=== PATIENT | male | born 1980 | race Caucasian/White ===

== ENCOUNTER 2025-10-16 18:24 | Inpatient (IN) | payer OTHER, SELFPAY ==
[2025-10-16 18:25] VITALS: BP 125/75; PULSE 86; RESP 20; TEMP 38.3; O2SAT 100; BMI 28.8
--- NOTE | 2025-10-16 18:30 | EX.ED.DYSGE1 ---
HPI History of Present Illness Chief Complaint: General Illness PFSH PFS Home Medications ?Medication ?Instructions ?Recorded ?Last Taken ?Type butalbital 50 mg-acetaminophen 325 1 tab PO .COMPLEX PRN pain 07/19/25 Unknown History mg tablet (Tencon) fluoxetine 20 mg capsule 20 mg PO DAILY 07/19/25 Unknown History Allergy/AdvReac Type Severity Reaction Status Date / Time No Known Allergies Allergy Verified 10/16/25 18:26 Social History (System 07/27/25 @ 05:46 by Wendy Devine) Smoking Status: Never smoker EXAM Physical Exam Const Vital Signs: 10/16/25 18:25 Temperature 100.9 F H Temperature Source Oral Pulse Rate 86 Respiratory Rate 20 H Blood Pressure 125/75 H Blood Pressure Mean 91 Pulse Ox 100 Oxygen Delivery Method Room Air [facility] Narrative Medical decision making narrative: HISTORY OF PRESENT ILLNESS: Chief complaint: Fever, fatigue and bodyaches 45-year-old male with no significant past medical history presents with fever, fatigue and bodyaches for 1 week. He states REVIEW OF SYSTEMS: Pertinent positives: Fever, fatigue and body ache Pertinent negatives: [] PHYSICAL EXAM: Nursing triage notes reviewed, Vital signs reviewed Constitutional: please see mdm HENT: MMM Eyes: Pupils equal round and reactive to light, Extraocular muscles intact Neck: No stridor, no JVD, full neck ROM Lungs: Clear to auscultation, No wheezing or rales. No increased work of breathing, no conversational dyspnea, no accessory muscle use, no nasal flaring. No respiratory distress noted Heart: Regular rate and rhythm, No murmurs, No rubs and No gallops, 2+ distal pulses (radial, femoral, posterior tibial) in all extremities Abdomen: Soft, there is no tenderness, rigidity, rebound or guarding, no obvious peritoneal signs, no palpable pulsatile abdominal masses, no auscultated abdominal bruit : No CVAT Extremities: No edema Neuro: No new focal neurological deficits, cranial nerves II through XII intact, 5/5 strength in all present extremities. Intact sensation to light touch in all present extremities, 2+ reflexes bilateral patella tendons. Skin: No rash or lesions noted MEDICAL DECISION MAKING: Chief Complaint: please see HPI External records reviewed: [] Factors affecting care: none [] Social determinants of health: none [] History obtained from others: none [] Consults: none [] [facility] Narrative: [] I considered the following differential diagnosis: [] I obtained [] to further determine if the patient was suffering from a life-threatening etiology. [] ALL IMAGES (IF OBTAINED) HAVE BEEN PERSONALLY REVIEWED AND INTERPRETED BY MYSELF. [] The patient and/or family, caregivers express understanding. The patient and/or family, caregivers agrees with the plan. Shared decision making: I will have a discussion with the patient and or visitors regarding risk/benefits of further testing or admission. They will be made aware of of the risk/benefits inherent in this decision they will be given the opportunity to voice understanding. Total critical care time today provided was at least 0 [] minutes. This excludes separately billable procedures. Critical care time (if documented) is secondary to the patient having high probability of clinically significant/life threatening deterioration in the patient's condition which required my urgent intervention. Impression: 1. [] 2. [] [] Dispo: [] This note was generated with Dapper dictation software. It may contain incorrect words, spelling, and punctuation that were not noted in review of the chart prior to signing. Discharge Plan Triage Chief Complaint: General Illness ED Provider: Vijay Teresa Dx/Rx/DC Orders Prescriptions: No Action fluoxetine 20 mg capsule 20 mg PO DAILY butalbital-acetaminophen [Tencon] 50-325 mg tablet 1 tab PO .COMPLEX PRN (Reason: pain) Rx Instructions: 1 TAB orally at onset of headache PRN; max 2 tabs daily Primary Care Provider: Larry Dickinson Referrals: Larry Dickinson MD [Primary Care Provider, Medical] Print Language: Nepalese
--- NOTE | 2025-10-16 19:39 | EDS_ITS ---
HPI History of Present Illness Chief Complaint: General Illness [facility] Medical History (Updated 10/16/25 @ 20:09 by Irina Steinberg) Hx of cancer of lung History of brain tumor Cancer of kidney Home Medications ?Medication ?Instructions ?Recorded ?Last Taken ?Type fluoxetine 20 mg capsule 20 mg PO DAILY 07/19/25 Unkn own History levetiracetam 500 mg tablet 500 mg PO BID 10/16/25 Unk nown History Allergy/AdvReac Type Severity Reaction Status Date / Time No Known Allergies Allergy Verified 10/16/25 18:26 Social History (System 07/27/25 @ 05:46 by Wendy Devine) Smoking Status: Former smoker EXAM Physical Exam Const Vital Signs: 10/16/25 18:25 10/16/25 20:00 10/16/25 20:00 Temperature 100.9 F H 100.7 F H Temperature Source Oral Oral Pulse Rate 86 86 Respiratory Rate 20 H 18 Respiratory Effort Normal Non-Labored Respiratory Pattern Normal Blood Pressure 125/75 H 112/82 H Blood Pressure Mean 91 92 Pulse Ox 100 100 Oxygen Delivery Method Room Air Room Air 10/16/25 21:00 10/16/25 22:00 10/16/25 23:00 Temperature 100.1 F H 99 F 98.9 F Temperature Source Oral Oral Oral Pulse Rate 83 85 78 Respiratory Rate 18 16 18 Respiratory Effort Respiratory Pattern Blood Pressure 115/69 110/73 124/74 H Blood Pressure Mean 84 85 90 Pulse Ox 98 94 96 Oxygen Delivery Method Room Air Room Air Room Air 10/16/25 23:21 Temperature 98.9 F Temperature Source Pulse Rate 78 Respiratory Rate 18 Respiratory Effort Respiratory Pattern Blood Pressure 124/74 H Blood Pressure Mean 90 Pulse Ox 96 Oxygen Delivery Method MDM MDM MDM Narrative Medical decision making narrative: HISTORY OF PRESENT ILLNESS: Chief complaint: Fever 45-year-old male history anxiety presents with fever, fatigue and bodyaches 1 week. He further states he is currently undergoing immunotherapy at [facility] by Dr. Woody for renal cancer. His last treatment was 3 weeks ago. He notes his recent blood work showed white blood cell count of only 2. He notes persistent fever with no obvious source of infection but does note chills and severe muscle aches. Notes a slight sore throat. Denies cough or shortness of breath. Denies abdominal pain. [place] vomiting. Denies urinary complaints. No hematuria. NO flank pain. REVIEW OF SYSTEMS: Pertinent positives: Fever, fatigue, body aches Pertinent negatives: As per [facility] PHYSICAL EXAM: Nursing triage notes reviewed, Vital signs reviewed Constitutional: please see [facility] HENT: MMM Eyes: Pupils equal round and reactive to light, Extraocular muscles intact Neck: No stridor, no JVD, full neck ROM Lungs: Clear to auscultation, No wheezing or rales. No increased work of breathing, no conversational dyspnea, no accessory muscle use, no nasal flaring. No respiratory distress noted Heart: Regular rate and rhythm, No murmurs, No rubs and No gallops, 2+ distal pulses (radial, femoral, posterior tibial) in all extremities Abdomen: Soft, there is no tenderness, rigidity, rebound or guarding, no obvious peritoneal signs, no palpable pulsatile abdominal masses, no auscultated abdominal bruit : No CVAT Extremities: No edema Neuro: No new focal neurological deficits, cranial nerves II through XII intact, 5/5 strength in all present extremities. Intact sensation to light touch in all present extremities, 2+ reflexes bilateral patella tendons. Skin: No rash or lesions noted MEDICAL DECISION MAKING: Chief Complaint: please see [facility] External records reviewed: Reviewed prior ED visit Factors affecting care: as per [facility] Social determinants of health: none History obtained from others: none Consults: Internal Medicine (Dr. Hola Gonzalez) [facility] Narrative: The patient was initially febrile otherwise hemodynamically stable. He was doctoring 100% room air. Exam no clear source of infection. The patient did not appear toxic or septic. I considered the following differential diagnosis: Neutropenic fever, COVID/RSV/flu, pneumonia, bacteremia, rhabdomyolysis I obtained a broad lab and imaging workup to further determine if the patient was suffering from a life-threatening etiology. Sepsis order set used. Initially assisted patient with IV fluids and Toradol for fever control. ALL IMAGES (IF OBTAINED) HAVE BEEN PERSONALLY REVIEWED AND INTERPRETED BY MYSELF. BMP with acute kidney injury with a creatinine of 2.2 from a baseline approximately 1 on prior studies. No significant electrolyte abnormalities. No sign of endorgan damage No coagulopathy CBC with no leukocytosis or neutropenia, noted stable anemia, no thrombocytopenia Liver enzymes slightly elevated CK within normal limits no sign of rhabdomyolysis Lipase is wnl indicating no pancreatic inflammation. Urinalysis shows no evidence of urinary inflammation suggestive of UTI COVID/flu/RSV negative Added an additional 1 L NS for ongoing hydration. Given the patient's acute kidney injury in the setting of relative immunocompromise and renal cancer I opted to admit the patient for IV hydration and close lab monitoring. Also thought it would benefit the patient to come in to the hospital to await cultures as well. Discussed with hospitalist who accepted for admission. The patient and/or family, caregivers express understanding. The patient and/or family, caregivers agrees with the plan. Shared decision making: I will have a discussion with the patient and or visitors regarding risk/benefits of further testing or admission. They will be made aware of of the risk/benefits inherent in this decision they will be given the opportunity to voice understanding. Total critical care time today provided was at least 0 minutes. This excludes separately billable procedures. Critical care time (if documented) is secondary to the patient having high probability of clinically significant/life th reatening deterioration in the patient's condition which required my urgent intervention. Impression: 1. Fever 2. Acute kidney injury 3. History of renal cancer Dispo: Admit to [facility] This note was generated with [employer]ende[employer] dictation software. It may contain incorrect words, spelling, and punctuation that were not noted in review of the chart prior to signing. Lab Data Labs: Laboratory Results - last 24 hr 10/16/25 10/16/25 10/16/25 20:05 20:08 21:05 WBC 4.3 L RBC 3.53 L Hgb 8.7 L Hct 27.7 L MCV 78.5 L MCH 24.6 L MCHC 31.4 L RDW Std Deviation 43.0 RDW Coeff of Benigno 14.9 H Plt Count TNP MPV TNP Immature Gran % (Auto) 0.500 Neut % (Auto) 58.1 Lymph % (Auto) 29.4 Kings % (Auto) 8.3 Eos % (Auto) 3.2 Baso % (Auto) 0.5 Absolute Neuts (auto) 2.5 Absolute Lymphs (auto) 1.27 Nucleated RBC % 0 Platelet Estimate ADEQUATE PT 14.5 INR 1.1 APTT 31.7 Sodium 135 Potassium 4.4 Chloride 102 Carbon Dioxide 21.8 Anion Gap 12 BUN 35 H Creatinine 2.20 H Estim Creat Clear Calc 39.17 L Est GFR (MDRD) Non-Af 36 L BUN/Creatinine Ratio 15.9 Glucose 91 Lactic Acid 1.2 Calcium 9.2 Total Bilirubin 0.31 AST 100 H ALT 140 H Alkaline Phosphatase 261 H Total Creatine Kinase 22 L Total Protein 7.2 Albumin 3.7 Globulin 3.4 Albumin/Globulin Ratio 1.1 Lipase 38 Urine Color Yellow Urine Clarity Sl. Cloudy Urine pH 5.0 Ur Specific [place] 1.020 Urine Protein 100 H Urine Glucose (UA) Normal Urine Ketones 5 H Urine Occult Blood 10 H Urine Nitrite Negative Urine Bilirubin 1 H Urine Urobilinogen Normal Ur Leukocyte Esterase 25 H Urine RBC 0-5 SEEN Urine WBC 0-5 SEEN Ur Squamous Epith Cells 0-5 SEEN Amorphous Sediment 2+ Urine Bacteria 2+ Urine Mucus 0 SEEN Radiography Diagnostic Testing: Clinical Impression(s) from Imaging Studies Chest X-Ray 10/16/25 20:20 IMPRESSION: No Acute Findings. Reading Location: [facility] Discharge Plan Triage Chief Complaint: General Illness ED Provider: Vijay Teresa Dx/Rx/DC Orders Prescriptions: No Action fluoxetine 20 mg capsule 20 mg PO DAILY levetiracetam 500 mg tablet 500 mg PO BID Primary Care Provider: Larry Dickinson Referrals: Larry Dickinson MD [Primary Care Provider, Medical] Print Language: Turkmen
--- NOTE | 2025-10-16 19:51 | EKG12_ITS ---
Test Reason : FEVER Blood Pressure : */* mmHG Vent. Rate : 82 BPM Atrial Rate : 82 BPM P-R Int : 158 ms QRS Dur : 80 ms QT Int : 370 ms P-R-T Axes : 48 35 30 degrees QTcB Int : 432 ms Normal sinus rhythm Normal ECG Confirmed by Arjun Sahu ([id number]), newspaper photo editor EVENS HENSON ([id number]) on 10/23/2025 6:49:35 AM Referred By: NIKI Confirmed By: Arjun Shau
[2025-10-16 20:00] VITALS: BP 112/82; PULSE 86; RESP 18; TEMP 38.2; O2SAT 100
[2025-10-16] MEDS: 0.9% Normal Saline (500mL Bag) 500 ML 1000 ML IV (20:15)
--- OUTSIDE RECORDS SUMMARY | 2025-10-16 20:17 | XMS RPT_ITS | CCD ---
Author Organization [facility] Care Team Providers Care Station Usher Name Role Phone GREG ARRINGTON Unavailable KIRAN FOUNTAIN MD Unavailable Jo BOWIE MD Unavailable Jayden CHAUDHARI, Zoraida Unavailable Unavailable Remigio RN, Shea Unavailable Unavaila monster Mendoza RN, Patti Unavailable Unavailable Unavailable Unavailable ROCKY FOUNTAIN MD Unavailable GREG ARRINGTON Unavailable Unav SOLANGE Penn MD Unavailable FOUNTAINNANCYROCKY T Admitting Unavailable FOUNTAIN, ROCKY T Primary Care Unavailable FOUNTAIN, ROCKY T Consulting Unavailable FOUNTAIN, ROCKY T Attending Unavailable PROVIDER, UNKNOWN Consulting Unavailable PROVIDER, UNKNOWN Consulting Unavailable PROVIDER, UNKNOWN Consulting Unavailable KATHE, DEE DEE T Admitting Unavailable KATHE, DEE DEE T Primary Care Unavailable KATHE, DEE DEE T Attending Unavailable FOUNTAIN, ROCKY T Consulting Unavailable PROVIDER, UNKNOWN Consulting Unavailable PROVIDER, UNKNOWN Consulting Unavailable PROVIDER, UNKNOWN Consulting Unavailable KATHE, DEE DEE T Admitting Unavailable KATHE, DEE DEE T Primary Care Unavailable KATHE, DEE DEE T Attending Unavailable FOUNTAIN, ROCKY T Consulting Unavailable PROVIDER, UNKNOWN Consulting Unavailable PROVIDER, UNKNOWN Consulting Unavailable PROVIDER, UNKNOWN Consulting Unavailable KIARA CARPENTER MD Unavailable Evette Hernandez Unavailable Unavailable Andrew DE PAZ, Dr. Phan Attending Physician Dr. Sylvester Morales MD Emergency Department Physici an Dr. Rocky Fountain MD Primary Care Physician Fountain, Rocky Primary Care Unavailable Sylvester Morales Attending Unavailable Fountain, Rocky Referring Unavailable Fountain, Rocky Attending Unavailable Alok Rocky Primary Care Unavailable Unavailable Primary Care Provider Unavailabl e CONSULT, ONCOLOGY Attending Unavailable SELF, SELF Referring Unavailable JONES, LORENZOAN Referring Unavailable JONES, LORENZOAN Attending Unavailable SELF, SELF Referring Unavailable LORENZO JONESAN Attending Unavailable GLORIA WOODY Attending Unavailable MARIA DEL ROSARIO, BRAYAN Referring Unavailable MARIA DEL ROSARIO, BRAYAN Referring Unavailable MARIA DEL ROSARIO, BRAYAN Admitting Unavailable MARIA DEL ROSARIO, BRAYAN Attending Unavailable MARIA DEL ROSARIO, BRAYAN Referring Unavailable MARIA DEL ROSARIO, BRAYAN Admitting Unavailable MARIA DEL ROSARIO, BRAYAN Attending Unavailable MARIA DEL ROSARIO, RBAYAN Referring Unavailable MARIA DEL ROSARIO, BRAYAN Referring Unavailable MARIA DEL ROSARIO, BRAYAN Admitting Unavailable MARIA DEL ROSARIO, BRAYAN Attending Unavailable MARIA DEL ROSARIO, BRAYAN Referring Unavailable ARIAN BAUTISTA Admitting Unavailable JAMIN MORALES Referring Unavailable MARIA DEL ROSARIO, BRAYAN Attending Unavailable GLORIA WOODY Referring Unavailable MARIA DEL ROSARIO, BRAYAN Referring Unavailable JAYRO SOLIMAN Attending Unavailable GLORIA WOODY Referring Unavailable Medications Current Medications Medication Drug Class(es) Dates Sig (Normalized) Sig (Original) acetaminophen 325 mg / butalbital 50 mg oral tablet (16 sources) Barbiturate Start: 07-19-2025 take 2 tablets by mouth once daily as needed for pain Butalbital-Acetam inophen (Tencon) 50-325 mg tablet Active 1 {tbl} PO .COMPLEX as needed for pain July 19, 2025 12:00am 1 TAB orally at onset of headache PRN; max 2 tabs daily Complies with drug therapy Start: 07-10-2025 End: 08-09-2025 butalbitaL 50 mg-acetaminoph en 300 mg capsule ; 1 (one) capsule at onset of headache; may repeat in 2 hours if not relieved for 30 days Quantity: 30 {Capsule} Refills: 0 Ordered: 12-Aug-2025 WATSON Mendoza Start: 10-Jul-2025 End: 09-Aug-2025 Status: Inactive FLUoxetine 20 mg oral capsule (20 sources) Serotonin Reuptake Inhibitor Start: 06-26-2025 FLUoxetine 20 mg capsule ; 1 (one) Capsule daily for 90 days Quantity: 90 {Capsule} Refills: 1 Ordered: 26-Jun-2025 MD KIARA CARPENTER Start: 26-Jun-2025 Start: 06-26-2024 FLUoxetine 20 mg capsule ; 1 (one) Capsule daily for 90 days Quantity: 90 {Capsule} Refills: 3 Ordered: 26-Jun-2024 JOSEFA VERA Start: 26-Jun-2024 Start: 05-04-2023 End: 05-02-2024 FLUoxetine 20 mg capsule ; 1 (one) Capsule daily for 90 days Quantity: 90 {Capsule} Refills: 3 Ordered: 02-May-2024 WATSON Carpenter Start: 04-May-2023 End: 02-May-2024 Status: Inactive Start: 04-15-2021 End: 10-12-2021 take 1 tablet by mouth once daily FLUoxetine HCl 20 MG Oral Tablet ; 1 daily for 0 days Refills: 0 Ordered: 12-Oct-2021 WATSON Mendoza Start: 15-Apr-2021 End: 12-Oct-2021 Status: Inactive levETIRAcetam 500 mg oral ta blet (1 source) Start: 07-21-2025 levETIRAcetam 500 MG tablet 1 tablet by Enteral route 2 times daily. 07/21/2025 Active Completed/Discontinued Medications Medication Drug Class(es) Dates Sig (Normalized) Sig (Original) 24 hr buPROPion hydrochloride 150 mg extended release oral tablet (20 sources) Aminoketone Start: 11-02-2023 End: 05-02-2024 Wellbutrin XL 150 mg 24 hr tablet, extended release ; 1 (one) tablet daily, in the morning for 30 days Quantity: 30 {Tablet} Refills: 2 Ordered: 02-May-2024 WATSON Carpenter Start: 02-Nov-2023 End: 02-May-2024 Status: Inactive 24 hr nicotine 0.583 mg/hr transdermal system (20 sources) Cholinergic Nicotinic Agonist Start: 01-21-2024 End: 02-20-2024 apply 1 dose transdermal route once daily nicotine 14 mg/24 hr daily transdermal patch ; 1 (one) patch, transdermal 24 hours daily for 30 days Quantity: 30 {Each} Refills: 0 Ordered: 21-Jan-2024 JOSEFA VERA M Start: 21-Jan-2024 End: 20-Feb-2024 Status: Inactive Start: 12-21-2023 apply 1 dose transde rmal route once daily nicotine 21 mg/24 hr daily transdermal patch ; 1 (one) patch, transdermal 24 hours daily for 30 days Quantity: 30 {Each} Refills: 0 Ordered: 21-Dec-2023 JOSEFA VERA Start: 21-Dec-2023 pantoprazole 40 mg delayed release oral tablet (1 source) Proton Pump Inhibitor Start: 07-21-2025 End: 08-26-2025 take 1 tablet by mouth once daily Pantoprazole [address] tablet DR Take 1 tablet by mouth daily. 07/21/2025 08/26/2025 Discontinued (Therapy completed) varenicline 1 mg oral tablet (20 sources) Partial Cholinergic Nicotinic Agonist Start: 02-29-2016 End: 11-21-2016 take 1 tablet by mouth twice daily Chantix Continuing Month Ryne 1 MG Oral Tablet ; 1 (one) Tablet bid for 30 days Quantity: 60 {Tablet} Refills: 1 Ordered: 21-Nov-2016 Start: 29-Feb-2016 End: 21-Nov-2016 Status: Inactive Comments: As directed on package Comment on above: As directed on kartik ge Problems Active Problems Problem Classification Problem Date Documented Date Episodic/Chronic Abdominal hernia (20 sources) Left inguinal hernia ; Translations: [Unilateral inguinal hernia, without obstruction or gangrene, not specified as recurrent] Onset: 05-06-2025 2025 Episodic Abdominal pain (20 sources) Left inguinal pain; Translations: [Left lower quadrant pain] Onset: 05-06-2025 04-30-2025 Episodic Administrative/social admission (20 sources) Patient encounter status; Translations: [Tobacco abuse counseling] 11-02-2023 Episodic Cancer of bronchus; lung (4 sources) Malignant tumor of lung; Translations: [Malignant neoplasm of unspecified part of unspecified bronchus or lung] 08-12-2025 Chronic Cancer of kidney and renal pelvis (6 sources) Malignant tumor of kidney; Translations: [Malignant neoplasm of left kidney, except renal pelvis] Onset: 08-05-2025 08-27-2025 Chronic Conditions associated with dizziness or vertigo (20 sources) Conditions associated with dizziness or vertigo 11-21-2016 Deficiency and other anemia (20 sources) Anemia; Translations: [Anemia, unspecified] 07-13-2025 Episodic Headache; including migraine (9 sources) Muscular headache ; Translations: [Tension-type headache, unspecified, not intractable] 07-10-2025 Chronic Headache; including migraine (20 sources) Headache disorder; Translations: [Headache] 07-16-2025 Episodic Headache; including migraine (3 sources) Headache; including migraine; Translations: [Headache, unspecified] Onset: 07-19-2025 Maintenance chemotherapy; radiotherapy (1 source) Encounter for antineoplastic immunotherapy; Translations: [Encounter for antineoplastic immunotherapy] Onset: 08-19-2025 Chronic Mood disorders (20 sources) Depressive disorder; Translations: [Depressive disorder, not elsewhere classified] 11-02-2023 Chronic Comment on above: Dx: 2021Current tx: fluoxetine Past tx: none PHQ GADCounseling: neverPrevious hosp: no Nutritional deficiencies (20 sources) Serum iron low; Translations: [Iron deficiency] Onset: 08-19-2025 07-17-2025 Episodic Other circulatory disease (20 sources) Elevated blood pressure; Translations: [Elevated blood-pressure reading, without diagnosis of hypertension] 11-02-2023 Episodic Other liver diseases (20 sources) Alkaline phosphatase raised; Translations: [Abnormal levels of other serum enzymes] 07-13-2025 Episodic Other lower respiratory disease (1 source) Solitary pulmonary nodule; Translations: [Lung nodule] Onset: 07-19-2025 Episodic Other nervous system disorders (1 source) Cerebral edema; Translations: [Cerebral edema] 07-19-2025 Chronic Other nervous system disorders (1 source) Mass lesion of brain; Translations: [Other specified disorders of brain] 07-19-2025 Chronic Other nervous system disorders (1 source) Dysarthria; Translations: [Dysarthria and anarthria] 07-19-2025 Episodic Other nutritional; endocrine; and metabolic disorders (20 sources) Hypercalcemia; Translations: [Hypercalcemia] 07-13-2025 Chronic Other nutritional; endocrine; and metabolic disorders (1 source) Hypercalcemia; Translations: [Hypercalcaemia of malignancy] Onset: 08-05-2025 Chronic Other nutritional; endocrine; and metabolic disorders (1 source) Personal history of other endocrine, nutritional and metabolic disease; Translations: [History of iron deficiency] Onset: 08-05-2025 Episodic Otitis media and related conditions (20 sources) Dysfunction of bilateral eustachian tubes; Translations: [Unspecified Eustachian tube disorder, bilateral] 11-02-2023 Episodic Secondary malignancies (1 source) Secondary malignant neoplasm of bilateral lungs; Translations: [Secondary malignant neoplasm of right lung] Onset: 08-05-2025 08-27-2025 Chronic Secondary malignancies (1 source) Secondary malignant neoplasm of brain; Translations: [Secondary malignant neoplasm of brain] Onset: 07-20-2025 08-27-2025 Chronic Secondary malignancies (2 sources) Secondary malignant neoplasm of brain; Translations: [Secondary malignant neoplasm of brain (HCC)] Onset: 07-21-2025 Chronic Secondary malignancies (1 source) Secondary malignant neoplasm of right lung; Translations: [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 Bowie. The test(s) that you had done were/was blood work (Your blood count is slightly low (mild anemia). We should now check your iron level. I would also recommend a colonoscopy (these are recommended starting at age 45 to screen for colon cancer, but anemia is another indication for this). Please let us know if we may schedule this for you.Your calcium level was elevated. This can occur due to a variety of causes, but there is a follow up test which is needed to help identify whether the ionized calcium (active form of calcium in the body) is also elevated. Sometimes an increase in the hormone called parathyroid hormone can cause the calcium level to be elevated. I would also like to check this level at the same time. Your alkaline phosphatase level was elevated. This can be due to health related issues with the intestines, the liver or the bones. Sometimes all 3 sources are contributing in a high normal proportion which pushes the total alkaline phosphatase level to a point that is above the laboratory's reference range, but in other cases one source is the major contributor. In order to better determine the source and to see if any further workup is needed, there is an additional blood test that must be performed.Please call our office to schedule these tests.). 07-13-2025 Unclassified (2 sources) Labs Only; Translations: [Labs Only] Onset: 08-26-2025 Past or Other Problems Problem Classification Problem Date Documented Date Episodic/Chronic Mood disorders (20 sources) Mood disorders Onset: 08-26-2025 05-04-2023 Unclassified (20 sources) Depressive Disorders - The last clinic visit was 6 month(s) ago. Note for Depressive disorders: feeling good on med. 11-02-2023 Unclassified (20 sources) !Patient notification of lab results - JOSEFA Hilton. The test(s) that you had done were/was blood work. Your tests showed the following abnormalities: low iron, borderline cholesterol . You should call our office if you have any questions. Please follow up as scheduled. Note for !Patient notification of lab results : You may have more energy by adding an iron supplement to your diet. I would also recommend avoid fried and fatty foods and increasing fresh fruits and vegetables. Please call with any questions about this. Otherwise blood work looks really good. Thanks, Garry! 10-13-2021 Unclassified (20 sources) Depressive Disorders - Note for Depressive disorders: transfer from Dr Emerson. c/o fatigue. Needs rx for med. 04-15-2021 Unclassified (20 sources) [ADDITIONAL REASON] Ear pain - The onset of the ear pain has been acute. It is both ears (right worse than left). The ear pain is characterized as a pressure sensation. There has been no associated ear discharge or fever. Note for Ear pain: c/ o ringing in ears. 04-15-2021 Unclassified (20 sources) Smoking Cessation - Note for Smoking cessation: Pt said he would like to discuss trying Chantix. Here for exam. 11-16-2015 Unclassified (20 sources) Depressive Disorders - It is classified as dysthymic disorder. The last clinic visit was 6 month(s) ago. Note for Depressive disorders: Feeling good and stopped his medication about 6 weeks ago. No days of crying. No thoughts of hurting self. 05-02-2024 Unclassified (7 sources) Ear pain - The onset of the ear pain has been acute. It is both ears (right worse than left). The ear pain is characterized as a pressure sensation. There has been no associated ear discharge or fever. Note for Ear pain: c/ o ringing in ears. 04-15-2021 Unclassified (7 sources) [ADDITIONAL REASON] Depressive Disorders - Note for Depressive disorders: transfer from Dr Emerson. c/o fatigue. Needs rx for med. 04-15-2021 Unclassified (20 sources) Groin Pain - Note for Groin pain: Pt has had 2 episodes in the last 2 weeks with sharp left side groin pain. He also goes to the bathroom about every 2-3 hours during the day. 04-30-2025 Unclassified (20 sources) !Patient notification of lab results - Dr. Fountain. The test(s) that you had done were/was an ultrasound (This showed a hernia. I recommend you see a surgeon for possible repair. Let us know if you'd like us to set up a referral for you). You should call our office if you have any questions. 05-07-2025 Unclassified (18 sources) Depressive Disorders - The last clinic visit was 12 month(s) ago. Note for Depressive disorders: hernia surgery 3 weeks ago. 06-26-2025 Unclassified (15 sources) Headache - Symptoms include headache, while symptoms do not include nausea, vomiting, photophobia or phonophobia. The pain is located in the entire head. Onset was 3 week(s) ago. The pain is mostly during the day. Headache triggers include movement. Symptoms are relieved by rest. Associated symptoms include vertigo. Note for Headache: pt had hernia surgery 5 weeks ago. Pt is back to work. 07-10-2025 Unclassified (12 sources) Headache - Note for Headache: Pt was seen 07/10/25 for tension headaches. He was given RX for pain, but it's not helping. He said the pain comes and goes, but was worse yesterday. Today his head is pounding, he feels dizzy, and his eye sight goes bad with the pain. 07-16-2025 Unclassified (10 sources) !Patient notification of lab results - Dr. Bowie. The test(s) that you had done were/was blood work (Your iron is on the very lowest side of normal. Please get ferrous sulfate 325 mg over the counter and take daily or every other day. Please watch to avoid constipation. Recheck labs in 3 months. Please call to schedule the lab.). You should call our office if you have any questions. 07-17-2025 Results Test Name Value Interpretation Reference Range Facility [facility]ARRY HERNANDEZ ([id number]) 1980 M Date Time Provider Department 09[facility]02[facility] During your visit today, we recorded the following information about you: Tommie Che 09/02/2025 9:02 AM Signed Patient approved for [facility] for Opdivo and Yervoy effective 08/31/25 - 08/30/26 Program ID: [id number] OB made to [facility] at [phone] to schedule Opdivo+Yervoy shipments via PAP. Spoke with Abril. Opdivo+Yervoy scheduled to deliver to [facility] on Sunday09/04/25 for patient's upcoming administrations on 09/08/25 (Acct ID: [id number]) and 09/29/25 (Acct ID: [id number]). Pharmacy team notified. Confirmed shipping address: [address] [place] [address] Attn: [place] [address]. Allergies As of Date: 09/02/2025 (No Known Allergies) Date Reviewed: 08/19/2025 Reviewed by: Jayro Soliman APRN.MOLD YARN SUPERVISOR - Fully Assessed Reason for Visit: Opdivo+Yervoy PAP Approval and Shipment [Other] Prescriptions as of 09/02/2025 - dexAMETHasone (DECADRON) 2 mg tablet Start the day after your Gamma Knife Procedure: Decadron (dexamethasone) Take 4 mg (2 tablets) daily for 3 days. Take 2 mg (1 tablet) daily for 3 days then Stop Decadron Patient should start on August 18, 2025. - ferrous sulfate 325 mg (65 mg iron) tablet Take 1 tablet by mouth every other day. - levETIRAcetam (KEPPRA) 500 mg tablet Take 1 tablet by mouth two times a day. - pantoprazole DR (PROTONIX) 40 mg tablet Take 1 tablet by mouth once daily. Continue taking daily while taking decadron (dexamethasone) - FLUoxetine (PROZAC) 20 mg capsule Take 20 mg by mouth once daily. Problem List As Of Date 09/02/2025 Noted Resolved Vasogenic edema (HCC) [G93.6] 07/19/2025 Multiple pulmonary nodules [R91.8] 07/20/2025 Malignant neoplasm metastatic to brain (HCC) [C*07/20/2025 At risk for seizures [Z91.89] 07/21/2025 Neoplasm causing mass effect and brain compress*07/21/2025 Left kidney mass [N28.89] 07/21/2025 Metastatic renal cell carcinoma (HCC) [C64.9] 08/05/2025 Malignant neoplasm metastatic to both lungs (HC*08/05/2025 Hypercalcaemia of malignancy [E83.52] 08/05/2025 Encounter Status:Closed by TOMMIE CHE on 09/02/25 [facility] CBC W Auto Differential pane l (Bld)on 08-19-2025 Basophils (Bld) [#/Vol] 10*3/uL Normal <0.11 [facility] Comment on above: Order Comment: Speci men Type: BLOOD SPECIMENOrdering Facility: [facility] Address: [address] [place] [address] Performed By: #### 5 7021-8 ####[facility] [id number] [place] [address] [place] Basophils/100 WBC (Bld) 0.1 % Normal [facility] Comment on above: Order Comment: Speci men Type: BLOOD SPECIMENOrdering Facility: [facility] Address: [address] [place] [address] Performed By: #### 5 7021-8 ####[facility] [id number] [place] [address] [place] Differential cell count method Nom (Bld) Auto Normal [facility] Comment on above: Order Comment: Speci men Type: BLOOD SPECIMENOrdering Facility: [facility] Address: [address] [place] [address] Performed By: #### 5 7021-8 ####[facility] [id number] [place] [address] [place] Eosinophils (Bld) [#/Vol] 10*3/uL Normal <0.46 [facility] Comment on above: Order Comment: Speci men Type: BLOOD SPECIMENOrdering Facility: [facility] Address: [address] [place] [address] Performed By: #### 5 7021-8 ####[facility] [id number] [address] [place] Eosinophils/100 WBC (Bld) 0.0 % Normal [facility] Comment on above: Order Comment: Speci men Type: BLOOD SPECIMENOrdering Facility: [facility] Address: [address] [place] [address] Performed By: #### 5 7021-8 ####[facility] [id number] [address] [place] Erythrocyte distribution width (RBC) [Ratio] 14.6 % Normal 11.5-15.0 [facility] Comment on above: Order Comment: Speci men Type: BLOOD SPECIMENOrdering Facility: [facility] Address: [address] [place] [address] Performed By: #### 5 7021-8 ####[facility] [id number] [address] [place] Hematocrit (Bld) [Volume fraction] 32.7 % Low 39.0-51.0 [facility] Comment on above: Order Comment: Speci men Type: BLOOD SPECIMENOrdering Facility: [facility] Address: [address] [place] [address] Performed By: #### 5 7021-8 ####[facility]CL[facility] [id number] [place] [address] [place] Hemoglobin (Bld) [Mass/Vol] 10.8 g/dL Low 13.0-17.0 [facility] Comment on above: Order Comment: Speci men Type: BLOOD SPECIMENOrdering Facility: [facility] Address: [address] [place] [address] Performed By: #### 5 7021-8 ####[facility] [id number] [place] [address] [place] Immature granulocytes (Bld) [#/Vol] 0.05 10*3/uL Normal <0.10 [facility] Comment on above: Order Comment: Speci men Type: BLOOD SPECIMENOrdering Facility: [facility] Address: [address] [place] [address] Performed By: #### 5 7021-8 ####[facility]CL[facility] [id number] [place] [address] [place] Immature granulocytes/100 WBC (Bld) 0.6 % Normal [facility] Comment on above: Order Comment: Speci men Type: BLOOD SPECIMENOrdering Facility: [facility] Address: [address] [place] [address] Performed By: #### 5 7021-8 ####[facility]CL[facility] [id number] [place] [address] [place] Lymphocytes (Bld) [#/Vol] 0.76 10*3/uL Low 1.00-4.00 [facility] Comment on above: Order Comment: Speci men Type: BLOOD SPECIMENOrdering Facility: [facility] Address: [address] [place] [address] Performed By: #### 5 7021-8 ####[facility]CLIA [id number] [place] [address] [place] Lymphocytes/100 WBC (Bld) 8.4 % Normal [facility] Comment on above: Order Comment: Speci men Type: BLOOD SPECIMENOrdering Facility: [facility] Address: [address] [place] [address] Performed By: #### 5 7021-8 ####[facility]CLIA [id number] [place] [address] [place] MCH (RBC) [Entitic mass] 27.2 pg Normal 26.0-34.0 [facility] Comment on above: Order Comment: Speci men Type: BLOOD SPECIMENOrdering Facility: [facility] Address: [address] [place] [address] Performed By: #### 5 7021-8 ####[facility]CLIA [id number] [address] [place] MCHC (RBC) [Mass/Vol] 33.0 g/dL Normal 30.5-36.0 [facility] Comment on above: Order Comment: Speci men Type: BLOOD SPECIMENOrdering Facility: [facility] Address: [address] [place] [address] Performed By: #### 5 7021-8 ####[facility]CL[facility] [id number] [address] [place] MCV (RBC) [Entitic vol] 82.4 fL Normal 80.0-100.0 [facility] Comment on above: Order Comment: Speci men Type: BLOOD SPECIMENOrdering Facility: [facility] Address: [address] [place] [address] Performed By: #### 5 7021-8 ####[facility] LABCLIA [id number] [place] [address] [place] Monocytes (Bld) [#/Vol] 0.35 10*3/uL Normal <0.87 [facility] Comment on above: Order Comment: Speci men Type: BLOOD SPECIMENOrdering Facility: [facility] Address: [address] [place] [address] Performed By: #### 5 7021-8 ####[facility] LABCLIA [id number] [place] [address] [place] Monocytes/100 WBC (Bld) 3.9 % Normal C [facility] Comment on above: Order Comment: Speci men Type: BLOOD SPECIMENOrdering Facility: [facility] Address: [address] [place] [address] Performed By: #### 5 7021-8 ####[facility] LABCLIA [id number] [place] [address] [place] Neutrophils (Bld) [#/Vol] 7.92 10*3/uL High 1.45-7.50 [facility] Comment on above: Order Comment: Speci men Type: BLOOD SPECIMENOrdering Facility: [facility] Address: [address] [place] [address] Performed By: #### 5 7021-8 ####[facility] LABCLIA [id number] [place] [address] [place] Neutrophils/100 WBC (Bld) 87.0 % Normal [facility] Comment on above: Order Comment: Speci men Type: BLOOD SPECIMENOrdering Facility: [facility] Address: [address] [place] [address] Performed By: #### 5 7021-8 ####[facility] LABCLIA [id number] [place] [address] [place] Nucleated RBC (Bld) [#/Vol] 10*3/uL Normal <0.01 [facility] Comment on above: Order Comment: Speci men Type: BLOOD SPECIMENOrdering Facility: [facility] Address: [address] [place] [address] Performed By: #### 5 7021-8 ####[facility] LABCLIA [id number] [place] [address] [place] Nucleated RBC/100 WBC (Bld) [Ratio] 0.0 /100 WBC Normal [facility] Comment on above: Order Comment: Speci men Type: BLOOD SPECIMENOrdering Facility: [facility] Address: [address] [place] [address] Performed By: #### 5 7021-8 ####[facility] LABCLIA [id number] [place] [address] [place] Platelet mean volume (Bld) [Entitic vol] 9.9 fL Normal 9.0-12.7 [facility] Comment on above: Order Comment: Speci men Type: BLOOD SPECIMENOrdering Facility: [facility] Address: [address] [place] [address] Performed By: #### 5 7021-8 ####[facility] LABCLIA [id number] [place] [address] [place] Platelets (Bld) [#/Vol] 211 10*3/uL Normal 150-400 [facility] Comment on above: Order Comment: Speci men Type: BLOOD SPECIMENOrdering Facility: [facility] Address: [address] [place] [address] Performed By: #### 5 7021-8 ####[facility] LABCLIA [id number] [place] [address] [place] RBC (Bld) [#/Vol] 3.97 10*6/uL Low 4.20-6.00 [facility] Comment on above: Order Comment: Speci men Type: BLOOD SPECIMENOrdering Facility: [facility] Address: [address] [place] [address] Performed By: #### 5 7021-8 ####[facility] LABCLIA [id number] [place] [id number] [place] WBC (Bld) [#/Vol] 9.09 10*3/uL Normal 3.70-11.00 [facility] Comment on above: Order Comment: Speci men Type: BLOOD SPECIMENOrdering Facility: [facility] Address: [address] [place] [address] Performed By: #### 5 7021-8 ####[facility] LABCLIA [id number] [place] [address] [place] CNOVSPon 08-19-2025 CNOVSP Visit (SP) Office ([facility]) GARRY HERNANDEZ ([id number]) 1980 M Date Time Provider Department 08/19/25 1:00 PM JAYRO SOLIMAN [facility] During your visit today, we recorded the following information about you: Temperature Pulse Respiration Blood pressure 98.1 degrees 72/minute 20/minute 124/72 Weight 75.4 kg Alma Rosa Sylvester LPN 08/19/2025 2:44 PM Signed Additional intake questions: Has the patient had fever, nausea, vomiting, diarrhea, constipation, fatigue for > 1 week? Yes, fatigue Does the patient have a decreased appetite? No Does patient want to see a Analyst [employer]? No (yes to any of above refer patient to schedulers for dietitian appointment) ) Does patient have any new or increased numbness or tingling of extremities? No Is patient interested in fertility information? No Does patient need any prescription refills? No Does patient have an advanced directive in place? 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 Garry Hernandez is a 45-year-old man with newly diagnosed metastatic clear cell renal cell carcinoma. He initially presented in June 2025 with 3 weeks of worsening headaches and word-finding difficulty. 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 CT chest showed scattered bilateral pulmonary nodules, and CT abdomen suggested possible hepatic lesions. He underwent GKRS on 07/21/2025 with symptom improvement. 08/19/2025: started ipi/nivo INTERVAL HISTORY: Completed another dose of GKRS on 08/17/25 - he is currently on dexamethasone 4mg once daily. No headaches or visual disturbance. Denies any hematuria. No new pain. REVIEW OF SYSTEMS: As described above. All other systems were reviewed and were negative. MEDICATIONS: dexAMETHasone (DECADRON) 2 mg tablet Start the day after your Gamma Knife Procedure: Decadron (dexamethasone) Take 4 mg (2 tablets) daily for 3 days. Take 2 mg (1 tablet) daily for 3 days then Stop Decadron Patient should start on August 18, 2025. ferrous sulfate 325 mg (65 mg iron) tablet Take 1 tablet by mouth every other day. (Patient not taking: Reported on 08/17/2025) levETIRAcetam (KEPPRA) 500 mg tablet Take 1 tablet by mouth two times a day. pantoprazole DR (PROTONIX) 40 mg tablet Take 1 tablet by mouth once daily. Continue taking daily while taking decadron (dexamethasone) (Patient not taking: Reported on 08/17/2025) FLUoxetine (PROZAC) 20 mg capsule Take 20 mg by mouth once daily. PHYSICAL EXAM ECOG 0 BP 124/72 Pulse 72 Temp 36.7 ?C (98.1 ?F) (Oral) Resp 20 Wt 75.4 kg (166 lb 3.6 oz) SpO2 98% BMI 28.52 kg/m? GENERAL: Well appearing and in NAD. Comfortable, alert, ambulatory. Presents with sister and . HEENT: Normocephalic. Mucous membranes moist. No pallor or jaundice. LUNGS: Breathing non-labored. SKIN: Without notable lesions or rash NEURO: Grossly intact EXT: Without erythema or edema. PSYCH: Normal affect and good eye contact LABS: Latest Ref Rng 08/19/2025 WBC 3.70 - 11.00 k/uL 9.09 RBC 4.20 - 6.00 m/uL 3.97 (L) Hemoglobin 13.0 - 17.0 g/dL 10.8 (L) Hematocrit 39.0 - 51.0 % 32.7 (L) MCV 80.0 - 100.0 fL 82.4 MCH 26.0 - 34.0 pg 27.2 MCHC 30.5 - 36.0 g/dL 33.0 RDW-CV 11.5 - 15.0 % 14.6 Platelet Count 150 - 400 k/uL 211 MPV 9.0 - 12.7 fL 9.9 Neut% % 87.0 Abs Neut (ANC) 1.45 - 7.50 k/uL 7.92 (H) Lymph% % 8.4 Abs Lymph 1.00 - 4.00 k/uL 0.76 (L) Lemhi% % 3.9 Abs [place]hi <0.87 k/uL 0.35 Eosin% % 0.0 Abs Eosin <0.46 k/uL <0.03 Baso% % 0.1 Abs Baso <0.11 k/uL <0.03 Immature Gran % % 0.6 IMMATURE GRANS (ABS) <0.10 k/uL 0.05 NRBC /100 WBC 0.0 Absolute nRBC <0.01 k/uL <0.01 DTYPE Auto Protein, Total 6.3 - 8.0 g/dL 7.1 Albumin 3.9 - 4.9 g/dL 4.2 Calcium 8.5 - 10.2 mg/dL 10.9 (H) Bilirubin, Total 0.2 - 1.3 mg/dL <0.2 (L) Alkaline Phosphatase 38 - 113 U/L 154 (H) AST 14 - 40 U/L 9 (L) ALT 10 - 54 U/L 19 Glucose 74 - 99 mg/dL 111 (H) BUN 9 - 24 mg/dL 18 Creatinine 0.73 - 1.22 mg/dL 0.82 Sodium 136 - 144 mmol/L 138 Potassium 3.7 - 5.1 mmol/L 4.0 Chloride 98 - 107 mmol/L 102 CO2 22 - 30 mmol/L 25 Anion Gap 8 - 15 mmol/L 11 eGFR >=60 mL/min/1.73m? 110 Legend: (L) Low (H) High IMAGING: MRI brain (07/20/25): 2.4 cm left temporal and 2.1 cm right occipital hemorrhagic met (more content not included)... Normal [facility] metabolic 2000 panelon 08-19-2025 Albumin [Mass/Vol] 4.2 g/dL Normal 3.9-4.9 [facility] Comment on above: Order Comment: Speci men Type: BLOOD SPECIMENOrdering Facility: [facility] Address: [address] [place] [address] Performed By: #### 2 4323-8 ####[facility] LABCLIA [id number] [place] [address] [place] ALP [Catalytic activity/Vol] 154 U/L High 38-113 [facility] Comment on above: Order Comment: Speci men Type: BLOOD SPECIMENOrdering Facility: [facility] Address: [address] [place] [address] Performed By: #### 2 4323-8 ####[facility] LABCLIA [id number] [place] [address] [place] ALT [Catalytic activity/Vol] 19 U/L Normal 10-54 [facility] Comment on above: Order Comment: Speci men Type: BLOOD SPECIMENOrdering Facility: [facility] Address: [address] [place] [address] Performed By: #### 2 4323-8 ####[facility] LABCLIA [id number] [place] [address] [place] Anion gap [Moles/Vol] 11 mmol/L Normal 8-15 [facility] Comment on above: Order Comment: Speci men Type: BLOOD SPECIMENOrdering Facility: [facility] Address: [address] [place] [address] Performed By: #### 2 4323-8 ####[facility] LABCLIA [id number] [place] [address] [place] AST [Catalytic activity/Vol] 9 U/L Low 14-40 [facility] Comment on above: Order Comment: Speci men Type: BLOOD SPECIMENOrdering Facility: [facility] Address: [address] [place] [address] Performed By: #### 2 4323-8 ####[facility] LABCLIA [id number] [place] [id number] [place] Bilirubin [Mass/Vol] mg/dL Low 0.2-1.3 [facility] Comment on above: Order Comment: Speci men Type: BLOOD SPECIMENOrdering Facility: [facility] Address: [address] [place] [address] Performed By: #### 2 4323-8 ####[facility] LABCLIA [id number] [place] [address] [place] Calcium [Mass/Vol] 10.9 mg/dL High 8.5-10.2 [facility] Comment on above: Order Comment: Speci men Type: BLOOD SPECIMENOrdering Facility: [facility] Address: [address] [place] [address] Performed By: #### 2 4323-8 ####[facility] LABCLIA [id number] [place] [address] [place] Chloride [Moles/Vol] 102 mmol/L Normal 98-107 [facility] Comment on above: Order Comment: Speci men Type: BLOOD SPECIMENOrdering Facility: [facility] Address: [address] [place] [address] Performed By: #### 2 4323-8 ####[facility] LABCLIA [id number] [place] [id number] [place] CO2 [Moles/Vol] 25 mmol/L Normal 22-30 [facility] Comment on above: Order Comment: Speci men Type: BLOOD SPECIMENOrdering Facility: [facility] Address: [address] [place], [place] [address] Performed By: #### 2 4323-8 ####[facility] LABCLIA [id number] [place] [address] [place] Creatinine [Mass/Vol] 0.82 mg/dL Normal 0.73-1.22 [facility] Comment on above: Order Comment: Speci men Type: BLOOD SPECIMENOrdering Facility: [facility] Address: [address] [place] [address] Performed By: #### 2 4323-8 ####[facility] LABCLIA [id number] [place] [address] [place] eGFRcr SerPlBld CKD-EPI 2020 110 mL/min/1.73m??? Normal >=60 [facility] Comment on above: Order Comment: Jihan neri Type: BLOOD SPECIMENOrdering Facility: [facility] Address: [address] [place] [address] Result Comment: Rhonda mated Glomerular Filtration Rate (eGFR) is calculated using the 2020 CKD-EPI creatinine equation. This equation utilizes serum creatinine, sex, and age as parameters. The creatinine assay has traceable calibration to isotope dilution-mass spectrometry. Refer to KDIGO guidelines for clinical interpretation. In patients with unstable renal function, e.g. those with acute kidney injury, the eGFR may not accurately reflect actual GFR. Performed By: #### 2 4323-8 ####[facility] LABIA [id number] [place] [address] [place] Glucose [Mass/Vol] 111 mg/dL High 74-99 [facility] Comment on above: Order Comment: Jihan neri Type: BLOOD SPECIMENOrdering Facility: [facility] Address: [address] [place] [address] Result Comment: The [place] Diabetes Association (ADA) provides guidance for cutoff values for fasting glucose and random glucose. The ADA defines fasting as no caloric intake for at least 8 hours. Fasting plasma glucose results between 100 to 125 mg/dL indicate increased risk for diabetes (prediabetes). Fasting plasma glucose results greater than or equal to 126 mg/dL meet the criteria for diagnosis of diabetes. In the absence of unequivocal hyperglycemia, results should be confirmed by repeat testing. In a patient with classic symptoms of hyperglycemia or hyperglycemic crisis, random plasma glucose results greater than or equal to 200 mg/dL meet the criteria for diagnosis of diabetes. Reference: Standards of Medical Care in Diabetes 2016, [place] [employer] Association. Diabetes Care. 2016.39(Suppl 1). Performed By: #### 2 4323-8 ####[facility] LABCLIA [id number] [place] [address] [place] Potassium [Moles/Vol] 4.0 mmol/L Normal 3.7-5.1 [facility] Comment on above: Order Comment: Speci men Type: BLOOD SPECIMENOrdering Facility: [facility] Address: [address] [place] [address] Performed By: #### 2 4323-8 ####[facility] LABCLIA [id number] [place] [address] [place] Protein [Mass/Vol] 7.1 g/dL Normal 6.3-8.0 [facility] Comment on above: Order Comment: Speci men Type: BLOOD SPECIMENOrdering Facility: [facility] Address: [address] [place] [address] Performed By: #### 2 4323-8 ####[facility] LABCLIA [id number] [place] [address] [place] Sodium [Moles/Vol] 138 mmol/L Normal 136-144 [facility] Comment on above: Order Comment: Speci men Type: BLOOD SPECIMENOrdering Facility: [facility] Address: [address] [place] [address] Performed By: #### 2 4323-8 ####[facility] LABCLIA [id number] [place] [address] [place] Urea nitrogen [Mass/Vol] 18 mg/dL Normal 9-24 [facility] Comment on above: Order Comment: Speci men Type: BLOOD SPECIMENOrdering Facility: [facility] Address: [address] [place] [address] Performed By: #### 2 4323-8 ####[facility] LABCLIA [id number] [address] [place] CNOVon 08-17-2025 CNOV Office Visit ([facility] ) GARRY HERNANDEZ ([id number]) 1980 M Date Time Provider Department 08/17/25 7:30 AM PLACEMENT RADHA ZAVALETA During your visit today, we recorded the following information about you: Pulse Respiration Blood pressure 69/minute 19/minute 130/71 Alexa Hartman RN 08/19/2025 6:32 AM Addendum August 17, 2025 1126 Garry arrived ambulatory with: , Neoma and other elders from his community 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 1318 Arrived from imaging to GK and had pt get back into his clothes. Transportation home verified: yes, with milk tanker driverAide, ph [phone]. Garry here for today for imaging, mask fitting, pre-planning for Icon mask based Gamma Knife Stereotactic Radiosurgery by radiation therapist, and single session mask based treatment. ID verified with patient with two identifiers, name and birthdate. Alexa Hartman RN Garry assessed for the following: Does Garry have any pain? No. Pain 0 on scale of 0-10 Does Garry have: Difficulty chewing and/or swallowing: no Fall risk assessment: Not at risk for falls Concerns about physical or emotional abuse: no Allergies reviewed with patient, yes. [id number] Mask completed. To imaging for CT Scan and MRI. Garry Hernandez returned to department for treatment # 1 of 1. Is patient on immunotherapy? Intends to start on Sun. Patient's Age: 45 1416 Decadron 4 mg po given prior to Gamma Knife SRS per order of Dr. Maria Del Rosario MD.Printed and verbal discharge instructions given to patient. Instructions reviewed by this nurse and patient verbalized understanding. [id number] Patient assisted to treatment room. Gamma Knife SRS begun. 1652 Gamma Knife Stereotactic Radiosurgery Completed. 1657 Pt then discharged. WATSON Balderas Heidi, RN 08/17/2025 2:13 PM Signed [facility] Gamma Knife Center Discharge Instructions As with any surgery there are risks and potential side effects. There is a slight chance of developing brain swelling days or months after the Gamma Knife radiosurgery. If you experience nausea, vomiting, severe headache, visual changes, difficulty speaking, a seizure or any other symptom unusual for you, contact your physician immediately or go to the nearest emergency room. These may or may not be symptoms of brain swelling. If you go to a physician or hospital other than the [facility] with any problem related to the Gamma Knife procedure, please call your physician, Dr. Patricio Mix at [phone]. After your treatment, you may experience a mild headache. You may take non-aspirin pain medication, such as Tylenol, if you are having any discomfort. Some patients are placed on steroids, such as Decadron, and an antacid, such as Pepcid, following their radiosurgery. Certain conditions require these medications to lessen the chance of swelling around the treated area. When prescribed, these medications are extremely important in the period immediately following your Gamma Knife treatment and must be taken exactly as directed. The Gamma Knife nurse will discuss your particular situation with you. Do not take any decadron for the remainder of today. Please begin following the new decadron regimen below on 08/18/25: Decadron (dexamethasone) 2 mg each tablet (take with food or snack and avoid taking at bed time hours): Take 4 mg (2 tablets) daily for 3 days: Sunday (Breakfast), Sunday (Breakfast),and (Breakfast), then Take 2 mg (1 tablet) daily for 3 days: Sunday (Breakfast), Sunday (Breakfast),and Sunday (Breakfast), then Stop Decadron Take your pantoprazole (Protonix) while taking the above steroid. Resume all other regular medications. -Taking good care of your general health is an important step to recovery. Continue to eat well and get plenty of rest. If you have any non-urgent questions or concerns, please call your physician, Dr. Patricio Mix at [phone] Sunday through Sunday 8:00 am to 5:00 pm. In the evening or on weekends, call [phone] or toll-free [phone] and ask the movie shot camera operator to page your neurosurgeon's resident preparation supervisor. 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 Take 2 mg (1 tablet) daily for 3 days then Stop Decadron Patient should start on August 18, 2025. - ferrous sulfate 325 mg (65 mg iron) tablet Take 1 tablet by mouth (more content not included)... Normal [facility] CT BRAIN WO IVCONon 08-17-20 CT BRAIN WO IVCON * * *Final Report* * * DATE OF EXAM: Aug 17 2025 1:16PM [facility] 0504 - CT BRAIN WO IVCON / PROCEDURE REASON: Secondary malignant neoplasm of brain (HCC) * * * * Physician Interpretation * * * * EXAMINATION: CT STEREOLOCALIZATION BRAIN WITHOUT CONTRAST HISTORY: Secondary malignant neoplasm of brain (HCC) TECHNIQUE: CT head high-resolution stereotactic localization without contrast. M: [id number] CT Dose-Length Product (DLP): 1399 mGy*cm CT Dose Reduction Employed: No dose reduction techniques were required COMPARISON: Concurrent MRI, CT head 07/21/2025 RESULT: Interval decrease in size of heterogeneous peripherally hyperattenuating masses in the LEFT inferior mesial temporal lobe and lateral RIGHT occipital pole from 07/21/2025, better characterized on concurrent MRI. Extensive confluent surrounding vasogenic edema and associated mass effect also appears improved in the interim. No evidence of an acute infarct or other acute parenchymal process. No evidence of acute intracranial hemorrhage. There is no evidence of an extraaxial fluid collection. No significant chronic white matter changes apparent. There is no significant volume loss. Partial effacement of the LEFT temporal horn. Otherwise, the ventricles are within normal limits of size and configuration for age. The paranasal sinuses appear clear. Mastoid air cells appear clear. The orbits appear unremarkable. Extracranial soft tissues appear within normal limits. IMPRESSION: Stereotactic localization examination. Extracting Machine Operator: DARIEL Transcribe Date/Time: Aug 17 2025 1:24P Dictated by : WILBERT POWELL MD This examination was interpreted and the report reviewed and electronically signed by: WILBERT POWELL MD on Aug 17 2025 1:37PM EST [id number] Normal [facility] MRI BRAIN LOCAL W IVCONon MRI BRAIN LOCAL W IVCON * * *Final Repor t* * * DATE OF EXAM: Aug 17 2025 1:08PM [facility] [id number] - MRI BRAIN LOCAL W IVCON / PROCEDURE REASON: Secondary malignant neoplasm of brain (HCC) * * * * Physician Interpretation * * * * EXAMINATION: MRI BRAIN LOCAL W IVCON Clinical history provided by the ordering clinician via order question and clinical decision support entries: Other (document in comments), this is for gk planning purposes. Secondary malignant neoplasm of brain (HCC) . CPT 91667 With T1 Spacing. No Mprage. Brain MRI for Gamma Knife Planning Purpose s Pre Frame MRI. TECHNIQUE: High resolution, gadolinium enhanced axial gradient echo volume acquisition was performed of the head for preoperative localization. Supplemental: None MQ: [id number] Contrast: 6 mL Elucirem IV COMPARISON: MRI brain 07/20/2025 RESULT: Intracranial enhancement lesions itemized below on series 2 compared to prior MRI brain 07/20/2025: * Image 72; interval decrease in size of now 15 x 14 mm heterogeneous mixed necrotic and solid mass lesion centered within the inferomesial LEFT temporal lobe, previously measuring 20 x 20 mm. Extensive perilesional confluent intrinsic T1 hypointense signal abnormality throughout the subcortical and periventricular LEFT temporal lobe extending into the subinsular and deep white matter tracts also appears improved/decreased in distribution in the interim. Mild locoregional mass effect including gyral swelling and sulcal effacement. No herniation. * Image 81; interval decrease in size of now 19 x 13 mm heterogeneous mixed necrotic and part solid enhancing mass within the lateral RIGHT occipital pole, previously measuring 30 x 20 mm. Confluent perilesional intrinsic T1 hypointensity within the subcortical and periventricular RIGHT occipital lobe white matter appears markedly decreased in extent from prior with marked interval decrease without resolution of mild locoregional mass effect. No herniation. * Images 148-150; few clustered foci of enhancement within the LEFT postcentral gyrus, new from prior. No evidence of new or progressive enhancing intracranial lesions. There is no evidence of an acute intracranial process within the constraints of the exam. No evidence of an extra-axial fluid collection. The white matter is within normal limits of signal intensity for age. No significant volume loss for age. Normal ventricular caliber and morphology, improved from prior. Hypothalamic and pituitary region are grossly normal. Craniocervical junction is normal. No enhancing marrow replacement process. The paranasal sinuses appear grossly clear. Mastoid air cells appear grossly clear. The orbits appear grossly unremarkable. Extracranial soft tissues appear within normal limits. IMPRESSION: Preprocedure localization examination. Interval decrease in size of partially necrotic metastases in the RIGHT occipital and LEFT temporal lobes with improved vasogenic edema and mass effect in the interim. New clustered foci of enhancement in the LEFT postcentral gyrus/perirolandic region. Extracting Machine Operator: DARIEL Transcribe Date/Time: Aug 17 2025 1:25P Dictated by : WILBERT POWELL MD This examination was interpreted and the report reviewed and electronically signed by: WILBERT POWELL MD on Aug 17 2025 1:35PM EST [id number] Normal [facility] OPERATIVE NOon 08-17-2025 OPERATIVE NO HNO ID: [id number] Author: BRAAYN MIX MD Service: Neurosurgery Author Type: Physician Type: Operative Report Filed: 08/18/2025 07:44 Note Text: [facility] [address] [place] [address] [place] OPERATIVE REPORT NAME: Garry Hernandez [facility] NO.: [id number] MASK SIMULATION DATE: 2025-08-17 RADIATION TREATMENT START DATE: 2025-08-17 RADIATION TREATMENT END DATE: 2025-08-17 NUMBER OF FRACTIONS: 1 PREOPERATIVE DIAGNOSIS: Metastasis, renal POSTOPERATIVE DIAGNOSIS: Same OPERATION: 1 fraction mask gamma knife radiosurgery. ANESTHESIA: None SURGEON: Brayan Mix M.D. - Stereotactic treatment planning. RADIATION ONCOLOGIST: Juan Pradhan M.D. ASSISTANTS: NONE SPECIMEN: None EBL: 0 ccs OPERATIVE INDICATIONS: The full clinical history and indications for treatment were discussed in the initial neurosurgery visit note. The indications, risks, benefits, and alternatives were discussed with the patient who asked us to proceed. The patient is aware that this is the second of a 2 staged procedures in the management of this disorder. OPERATIVE FINDINGS: DESCRIPTION OF PROCEDURE: The patient was admitted to the [facility]. The [place] mask was created and a stereotactic cone-beam CT was obtained. The patient then underwent high-resolution MRI and CT imaging. The scans, including the cone-beam registration CT, were loaded in the planning computer and [place] gamma plan was used to perform fractionated radiosurgery dose planning. The lesions were treated as follows: Target 1 (R ocpt st 2) Location: R ocpt st 2 Prescription: 15 Gy to the 64% local isodose line. The plan uses 21 shots covering 100% of the target. GTV Volume: 2.389 cm3 CTV Volume: 2.389 cm3 Max linear size: 3.05 cm Conformality Index (PIV/CTV) = 1.962 Complexity: Simple Gradient Index: 3.12 Number of Fractions: 1 Target 2 (L mes tmpr st 2) Location: L mes tmpr st 2 Prescription: 12 Gy to the 64% local isodose line. The plan uses 25 shots covering 100% of the target. GTV Volume: 2.177 cm3 CTV Volume: 2.177 cm3 Max linear size: 2.42 cm Conformality Index (PIV/CTV) = 1.755 Complexity: Simple Gradient Index: 3.17 Number of Fractions: 1 Target 3 (L postcntr) Location: L postcntr Prescription: 24 Gy to the 96% local isodose line. The plan uses 4 shots covering 100% of the target. GTV Volume: 0.027 cm3 CTV Volume: 0.027 cm3 Max linear size: 0.65 cm Conformality Index (PIV/CTV) = 6.889 Complexity: Simple Gradient Index: 15.19 Number of Fractions: 1 Target 4 (L postcntr ant) Location: L postcntr ant Prescription: 24 Gy to the 89% local isodose line. The plan uses 1 shots covering 100% of the target. GTV Volume: 0.01 cm3 CTV Volume: 0.01 cm3 Max linear size: 0.39 cm Conformality Index (PIV/CTV) = 18.6 Complexity: Simple Gradient Index: 11.65 Number of Fractions: 1 After the usual software quality manager procedures were performed, fractionated radiosurgery was delivered with use of the Gamma Knife. The Gamma Knife checklists and time outs were performed during this procedure in a standard manner. Brayan Mix M.D. [facility] GARRY HERNANDEZ ([id number]) 1980 M Date Time Provider Department 08/13/25 BRAYAN MIX During your visit today, we recorded the following information about you: Lina Ortiz RN 08/13/2025 1:45 PM Signed I spoke with Garry's sister Aide as patient does not have a phone. Discussed Gamma Knife Stereotactic Radiosurgery procedure on 08/17/2025. Reviewed contents of Gamma Knife information package. Patient may take morning meds and can eat and drink. Encouraged patient to take any pain medications as ordered/needed as well as to bring any medications that they may take throughout the day so as not to miss any doses. Instructed Garry to report to [facility] at 0630. Patient instructed to disregard any other emails, phone calls, or [email or web address] messages regarding arrival time. Directions given regarding staff editor parking at [facility] entrance. Aide confirms they have a responsible adult to accompany them with transportation to and from their Gamma Knife appointment. All questions answered and Aide receptive to information and verbalized understanding. Lina Ortiz RN Allergies As of Date: 08/13/2025 (No Known Allergies) Date Reviewed: 08/05/2025 Reviewed by: Alma Rosa Sylvester LPN - Fully Assessed Reason for Visit: Information [1608] Prescriptions as of 08/13/2025 - ferrous sulfate 325 mg (65 mg iron) tablet Take 1 tablet by mouth every other day. - levETIRAcetam (KEPPRA) 500 mg tablet Take 1 tablet by mouth two times a day. - pantoprazole DR (PROTONIX) 40 mg tablet Take 1 tablet by mouth once daily. Continue taking daily while taking decadron (dexamethasone) - FLUoxetine (PROZAC) 20 mg capsule Take 20 mg by mouth once daily. 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 (HC*08/05/2025 Hypercalcaemia of malignancy [E83.52] 08/05/2025 Encounter Status:Closed by LINA ORTIZ on 08/13/25 Normal [facility] CBC W Auto Differential pane l (Bld)on 08-05-2025 Basophils (Bld) [#/Vol] 10*3/uL Normal <0.11 [facility] Comment on above: Order Comment: Speci men Type: BLOOD SPECIMENOrdering Facility: [facility] Address: [address] [place] [address] Performed By: #### 5 7021-8 ####[facility] LABCLIA [id number] [place] [address] [place] Basophils/100 WBC (Bld) 0.1 % Normal [facility] Comment on above: Order Comment: Speci men Type: BLOOD SPECIMENOrdering Facility: [facility] Address: [address] [place] [address] Performed By: #### 5 7021-8 ####[facility] LABCLIA [id number] [place] [address] [place] Differential cell count method Nom (Bld) Auto Normal [facility] Comment on above: Order Comment: Speci men Type: BLOOD SPECIMENOrdering Facility: [facility] Address: [address] [place] [address] Performed By: #### 5 7021-8 ####[facility]CLIA [id number] [place] [address] [place] Eosinophils (Bld) [#/Vol] 0.03 10*3/uL Normal <0.46 [facility] Comment on above: Order Comment: Speci men Type: BLOOD SPECIMENOrdering Facility: [facility] Address: [address] [place] [address] Performed By: #### 5 7021-8 ####[facility]CLIA [id number] [place] [address] [place] Eosinophils/100 WBC (Bld) 0.4 % Normal [facility] Comment on above: Order Comment: Speci men Type: BLOOD SPECIMENOrdering Facility: [facility] Address: [address] [place] [address] Performed By: #### 5 7021-8 ####[facility] LABIA [id number] [place] [address] [place] Erythrocyte distribution width (RBC) [Ratio] 15.3 % High 11.5-15.0 [facility] Comment on above: Order Comment: Speci men Type: BLOOD SPECIMENOrdering Facility: [facility] Address: [address] [place] [address] Performed By: #### 5 7021-8 ####[facility]CLIA [id number] [place] [address] [place] Hematocrit (Bld) [Volume fraction] 37.6 % Low 39.0-51.0 [facility] Comment on above: Order Comment: Speci men Type: BLOOD SPECIMENOrdering Facility: [facility] Address: [address] [place] [address] Performed By: #### 5 7021-8 ####[facility] LABCLIA [id number] [place] [address] [place] Hemoglobin (Bld) [Mass/Vol] 12.4 g/dL Low 13.0-17.0 [facility] Comment on above: Order Comment: Speci men Type: BLOOD SPECIMENOrdering Facility: [facility] Address: [address] [place] [address] Performed By: #### 5 7021-8 ####[facility] LABCLIA [id number] [address] Immature granulocytes (Bld) [#/Vol] 0.08 10*3/uL Normal <0.10 [facility] Comment on above: Order Comment: Speci men Type: BLOOD SPECIMENOrdering Facility: [facility] Address: [address] [place] [address] Performed By: #### 5 7021-8 ####[facility]CLIA [id number] [address] Immature granulocytes/100 WBC (Bld) 1.0 % Normal [facility] Comment on above: Order Comment: Speci men Type: BLOOD SPECIMENOrdering Facility: [facility] Address: [address] [place] [address] Performed By: #### 5 7021-8 ####[facility] LABCLIA [id number] [address] [place] Lymphocytes (Bld) [#/Vol] 0.60 10*3/uL Low 1.00-4.00 [facility] Comment on above: Order Comment: Speci men Type: BLOOD SPECIMENOrdering Facility: [facility] Address: [address] [place] [address] Performed By: #### 5 7021-8 ####[facility] LABCLIA [id number] [address] STATES [facility] Lymphocytes/100 WBC (Bld) 7.8 % Normal [facility] Comment on above: Order Comment: Speci men Type: BLOOD SPECIMENOrdering Facility: [facility] Address: [address] [place] [address] Performed By: #### 5 7021-8 ####[facility] LABCLIA [id number] [place] [address] [place] MCH (RBC) [Entitic mass] 27.0 pg Normal 26.0-34.0 [facility] Comment on above: Order Comment: Speci men Type: BLOOD SPECIMENOrdering Facility: [facility] Address: [address] [place] [address] Performed By: #### 5 7021-8 ####[facility]CLIA [id number] [place] [address] [place] MCHC (RBC) [Mass/Vol] 33.0 g/dL Normal 30.5-36.0 [facility] Comment on above: Order Comment: Speci men Type: BLOOD SPECIMENOrdering Facility: [facility] Address: [address] [place] [address] Performed By: #### 5 7021-8 ####[facility] LABCLIA [id number] [place] [address] [place] MCV (RBC) [Entitic vol] 81.9 fL Normal 80.0-100.0 C [facility] Comment on above: Order Comment: Speci men Type: BLOOD SPECIMENOrdering Facility: [facility] Address: [address] [place] [address] Performed By: #### 5 7021-8 ####[facility] LABCLIA [id number] [place] [address] [place] Monocytes (Bld) [#/Vol] 0.54 10*3/uL Normal <0.87 [facility] Comment on above: Order Comment: Speci men Type: BLOOD SPECIMENOrdering Facility: [facility] Address: [address] [place] [address] Performed By: #### 5 7021-8 ####[facility] LABCLIA [id number] [address] [place] Monocytes/100 WBC (Bld) 7.0 % Normal C [facility] Comment on above: Order Comment: Speci men Type: BLOOD SPECIMENOrdering Facility: [facility] Address: [address] [place] [address] Performed By: #### 5 7021-8 ####[facility] LABCLIA [id number] [place] [address] [place] Neutrophils (Bld) [#/Vol] 6.43 10*3/uL Normal 1.45-7.50 [facility] Comment on above: Order Comment: Speci men Type: BLOOD SPECIMENOrdering Facility: [facility] Address: [address] [place] [address] Performed By: #### 5 7021-8 ####[facility]CLIA [id number] [place] [address] [place] Neutrophils/100 WBC (Bld) 83.7 % Normal [facility] Comment on above: Order Comment: Speci men Type: BLOOD SPECIMENOrdering Facility: [facility] Address: [address] [place] [address] Performed By: #### 5 7021-8 ####[facility] LABCLIA [id number] [place] [address] [place] Nucleated RBC (Bld) [#/Vol] 10*3/uL Normal <0.01 [facility] Comment on above: Order Comment: Speci men Type: BLOOD SPECIMENOrdering Facility: [facility] Address: [address] [place] [address] Performed By: #### 5 7021-8 ####[facility] LABCLIA [id number] [place] [address] [place] Nucleated RBC/100 WBC (Bld) [Ratio] 0.0 /100 WBC Normal [facility] Comment on above: Order Comment: Speci men Type: BLOOD SPECIMENOrdering Facility: [facility] Address: [address] [place] [address] Performed By: #### 5 7021-8 ####[facility] LABCLIA [id number] [place] [address] [place] Platelet mean volume (Bld) [Entitic vol] 10.4 fL Normal 9.0-12.7 [facility] Comment on above: Order Comment: Speci men Type: BLOOD SPECIMENOrdering Facility: [facility] Address: [address] [place] [address] Performed By: #### 5 7021-8 ####[facility] LABCLIA [id number] [place] [address] [place] Platelets (Bld) [#/Vol] 214 10*3/uL Normal 150-400 [facility] Comment on above: Order Comment: Speci men Type: BLOOD SPECIMENOrdering Facility: [facility] Address: [address] [place] [address] Performed By: #### 5 7021-8 ####[facility] LABCLIA [id number] [place] [address] [place] RBC (Bld) [#/Vol] 4.59 10*6/uL Normal 4.20-6.00 [facility] Comment on above: Order Comment: Speci men Type: BLOOD SPECIMENOrdering Facility: [facility] Address: [address] [place] [address] Performed By: #### 5 7021-8 ####[facility] LABCLIA [id number] [address] [facility] WBC (Bld) [#/Vol] 7.69 10*3/uL Normal 3.70-11.00 [facility] Comment on above: Order Comment: Speci men Type: BLOOD SPECIMENOrdering Facility: [facility] Address: [address] [place] [address] Performed By: #### 5 7021-8 ####[facility] LABCLIA [id number] [address] CNOVSPon 08-05-2025 CNOVSP Visit (SP) Office (HEMCA3) GARRY HERNANDEZ ([id number]) 1980 M Date Time Provider Department 08/05/25 1:00 PM GLORIA WOODY [facility] During your visit today, we recorded the following information about you: Temperature Pulse Respiration Blood pressure 97.2 degrees 66/minute 20/minute 107/72 Weight Height 75.8 kg 1.626 m Alma Rosa Sylvester LPN 08/05/2025 2:04 PM Signed Additional intake questions: Has the patient had fever, nausea, vomiting, diarrhea, constipation, fatigue for > 1 week? No Does the patient have a decreased appetite? No Does patient want to see a Analyst Competitive Intelligence? No (yes to any of above refer patient to schedulers for dietitian appointment) ) Does patient have any new or increased numbness or tingling of extremities? No Is patient interested in fertility information? No Does patient need any prescription refills? No Does patient have an advanced directive in place? 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 - 07/22/25: dexamethasone taper for vasogenic edema. - No prior systemic therapy CURRENT THERAPY: - Initiation today HISTORY OF PRESENT ILLNESS: Mr. Garry Hernandez is a 45-year-old man with newly diagnosed metastatic clear cell renal cell carcinoma who presents for post-treatment follow-up and to discuss systemic therapy options. He initially presented in June 2025 with 3 weeks of worsening headaches and word-finding difficulty. 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 CT chest showed scattered bilateral pulmonary nodules, and CT abdomen suggested possible hepatic lesions. He underwent GKRS on 07/21/2025 with symptom improvement. He is here today to discuss therapy for metastatic ccRCC. Consultation requested by Dr. Brayan Mix for an opinion regarding therapy for metastatic renal cell carcinoma. My final recommendations will be communicated back to the requesting physician by way of shared Medical record or letter to requesting physician via US mail. MEDICATIONS: levETIRAcetam (KEPPRA) 500 mg tablet Take 1 tablet by mouth two times a day. pantoprazole DR (PROTONIX) 40 mg tablet Take 1 tablet by mouth once daily. Continue taking daily while taking decadron (dexamethasone) dexAMETHasone (DECADRON) 2 mg tablet Take 2 tablets by mouth three times a day with meals for 4 days, THEN 2 tablets two times a day with meals for 4 days, THEN 2 tablets daily with breakfast for 4 days, THEN 1 tablet daily with breakfast for 4 days, THEN 1 tablet every other day in the morning for 4 days. Patient should start on July 22, 2025. FLUoxetine (PROZAC) 20 mg capsule Take 20 mg by mouth once daily. ALLERGIES: ALLERGIES No Known Allergies SOCIAL HISTORY: Patient is . He quit smoking 10 years ago. REVIEW OF SYSTEMS: As described above. All other systems were reviewed and were negative. PHYSICAL EXAMINATION: 08/05/25 1249 BP: 107/72 Pulse: 66 Resp: 20 Temp: 36.2 ?C (97.2 ?F) TempSrc: Temporal SpO2: 97% Weight: 75.8 kg (167 lb 1.7 oz) Height: 162.6 cm (5' 4.02) ECOG PERFORMANCE STATUS: 1- Restricted in physically strenuous activity. Carries out light duty. General: Alert and oriented in person, place and time. In no distress DIAGNOSTIC STUDIES: LABS: Recent Labs 07/19/25 2221 WBC 8.91 HB 13.8 MCV 79.8* PLT 305 ABSNEUT 8.08* ABSMONO 0.10 Recent Labs 07/19/25 2221 NA 134* K 4.2 CHLOR 96* CO2 26 BUN 15 CREAT 0.89 ALB 4.6 TPROT 8.0 CA 12.2* MG 2.2 ALT 13 AST 9* TBILI 0.3 GLUC 138* EGFROTH 107 Recent Labs 07/19/25 2221 APTT 31.9 PTSEC 11.7 INR 1.1 IMAGING: MRI brain (07/20/25): 2.4 cm left temporal and 2.1 cm right occipital hemorrhagic metastases with vasogenic edema; midline shift. CT brain (07/21/25): Stable appearance post-Gamma Knife; persistent edema. CT chest (07/20/25): Scattered bilateral pulmonary nodules suspicious for metastases; no adenopathy. 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 Normal [facility] Comprehensive metabolic 2000 panelon 08-05-2025 Albumin [Mass/Vol] 3.9 g/dL Normal 3.9-4.9 [facility] Comment on above: Order Comment: Speci men Type: BLOOD SPECIMENOrdering Facility: [facility] Address: [address] [place] [address] Performed By: #### 2 4323-8, 88313-7 ####[facility] LABCLIA [id number] [place] [address] [place] ALP [Catalytic activity/Vol] 172 U/L High 38-113 [facility] Comment on above: Order Comment: Erlindai daron Type: BLOOD SPECIMENOrdering Facility: [facility] Address: [address] [place] [address] Performed By: #### 2 4323-8, 89712-3 ####[facility]CLIA [id number] [place] [address] [place] ALT [Catalytic activity/Vol] 50 U/L Normal 10-54 [facility] Comment on above: Order Comment: Speci men Type: BLOOD SPECIMENOrdering Facility: [facility] Address: [address] [place] [address] Performed By: #### 2 4323-8, 34809-9 ####[facility]CLIA [id number] [place] [address] [place] Anion gap [Moles/Vol] 10 mmol/L Normal 8-15 [facility] Comment on above: Order Comment: Speci men Type: BLOOD SPECIMENOrdering Facility: [facility] Address: [address] [place] [address] Performed By: #### 2 4323-8, 25479-5 ####[facility] LABCLIA [id number] [place] [address] [place] AST [Catalytic activity/Vol] 20 U/L Normal 14-40 [facility] Comment on above: Order Comment: Speci men Type: BLOOD SPECIMENOrdering Facility: [facility] Address: [address] [place] [address] Performed By: #### 2 4323-8, 23498-8 ####[facility] LABCLIA [id number] [place] [address] [place] Bilirubin [Mass/Vol] 0.2 mg/dL Normal 0.2-1.3 [facility] Comment on above: Order Comment: Speci men Type: BLOOD SPECIMENOrdering Facility: [facility] Address: [address] [place] [address] Performed By: #### 2 4323-8, 75144-4 ####[facility]CLIA [id number] [place] [address] [place] Calcium [Mass/Vol] 9.4 mg/dL Normal 8.5-10.2 [facility] Comment on above: Order Comment: Speci men Type: BLOOD SPECIMENOrdering Facility: [facility] Address: [address] [place] [address] Performed By: #### 2 4323-8, 74746-7 ####[facility] LABCLIA [id number] [place] [id number] [place] Chloride [Moles/Vol] 100 mmol/L Normal 98-107 [facility] Comment on above: Order Comment: Speci men Type: BLOOD SPECIMENOrdering Facility: [facility] Address: [address] [place] [address] Performed By: #### 2 4323-8, 98683-9 ####[facility]CLIA [id number] [place] [id number] [place] CO2 [Moles/Vol] 26 mmol/L Normal 22-30 [facility] Comment on above: Order Comment: Speci men Type: BLOOD SPECIMENOrdering Facility: [facility] Address: [address] [place] [address] Performed By: #### 2 4323-8, 36613-9 ####[facility]CLIA [id number] [place] [address] [place] Creatinine [Mass/Vol] 0.92 mg/dL Normal 0.73-1.22 [facility] Comment on above: Order Comment: Speci men Type: BLOOD SPECIMENOrdering Facility: [facility] Address: [address] [place] [address] Performed By: #### 2 4323-8, 23956-4 ####[facility] LABCLIA [id number] [place] [address] [place] eGFRcr SerPlBld CKD-EPI 2020 104 mL/min/1.73m??? Normal >=60 [facility] Comment on above: Order Comment: Speci men Type: BLOOD SPECIMENOrdering Facility: [facility] Address: [address] [place] [address] Result Comment: Rhonda mated Glomerular Filtration Rate (eGFR) is calculated using the 2020 CKD-EPI creatinine equation. This equation utilizes serum creatinine, sex, and age as parameters. The creatinine assay has traceable calibration to isotope dilution-mass spectrometry. Refer to KDIGO guidelines for clinical interpretation. In patients with unstable renal function, e.g. those with acute kidney injury, the eGFR may not accurately reflect actual GFR. Performed By: #### 2 4323-8, 34224-2 ####[facility] LABCLIA [id number] [place] [address] [place] Glucose [Mass/Vol] 112 mg/dL High 74-99 [facility] Comment on above: Order Comment: Speci men Type: BLOOD SPECIMENOrdering Facility: [facility] Address: [address] [id number] Result Comment: The [place] Diabetes Association (ADA) provides guidance for cutoff values for fasting glucose and random glucose. The ADA defines fasting as no caloric intake for at least 8 hours. Fasting plasma glucose results between 100 to 125 mg/dL indicate increased risk for diabetes (prediabetes). Fasting plasma glucose results greater than or equal to 126 mg/dL meet the criteria for diagnosis of diabetes. In the absence of unequivocal hyperglycemia, results should be confirmed by repeat testing. In a patient with classic symptoms of hyperglycemia or hyperglycemic crisis, random plasma glucose results greater than or equal to 200 mg/dL meet the criteria for diagnosis of diabetes. Reference: Standards of Medical Care in Diabetes 2016, [place] [employer] Association. Diabetes Care. 2016.39(Suppl 1). Performed By: #### 2 4323-8, 45161-6 ####[facility] LABCLIA [id number] [place] [address] [place] Potassium [Moles/Vol] 4.8 mmol/L Normal 3.7-5.1 [facility] Comment on above: Order Comment: Speci men Type: BLOOD SPECIMENOrdering Facility: [facility] Address: [address] [place], [place] [address] Performed By: #### 2 4323-8, 98617-7 ####[facility] LABCLIA [id number] [place] [id number] [place] Protein [Mass/Vol] 6.6 g/dL Normal 6.3-8.0 [facility] Comment on above: Order Comment: Speci men Type: BLOOD SPECIMENOrdering Facility: [facility] Address: [address] [place] [address] Performed By: #### 2 4323-8, 06567-6 ####[facility] LABCLIA [id number] [place] [id number] [place] Sodium [Moles/Vol] 136 mmol/L Normal 136-144 [facility] Comment on above: Order Comment: Speci men Type: BLOOD SPECIMENOrdering Facility: [facility] Address: [address] [place] [address] Performed By: #### 2 4323-8, 90969-2 ####[facility] LABCLIA [id number] [place] [id number] [place] Urea nitrogen [Mass/Vol] 16 mg/dL Normal 9-24 [facility] Comment on above: Order Comment: Speci men Type: BLOOD SPECIMENOrdering Facility: [facility] Address: [address] [place] [address] Performed By: #### 2 4323-8, 29399-6 ####[facility] LABCLIA [id number] [place] [address] [place] Iron and Iron binding capaci ty panelon 08-05-2025 Iron [Mass/Vol] 30 ug/dL Low 41-186 [facility] Comment on above: Order Comment: Speci men Type: BLOOD SPECIMENOrdering Facility: [facility] Address: [address] [place] [address] Performed By: #### 2 4323-8, 22707-9 ####[facility] LABCLIA [id number] [address] [place] Iron binding capacity [Mass/Vol] 225 ug/dL Low 232-386 [facility] Comment on above: Order Comment: Speci men Type: BLOOD SPECIMENOrdering Facility: [facility] Address: [address] [place] [address] Performed By: #### 2 4323-8, 92110-1 ####[facility] LABCLIA [id number] [place] [address] [place] Iron/TIBC [Molar ratio] 13.3 % Low 15.0-57.0 C [facility] Comment on above: Order Comment: Speci men Type: BLOOD SPECIMENOrdering Facility: [facility] Address: [address] [place] [address] Performed By: #### 2 4323-8, 90082-1 ####[facility] LABCLIA [id number] [place] [id number] [place] Elizabeth 07-23-2025 CNPN Telephone (NSCAMN) GARRY HERNANDEZ ([id number]) 1980 M Date Time Provider Department 07/23/25 RADHA DIAZ [facility] During your visit today, we recorded the following information about you: Radha Diaz RN 07/23/2025 9:50 AM Signed Scheduling Request - New Patient Time Frame: 10-14 days Orders: Consult to Hem/Onc Provider or Provider Group: Dr. Bowman Visit type: In person Referring: Maria Del Rosario Diagnosis: Renal Cell Metastasis. Allergies As of Date: 07/23/2025 (No Known Allergies) Date Reviewed: 07/21/2025 Reviewed by: Alexa Hartman RN - Fully Assessed Reason for Visit: 10-14 days consult [Other] Prescriptions as of 07/27/2025 - levETIRAcetam (KEPPRA) 500 mg tablet Take 1 tablet by mouth two times a day. - pantoprazole DR (PROTONIX) 40 mg tablet Take 1 tablet by mouth once daily. Continue taking daily while taking decadron (dexamethasone) - dexAMETHasone (DECADRON) 2 mg tablet Take 2 tablets by mouth three times a day with meals for 4 days, THEN 2 tablets two times a day with meals for 4 days, THEN 2 tablets daily with breakfast for 4 days, THEN 1 tablet daily with breakfast for 4 days, THEN 1 tablet every other day in the morning for 4 days. Patient should start on July 22, 2025. - FLUoxetine (PROZAC) 20 mg capsule Take 20 mg by mouth once daily. Problem List As Of Date 07/23/2025 Noted Resolved Vasogenic edema (HCC) [G93.6] 07/19/2025 Multiple pulmonary nodules [R91.8] 07/20/2025 Malignant neoplasm metastatic to brain (HCC) [C*07/20/2025 At risk for seizures [Z91.89] 07/21/2025 Neoplasm causing mass effect and brain compress*07/21/2025 Left kidney mass [N28.89] 07/21/2025 Encounter Status:Closed by RADHA DIAZ on 07/27/25 [facility] CNOVon 07-21-2025 CNOV Office Visit (NOGA ) GARRY HERNANDEZ ([id number]) 1980 M Date Time Provider Department 07/21/25 9:00 AM PLACEMENT NEUMalaika [facility] During your visit today, we recorded the following information about you: Pulse Respiration Blood pressure 52/minute 14/minute 133/80 Alexa Hartman RN 07/21/2025 5:03 PM Signed July 21, 2025 1218 Received SBAR from Natalia Taylor RN. Reviewed DEC. Brandon denies pt needing anything prn for pain/anxiety at this time. States Garry is AANDOx4, but sometimes does not stay focused. 1246 Garry Hernandez arrived wheelchair via patient transportation from inpatient unit. Garry was discharged from unit, but has PIV in right AC for GK frame. Garry here for Gamma Knife Stereotactic Radiosurgery. MRI completed on 07/20/25 @ 1240 while inpatient. ID verified with patient with two identifiers, name and birthdate. ID band applied. Alexa Hartman RN Garry assessed for the following: Does Garry have any pain? No. Pain 0 on scale of 0-10 Does Garry have: Difficulty chewing and/or swallowing: no Fall risk assessment: Not at risk for falls Concerns about physical or emotional abuse: no Allergies reviewed with patient, yes. Glasses: Yes . Dentures:Yes Hearing Aid: No Is patient on immunotherapy? No. HANDP done, dated: . IV site: #20 Angiocath inserted in right ACF prior to arrival to GK, site unremarkable and patent to NS flush. Alexa Hartman RN Patient's Age: 45 Garry positioned in sitting position for stereotactic frame application. UNIVERSAL PROTOCOL / SAFETY CHECKLIST Procedure to be performed: Gamma Knife headframe placement. Sign in communication: Completed. 1312 Time Out.: Team Confirms the Correct Patient, Correct Procedure, Correct Site and Site Marking, Correct Position. Alexa Hartman RN 1315 Versed 1 mg IV per order of Dr. Yoel Mix for anxiolysis, Alexa Hartman RN. Falls risk assessment: Patient now at risk for falls d/t administration of versed for frame placement. 1321 [place] Frame Used for frame placement by Dr. Maria Del Rosario MD. Anterior pin sites: size 3 . Posterior pin sites: size 4 . Post frame scannin Report called to nurse Deanna. [address] scan via wheelchair and returned at 1355hrs. 1357 CT scan completed. Garry returned to [facility] center waiting with family. Nutrition offered. Garry updated regarding treatment planning. 1418 Decadron 6 mg PO pre-Gamma Knife per order of Dr. Maria Del Rosario MD, Alexa Hartman RN Does Garry have any pain? No. Pain 0 on scale of 0-10 [phone] Garry assisted to treatment room. Gamma Knife SRS begun. 1602 Gamma Knife Stereotactic Radiosurgery completed. Garry assisted to exam bed. 1610 Head frame removed. 1611 Four pinsite wounds cleansed with hydrogen peroxide, antibiotic ointment applied, Band-Aids to Frontal area pin sites. Does Garry have any pain post frame removal? Yes: LOCATION: mild headache pain before frame removal, slightly less after. 1618 R AC PIV discontinued with catheter intact, site unremarkable, hemostasis obtained and site care instructions given to patient. 1630 Acetaminophen 500 mg orally given per orders of Dr Arben Mix MD. Jeffrey Hartman RN Garry is able to move within pre-procedural abilities. Discharge Information: Printed and verbal post-procedural discharge instructions given to Garry with stated understanding. Reviewed pin site care of cleansing pin sites twice a day x3-4 days and application of antibiotic ointment to sites. To keep pin sites clean/dry, do not wash hair/scalp for 48 hours post Gamma Knife Radiosurgery. Keep head elevated on 2 pillows x1 week to minimize pin site swelling. May take Ibuprofen or Tylenol for discomfort. Discharge prescriptions eScripted to pharmacy of choice: Yes picked up from [facility]. Local and toll free telephone numbers for [facility] Center/Gamma Knife nurse, hours of availability, Dr. Yoel Mix's [facility] telephone number, and [facility] local and toll free numbers given to Garry and family/visitors. 1633 Garry left via wheelchair home with . WATSON Balderas Heidi, RN 07/21/2025 1:45 PM Signed [facility] Gamma Knife [place] Discharge Instructions - As with any surgery there are risks and potential side effects. There is a slight chance of developing brain swelling days or months after the Gamma Knife radiosurgery. If you experience nausea, vomiting, severe headache, visual changes, difficulty speaking, a seizure or any other symptom unusual for you, contact your physician immediately or go to the nearest emergency room. These may or may not be symptoms of brain swelling. If you go to a physician or hospital other than the [facility] with any problem related to the Gamma Knife procedure, please call your physician, Dr. Patricio Mix at [phone]. 1.) Ke (more content not included)... Normal [facility] CONSULTon 07-21-2025 CONSULT HNO ID: [id number] Author: RAYMON MADSEN MD Service: Radiation Oncology Author Type: Physician Type: Consults Filed: 07/21/2025 15:18 Note Text: [facility] FOLLOW-UP SERVICE DATE: 07/21/2025 SERVICE TIME: 12p Subjective DIAGNOSIS: 45 yo M presenting with 3 weeks of headaches and new onset word finding difficulty. MRI brain reveals 2.4 cm L temporal and 2.1 cm R occipital brain masses with significant vasogenic edema c/f brain metastases. Staging CT CAP reveals 10 cm Left renal mass c/f renal cell carcinoma, possible hepatic lesions, and multiple pulmonary nodules. HPI: Stable since yesterday. Biopsies done yesterday. RACHNA positive for malignancy. Final path pending. MRi reviewed. Appropriate of GKRS. Will require staged due to size. ALLERGIES No Known Allergies levETIRAcetam (KEPPRA) 500 mg tabletTake 1 tablet by mouth two times a day.Disp: 90 tabletRfl: [address] (PROTONIX) 40 mg tabletTake 1 tablet by mouth once daily. Continue taking daily while taking decadron (dexamethasone)Disp: 30 tabletRfl: 1 [START ON 07/22/2025] dexAMETHasone (DECADRON) 2 mg tabletTake 2 tablets by mouth three times a day with meals for 4 days, THEN 2 tablets two times a day with meals for 4 days, THEN 2 tablets daily with breakfast for 4 days, THEN 1 tablet daily with breakfast for 4 days, THEN 1 tablet every other day in the morning for 4 days. Patient should start on July 22, 2025.Disp: 54 tabletRfl: 0 iv contrast (will be provided with radiology test)MRI Brain Inject, intravenously, once for 1 dose.No IV access, insert saline lock prior to beginning of sedation, infusion, injection of imaging exam.Discontinue saline lock post exam. If Pt. has a central line or IVAD, may access for administration according to line specific nursing protocol.Once exam is complete flush line and de-access according to line specific nursing protocol in the MR contrast administration guidelines linkDisp: 1 eachRfl: 0 FLUoxetine (PROZAC) 20 mg capsuleTake 20 mg by mouth once daily.Disp: Rfl: Current Facility-Administered Medications Medication Dose Route Frequency ondansetron (PF) 4 mg injection (ZOFRAN) 4 mg INTRAVENOUS q 6 H PRN prochlorperazine 10 mg injection (COMPAZINE) 10 mg INTRAVENOUS q 6 H PRN trimethobenzamide 200 mg injection (TIGAN) 200 mg INTRAMUSCULAR q 6 H PRN senna-docusate 8.6-50 mg 1 tablet (SENNA-S) 1 tablet ORAL/FEEDING TUBE BID NaCl 0.9% iv flush bag 20 mL INTRAVENOUS PRN acetaminophen 650 mg tab(s) (TYLENOL) 650 mg ORAL/FEEDING TUBE q 4 H PRN labetalol 5-10 mg injection syringe (NORMODYNE) 5-10 mg INTRAVENOUS q 30 MIN PRN dexAMETHasone 4 mg tab(s) (DECADRON) 4 mg ORAL/FEEDING TUBE BID w MEALS pantoprazole 40 mg oral liquid (PROTONIX) 40 mg ORAL/FEEDING TUBE DAILY (6 AM) dextrose 15 gram/32 mL 15 g (TRUEPLUS) 15 g ORAL PRN Or glucagon 1 mg injection 1 mg INTRAMUSCULAR PRN Or dextrose 10% iv bolus 12.5 g INTRAVENOUS PRN insulin lispro injection (rapid acting) (ADMElog) SUBCUTANEOUS w MEALS FLUoxetine 20 mg cap(s) (PROzac) 20 mg ORAL/FEEDING TUBE DAILY levETIRAcetam 500 mg tab(s) (KEPPRA) 500 mg ORAL/FEEDING TUBE BID acetaminophen 500-1,000 mg tab(s) (TYLENOL) 500-1,000 mg ORAL q 6 H PRN midazolam (PF) 0.5-2 mg injection (VERSED) 0.5-2 mg INTRAVENOUS Pre-Op PRN lidocaine 20 mg/mL (2 %) 200-400 mg injection (XYLOCAINE) 200-400 mg INTRADERMAL Pre-Op PRN bacitracin 500 units - polymyxin B 10,000 units topical ointment (POLYSPORIN) 1 packet TOPICAL ONCE dexAMETHasone 6 mg tab(s) (DECADRON) 6 mg ORAL ONCE COMPLETE REVIEW OF SYSTEMS: As per HPI. PHYSICAL EXAM: BP 130/67 Pulse (!) 51 Temp 36.7 ?C (98.1 ?F) (Oral) Resp 16 Ht 162.6 cm (5' 4) Wt 69.4 kg (153 lb) SpO2 97% BMI 26.26 kg/m? KPS: 70 Neuro function score (NFS): NFS 1 (Minor neurologic symptoms; fully active at home/work without assistance) General Appearance: Alert and oriented. No acute distress. HEENT: NCAT. Sclera anicteric. EOMI. Neck: Normal ROM. Chest: No respiratory distress. Heart: Regular rate. Abdomen: Soft. Nondistended. Musculoskeletal: No edema. Skin: No rashes noted Lymphatics: No palpable lymphadenopathy. RADIOLOGY/LABORATORY DATA: see HPI Impression/Recommendat ions 45 yo M presenting with 3 weeks of headaches and new onset word finding difficulty. MRI brain reveals 2.4 cm L temporal and 2.1 cm R occipital brain masses with significant vasogenic edema c/f brain metastases. Staging CT CAP reveals 10 cm Left renal mass c/f renal cell carcinoma, possible hepatic lesions, and multiple pulmonary nodules. We discussed the natural history of brain metastasis as well as the role of surgery and radiotherapy, including whole brain radiotherapy and Gamma Knife Radiosurgery for management. We discussed that it is imperative to treat brain metastasis given the poor outcomes in untreated brain metastases. We discussed in detail the risks and benefits of WBRT and com (more content not included)... Normal [facility] CT BRAIN STEREOLOCAL WO IVCO Non 07-21-2025 CT BRAIN STEREOLOCAL WO IVCON * * *Final Report* * * DATE OF EXAM: Jul 21 2025 1:32PM [facility] 0503 - CT BRAIN STEREOLOCAL WO IVCON / PROCEDURE REASON: Malignant neoplasm metastatic to brain (HCC) * * * * Physician Interpretation * * * * EXAMINATION: CT STEREOLOCALIZATION BRAIN WITHOUT CONTRAST HISTORY: Malignant neoplasm metastatic to brain - - - - Other (document in comments), this is for gk planning purposes - - - TECHNIQUE: CT head high-resolution stereotactic localization without contrast. M: [id number]_3 CT Dose-Length Product (DLP): 1206 mGy*cm CT Dose Reduction Employed: Automated exposure control (AEC) COMPARISON: MRI 07/20/[address]/CTA head 07/19/2025 RESULT: Examination performed with stereotactic head frame in place. Fixation pins result in streak artifact which obscures evaluation of the brain parenchyma on multiple images. No fracture or penetration through the calvarium by the grid pins. Redemonstrated peripherally-hyperatte nuating masses with central hypoattenuation within the right occipital lobe measuring approximately 2.2 cm (image 104) and inferior left mesial temporal lobe measuring 1.9 cm (image 103). Extensive adjacent vasogenic edema remains with associated localized mass effect resulting in effacement of the right lateral ventricular atrium and occipital horn and effacement of the left lateral ventricle temporal horn. Findings are not significantly changed from prior exams; masses are more fully characterized on MRI 07/20/2025. No evidence of an acute infarct or other acute parenchymal process. No evidence of acute intracranial hemorrhage. There is no evidence of an extraaxial fluid collection. No significant chronic white matter changes apparent. There is no significant volume loss. Stable appearance of nondilated ventricles, mass effect as above. Minimal paranasal thickening. Mastoid air cells appear clear, near complete ossification of left mastoid air cells, likely inflammatory. The orbits appear unremarkable. Extracranial soft tissues appear within normal limits. IMPRESSION: Stereotactic localization examination. Unchanged appearance of right occipital and left temporal hemorrhagic metastases. Persistent vasogenic edema with localized mass effect without midline shift. Extracting Machine Operator: DARIEL Transcribe Date/Time: Jul 21 2025 1:40P Dictated by : GABRIEL GIBBONS MD This examination was interpreted and the report reviewed and electronically signed by: ARTEMIO JAY MD on Jul 21 2025 1:57PM EST [id number] Normal [facility] OPERATIVE NOon 07-21-2025 OPERATIVE NO HNO ID: [id number] Author: BRAYAN MIX MD Service: Neurosurgery Author Type: Physician Type: Operative Report Filed: 07/23/2025 10:33 Note Text: [facility] [address] [place] [address] [place] OPERATIVE REPORT NAME: Garyr Hernandez [facility] NO.: [id number] RADIATION TREATMENT START DATE AND TIME: 2025-07-21, 14:20 RADIATION TREATMENT END DATE AND TIME: 2025-07-21, 16:02 PREOPERATIVE DIAGNOSIS: Bilateral Metastasis, renal POSTOPERATIVE DIAGNOSIS: Same OPERATION: Stereotactic frame application and gamma knife radiosurgery. ANESTHESIA: Locally injected 2% Lidocaine with intravenous anxiolytic Versed. SURGEON: Brayan Mix M.D. - Frame placement and planning, immediately available for all other aspects of case. RADIATION ONCOLOGIST: Raymon Madsen M.D. ASSISTANTS: NONE SPECIMEN: None EBL: 0 ccs OPERATIVE INDICATIONS: The full clinical history and indications for treatment were discussed in the initial neurosurgery visit note. The indications, risks, benefits, and alternatives were discussed with the patient who asked us to proceed. The patient is aware that this is the first of a 2 staged procedures in the management of this disorder. OPERATIVE FINDINGS: DESCRIPTION OF PROCEDURE: The patient was admitted to the Gamma [facility]ife Center where intravenous access was obtained. The [place] stereotactic frame was placed with the use of intravenous sedation and local anesthetic. The frame was placed without any difficulty and appropriate stereotactic measurements were made. The patient then underwent stereotactic imaging. The scans were loaded in the planning computer and [place] gamma plan was used to perform stereotactic radiosurgery dose planning. The lesions were treated as follows: Target 1 (r ocpt) Location: r ocpt Prescription: 15 Gy to the 54% local isodose line. The plan uses 14 shots covering 100% of the target. GTV Volume: 8.06 cm3 CTV Volume: 8.06 cm3 Max linear size: 3.4 cm Conformality Index (PIV/CTV) = 1.737 Complexity: Simple Gradient Index: 3.5 Number of Fractions: 1 Target 2 (l mes tmpr) Location: l mes tmpr Prescription: 18 Gy to the 57% local isodose line. The plan uses 16 shots covering 100% of the target. GTV Volume: 4.8 cm3 CTV Volume: 4.8 cm3 Max linear size: 2.6 cm Conformality Index (PIV/CTV) = 1.525 Complexity: Simple Gradient Index: 3.5 Number of Fractions: 1 After the usual software quality manager procedures were performed, stereotactic radiosurgery was delivered with use of the Gamma Knife. Following the completion of the last shot, the stereotactic frame was removed and the pin sites were dressed. The Gamma Knife checklists and time outs were performed during this procedure in a standard manner. Brayan Mix M.D. Normal [facility] NTon 07-21-2025 THERAPY NT HNO ID: [id number] Author: CATHIE STANTON PT DPИрина Service: Physical Therapy Author Type: Physical Therapist Type: Therapy (PT/OT/Speech/Resp) Filed: 07/21/2025 12:28 Note Text: PHYSICAL THERAPY MISSED VISIT SERVICE DATE: 07/21/2025 SERVICE TIME: 1227 ROOM: [place] [address] (CA-LL-1 Gamma Knife) Patient not seen due to no skilled needs per discussion with OT. PT will sign off. SIGNATURE: Cathie Stanton PT, DPT PATIENT NAME: Garry Hernandez DATE: July 21, 2025 TIME: 12:28 PM [facility] NT HNO ID: [id number] Author: JHONNY DAVEY OTR/Seema Service: Occupational Therapy Author Type: Occupational Therapist Type: Therapy (PT/OT/Speech/Resp) Filed: 07/21/2025 11:55 Note Text: Occupational Therapy Evaluation Summary SERVICE DATE: 07/21/2025 SERVICE TIME: 1101 to 1147 ROOM: [place] [address] (CA-LL-1 Gamma Knife) OT 6 Clicks Score: 24 DISCHARGE RECOMMENDATIONS Outpatient OT Recommended Discharge Disposition Comments: OPOT neuro rehab Anticipated Discharge Needs: Physical Assist at Home, Supervision at Home Physical Assist at Home for: Medication Management, Transportation, Safety (heavy chores) Supervision at Home due to: Decreased safety awareness, Impaired cognition (vision) ASSESSMENT Response to Therapy Interventions: Good Participation in Activities Pt mobilizes throughout unit without assist, device, or loss of balance; and completes ADL well. Does demo some cognitive and visual deficits. Insight into deficits improves during OT session. OT will sign off and defer to OPOT as appropriate. Thanks. PRECAUTIONS Abdominal, Fall Risk CURRENT HOSPITAL COURSE MRI: Irregular partially necrotic and hemorrhagic masses in the right occipital and left temporal lobes highly suspicious for intracranial metastases. Extensive vasogenic edema/local mass effect effaces the ventricular system without evidence of developing hydrocephalus. No midline shift. 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 Uses horse and [employer] for transportation. SUBJECTIVE COGNITION Orientation Deficits: Not oriented to Place, Not oriented to Situation (city initially, not fully oriented to situation) Follows Commands: Cueing Needed Cueing to Follow Commands: Minimum Attention Deficits: Distractible, Divided Memory Deficits: Short Term Executive Function Deficits: Judgement, Insight to Deficits, Safety Awareness Cog 6 Start of Session Total Points (Max Score = 24): 22 (07/21/25) Cog 6 End of Session Total Points (Max Score = 24): 23 (07/21/25) 4AT Score: 0 (07/21/25) Delirium Positive/Negative: Negative (07/21/25) THERAPY DIAGNOSIS Decreased activities of daily living (ADL) TREATMENT INTERVENTIONS Evaluation, Self Longterm Management (46695), Cognitive Training per First 15 Minutes (39109) Timed Code Treatment (minutes): 30 Skilled Treatment Time (minutes): 46 TRAINING AND EDUCATION PROVIDED Benefits of In-Hospital Mobility, Discharge Planning, Disease Specific Education, Expected Functional Level, Functional Mobility Involving ADLs, IADLs/Home Management, Insight into Deficits, Memory/Attention, Orientation, Precautions/Restrictio ns, Role of Occupational Therapy, Safety/Judgment THERAPEUTIC SKILLS USED Activity Dosing, Cuing Verbal, Cuing Visual, Family Training, Therapeutic Use of Self FUNCTIONAL STATUS Activities of Daily Living Assist Level Additional Information Feeding Modified Independent Grooming Supervision Bathing Upper Body Stand By Assistance Bathing Lower Body Stand By Assistance Dressing Upper Body Stand By Assistance Dressing Lower Body Stand By Assistance Toileting Supervision Mobility Assist Level Additional Information Bed Mobility Supine To Sit: Supervision Sit To Supine: Supervision Sit to Stand Supervision Stand to Sit Supervision Bed to Chair Toilet/Commode Shower Functional Mobility Stand By Assistance GOALS Patient will demonstrate understanding of importance of mobility during hospital stay and resolve all self-care, cognitive and/or coping needs identified. Rehab Potential: Good Good Rehab Potential Due To: Current objective clinical presentation Progress Toward Goals: Progressing as expected ACUTE CARE TREATMENT PLAN OT Frequency: Discontinue Therapy Services Reasons Therapy Services Discontinued: Goals met Treatment Interventions: Education, Self Care/Home Management, Energy Conservation Training, Joint Mobility, Strengthening, Functional Mobility Training, Balance Training, Neuromuscular Re-education, Pain Management, Orthotic Management and Training, Cognitive Training, Coping Strategy Education SIGNATURE: PAULIE Martínez PATIENT NAME: Garry Hernandez DATE: July 21, 2025 TIME: 11:55 AM Normal [facility] THERAPY NT HNO ID: [id number] Author: JHONNY DAVEY OTR/L Service: Occupational Therapy Author Type: Occupational Therapist Type: Therapy (PT/OT/Speech/Resp) Filed: 07/21/2025 09:36 Note Text: OCCUPATIONAL THERAPY MISSED VISIT SERVICE DATE: 07/21/2025 SERVICE TIME: 935 ROOM: [place] [address] Patient not seen due to Test / Procedure. SIGNATURE: PAULIE Martínez PATIENT NAME: Garry Hernandez DATE: July 21, 2025 TIME: 9:36 AM Normal [facility] ALLIED HEALTHon 07-20-2025 ALLIED HEALTH HNO ID: [id number] Author: REJI KAUR RT(Jo) Service: Radiology Author Type: Technologist Type: Allied Health Filed: 07/20/2025 00:41 Note Text: Radiology Service Progress Note PATIENT NAME: Garry Hernandez DATE OF SERVICE: July 20, 2025 TIME: 12:28 AM PATIENT IDENTITY VERIFICATION COMPLETED USING TWO (2) IDENTIFIERS: Name and Date of confirmed by patient verbally and Name and Date of confirmed by identification band. FALL SCREENING: Has the patient had 2 falls in the last year or 1 fall with injury or currently using an Ambulatory Assistive Device (Walker, Cane, Wheelchair, Crutches, etc.)? Inpatient: Screened on floor PATIENT GENDER DATA: Assigned male at PATIENT RELEVANT IMPLANT DATA REVIEWED: Yes PATIENT PRESENTS WITH AN IMPLANTABLE OR ATTACHED SEED TESTER: No RADIOLOGY DEPARTMENT: MR; Exam(s) Completed: Head: Routine Brain +GKS. Anesthesia: No. Aromatherapy Administered: No PERIPHERAL IV DATA: Inpatient: see LDA documentation SIGNED BY: Reji Kaur RT(R) July 20, 2025 12:28 AM Normal [facility] ANES POSTPROC EVALon 025 ANES POSTPROC EVAL HNO ID: [id number] Author: ANDREW LARKIN DO Service: ? Author Type: Anesthesiologist Type: Anesthesia Postprocedure Evaluation Filed: 07/20/2025 15:44 Note Text: POST ANESTHESIA EVALUATION NOTE : 1980 Procedure Summary Date: 07/20/25 Room / Location: [facility] B-01 / [facility] H23 Anesthesia Start: 1433 Anesthesia Stop: 1543 Procedure: BRONCHOSCOPY FLEXIBLE ADULT (Bronchus) Diagnosis: Bronchiolar disease (Bronchiolar disease [J98.09]) Surgeons: Dee Dee Martinez MD Responsible Provider: Andrew Larkin DO Anesthesia Type: general ASA Status: 3 Anesthesia Type: general Airway Type: ETT Post Anesthesia Patient Status Patient Evaluation: PACU. PACU/ICU Patient Condition: stable. Anticipated Disposition: inpatient floor planned admission. Neurological Status: aware and responsive. Pulmonary Status: breathing comfortably on supplemental oxygen Airway Control: returned to baseline unsupported. Cardiovascular Status: stable. Pain Management: clinically adequate Postoperative Hydration: acceptable. Intraoperative Events: no significant anesthesia events Post Operative Nausea/Vomiting Status: no significant post operative nausea or vomiting Recommendation: continue current plan of care. Anesthesia Observations No Documentation SIGNATURE: Andrew Larkin DO PATIENT NAME: Garry Hernandez DATE: July 20, 2025 TIME: 3:44 PM CSN: [id number] Normal [facility] ANES PRE-OPon 07-20-2025 ANES PRE-OP HNO ID: [id number] Author: ANDREW LARKIN DO Service: ? Author Type: Anesthesiologist Type: Anesthesia Preprocedure Evaluation Filed: 07/20/2025 12:46 Note Text: ANESTHESIOLOGY DAY OF SURGERY NOTE : 1980 Procedure Information Date/Time: 07/20/25 1230 Procedure: BRONCHOSCOPY FLEXIBLE ADULT (Bronchus) - Tier 2 [id number] Location: P[facility] B- / [facility] LAB H23 Surgeons: Dee Dee Martinez MD Estimated body mass index is 26.26 kg/m? as calculated from the following: Height as of this encounter: 162.6 cm (5' 4). Weight as of this encounter: 69.4 kg (153 lb). Most recent hematocrit and potassium results: Hematocrit 40.6 07/19/2025 Potassium 4.2 07/19/2025 Relevant Problems No relevant active problems I - PHYSICAL EVALUATION AIRWAY Patient intubated: No. Tracheostomy tube not present Mallampati: II. TM distance: >3 FB. Neck ROM: full ROM without neurological symptoms. Mouth opening: >3 FB. Short neck: no. Thick neck: no DENTAL Normal dental observations. Dental findings: teeth intact. II - ANESTHESIA PLAN ASA Score: 3 Anesthetic Plan: general Airway type: ETT The patient is not a current smoker. NPO Status: adequate Beta Reji Administration of chronic beta reji medication not planned. Monitoring Plan Monitoring plan: standard ASA. Post Procedure Analgesic Plan Postoperative analgesic plan: multimodal analgesia. Informed Consent Anesthetic risks, benefits, alternatives, personnel and consent discussed: yes. Patient / Responsible Democrat agrees to proceed: yes Patient / Surrogate agrees to blood products: Yes DNR status not reviewed with patient and/or family prior to surgery. Significant changes in the patient condition since the History and Physical, not otherwise documented in primary service progress note: no. Potential Anesthesia issues that may suggest increased risk of complications or contraindication to planned procedure: none. No vitals data found for the desired time range. Facility-Administered Medications as of 07/20/2025 Medication Dose Route Frequency - dexAMETHasone 4 mg tab(s) (DECADRON) 4 mg ORAL/FEEDING TUBE BID w MEALS - pantoprazole 40 mg oral liquid (PROTONIX) 40 mg ORAL/FEEDING TUBE DAILY (6 AM) - dextrose 15 gram/32 mL 15 g (TRUEPLUS) 15 g ORAL PRN Or - glucagon 1 mg injection 1 mg INTRAMUSCULAR PRN Or - dextrose 10% iv bolus 12.5 g INTRAVENOUS PRN - insulin lispro injection (rapid acting) (ADMElog) SUBCUTANEOUS w MEALS - ondansetron (PF) 4 mg injection (ZOFRAN) 4 mg INTRAVENOUS q 6 H PRN - prochlorperazine 10 mg injection (COMPAZINE) 10 mg INTRAVENOUS q 6 H PRN - trimethobenzamide 200 mg injection (TIGAN) 200 mg INTRAMUSCULAR q 6 H PRN - senna-docusate 8.6-50 mg 1 tablet (SENNA-S) 1 tablet ORAL/FEEDING TUBE BID - NaCl 0.9% iv flush bag 20 mL INTRAVENOUS PRN - acetaminophen 650 mg tab(s) (TYLENOL) 650 mg ORAL/FEEDING TUBE q 4 H PRN - labetalol 5-10 mg injection syringe (NORMODYNE) 5-10 mg INTRAVENOUS q 30 MIN PRN - iv contrast (radiology procedure) INTRAVENOUS DIRECTED PRN - iv contrast (radiology procedure) INTRAVENOUS DIRECTED PRN - iv contrast (radiology procedure) INTRAVENOUS DIRECTED PRN - FLUoxetine 20 mg cap(s) (PROzac) 20 mg ORAL/FEEDING TUBE DAILY No current outpatient medications on file as of 07/20/2025. I have interviewed and examined the patient. I have reviewed the medical record and/or the pre-anesthesia evaluation, pertinent labs, and test results. This contains updated information obtained within 48 hours of Surgery/Procedure. SIGNATURE: Andrew Larkin DO PATIENT NAME: Garry Hernandez DATE: July 20, 2025 TIME: 12:46 PM CSN: [id number] Normal [facility] Bacteria Spec Resp Culton Bacteria identified Respiratory culture Nom (Unsp spec) CULTURE, RESPIRATORY: No growth 2 days GRAM STAIN: No organisms seen Rare Polymorphonuclear leukocytes Normal [facility] Comment on above: Performed By: #### 3 [id number] ####[facility] [id number] [address] [place]#### [id number] ####[facility] [id number] [address] [place] CONSULTon 07-20-2025 CONSULT HNO ID: [id number] Author: RADHA ALLAN APRN.CNP Service: Radiation Oncology Author Type: Nurse Practitioner Type: Consults Filed: 07/20/2025 21:42 Note Text: [employer] 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 Yoel Mix for an opinion regarding the role of radiation therapy in the management of the patient's disease. My final recommendations will be communicated back to the requesting physician by way of shared Medical record or letter to requesting physician via [place] mail. Subjective CHIEF COMPLAINT: headaches, word finding difficulty DIAGNOSIS: 45 yo M presenting with 3 weeks of headaches and new onset word finding difficulty. MRI brain reveals 2.4 cm L temporal and 2.1 cm R occipital brain masses with significant vasogenic edema c/f brain metastases. Staging CT CAP reveals 10 cm Left renal mass c/f renal cell carcinoma, possible hepatic lesions, and multiple pulmonary nodules. HPI: 45 year old male with past medical history significant for anxiety, former smoker and recent hernia repair surgery. Presenting to OSH ED 07/19/25. CTH revealed 1.9 cm L temporal and 2.5 R occipital brain masses with significant vasogenic edema. CTA revealed multiple pulmonary nodules. He was given dex 10 mg and transferred to [facility] main same day for further management. MRI brain completed today confirms 2.4 cm L temporal and 2.1 cm R occipital partially necrotic and hemorrhagic masses with extensive vasogenic edema c/f intracranial metastases. Staging CT CAP completed today reveals large 10.1 cm Left renal mass c/f renal cell carcinoma possible hepatic lesions, and multiple pulmonary nodules. He is currently on dex 4 mg 2x/day. Pulmonary is consulted for consideration of biopsying pulmonary nodule. Radiation oncology is consulted regarding role for Gamma Knife radiosurgery. Today he reports improved headaches and word finding difficulty on steroid. He notes mild headache this morning. Symptoms have been ongoing and progressively worsening since his hernia surgery about 6 weeks ago. He also reports blurred vision bilaterally, initially improved with new eye glass prescription but worsening again recently. He reports a few episodes of progressive numbness from chest to head ending with throbbing in head. 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 He denies nausea, focal weakness, or seizures. He is seen accompanied by , adult children, and mother and father in law. ALLERGIES No Known Allergies FLUoxetine (PROZAC) 20 mg capsuleTake 20 mg by mouth once daily.Disp: Rfl: butalbital-acetaminoph en 50-325 mg tabletTake 1 tablet by mouth every 4 hours as needed.Disp: Rfl: Current Facility-Administered Medications Medication Dose Route Frequency ondansetron (PF) 4 mg injection (ZOFRAN) 4 mg INTRAVENOUS q 6 H PRN prochlorperazine 10 mg injection (COMPAZINE) 10 mg INTRAVENOUS q 6 H PRN trimethobenzamide 200 mg injection (TIGAN) 200 mg INTRAMUSCULAR q 6 H PRN senna-docusate 8.6-50 mg 1 tablet (SENNA-S) 1 tablet ORAL/FEEDING TUBE BID NaCl 0.9% iv flush bag 20 mL INTRAVENOUS PRN acetaminophen 650 mg tab(s) (TYLENOL) 650 mg ORAL/FEEDING TUBE q 4 H PRN labetalol 5-10 mg injection syringe (NORMODYNE) 5-10 mg INTRAVENOUS q 30 MIN PRN iv contrast (radiology procedure) INTRAVENOUS DIRECTED PRN iv contrast (radiology procedure) INTRAVENOUS DIRECTED PRN iv contrast (radiology procedure) INTRAVENOUS DIRECTED PRN dexAMETHasone 4 mg tab(s) (DECADRON) 4 mg ORAL/FEEDING TUBE BID w MEALS pantoprazole 40 mg oral liquid (PROTONIX) 40 mg ORAL/FEEDING TUBE DAILY (6 AM) dextrose 15 gram/32 mL 15 g (TRUEPLUS) 15 g ORAL PRN Or glucagon 1 mg injection 1 mg INTRAMUSCULAR PRN Or dextrose 10% iv bolus 12.5 g INTRAVENOUS PRN insulin lispro injection (rapid acting) (ADMElog) SUBCUTANEOUS w MEALS FLUoxetine 20 mg cap(s) (PROzac) 20 mg ORAL/FEEDING TUBE DAILY No past medical history on file. Prior Radiation Therapy, Collagen Vascular Disease, or Inflammatory Bowel Disease: No Any implanted or external electric devices? No status: N/A No past surgical history on file. No family history on file. SOCIAL HISTORY[1] COMPLETE REVIEW OF SYSTEMS: GENERAL: Negative for fevers. +10 lbs weight loss over last 6 weeks RESPIRATORY: Negative for cough or shortness of breath. CARDIAC: Negative for chest pain or syncopal episodes. GI: Negative for nausea, vomiting, diarrhea, constipation, blood per rectum, or melena. : Negative for dysuria, hematuria, or incontinence. MUSCULOSKELETAL: Negative for limitations in movement, pain, or swelling. HEMATOLOGIC: Negative for bleeding. SKIN: Negative for rashes or other skin changes. Objective NEURO DETAILED: Headache: mild this morning, improved on dexamethasone Fatigue: mild Decreased Visual Acuity: mild, (more content not included)... Normal [facility] CONSULT HNO ID: [id number] Author: JESSICA HERNÁNDEZ MD Service: Cardiovascular Medicine Author Type: Physician Type: Consults Filed: 07/20/2025 13:35 Note Text: PULMONARY INPATIENT CONSULT NOTE REFERRING TEAM: Neurosurgery RFC: Lung mass with likely metastatic CA, consideration of bronch biopsy HPI: 45 year old male w/ PMH that includes anxiety, former smoker (26 yr x 1 ppd) who presented to OSH ED due to 3 week history of worsening of headaches and changes in vision s/p hernia surgery. Presented specifically to ED due to word finding difficulties on day of presentation. Code stroke was called, for which CTH/CTA obtained. CTH demonstrated 1.9 cm L temporal and 2.5 cm R occipital masses w/ significant vasogenic edema and w/o MLS. CTA w/ demonstration of rim enhancement of the aforementioned lesions and multiple pulmonary nodules. Subsequently transferred to [facility] main [place] for further evaluation. We were consulted for a possible bronch biopsy. He denies Shortness of Breath, or coughing. The only symptom he had was headaches and then word findings difficulties. His lung CT showed multiple pulmonary nodules: CT lung 07/20/2025: Lung parenchyma and airways: There is scattered bilateral pulmonary nodules. For reference, there is a medially located 25 x 18 mm subpleural left upper lobe nodule (3:88) along the mediastinal border, a 15 mm left lower lobe nodule (3:115), a 25 x 17 mm central left lower lobe nodule (3:124), and a 8 x 6 mm right upper lobe. There may be an endobronchial component to the left lower lobe nodule (3:124) with distal linear opacity likely representing postobstructive change. Numerous additional pulmonary nodules are present. No pulmonary edema. Debris within left lower lobe bronchi likely represents mucous/secretions. The central airways are patent. CT abd pelv 07/20/2025 10.1 cm invasive left renal mass, suspicious for renal cell carcinoma. Involvement of the pancreatic tail and left adrenal gland, with possible extension to the splenic hilum and left colon. Tumor in left renal vein also suspected. Finding should BE further characterized with a dedicated renal mass imaging protocol without and with contrast. ROS: Gen: No fevers, chills, weight changes ENT: No rhinorrhea, pharyngitis CV: No chest pain, Shortness of Breath, palpitations Lung: Denies Shortness of Breath, denies cough Abd: No nausea/vomiting, constipation, or diarrhea/melena Ext: No arthralgias or myalgias Skin: No rash Psych: No hallucinations Neuro: word finding difficulties at ED PMHx: as above FAMILY HISTORY: No family history on file. SOCIAL HISTORY: Tobacco: former smoker (15 yr x 0.5ppd) MEDICATIONS: Current Facility-Administered Medications Medication Dose Route Frequency ondansetron (PF) 4 mg injection (ZOFRAN) 4 mg INTRAVENOUS q 6 H PRN prochlorperazine 10 mg injection (COMPAZINE) 10 mg INTRAVENOUS q 6 H PRN trimethobenzamide 200 mg injection (TIGAN) 200 mg INTRAMUSCULAR q 6 H PRN senna-docusate 8.6-50 mg 1 tablet (SENNA-S) 1 tablet ORAL/FEEDING TUBE BID NaCl 0.9% iv flush bag 20 mL INTRAVENOUS PRN acetaminophen 650 mg tab(s) (TYLENOL) 650 mg ORAL/FEEDING TUBE q 4 H PRN labetalol 5-10 mg injection syringe (NORMODYNE) 5-10 mg INTRAVENOUS q 30 MIN PRN iv contrast (radiology procedure) INTRAVENOUS DIRECTED PRN iv contrast (radiology procedure) INTRAVENOUS DIRECTED PRN iv contrast (radiology procedure) INTRAVENOUS DIRECTED PRN dexAMETHasone 4 mg tab(s) (DECADRON) 4 mg ORAL/FEEDING TUBE BID w MEALS pantoprazole 40 mg oral liquid (PROTONIX) 40 mg ORAL/FEEDING TUBE DAILY (6 AM) dextrose 15 gram/32 mL 15 g (TRUEPLUS) 15 g ORAL PRN Or glucagon 1 mg injection 1 mg INTRAMUSCULAR PRN Or dextrose 10% iv bolus 12.5 g INTRAVENOUS PRN insulin lispro injection (rapid acting) (ADMElog) SUBCUTANEOUS w MEALS FLUoxetine 20 mg cap(s) (PROzac) 20 mg ORAL/FEEDING TUBE DAILY PHYSICAL EXAM: BP 128/81 Pulse (!) 54 Temp 37.2 ?C (99 ?F) (Oral) Resp 18 Ht 162.6 cm (5' 4) Wt 69.4 kg (153 lb) SpO2 99% BMI 26.26 kg/m? Temp (24hrs), Av ?C (98.6 ?F), Min:36.8 ?C (98.2 ?F), Max:37.2 ?C (99 ?F) No intake or output data in the 24 hours ending 07/20/25 0958 GEN - middle aged male resting in bed in no acute distress HEENT - moist mucus membranes, no scleral icterus or injection CV - regular rate and rhythm, no murmurs, rubs or gallops appreciated, Pulm - lungs are clear to auscultation bilaterally, no wheezes, rales, or rhonchi, normal work of breathing ABD - soft, nontender, nondistended, EXT- warm and well perfused, no edema, Neuro - AAOx3, conversational word finding difficulties, no motor weakness DATA: Recent Labs 07/19/25 2221 WBC 8.91 HB 13.8 HCT 40.6 PLT 305 Recent Labs 07/19/25 2221 NA 134* K 4.2 CHLOR 96* CO2 26 BUN 15 CREAT 0.89 GLUC 138* CA 12.2* MG 2.2 Recent Labs 07/19/25 2221 ALT 13 AST 9* TBILI 0.3 (more content not included)... Normal [facility] CT ABD/PEL WO IVCONon 2024 CT ABD/PEL WO IVCON * * *Final Report* * * DATE OF EXAM: Jul 20 2025 8:41AM [facility] 0531 - CT ABD/PEL WO IVCON / PROCEDURE REASON: r/o mass * * * * Physician Interpretation * * * * EXAMINATION: CT ABDOMEN AND PELVIS WITHOUT IV CONTRAST CLINICAL HISTORY: Presented at outside hospital for progressive headaches and vision changes, found to have multiple intracranial masses suggestive of metastasis. Malignancy evaluation. TECHNIQUE: Non-IV contrast imaging of the abdomen and pelvis was performed using standard technique, scanning from just above the dome of the diaphragm to the symphysis pubis. Unenhanced imaging is limited for the evaluation of some intra-abdominal and pelvic pathology. MQ: [id number]_3 Contrast: IV: None CT Radiation dose: Integrated Dose-length product (DLP) for this visit = 546 mGy*cm. CT Dose Reduction Employed: Automated exposure control (AEC) COMPARISON: None. RESULT: Abdomen / Pelvis: Liver: -Normal morphology -Suspect 1.5 cm low-attenuation lesion in the left hepatic dome with possible adjacent subcentimeter lesion (2:13). Biliary: Vicariously excreted contrast material present within the gallbladder. Spleen: No splenomegaly. Soft tissue from adjacent renal mass (described below) abuts the spleen (2:39). Pancreas: Fatty infiltration of the pancreatic head/uncinate. The pancreatic tail is inseparable from the renal mass (2:36) (described below). Adrenals: -No right adrenal nodule. -The left adrenal gland is inseparable from the left renal mass (3:40) described below. Kidneys: Right kidney: Retained contrast material within the collecting system/bladder. No hydronephrosis or mass. Left kidney: -Ill-defined lobulated 10.1 x 9.2 x 6.5 cm left renal mass (2:50) which diffusely invades the renal sinus fat and extends anteriorly to Gerota's fascia. Mass abuts and likely involves the left adrenal gland (2:33) and posterior aspect of the pancreatic tail (2:35). There is fascial thickening medial to the splenic hilum, with likely abutment of the splenic hilum (2:36). Soft tissue stranding extends to the posterior aspect of the descending colon/splenic flexure (2:50). - Evaluation of the left renal vein is limited without contrast, however there is definite expansion of the left renal vein which can indicate underlying tumor invasion (2:47). -Collecting system contains excreted contrast and is displaced posteriorly by the mass. GI Tract: No bowel dilation. No bowel wall thickening. Lymph Nodes: Round, prominent periaortic lymph nodes measure up to 0.9 cm in short axis (2:51). Mesentery/peritoneum: No ascites. Retroperitoneum: No mass. Vasculature: -Arterial atherosclerotic disease without aneurysm. -Suspect tumor in left renal vein, as described in the kidney section. Pelvis: No mass or ascites. Bones/Soft Tissues: No acute abnormality. No suspicious osseous lesion. Lower thorax: A chest CT performed will be reported separately. Localizer images: No additional findings. IMPRESSION: 10.1 cm invasive left renal mass, suspicious for renal cell carcinoma. Involvement of the pancreatic tail and left adrenal gland, with possible extension to the splenic hilum and left colon. Tumor in left renal vein also suspected. Finding should BE further characterized with a dedicated renal mass imaging protocol without and with contrast. Possible hepatic lesions can also be further characterized with dedicated renal mass protocol. Extracting Machine Operator: DARIEL Transcribe Date/Time: Jul 20 2025 8:48A Dictated by : ABDIAZIZ DEL TORO MD This examination was interpreted and the report reviewed and electronically signed by: ENRIQUE WILKS MD on Jul 20 2025 9:24AM EST [id number] Normal [facility] CT CHEST WO IVCONon 07-20-[address] CHEST WO IVCON * * *Final Report* * * DATE OF EXAM: Jul 20 2025 8:41AM [facility] 0541 - CT CHEST WO IVCON / PROCEDURE REASON: Lung nodule, post chest CT or PET/CT, high suspicion of lung cancer, pre-op imag * * * * Physician Interpretation * * * * EXAMINATION: CHEST CT WITHOUT CONTRAST CLINICAL HISTORY: 45-year-old male reported former smoker admitted with worsening headaches and vision changes with recent head CT demonstrating a few brain lesions. Assess for malignancy within the chest. Technique: Spiral CT acquisition of the chest from the thoracic inlet to the upper abdomen without contrast. MQ: CTCWO_6 CT Radiation dose: Integrated Dose-length product (DLP) for this visit = 546 mGy*cm CT Dose Reduction Employed: Automated exposure control (AEC) Comparison: Chest radiograph dated 07/19/2025; no prior chest CT is available for comparison RESULT: Limitations: None. Lines, tubes, and devices: None. Lung parenchyma and airways: There is scattered bilateral pulmonary nodules. For reference, there is a medially located 25 x 18 mm subpleural left upper lobe nodule (3:88) along the mediastinal border, a 15 mm left lower lobe nodule (3:115), a 25 x 17 mm central left lower lobe nodule (3:124), and a 8 x 6 mm right upper lobe. There may be an endobronchial component to the left lower lobe nodule (3:124) with distal linear opacity likely representing postobstructive change. Numerous additional pulmonary nodules are present. No pulmonary edema. Debris within left lower lobe bronchi likely represents mucous/secretions. The central airways are patent. Pleural space: No pleural effusion, pleural thickening, or pneumothorax. Lower neck, lymph nodes, and mediastinum: The imaged thyroid gland is unremarkable. No supraclavicular or axillary lymphadenopathy. No enlarged mediastinal or hilar lymph nodes. The esophagus is decompressed. Heart, pericardium, and thoracic vessels: Both the ascending aorta and main pulmonary artery are normal in caliber. No distinct coronary artery atherosclerotic calcification is seen. Heart size is normal. No pericardial effusion. Bones and soft tissues: No destructive lytic or blastic bone lesion. Mild height loss of several mid to lower thoracic vertebral bodies is likely chronic. Mild symmetric bilateral gynecomastia. Upper abdomen: A CT examination of the abdomen and pelvis, which is performed concurrently, is reported separately. Localizer images: No additional findings. IMPRESSION: 1. Scattered bilateral pulmonary nodules are suspicious for metastatic disease, most likely due to a large left renal mass seen on the concurrent abdominal/pelvic CT exam. 2. No thoracic lymphadenopathy. Extracting Machine Operator: [facility] HOSPITALJake Transcribe Date/Time: Jul 20 2025 8:51A Dictated by : LANDON TAMAYO MD This examination was interpreted and the report reviewed and electronically signed by: LANDON TAMAYO MD on Jul 20 2025 9:08AM EST [id number] Normal [facility] CYTOLOGY NON-GYNon ADEQUACY INTERPRETATION Normal [facility] Comment on above: Order Comment: Speci men Type: SPECIMEN OBTAINED BY LAVAGEOrdering Facility: [facility] Address: [address] [place] [address] Result Comment: A: N o adequacy given B: #1: Rare atypical cells #2-4: Positive for carcinoma Dr. Vy Reyes / Dr. Patricio Cameron / Dr. Rosalie Peña Each letter in the above intra-procedural assessment refers to a unique site. The specific site is indicated in the final diagnosis portion of the report. Each number in this assessment references a discrete evaluation episode. Intra-[place]ced[place] [address] Performed By: #### C YTONON ####[facility] [id number] [facility] [id number] [address] [place] AP DISCLAIMER Normal [facility] Comment on above: Order Comment: Speci men Type: SPECIMEN OBTAINED BY LAVAGEOrdering Facility: [facility] Address: [address] [place] [address] Result Comment: Obey gómez Developed Test (LDT) Disclaimer: Performance characteristics of immunohistochemical, immunofluorescent, and chromogenic in-situ hybridization tests have been determined by the performing laboratory within the [facility] Department of Pathology and Laboratory Medicine ([facility], [facility], [facility], [facility], [facility], or [facility]) in a manner consistent with CLIA requirements. One or more of these tests may not have been cleared or approved by the FDA. The [facility] Department of Pathology and Laboratory Medicine is regulated under CLIA as qualified to perform high-complexity testing. These tests are used for clinical purposes. These should not be regarded as investigational or for research. Positive and negative controls stain appropriately. Performed By: #### C YTONON ####[facility] [id number] [place] [address] [place] CASE REPORT Normal [facility] Comment on above: Order Comment: Speci men Type: SPECIMEN OBTAINED BY LAVAGEOrdering Facility: [facility] Address: [address] [place] [address] Result Comment: [facility] Cytology Report Case: [id number] Authorizing Provider: Dee Dee Martinez MD Collected: 07/20/2025 02:47 PM Ordering Location: [place] [address] Received: 07/20/2025 03:53 PM Pathologist: Piper Reyes MD Specimens: A) - Lung, Left, Left lower lobe B) - Lung, Left Lower Lobe, Transbronchial, endobronchial mass Performed By: #### C YTONON ####[facility] [id number] [address] [place] CLINICAL HISTORY History of renal fidel l carcinoma Normal [facility] Comment on above: Order Comment: Speci men Type: SPECIMEN OBTAINED BY LAVAGEOrdering Facility: [facility] Address: [address] [place] [address] Performed By: #### C YTONON ####[facility] [id number] [address] DIAGNOSIS COMMENT An immunostain for PAX-8 was performed on the cell block material from specimen B and the malignant cells are positive, further supporting the above diagnosis. Selected slides from specimen B were reviewed in consultation with Dr. Denita Soto, who concurs. Normal [facility] Comment on above: Order Comment: Speci men Type: SPECIMEN OBTAINED BY LAVAGEOrdering Facility: [facility] Address: [address] [place] [address] Performed By: #### C YTONON ####[facility] [id number] [address] FINAL DIAGNOSIS Normal [facility] Comment on above: Order Comment: Speci men Type: SPECIMEN OBTAINED BY LAVAGEOrdering Facility: [facility] Address: [address] [place] [address] Result Comment: A - Lung, Left, Wash - Left lower lobe Negative for malignant cells. Benign bronchial epithelial cells and pulmonary macrophages. B - Lung, Left Lower Lobe, Transbronchial, FNA - endobronchial mass Positive for malignant cells. Metastatic renal cell carcinoma (see comment). The following cell blocks were associated with this case: B1 Cell Block, Alcohol Fixed at 1558 EDT Performed By: #### C YTONON ####[facility] [id number] [address] FINAL PERFORMING LAB Normal [facility] Comment on above: Order Comment: Speci men Type: SPECIMEN OBTAINED BY LAVAGEOrdering Facility: [facility] Address: [address] [place] [address] Result Comment: Tech nical component, modeling and simulation analyst screening performed at: [facility], [address] [place] [address] CLIA: [id number] Diagnostic interpretation performed at: [facility], [address] [place] [address] [place] [address] CLIA# [id number] Ballet Soloist: Luis Armando Cardoza MD Performed By: #### C YTONON ####[facility] [id number] [address] GROSS DESCRIPTION A. Lung, Left Normal [facility] Comment on above: Order Comment: Speci men Type: SPECIMEN OBTAINED BY LAVAGEOrdering Facility: [facility] Address: [address] [place] [address] Result Comment: 10 c c hazy colorless fluid . ThinPrep prepared. B. Lung, Left Lower Lobe, Transbronchial 2 containers:60 cc hazy red CytoLyt with particles. ThinPrep and Cell Block prepared and 4 smears (2 air dried and 2 fixed). Performed By: #### C YTONON ####[facility] [id number] [address] [place] HISTORY PHYSICALon HISTORY PHYSICAL HNO ID: [id number] Author: BRAYAN MIX MD Service: Neurosurgery Author Type: Physician Type: H&P Filed: 07/20/2025 15:43 Note Text: NEUROSURGERY HISTORY AND PHYSICAL EXAMINATION PLEASE DO NOT REMOVE FROM THE CHART OR MODIFY PRINTED COPY Patient Name: Garry Hernandez CHIEF COMPLAINT: Headaches, dysarthria HPI: 45 year old L-handed male w/ PMH anxiety, former smoker (15 yr x 0.5ppd) who presented to [facility] ED due to 3 week history of worsening of headaches and changes in vision s/p hernia surgery. Presented specifically to ED due to WFD on day of presentation. Code stroke was called, for which CTH/CTA obtained. CTH demonstrated 1.9 cm L temporal and 2.5 cm R occipital masses w/ significant vasogenic edema and w/o MLS. CTA w/ demonstration of rim enhancement of the aforementioned lesions and multiple pulmonary nodules. Subsequently transferred to [facility] for further evaluation. At OSH, received dex 10 IV. Per family, had improvement in mental status and headache. MRI wwo obtained at [facility], which demonstrates heterogeneous contrast-enhancement with necrotic features for 1.9 cm L temporal, and 2.5 cm R occipital masses w/ significant vasogenic edema. Labs: WBC 8.9, Hgb 13.8, plt 305, Na 134, Cr 0.89, INR 1.1, PTT 31.9 Denies cancer hx, alcohol use, other drug use. No prior hx of brain surgery. Denies recent episodes of chest pain/SOB, fever/chills, nausea/emesis, seizures, traumas/falls Anti-platelets/anti-co agulants: none PAST MEDICAL HISTORY: No past medical history on file. PAST SURGICAL HISTORY: No past surgical history on file. FAMILY HISTORY: No family history on file. SOCIAL HISTORY: SOCIAL HISTORY[1] MEDICATIONS: No prescriptions on file. No current facility-administered medications for this encounter. ALLERGIES: ALLERGIES Not on File COMPLETE REVIEW OF SYSTEMS: See HPI PHYSICAL EXAM: AAOx3, conversational WFD Naming 0/3, repeats 2/2 Speech intact PERRL, EOMI L HH B/l V1-3 SILT FS, TM BUE 5, no drift BLE 5 SILT x4 CV: Regular rate/rhythm Chest: Comfortable on room air Abdomen: Soft, NT/ND DATA: Radiology: See HPI Laboratory: Recent Labs 07/19/25 2221 WBC 8.91 HB 13.8 HCT 40.6 PLT 305 INR 1.1 APTT 31.9 NA 134* K 4.2 CHLOR 96* CO2 26 BUN 15 CREAT 0.89 GLUC 138* CA 12.2* MG 2.2 P 3.3 ASSESSMENT AND PLAN: 45 year old L-handed male w/ PMH anxiety, former smoker (15 yr x 0.5ppd) who presented to OSH ED due to 3 week history of worsening of headaches and changes in vision s/p hernia surgery. Presented specifically to ED due to WFD on day of presentation. Code stroke was called, for which CTH/CTA obtained. CTH demonstrated 1.9 cm L temporal and 2.5 cm R occipital masses w/ significant vasogenic edema and w/o MLS. CTA w/ demonstration of rim enhancement of the aforementioned lesions and multiple pulmonary nodules. Subsequently transferred to [facility] main [facility] for further evaluation. - NSGY RNF q4 NC - MRI wwo + tumor + GKRS sequences completed, reviewed - Rad-onc consult - CT CAP w/ - pulm consult pending CT CAP w/ - Dex 4 BID - Hold Keppra, low threshold to start - SCDs, hold SQH - Hold AC/AP - SBP < 160 Above plan discussed with chief and staff, Dr. Bautista. Discussed with Dr. Maria Del Rosario Deluca MD PGY-2, Neurological Surgery Pager: [phone] 07/19/2025 3735 CURRENT OVERNIGHT RESIDENT Please page [phone] between 6:30 AM and 6:00 PM, or if I am not reachable at the above number between 6:00 PM and 6:30 AM The following problems are present on admission at this time: Neurologic disorder Continue current outpatient treatment plan and current medications for these conditions, except where otherwise noted. [facility] STAFF: TEACHING PHYSICIAN NOTE OF PERSONAL INVOLVEMENT IN CARE I have reviewed the progress note obtained and documented by the Resident and I personally participated in the white components. I have discussed the case and management of the patient's care with the team. The following comments revise or confirm relevant white components of the note. IMPRESSION: as above. 45 year old with kidney and lung lesions and bilateral brain metastasis and edema. Neurologically as above. Getting bronch today. If positive for cancer will plan for staged GK given the size of lesions. PLAN: as above. Steroid for brain edema. Radiation oncology consult Appreciate pulm recs PT/OT eval, if ok for discharge will be discharged tomorrow to [facility] Discussed with family at bedside Brayan Mix MD Beeper Number: [id number] Date and Time of Service: July 20, 2025 3:31 PM [1] Normal [facility] MRI BRAIN WO/W IVCONon 07-20 MRI BRAIN WO/W IVCON * * *Final Report* * * DATE OF EXAM: Jul 20 2025 12:40AM QBM 0295 - MRI BRAIN WO/W IVCON / PROCEDURE REASON: new mets * * * * Physician Interpretation * * * * EXAMINATION: MRI BRAIN WO/W IVCON CLINICAL HISTORY: Intracranial metastatic evaluation, left temporal and right occipital masses on CTH/CTA TECHNIQUE: Routine brain MRI protocol without and with contrast including diffusion images. MQ: [id number]_2 Contrast: 7 mL Elucirem IV COMPARISON: Outside hospital head CT and CTA of the head and neck RESULT: Acute Change: There is no evidence of restricted diffusion to suggest an acute infarct. Hemorrhage: Punctate foci of susceptibility artifact corresponding to the lateral margin of the left temporal mass and additional more patchy/curvilinear susceptibility corresponding to the right occipital lobe mass in keeping with blood degradation byproducts. Mass Lesion/ Mass Effect: Well-defined, lobulated mixed necrotic and partially solid enhancing mass in the right occipital lobe, 2.0 x 2.1 cm in greatest transaxial dimensions and 2.1 cm in greatest craniocaudal extent (series 16, image 130). The mass abuts the posterior lateral dural margin of the right occipital lobe, as well as the lateral aspect of the tentorial leaflet. The masses abuts, but does not invade or disrupt the adjacent right transverse sinus, which is patent. A patchy focus of subcentimeter enhancement extends from the anterior superior margin of the mass (series 16, image 118). Extensive local mass effect with pronounced vasogenic edema involving the entirety of the right occipital lobe extending into the right temporal lobe, right parietal lobe, and resulting in effacement/extrinsic compression of the right ventricular atrium and occipital horn of the right lateral ventricle. Additional well-defined, lobulated mixed necrotic and partially solid enhancing mass in the mesial left temporal lobe, 2.0 x 2.0 cm in greatest transaxial dimensions and 2.4 cm in greatest craniocaudal extent (series 16, image 121). The inferior margin of the mass abuts the left tentorial leaflet. The extent of marked surrounding vasogenic edema involves the entirety of the left temporal lobe extending to the posterior left insular region and basal ganglia. The local mass effect near completely effaces the temporal horn of the left lateral ventricle, which is medially displaced and partially effaces the left ventricular atrium and left occipital horn. Chronic Change: The white matter is within normal limits of signal intensity for age. Parenchyma: No significant volume loss for age. Ventricles: Stable nondilated ventricular caliber. Multifocal mass effect as above.. Skull Base: Hypothalamic and pituitary region are grossly normal. Craniocervical junction is normal. No significant marrow replacement process. Vasculature: Major intracranial arterial structures, and dural venous sinuses show typical flow void, suggesting patency by spin echo criteria. Other: Minimal scattered polypoid mucosal thickening. The mastoid air cells are clear. The orbits and extracranial soft tissues are unremarkable. IMPRESSION: Irregular partially necrotic and hemorrhagic masses in the right occipital and left temporal lobes highly suspicious for intracranial metastases. Extensive vasogenic edema/local mass effect effaces the ventricular system without evidence of developing hydrocephalus. No midline shift. Extracting Machine Operator: [facility] Transcribe Date/Time: Jul 20 2025 9:20A Dictated by : LINUS CASTRO MD This examination was interpreted and the report reviewed and electronically signed by: MAICO FRANK MD on Jul 20 2025 10:12AM EST [id number] Normal [facility] Microorganism Spec Culton Microorganism identified Cx Nom (Unsp spec) CULTURE, FUNGAL: No Fungus isolated after 28 days FUNGAL SMEAR: No fungus seen Normal [facility] Comment on above: Performed By: #### 3 2355-0 ####[facility] LABIA [id number] [address]#### [address]-6 ####[facility] LABIA [id number] [address] Microorganism identified Cx Nom (Unsp spec) CULTURE, AFB: No Acid Fast Bacilli isolated after 42 days AFB STAIN: No acid fast bacilli seen by fluorochrome stain Normal [facility] Comment on above: Performed By: #### 3 2355-0 ####[facility] [id number] [address]#### [address]-0 ####[facility] LABIA [id number] [address] NURSING PROGon 07-20-2025 NURSING PROG HNO ID: [id number] Author: NAPOLEON SIMON RN Service: ? Author Type: Registered Nurse Type: Nursing Progress Note Filed: 07/20/2025 20:30 Note Text: Patient reports visual hallucinations that started today. States the ceiling is coming down on him and that he sees a barn window. RN notified treatment team Shakila Lam NP. Waiting for response. Normal [facility] NURSING PROG HNO ID: [id number] Author: CANDY BAUER RN Service: Nursing Author Type: Registered Nurse Type: Nursing Progress Note Filed: 07/20/2025 00:25 Note Text: Radiology Service Progress Note DATE OF SERVICE: July 20, 2025 TIME: 12:25 AM PATIENT WEIGHT: 153 LBS PATIENT IDENTITY VERIFICATION COMPLETED USING TWO (2) STANDARD IDENTIFIERS: Name and Date of confirmed by patient verbally and Name and Date of confirmed by identification band. FALL SCREENING: Has the patient had 2 falls in the last year or 1 fall with injury or currently using an Ambulatory Assistive Device (Walker, Cane, Wheelchair, Crutches, etc.)? Inpatient: Screened on floor PATIENT GENDER DATA: Assigned male at ALLERGIES: Reviewed and unchanged CONTRAST ALLERGY: No EXAM: MRI - CONTRAST TYPE: GROUP II IV SITE: Inpatient - refer to [facility] documentation IV SITE APPEARANCE: Clean,Dry and Intact SIGNATURE: Candy Bauer RN PATIENT NAME: Garry Hernandez DATE: July 20, 2025 TIME: 12:25 AM Normal [facility] Pathology biopsy report Parag (Tiss)on 07-20-2025 AP DISCLAIMER Normal [facility] Comment on above: Order Comment: Speci men Type: TISSUE SPECIMENOrdering Facility: [facility] Address: [address] [place] [address] Result Comment: Obey Millan Test (LDT) Disclaimer: Performance characteristics of immunohistochemical, immunofluorescent, and chromogenic in-situ hybridization tests have been determined by the performing laboratory within the [facility] Department of Pathology and Laboratory Medicine ([facility], [facility], [facility], [facility], [facility], or [facility]) in a manner consistent with CLIA requirements. One or more of these tests may not have been cleared or approved by the FDA. The [facility] Department of Pathology and Laboratory Medicine is regulated under CLIA as qualified to perform high-complexity testing. These tests are used for clinical purposes. These should not be regarded as investigational or for research. Positive and negative controls stain appropriately. Performed By: #### 6 6121-5 ####[facility]IA [id number] [place] [address] [place] CASE REPORT Normal [facility] Comment on above: Order Comment: Speci men Type: TISSUE SPECIMENOrdering Facility: [facility] Address: [address] [place] [address] Result Comment: Surg [facility] Pathology Report Case: [id number] Authorizing Provider: Dee Dee Martinez MD Collected: 07/20/2025 03:19 PM Ordering Location: [place] [address] Received: 07/20/2025 05:36 PM Pathologist: Lauro Salmeron MD Specimen: Lung, Left, Biopsy, LLL ENDOBRONCHIAL MASS EBBX Performed By: #### 6 6121-5 ####[facility]CLIA [id number] [place] [address] [place] FINAL DIAGNOSIS Normal [facility] Comment on above: Order Comment: Speci men Type: TISSUE SPECIMENOrdering Facility: [facility] Address: [address] [place] [address] Result Comment: A. 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 at 0742 EDT Performed By: #### 6 6121-5 ####[facility] [id number] [address] [place] FINAL PERFORMING LAB Normal [facility] Comment on above: Order Comment: Speci men Type: TISSUE SPECIMENOrdering Facility: [facility] Address: [address] [place] [address] Result Comment: Diag nostic interpretation performed at: [facility], [address] [place] [address] CLIA# [id number] Ballet Soloist: Luis Armando Cardoza MD Performed By: #### 6 6121-5 ####[facility]CL[facility] [id number] [address] [address] [place] GROSS DESCRIPTION Normal [facility] Comment on above: Order Comment: Speci men Type: TISSUE SPECIMENOrdering Facility: [facility] Address: [address] [place] [address] Result Comment: Patricio Jiménez shagufta, Left, Biopsy Received in formalin labeled as LLL endobronchial mass EBBX are multiple pieces of hemorrhagic tissue aggregating to 2.0 x 1.2 x 0.7 cm. The tissue is totally submitted in 1 cassette. MLG 07/21/25 10:00 AM Gross examination performed at [facility], [address] [place] [address] Performed By: #### 6 6121-5 ####[facility] [id number] [address] [place] 12 Lead EKGon 07-19-2025 12 Lead EKG [facility] Cardi[facility] Services [address] [place] [address] 12 Lead EKG 07/19/25 1633 MR#: [id number] Acct: [id number] Name: GARRY HERNANDEZ Rep #: [id number] : 1980 45 From: aHo Candelario MD Attending Dr: Status: DEP ER Ordering Dr: Sylvester Morales MD Date: 07/19/25 Location: ED Sex: M C Admitted: Test Reason : STROKE TEAM Blood Pressure : */* mmHG Vent. Rate : 62 BPM Atrial Rate : 62 BPM P-R Int : 172 ms QRS Dur : 94 ms QT Int : 430 ms P-R-T Axes : 38 44 60 degrees QTcB Int : 436 ms Normal sinus rhythm Normal ECG Confirmed by KELLEY DE PAZ, HAO ([id number]), graphic editor EVENS HENSON ([id number]) on 07/21/2025 8:00:49 AM Referred By: Confirmed By: HAO CANDELARIO MD 07/21/25 0800 Date aHo Candelario MD CC: Dr. Sylvester Morales MD; Dr. Rocky Fountain MD Signed [facility] 12 Lead EKG [facility] Cardi[facility] Services [address] [place] [address] 12 Lead EKG 07/19/25 1633 MR#: [id number] Acct: [id number] Name: GARRY HERNANDEZ Rep #: [id number] : 1980 45 From: Hao Candelario MD Attending Dr: Dr. Sylvester Morales MD Status: DEP E R Ordering Dr: Sylvester Morales MD Date: 07/19/25 Location: ED Sex: M C Admitted: Test Reason : STROKE TEAM Blood Pressure : */* mmHG Vent. Rate : 62 BPM Atrial Rate : 62 BPM P-R Int : 172 ms QRS Dur : 94 ms QT Int : 430 ms P-R-T Axes : 38 44 60 degrees QTcB Int : 436 ms Normal sinus rhythm Normal ECG Confirmed by KELLEY DE PAZ, HAO ([id number]), graphic editor EVENS HENSON ([id number]) on 07/21/2025 8:00:49 AM Referred By: Confirmed By: HAO CANDELARIO MD 07/21/25 0800 Date Hao Candelario MD CC: Dr. Sylvester Morales MD; Dr. Rocky Fountain MD Signed Normal [facility] Absolute lymphocyte countOrd ered By: Sylvester Morales on 07-19-2025 Lymphocytes Auto (Unsp spec) [#/Vol] 1.69 10*3/uL 0.83-4.51 [facility] Absolute neutrophil countOrd ered By: Sylvester Morales on 07-19-2025 Neutrophils (Bld) [#/Vol] 8.1 10*3/uL High 2.0-7.7 [facility] Activated partial thrombopla stin time (aPTT) in platelet poor plasma by coagulation aOrdered By: Sylvester Morales on 07-19-2025 aPTT Coag (PPP) [Time] 30.3 s 24.1-36.2 [facility] Anion gap in Serum or Plasma Ordered By: Sylvester Morales on 07-19-2025 Anion gap [Moles/Vol] 16 mmol/L High 5-15 [facility] Automated lymphocyte count a s percentage of total leukocytesOrdered By: Sylvester Morales on 07-19-2025 Lymphocytes/100 WBC Auto (Unsp spec) 15.4 % Low [facility] BUN/creatinine ratioOrdered By: Sylvester Morales on 07-19-2025 Urea nitrogen/Creatinine [Mass ratio] 17.1 mg/mg 08-10 [facility] Basic Metabolic Profile (BMP )on 07-19-2025 BUN/CRE 17.1 RATIO Normal 08-10 [facility] Comment on above: Performed By: #### L 300.4310, L501.4021, L300.3900, L500.2500, L100.0100 ####[facility] [address] [place], [place], [address] ECRCL 91.88 ml/min Normal 50 - 250 ml/min [facility]; [facility] Work Phone: Comment on above: Performed By: #### L 300.4310, L501.4021, L300.3900, L500.2500, L100.0100 ####[facility] [id number] [facility]. [place], [place], [address] GAP 16 Abnormal 5 - 15 [facility]; [facility] Work Phone: Comment on above: Performed By: #### L 300.4310, L501.4021, L300.3900, L500.2500, L100.0100 ####[facility] [address] [facility] [place] [place], [address] Potassium [Moles/Vol] 3.6 mmol/L Normal 3.3 - 5.1 mmol/L [facility]; [facility] Work Phone: Comment on above: Result Comment: Hemo lysis present, Results??could be affected. ?? Performed By: #### L 300.4310, L501.4021, L300.3900, L500.2500, L100.0100 ####[facility] [address] [place], [address] Basophil percentageOrdered B y: Sylvester Morales on 07-19-2025 Basophils/100 WBC (Bld) 0.5 % 0-1 [facility] Bedside Glucoseon 07-19-2025 FINGERSTICK GLU 118 mg/dL High 74-106 [facility] Comment on above: Result Comment: [facility] OF PATIENT CARE PER NURSING PROTOCOL Performed By: #### L 501.080 #### [facility] [address] [place], [address] CBC W Auto Differential pane l (Bld)on 07-19-2025 Basophils (Bld) [#/Vol] 10*3/uL Normal <0.11 C [facility] Comment on above: Order Comment: Speci men Type: BLOOD SPECIMENOrdering Facility: [facility] Address: [address] [place] [address] Performed By: #### 5 7021-8 ####[facility] LABCLIA [id number] [place] [address] [place] Basophils/100 WBC (Bld) 0.2 % Normal C [facility] Comment on above: Order Comment: Speci men Type: BLOOD SPECIMENOrdering Facility: [facility] Address: [address] [place] [address] Performed By: #### 5 7021-8 ####[facility] LABCLIA [id number] [place] [address] [place] Differential cell count method Nom (Bld) Auto Normal [facility] Comment on above: Order Comment: Speci men Type: BLOOD SPECIMENOrdering Facility: [facility] Address: [address] [place] [address] Performed By: #### 5 7021-8 ####[facility] LABCLIA [id number] [place] [address] [place] Eosinophils (Bld) [#/Vol] 10*3/uL Normal <0.46 [facility] Comment on above: Order Comment: Speci men Type: BLOOD SPECIMENOrdering Facility: [facility] Address: [address] [place] [address] Performed By: #### 5 7021-8 ####[facility] LABCLIA [id number] [place] [id number] [place] Eosinophils/100 WBC (Bld) 0.0 % Normal [facility] Comment on above: Order Comment: Speci men Type: BLOOD SPECIMENOrdering Facility: [facility] Address: [address] [place] [address] Performed By: #### 5 7021-8 ####[facility] LABIA [id number] [place] [address] [place] Erythrocyte distribution width (RBC) [Ratio] 13.5 % Normal 11.5-15.0 [facility] Comment on above: Order Comment: Speci men Type: BLOOD SPECIMENOrdering Facility: [facility] Address: [address] [place] [address] Performed By: #### 5 7021-8 ####[facility] LABIA [id number] [place] [address] [place] Hematocrit (Bld) [Volume fraction] 40.6 % Normal 39.0-51.0 [facility] Comment on above: Order Comment: Speci men Type: BLOOD SPECIMENOrdering Facility: [facility] Address: [address] [place] [address] Performed By: #### 5 7021-8 ####[facility] LABIA [id number] [place] [id number] [place] Hemoglobin (Bld) [Mass/Vol] 13.8 g/dL Normal 13.0-17.0 [facility] Comment on above: Order Comment: Speci men Type: BLOOD SPECIMENOrdering Facility: [facility] Address: [address] [place] [address] Performed By: #### 5 7021-8 ####[facility] LABCLIA [id number] [place] [address] [place] Immature granulocytes (Bld) [#/Vol] 0.03 10*3/uL Normal <0.10 [facility] Comment on above: Order Comment: Speci men Type: BLOOD SPECIMENOrdering Facility: [facility] Address: [address] [place] [address] Performed By: #### 5 7021-8 ####[facility] LABCLIA [id number] [address] [place] Immature granulocytes/100 WBC (Bld) 0.3 % Normal [facility] Comment on above: Order Comment: Speci men Type: BLOOD SPECIMENOrdering Facility: [facility] Address: [address] [place] [address] Performed By: #### 5 7021-8 ####[facility] LABIA [id number] [place] [address] [place] Lymphocytes (Bld) [#/Vol] 0.68 10*3/uL Low 1.00-4.00 [facility] Comment on above: Order Comment: Speci men Type: BLOOD SPECIMENOrdering Facility: [facility] Address: [address] [place] [address] Performed By: #### 5 7021-8 ####[facility] LABCLIA [id number] [address] [place] Lymphocytes/100 WBC (Bld) 7.6 % Normal [facility] Comment on above: Order Comment: Speci men Type: BLOOD SPECIMENOrdering Facility: [facility] Address: [address] [place] [address] Performed By: #### 5 7021-8 ####[facility] LABIA [id number] [place] [address] [place] MCH (RBC) [Entitic mass] 27.1 pg Normal 26.0-34.0 [facility] Comment on above: Order Comment: Speci men Type: BLOOD SPECIMENOrdering Facility: [facility] Address: [address] [place] [address] Performed By: #### 5 7021-8 ####[facility] LABCLIA [id number] [place] [address] [place] MCHC (RBC) [Mass/Vol] 34.0 g/dL Normal 30.5-36.0 [facility] Comment on above: Order Comment: Speci men Type: BLOOD SPECIMENOrdering Facility: [facility] Address: [address] [place] [address] Performed By: #### 5 7021-8 ####[facility] LABCLIA [id number] [place] [address] [place] MCV (RBC) [Entitic vol] 79.8 fL Low 80.0-100.0 C [facility] Comment on above: Order Comment: Speci men Type: BLOOD SPECIMENOrdering Facility: [facility] Address: [address] [place] [address] Performed By: #### 5 7021-8 ####[facility] LABIA [id number] [place] [address] [place] Monocytes (Bld) [#/Vol] 0.10 10*3/uL Normal <0.87 [facility] Comment on above: Order Comment: Speci men Type: BLOOD SPECIMENOrdering Facility: [facility] Address: [address] [place] [address] Performed By: #### 5 7021-8 ####[facility] LABCLIA [id number] [address] [place] Monocytes/100 WBC (Bld) 1.1 % Normal C [facility] Comment on above: Order Comment: Speci men Type: BLOOD SPECIMENOrdering Facility: [facility] Address: [address] [place], [place] [address] Performed By: #### 5 7021-8 ####[facility] LABCLIA [id number] [address], [place] [address] [place] Neutrophils (Bld) [#/Vol] 8.08 10*3/uL High 1.45-7.50 [facility] Comment on above: Order Comment: Speci men Type: BLOOD SPECIMENOrdering Facility: [facility] Address: [address] [place] [address] Performed By: #### 5 7021-8 ####[facility] LABCLIA [id number] [address], [place] [address] [place] Neutrophils/100 WBC (Bld) 90.8 % Normal [facility] Comment on above: Order Comment: Speci men Type: BLOOD SPECIMENOrdering Facility: [facility] Address: [address] [place] [address] Performed By: #### 5 7021-8 ####[facility] LABCLIA [id number] [facility] [address], [facility] [place] Nucleated RBC (Bld) [#/Vol] 10*3/uL Normal <0.01 [facility] Comment on above: Order Comment: Speci men Type: BLOOD SPECIMENOrdering Facility: [facility] Address: [address] [place] [address] Performed By: #### 5 7021-8 ####[facility] LABCLIA [id number] [facility] [place] [address] [place] Nucleated RBC/100 WBC (Bld) [Ratio] 0.0 /100 WBC Normal [facility] Comment on above: Order Comment: Speci men Type: BLOOD SPECIMENOrdering Facility: [facility] Address: [address] [place] [address] Performed By: #### 5 7021-8 ####[facility] LABCLIA [id number] [address], [facility]95 [place] Platelet mean volume (Bld) [Entitic vol] 10.6 fL Normal 9.0-12.7 [facility] Comment on above: Order Comment: Speci men Type: BLOOD SPECIMENOrdering Facility: [facility] Address: [address] [place] [address] Performed By: #### 5 7021-8 ####[facility] LABCLIA [id number] [place] [address] [place] Platelets (Bld) [#/Vol] 305 10*3/uL Normal 150-400 [facility] Comment on above: Order Comment: Speci men Type: BLOOD SPECIMENOrdering Facility: [facility] Address: [address] [place] [address] Performed By: #### 5 7021-8 ####[facility] LABCLIA [id number] [place] [address] [place] RBC (Bld) [#/Vol] 5.09 10*6/uL Normal 4.20-6.00 [facility] Comment on above: Order Comment: Speci men Type: BLOOD SPECIMENOrdering Facility: [facility] Address: [address] [place] [address] Performed By: #### 5 7021-8 ####[facility] LABIA [id number] [place] [address] [place] WBC (Bld) [#/Vol] 8.91 10*3/uL Normal 3.70-11.00 [facility] Comment on above: Order Comment: Speci men Type: BLOOD SPECIMENOrdering Facility: [facility] Address: [address] [place] [address] Performed By: #### 5 7021-8 ####[facility] LABCLIA [id number] [place] [id number] [place] CBC W/Diff, Automatedon 09-2 Absolute Lymph 1.69 X10 3/uL Normal 0.83-4.51 [facility] Comment on above: Performed By: #### L 300.4310, L501.4021, L300.3900, L500.2500, L100.0100 #### [facility] [address] [place], [address] Absolute Neut 8.1 X10 3/uL High 2.0-7.7 [facility] Comment on above: Performed By: #### L 300.4310, L501.4021, L300.3900, L500.2500, L100.0100 #### [facility] [address] [place], [address] Basophils/100 WBC (Bld) 0.5 % Normal 0-1 [facility] Comment on above: Performed By: #### L 300.4310, L501.4021, L300.3900, L500.2500, L100.0100 #### [facility] [address] [place], [address] Eosinophils/100 WBC (Bld) 0.6 % Normal 0-5 [facility] Comment on above: Performed By: #### L 300.4310, L501.4021, L300.3900, L500.2500, L100.0100 #### [facility] [address] [place], [address] Erythrocyte distribution width (RBC) [Ratio] 13.4 % Normal 11.6-14.6 [facility] Comment on above: Performed By: #### L 300.4310, L501.4021, L300.3900, L500.2500, L100.0100 #### [facility] [address] [place], [address] Hematocrit (Bld) [Volume fraction] 40.1 % Normal 40-54 [facility] Comment on above: Performed By: #### L 300.4310, L501.4021, L300.3900, L500.2500, L100.0100 #### [facility] [address] [place], [address] Hemoglobin (Bld) [Mass/Vol] 13.5 g/dL Normal 13.0-16.5 [facility] Comment on above: Performed By: #### L 300.4310, L501.4021, L300.3900, L500.2500, L100.0100 #### [facility] [address] [place], [address] IG% 0.500 Normal 0.0-0.9 [facility] Comment on above: Result Comment: IG% - Immature Granulocytes (promyelocytes, myelocytes and metamyelocytes) > 1% indicates that a LEFT SHIFT is Present. Performed By: #### L 300.4310, L501.4021, L300.3900, L500.2500, L100.0100 #### [facility] [address] [facility] [place], [address] Lymphocytes/100 WBC (Bld) 15.4 % Low 19-41 [facility] Comment on above: Performed By: #### L 300.4310, L501.4021, L300.3900, L500.2500, L100.0100 #### [facility] [address] [place], [address] MCH (RBC) [Entitic mass] 26.8 pg Low 27.0-32.0 [facility] Comment on above: Performed By: #### L 300.4310, L501.4021, L300.3900, L500.2500, L100.0100 #### [facility] [address] [place], [address] MCHC (RBC) [Mass/Vol] 33.7 g/dL Normal 32-36 [facility] Comment on above: Performed By: #### L 300.4310, L501.4021, L300.3900, L500.2500, L100.0100 #### [facility] [address] [place], [address] MCV (RBC) [Entitic vol] 79.7 fL Low 80-94 [facility] Comment on above: Performed By: #### L 300.4310, L501.4021, L300.3900, L500.2500, L100.0100 #### [facility] [address] [place], [address] Monocytes/100 WBC (Bld) 9.0 % Normal 0-10 [facility] Comment on above: Performed By: #### L 300.4310, L501.4021, L300.3900, L500.2500, L100.0100 #### [facility] [address] [place], [address] Neutrophils/100 WBC (Bld) 74.0 % High 47-70 [facility] Comment on above: Performed By: #### L 300.4310, L501.4021, L300.3900, L500.2500, L100.0100 #### [facility] [address] [place], [address] Nucleated RBC (Bld) [#/Vol] 0 10*3/uL Normal 0-5 [facility] Comment on above: Performed By: #### L 300.4310, L501.4021, L300.3900, L500.2500, L100.0100 #### [facility] [address] [place], [address] Platelet mean volume (Bld) [Entitic vol] 10.4 fL Normal 6.2-12.0 [facility] Comment on above: Performed By: #### L 300.4310, L501.4021, L300.3900, L500.2500, L100.0100 #### [facility] [address] [place], [address] Platelets (Bld) [#/Vol] 318 10*3/uL Normal 150-450 [facility] Comment on above: Performed By: #### L 300.4310, L501.4021, L300.3900, L500.2500, L100.0100 #### [facility] [address] [place], [address] RBC (Bld) [#/Vol] 5.03 10*6/uL Normal 4.6-6.2 [facility] Comment on above: Performed By: #### L 300.4310, L501.4021, L300.3900, L500.2500, L100.0100 #### [facility] [address] [place], [address] RDW SD 37.8 fl Normal 35.1-43.9 [facility] Comment on above: Performed By: #### L 300.4310, L501.4021, L300.3900, L500.2500, L100.0100 #### [facility] [address] [place], [address] WBC (Bld) [#/Vol] 11.0 10*3/uL Normal 4.4-11.0 [facility] Comment on above: Performed By: #### L 300.4310, L501.4021, L300.3900, L500.2500, L100.0100 #### [facility] [address] [place], [address] CONFIRM BLOOD TYPEon 025 ABO O Normal [facility] Comment on above: Order Comment: Speci men Type: BLOOD SPECIMENOrdering Facility: [facility] Address: [address] [place] [address] Performed By: #### C ONABO ####[facility] BLOOD BANKCLIA [id number] [facility] [place] [address] [place] Rh Nom (Bld) Positive Normal [facility] Comment on above: Order Comment: Speci men Type: BLOOD SPECIMENOrdering Facility: [facility] Address: [address] [place] [id number] Performed By: #### C ONABO ####CC MAIN BLOOD BANKCLIA [id number] [facility] [place] [address] [place] Carbon dioxide, total [Moles /volume] in Central venous bloodon 07-19-2025 CO2 [Moles/Vol] 22.7 mmol/L Normal 21.0 - 32.0 mmol/L [facility] Work Phone: Comment on above: Performed By: #### L 300.4310, L501.4021, L300.3900, L500.2500, L100.0100 ####[facility] [address] [facility]. [place], [place], [address] Chest 1 Viewon 07-19-2025 Chest 1 View [facility] Services [address] [place], [place] [address] Chest 1 View MR#: [id number] Acct: [id number] Name: GARRY HERNANDEZ Rep #: [id number] : 1980 M 45 From: Sunny Dave MD PCP: Dr. Rocky Fountain MD Status: REG ER Study: Chest 1 View Date of Exam: 07/19/25 Exam# [id number] Ordering Dr: Sylvester Morales MD PROCEDURE: CHEST 1 VIEW 07/19/2025 REASON FOR EXAM: NEURO DEFICIT, ACUTE, STROKE SUSPECTED TECHNIQUE: Frontal view of the chest. COMPARISON: None. FINDINGS: Lungs/Pleura: Clear. Heart/Mediastinum: Normal in size. Bones/Soft tissues: Unremarkable. RAD/Chest 1 View IMPRESSION: No acute cardiopulmonary disease. Reading Location: [facility] CC: Dr. Sylvester Morales MD; Dr. Rocky Fountain MD Extracting Machine Operator: Signed Normal [facility] Chest 1 View [facility] Services [address] [place], [place] [address] Chest 1 View MR#: [id number] Acct: [id number] Name: GARRY HERNANDEZ Rep #: [id number] : 1980 M 45 From: Sunny Dave MD PCP: Dr. Rocky Fountain MD Status: DEP ER Study: Chest 1 View Date of Exam: 07/19/25 Exam# [id number] Ordering Dr: Sylvester Morales MD PROCEDURE: CHEST 1 VIEW 07/19/2025 REASON FOR EXAM: NEURO DEFICIT, ACUTE, STROKE SUSPECTED TECHNIQUE: Frontal view of the chest. COMPARISON: None. FINDINGS: Lungs/Pleura: Clear. Heart/Mediastinum: Normal in size. Bones/Soft tissues: Unremarkable. RAD/Chest 1 View IMPRESSION: No acute cardiopulmonary disease. Reading Location: [facility] CC: Dr. Sylvester Morales MD; Dr. Rocky Fountain MD Extracting Machine Operator: Signed Normal [facility] Chloride assayon 07-19-2025 Chloride [Moles/Vol] 95 mmol/L Abnormal 98 - 10 8 mmol/L [facility] Work Phone: Comment on above: Performed By: #### L 300.4310, L501.4021, L300.3900, L500.2500, L100.0100 ####[facility] [address] [place], [place], [id number] Comprehensive metabolic 2000 panelon 07-19-2025 Albumin [Mass/Vol] 4.6 g/dL Normal 3.9-4.9 [facility] Comment on above: Order Comment: Speci men Type: BLOOD SPECIMENOrdering Facility: [facility] Address: [address] [place] [address] Performed By: #### 2 4323-8, 16771-8, 2777-1 ####[facility] LABCLIA [id number] [place] [address] [place] ALP [Catalytic activity/Vol] 269 U/L High 38-113 [facility] Comment on above: Order Comment: Speci men Type: BLOOD SPECIMENOrdering Facility: [facility] Address: [address] [place], [place] [address] Performed By: #### 2 4323-8, , 2776-10 ####[facility] LABCLIA [id number] [place] [id number] [place] ALT [Catalytic activity/Vol] 13 U/L Normal 10-54 [facility] Comment on above: Order Comment: Speci men Type: BLOOD SPECIMENOrdering Facility: [facility] Address: [address] [place] [address] Performed By: #### 2 4323-8, , 2776-10 ####[facility] LABCLIA [id number] [place] [id number] [place] Anion gap [Moles/Vol] 12 mmol/L Normal 8-15 [facility] Comment on above: Order Comment: Speci men Type: BLOOD SPECIMENOrdering Facility: [facility] Address: [address] [place] [address] Performed By: #### 2 4323-8, , 2776-10 ####[facility] LABIA [id number] [place] [address] [place] AST [Catalytic activity/Vol] 9 U/L Low 14-40 [facility] Comment on above: Order Comment: Speci men Type: BLOOD SPECIMENOrdering Facility: [facility] Address: [address] [place], [place] [address] Performed By: #### 2 4323-8, , 2776-10 ####[facility] LABCLIA [id number] [address] [address] [place] Bilirubin [Mass/Vol] 0.3 mg/dL Normal 0.2-1.3 [facility] Comment on above: Order Comment: Speci men Type: BLOOD SPECIMENOrdering Facility: [facility] Address: [address] [place] [address] Performed By: #### 2 4323-8, , 2776-10 ####[facility] LABCLIA [id number] [address] [address] [place] Calcium [Mass/Vol] 12.2 mg/dL High 8.5-10.2 [facility] Comment on above: Order Comment: Speci men Type: BLOOD SPECIMENOrdering Facility: [facility] Address: [address] [place], [place] [address] Performed By: #### 2 4323-8, , 2776-10 ####[facility] LABCLIA [id number] [address] [address] [place] Chloride [Moles/Vol] 96 mmol/L Low 98-107 [facility] Comment on above: Order Comment: Speci men Type: BLOOD SPECIMENOrdering Facility: [facility] Address: [address] [place], [place] [address] Performed By: #### 2 4323-8, , 2776-10 ####[facility] LABCLIA [id number] [place] [id number] [place] CO2 [Moles/Vol] 26 mmol/L Normal 22-30 [facility] Comment on above: Order Comment: Speci men Type: BLOOD SPECIMENOrdering Facility: [facility] Address: [address] [place] [address] Performed By: #### 2 4323-8, , 2776-10 ####[facility] LABCLIA [id number] [address] [address] [place] Creatinine [Mass/Vol] 0.89 mg/dL Normal 0.73-1.22 [facility] Comment on above: Order Comment: Speci men Type: BLOOD SPECIMENOrdering Facility: [facility] Address: [address] [place] [address] Performed By: #### 2 4323-8, 83666-1, 2776-10 ####[facility] [id number] [place] [place] [id number] [place] eGFRcr SerPlBld CKD-EPI 2020 107 mL/min/1.73m??? Normal >=60 [facility] Comment on above: Order Comment: Jihan neri Type: BLOOD SPECIMENOrdering Facility: [facility] Address: [address] [place] [address] Result Comment: Rhonda mated Glomerular Filtration Rate (eGFR) is calculated using the 2020 CKD-EPI creatinine equation. This equation utilizes serum creatinine, sex, and age as parameters. The creatinine assay has traceable calibration to isotope dilution-mass spectrometry. Refer to KDIGO guidelines for clinical interpretation. In patients with unstable renal function, e.g. those with acute kidney injury, the eGFR may not accurately reflect actual GFR. Performed By: #### 2 4323-8, 11071-7, 2776-10 ####[facility] [id number] [address] [address] [place] Glucose [Mass/Vol] 138 mg/dL High 74-99 [facility] Comment on above: Order Comment: Jihan neri Type: BLOOD SPECIMENOrdering Facility: [facility] Address: [address] [place] [address] Result Comment: The [place] Diabetes Association (ADA) provides guidance for cutoff values for fasting glucose and random glucose. The ADA defines fasting as no caloric intake for at least 8 hours. Fasting plasma glucose results between 100 to 125 mg/dL indicate increased risk for diabetes (prediabetes). Fasting plasma glucose results greater than or equal to 126 mg/dL meet the criteria for diagnosis of diabetes. In the absence of unequivocal hyperglycemia, results should be confirmed by repeat testing. In a patient with classic symptoms of hyperglycemia or hyperglycemic crisis, random plasma glucose results greater than or equal to 200 mg/dL meet the criteria for diagnosis of diabetes. Reference: Standards of Medical Care in Diabetes 2016, [place] [employer]. Diabetes Care. 2016.39(Suppl 1). Performed By: #### 2 4323-8, , 2776-10 ####[facility] [id number] [address] [address] [place] Potassium [Moles/Vol] 4.2 mmol/L Normal 3.7-5.1 [facility] Comment on above: Order Comment: Speci men Type: BLOOD SPECIMENOrdering Facility: [facility] Address: [address] [place] [address] Performed By: #### 2 4323-8, , 2776-10 ####[facility] [id number] [place] [id number] [place] Protein [Mass/Vol] 8.0 g/dL Normal 6.3-8.0 [facility] Comment on above: Order Comment: Speci men Type: BLOOD SPECIMENOrdering Facility: [facility] Address: [address] [place] [address] Performed By: #### 2 4323-8, , 2776-10 ####[facility] [id number] [place] [id number] [place] Urea nitrogen [Mass/Vol] 15 mg/dL Normal 9-24 [facility] Comment on above: Order Comment: Speci men Type: BLOOD SPECIMENOrdering Facility: [facility] Address: [address] [place], [place] [address] Performed By: #### 2 4323-8, , 2776-10 ####[facility] [id number] [address] [address] [place] ECG COMPLETEon 07-19-2025 ECG COMPLETE Ventricular Rate : 6 0 BPM Atrial Rate : 60 BPM P-R Interval : 168 ms QRS Duration : 84 ms Q-T Interval : 418 ms QTC Calculation(Bazett) : 418 ms Calculated P Cassandra : 59 degrees Calculated R Cassandra : 45 degrees Calculated T Cassandra : 54 degrees NORMAL SINUS RHYTHM NORMAL ECG Confirmed by JHONNY RAO MD ([id number]) on 08/22/2025 2:11:39 PM NAME : GARRY HERNANDEZ PID : [id number] : 1980 Gender : Male Race : ORD : [id number] Procedure Date : Jul 19 2025 22:00:34 Edit Date : Aug 22 2025 14:11:44 Diagnosis: NORMAL SINUS RHYTHM NORMAL ECG Confirmed by JHONNY RAO MD ([id number]) on 08/22/2025 2:11:39 PM Test Reason : Vasogenic edema Location : 63 : H60 H060-44 Overread By : JHONNY RAO MD Edited By : JHONNY RAO MD Referred By : JAMIN MORALES Acquired by : MARLA YUSUF [facility] Electrocardiogram reportOrde red By: Hao Candelario on 07-19-2025 EKG study [facility] Cardi[facility] Services [address] [place] [address] 12 Lead EKG 07/19/25 1633 MR#: [id number] Acct: [id number] Name: GARRY HERNANDEZ Rep #:[id number] : 1980 45 From: Hao Candelario MD Attending Dr: Status: DEP E R Ordering Dr: Sylvester Morales MD Date: Location: ED Sex: M C Admitted: Test Reason : STROKE TEAM Blood Pressure : */* mmHG Vent. Rate : 62 BPM Atrial Rate : 62 BPM P-R Int : 172 ms QRS Dur : 94 ms QT Int : 430 ms P-R-T Axes : 38 44 60 degrees QTcB Int : 436 ms Normal sinus rhythm Normal ECG Confirmed by HAO CANDELARIO MD ([id number]), graphic editor EVENS HENSON ([id number]) on 58:00:49 AM Referred By: Confirmed By: HAO CANDELARIO MD 07/21/25 0800 Date _ Hao Candelario MD CC: Dr. Sylvester Morales MD; Dr. Rocky Fountain MD ~ Signed [facility] Other Phone: Emergency Department Summary on 07-19-2025 Emergency Department Summary [facility] Medical Records Department [address] [place] [address] Emergency Department Summary 07/19/25 MR#: [id number] Acct: [id number] Name: GARRY HERNANDEZ Rep #: [id number] : 1980 45 From: Sylvester Morales MD PCP: Dr. Rocky Fountain MD Status:REG ER Location: ED HPI History of Present Illness Chief Complaint: Headache Informant: patient and spouse/S.O. Onset/Context/Timing Onset: Weeks (Intermittent headaches that come and go for 3 weeks. Progressively worsening.) Context: Sudden Timing: Intermittent Quality -Headache: Positive for Similar Prior Headaches and Sharp Current Severity: Moderate Maximum Severity: Moderate Associated Symptoms/Injury Associated Symptoms: Positive for Nausea and Vomiting; Negative for Fever, Sore Throat, Sinus Pressure, Numbness, Tingling, Preceding Aura, Visual Changes, Blurred Vision, Photophobia or Visual Loss Injury - GÓMEZ: Negative for Direct Trauma, Fall or Assault Narrative Narrative: 45-year-old Advent male history of anxiety. He has been having intermittent headaches for 3 weeks that come and was daily. They are progressively getting worse in intensity. It is scheduled MRI coming up in the next several days. No head trauma. He is on no blood thinners. No history of any cancer or metastases. He is on no blood thinners. Today headache worsened he started having nausea vomiting. Difficulty speaking. Speech is audible just having trouble putting his words together. No weakness in his arms or legs. Prior similar symptoms: Yes Recent Illness/Hospitalizatio n: No PFSH PFSH Medical History no medical history Home Medications ???Medication ???Instructions ???Recorded ???Last Taken ???Type butalbital 50 mg-acetaminophen 325 1 tab PO .COMPLEX PRN pain 07/19 Unknown History mg tablet (Tencon) fluoxetine 20 mg capsule 20 mg PO DAILY 07/19/25 Unknown Hi story Family History no significant family his Surgical History no surgical history Social History Smoking Status: Never smoker ROS ROS ED ROS Narrative Headache. Nausea and vomiting. Constitutional Constitutional ED: Denies chills or fever(s) Eyes Eyes: Denies blurry vision ENT ENT ED: Denies ear pain, rhinorrhea or sore throat Cardiovascular Cardiovascular: Denies chest pain or palpitations Respiratory/Chest Respiratory/Chest: Denies cough or dyspnea Gastrointestinal Gastrointestinal: Reports nausea and vomiting; Denies abdominal pain, constipation, diarrhea or melena Genitourinary Genitourinary ED: Denies dysuria or hematuria Musculoskeletal Musculoskeletal: Denies arthralgias or back pain Integumentary Denies abscess Neurologic Neurologic: Reports headache(s); Denies paresthesias or weakness Psychiatric Psychiatric: Denies anxiety or depression Endocrine Endocrinology: Denies polydipsia Hematologic/Lymphatic Hematologic/Lymphatic: Denies easy bleeding, easy bruising or lymphadenopathy Allergic/Immunologic Allergic/Immunologic ED: Denies mouth swelling, tongue swelling or urticaria EXAM Physical Exam Narrative Exam Narrative: 45-year-old [place] male lying in bed. Vital signs are stable afebrile. at bedside. H EENT exam pupils round react light. His motions are intact. No facial droop. He has dysarthria but his words are clear he just having trouble putting them together. Tongue midline. No trauma to his face or scalp. Neck nontender. No lymphadenopathy. Back nontender. Lungs clear to auscultation bilaterally. Heart regular rhythm no murmur. Chest wall ribs nontender. Abdomen soft nontender. Moving all 4 extremities. 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 Dorsi plantarflexion intact. Fingertip to nose within normal limits. Dorsi plantarflexion intact. He can lift either leg. No droop to either upper or lower extremities. Neurologic exam he is awake alert. He is answering questions. He is mildly confused to where he is at. He has a dysarthria. His NIH is 2. Const Vital Signs: 07/19/25 15:44 07/19/25 15:44 07/19/25 15:51 Temperature 98.8 F Temperature Source Oral Pulse Rate 62 66 77 Respiratory Rate 12 14 18 Blood Pressure 147/75 H 156/74 H 147/75 H Blood Pressure Mean 99 101 99 Pulse Ox 99 99 100 Oxygen Delivery Method Room Air Room Air 07/19/25 15:56 07/19/25 16:02 07/19/25 16:25 Temperature Temperature Source Pulse Rate 60 63 Respiratory Rate 16 15 Blood Pressure 147/75 H 156/76 H Blood Pressure Mean 99 102 Pulse Ox 99 95 Oxygen Delivery Method Room Air 07/19/25 16:29 Temperature 98.3 F Temperature Source Oral Pulse Rate 64 Respiratory Rate 13 Blood Pressure 152/84 H Blood Pressure Mean 106 Pulse Ox 99 Oxygen Delivery Method Room Air Positive well nourished (more content not included)... Normal [facility] Emergency Department Summary [facility] Medical Records Department [address] [place] [address] Emergency Department Summary 07/19/25 MR#: [id number] Acct: [id number] Name: GARRY HERNANDEZ Rep #: [id number] : 1980 45 From: Sylvester Morales MD PCP: Dr. Rocky Fountain MD Status:DEP ER Location: ED HPI History of Present Illness Chief Complaint: Headache Informant: patient and spouse/S.O. Onset/Context/Timing Onset: Weeks (Intermittent headaches that come and go for 3 weeks. Progressively worsening.) Context: Sudden Timing: Intermittent Quality -Headache: Positive for Similar Prior Headaches and Sharp Current Severity: Moderate Maximum Severity: Moderate Associated Symptoms/Injury Associated Symptoms: Positive for Nausea and Vomiting; Negative for Fever, Sore Throat, Sinus Pressure, Numbness, Tingling, Preceding Aura, Visual Changes, Blurred Vision, Photophobia or Visual Loss Injury - GÓMEZ: Negative for Direct Trauma, Fall or Assault Narrative Narrative: 45-year-old [place] male history of anxiety. He has been having intermittent headaches for 3 weeks that come and was daily. They are progressively getting worse in intensity. It is scheduled MRI coming up in the next several days. No head trauma. He is on no blood thinners. No history of any cancer or metastases. He is on no blood thinners. Today headache worsened he started having nausea vomiting. Difficulty speaking. Speech is audible just having trouble putting his words together. No weakness in his arms or legs. Prior similar symptoms: Yes Recent Illness/Hospitalizatio n: No PFSH PFSH Medical History no medical history Home Medications ???Medication ???Instructions ???Recorded ???Last Taken ???Type butalbital 50 mg-acetaminophen 325 1 tab PO .COMPLEX PRN pain 07/19 Unknown History mg tablet (Tencon) fluoxetine 20 mg capsule 20 mg PO DAILY 07/19/25 Unknown Hi story Family History no significant family his Surgical History no surgical history Social History Smoking Status: Never smoker ROS ROS ED ROS Narrative Headache. Nausea and vomiting. Constitutional Constitutional ED: Denies chills or fever(s) Eyes Eyes: Denies blurry vision ENT ENT ED: Denies ear pain, rhinorrhea or sore throat Cardiovascular Cardiovascular: Denies chest pain or palpitations Respiratory/Chest Respiratory/Chest: Denies cough or dyspnea Gastrointestinal Gastrointestinal: Reports nausea and vomiting; Denies abdominal pain, constipation, diarrhea or melena Genitourinary Genitourinary ED: Denies dysuria or hematuria Musculoskeletal Musculoskeletal: Denies arthralgias or back pain Integumentary Denies abscess Neurologic Neurologic: Reports headache(s); Denies paresthesias or weakness Psychiatric Psychiatric: Denies anxiety or depression Endocrine Endocrinology: Denies polydipsia Hematologic/Lymphatic Hematologic/Lymphatic: Denies easy bleeding, easy bruising or lymphadenopathy Allergic/Immunologic Allergic/Immunologic ED: Denies mouth swelling, tongue swelling or urticaria EXAM Physical Exam Narrative Exam Narrative: 45-year-old Advent male lying in bed. Vital signs are stable afebrile. at bedside. H EENT exam pupils round react light. His motions are intact. No facial droop. He has dysarthria but his words are clear he just having trouble putting them together. Tongue midline. No trauma to his face or scalp. Neck nontender. No lymphadenopathy. Back nontender. Lungs clear to auscultation bilaterally. Heart regular rhythm no murmur. Chest wall ribs nontender. Abdomen soft nontender. Moving all 4 extremities. 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 Dorsi plantarflexion intact. Fingertip to nose within normal limits. Dorsi plantarflexion intact. He can lift either leg. No droop to either upper or lower extremities. Neurologic exam he is awake alert. He is answering questions. He is mildly confused to where he is at. He has a dysarthria. His NIH is 2. Const Vital Signs: 07/19/25 15:44 07/19/25 15:44 07/19/25 15:51 Temperature 98.8 F Temperature Source Oral Pulse Rate 62 66 77 Respiratory Rate 12 14 18 Blood Pressure 147/75 H 156/74 H 147/75 H Blood Pressure Mean 99 101 99 Pulse Ox 99 99 100 Oxygen Delivery Method Room Air Room Air 07/19/25 15:56 07/19/25 16:02 07/19/25 16:25 Temperature Temperature Source Pulse Rate 60 63 Respiratory Rate 16 15 Blood Pressure 147/75 H 156/76 H Blood Pressure Mean 99 102 Pulse Ox 99 95 Oxygen Delivery Method Room Air 07/19/25 16:29 Temperature 98.3 F Temperature Source Oral Pulse Rate 64 Respiratory Rate 13 Blood Pressure 152/84 H Blood Pressure Mean 106 Pulse Ox 99 Oxygen Delivery Method Room Air Positive well nourished (more content not included)... Normal [facility] Eosinophil percentageOrdered By: Sylvester Morales on 07-19-2025 Eosinophils/100 WBC (Bld) 0.6 % 0-5 [facility] Erythrocyte distribution wid th ratioOrdered By: Sylvester Morales on 07-19-2025 Erythrocyte distribution width (RBC) [Ratio] 13.4 % 11.6-14.6 [facility] Erythrocyte distribution wid th standard deviationOrdered By: Sylvester Morales on 07-19-2025 Erythrocyte distribution width (RBC) [Ratio] 37.8 fl 35.1-43.9 [facility] Glomerular filtration rate ( GFR) estimation/1.73 sq m using serum, plasma, or whole bon 07-19-2025 GFR/1.73 sq M.predicted among non-blacks MDRD (S/P/Bld) [Vol rate/Area] 105 mL/min/{1.73_m2} Normal [facility] Work Phone: Comment on above: mL/min/1.73m2 CKD-EP I Creatinine Equation (2020) Result Comment: mL/m in/1.73m2 CKD-EPI Creatinine Equation (2020) Performed By: #### L 300.4310, L501.4021, L300.3900, L500.2500, L100.0100 ####[facility] [id number] [place], [place], [address] Hematocrit Auto (Bld) [Volum e fraction]Ordered By: Sylvester Morales on 07-19-2025 Hematocrit (Bld) [Volume fraction] 40.1 % 40-54 [facility] Hemoglobin measurementOrdere d By: Sylvester Morales on 07-19-2025 Hemoglobin (Bld) [Mass/Vol] 13.5 g/dL 13.0-16.5 [facility] Immature granulocytes/100 WB C Auto (Bld)Ordered By: Sylvester Morales on 07-19-2025 Immature granulocytes/100 WBC (Bld) 0.500 % 0.0-0.9 [facility] Comment on above: IG% - Immature Granu locytes (promyelocytes, myelocytes and metamyelocytes) > 1% indicates that a LEFT SHIFT is Present. International normalized rat io (INR) calculationOrdered By: Sylvester Morales on 07-19-2025 INR Coag (Bld) [Relative time] 1.1 {INR} [facility] L501.4021on 07-19-2025 Trop T High Sen 23 ng/L Abnormal [facility].; [facility], [facility] Work Phone: Comment on above: Performed By: #### L 300.4310, L501.4021, L300.3900, L500.2500, L100.0100 ####[facility] [address] [place], [place], [address] Laboratory - Chemistry and C hemistry - challengeon 07-19-2025 Magnesium [Mass/Vol] 118 mg/dL Abnormal 74 - 10 6 mg/dL [facility]3].; [facility], [facility]. Work Phone: MCV (mean corpuscular volume ) determinationOrdered By: Sylvester Morales on 07-19-2025 MCV (RBC) [Entitic vol] 79.7 fL Low 80-94 [facility] Magnesium SerPl-mCncon 07-19 Magnesium [Mass/Vol] 2.2 mg/dL Normal 1.7-2.3 [facility] Comment on above: Order Comment: Speci men Type: BLOOD SPECIMENOrdering Facility: [facility] Address: [address] [place] [address] Performed By: #### 2 4323-8, 67096-4, 2777-1 ####[facility] [id number] [address] [address] [place] Mean corpuscular hemoglobin (MCH) determinationOrdered By: Sylvester Morales on 07-19-2025 MCH (RBC) [Entitic mass] 26.8 pg Low 27.0-32.0 [facility] Mean corpuscular hemoglobin concentration (MCHC) determinationOrdered By: Sylvester Morales on 07-19-2025 MCHC (RBC) [Mass/Vol] 33.7 g/dL 32-36 [facility] Mean platelet volume determi nationOrdered By: Sylvester Morales on 07-19-2025 Platelet mean volume (Bld) [Entitic vol] 10.4 fL 6.2-12.0 [facility] Monocyte percentageOrdered B y: Sylvester Morales on 07-19-2025 Monocytes/100 WBC (Bld) 9.0 % 0-10 [facility] NURSING PROGon 07-19-2025 NURSING PROG HNO ID: [id number] Author: NAPOLEON SIMON RN Service: ? Author Type: Registered Nurse Type: Nursing Progress Note Filed: 07/19/2025 21:39 Note Text: Transfer Note: PATIENT NAME: Garry Hernandez Patient Location: [place] [address] Room: [place] [address] Patient transferred into room/unit 0-44 in stable condition. Actions taken: Patient belongings with patient Normal [facility] Neutrophil percentageOrdered By: Sylvester Morales on 07-19-2025 Neutrophils/100 WBC (Bld) 74.0 % High 47-70 [facility] No Panel Informationon 07-19 BUN/CRE 17.1 {RATIO} Normal 10 - 20 {RATIO} [facility]. Work Phone: Nucleated red blood cell per centageOrdered By: Sylvester Morales on 07-19-2025 Nucleated RBC/100 WBC (Bld) [Ratio] 0 % 0-5 [facility] PT panel Coag (PPP)on 2024 INR Coag (PPP) [Relative time] 1.1 {INR} Normal 0.9-1.3 [facility] Comment on above: Order Comment: Speci men Type: BLOOD SPECIMENOrdering Facility: [facility] Address: [address] [place] [address] Result Comment: Kena min K Antagonist (VKA) Therapeutic Range: INR 2 to 3 (Target INR of 2.5) Note: For patients treated with VKA drugs, such as warfarin, the [place] [employer] 2012 Guideline recommends a therapeutic INR range of 2 to 3 (target INR of 2.5). This recommendation includes high-risk patients with antiphospholipid syndrome with previous arterial or venous thromboembolism, current-generation mechanical or bioprosthetic aortic heart valve replacement. Note: Patients with mechanical aortic valve replacement and additional risk factors for thromboembolic events (atrial fibrillation, previous thromboembolism, LV dysfunction, hypercoagulable conditions) or an older generation mechanical AVR (i.e., ball in-Cage) or any mechanical MVR should have a INR therapeutic range of 2.5 to 3.5 (target INR of 3). Caleb KOENIG, et al. Chest 2012, 141:7S-47S Nasra RA, et al. [facility] 2017, 70: 252-289 Performed By: #### 3 4528-0, 45016-4 ####[facility] [id number] [address] [address] [place] PT Coag (PPP) [Time] 11.7 s Normal 9.7-13.0 [facility] Comment on above: Order Comment: Speci men Type: BLOOD SPECIMENOrdering Facility: [facility] Address: [address] [place] [id number] Performed By: #### 3 4528-0, 93341-4 ####[facility] [id number] [address] [address] [place] Partial Thromboplast Timeon 07-19-2025 aPTT Coag (Bld) [Time] 30.3 s Normal 24.1-36.2 [facility] Comment on above: Performed By: #### L 300.4310, L501.4021, L300.3900, L500.2500, L100.0100 #### [facility] Laboratory [address] [place], [address] Phosphate SerPl-mCncon 07-19 Phosphate [Mass/Vol] 3.3 mg/dL Normal 2.7-4.8 [facility] Comment on above: Order Comment: Speci men Type: BLOOD SPECIMENOrdering Facility: [facility] Address: [address] [place] [address] Performed By: #### 2 4323-8, 28303-1, 2777-1 ####[facility] [id number] [facility] [address] [address] [place] Platelet countOrdered By: Tani Morales on 07-19-2025 Platelets (Bld) [#/Vol] 318 10*3/uL 150-450 [facility] Potassium measurement (mass/ volume)Ordered By: Sylvester Morales on 07-19-2025 Potassium (Unsp spec) [Mass/Vol] 3.6 mmol/L 3.3-5.1 [facility] Comment on above: Hemolysis present, R esults could be affected. Prothrombin Time w/INRon INR Coag (PPP) [Relative time] 1.1 {INR} Normal [facility] Comment on above: Performed By: #### L 300.4310, L501.4021, L300.3900, L500.2500, L100.0100 #### [facility] Laboratory [address] [place], [address] PT Coag (PPP) [Time] 14.0 s Normal 11.7-14.9 [facility] Comment on above: Performed By: #### L 300.4310, L501.4021, L300.3900, L500.2500, L100.0100 #### [facility] Laboratory [address] [place], [address] Prothrombin timeOrdered By: Sylvester Morales on 07-19-2025 PT Coag (PPP) [Time] 14.0 s 11.7-14.9 [facility] RBC Auto (Bld) [#/Vol]Ordere d By: Sylvester Morales on 07-19-2025 RBC (Bld) [#/Vol] 5.03 10*6/uL 4.6-6.2 [facility] STAPHYLOCOCCUS AUREUS AND MR SA SCREEN, PCR, NASALon 07-19-2025 S. aureus and MRSA panel BIANCA+probe (Nose) Not detected Normal Not Detected [facility] Comment on above: Order Comment: Speci men Type: SWABOrdering Facility: [facility] Address: [address] [place] [address] Performed By: #### S APCR ####[facility] [id number] [facility] [address] [facility] STROKE Brain/Head without Co nton 07-19-2025 STROKE Brain/Head without Cont [facility] Imaging Services [address] [place], [place] [address] STROKE Brain/Head without Cont MR#: [id number] Acct: [id number] Name: Garry Hernandez Rep #: [id number] : 1980 M 45 From: Sherri Segura MD PCP: Status: PRE ER Study: STROKE Brain/Head without Cont Date of Exam: 0 07/19/25 Exam# [id number] Ordering Dr: Sylvester Morales MD PROCEDURE: STROKE BRAIN/HEAD WITHOUT CONT 07/19/2025 REASON FOR EXAM: NEURO DEFICIT, ACUTE, STROKE SUSPECTED TECHNIQUE: Procedure Code: CTBR.ST Modality: CT Procedure: STROKE BRAIN/HEAD WITHOUT CONT Coronal and Sagittal reconstruction series were provided. One or more dose reduction techniques were used (e.g., Automated exposure control, adjustment of the mA and/or kV according to patient size, use of iterative reconstruction technique. RADIATION DOSE SUMMARY: DLP: 829.85 mGycm COMPARISON: None available. FINDINGS: Hypoattenuating white matter of the left temporal, left occipital, right occipital, and right parietal lobes. There is a focal hyperdensity centered in the left temporal lobe (series 2, image 14) and right occipital lobe (series 2, image 20). No celeste hemorrhage. No definite acute transcortical infarct. No brain herniation. The ventricular system and sulci/fissures are within normal limits of size and configuration for the patient's stated age. No extra-axial fluid collection. The basal cisterns are patent. The mastoid air cells are clear. The paranasal sinuses are predominantly clear. The calvarium appears intact. CT/STROKE Brain/Head without Cont IMPRESSION: Vasogenic edema involving the posterior cerebrum. Ill-defined round focal hyperdensities in the left temporal lobe and right occipital lobe. Findings are concerning for underlying neoplasm. Recommend MRI of the brain for further characterization. No celeste intracranial hemorrhage. The critical findings in the findings and impression above were relayed directly by Dr. Sherri Segura by telephone to Dr. Sylvester Morales on 07/19/2025 at 4:20 pm with readback verification. Reading Location: [facility] CC: Dr. Sylvester Morales MD Extracting Machine Operator: Signed Normal [facility] STROKE Brain/Head without Cont [facility] Imaging Services [address] [place] [address] [id number] STROKE Brain/Head without Cont MR#: [id number] Acct: [id number] Name: GARRY HERNANDEZ Rep #: [id number] : 1980 M 45 From: Sherri Segura MD PCP: Dr. Rocky Fountain MD Status: [facility] Study: STROKE Brain/Head without Cont Date of Exam: 0 07/19/25 Exam# [id number] Ordering Dr: Sylvester Morales MD PROCEDURE: STROKE BRAIN/HEAD WITHOUT CONT 07/19/2025 REASON FOR EXAM: NEURO DEFICIT, ACUTE, STROKE SUSPECTED TECHNIQUE: Procedure Code: CTBR.ST Modality: CT Procedure: STROKE BRAIN/HEAD WITHOUT CONT Coronal and Sagittal reconstruction series were provided. One or more dose reduction techniques were used (e.g., Automated exposure control, adjustment of the mA and/or kV according to patient size, use of iterative reconstruction technique. RADIATION DOSE SUMMARY: DLP: 829.85 mGycm COMPARISON: None available. FINDINGS: Hypoattenuating white matter of the left temporal, left occipital, right occipital, and right parietal lobes. There is a focal hyperdensity centered in the left temporal lobe (series 2, image 14) and right occipital lobe (series 2, image 20). No celeste hemorrhage. No definite acute transcortical infarct. No brain herniation. The ventricular system and sulci/fissures are within normal limits of size and configuration for the patient's stated age. No extra-axial fluid collection. The basal cisterns are patent. The mastoid air cells are clear. The paranasal sinuses are predominantly clear. The calvarium appears intact. CT/STROKE Brain/Head without Cont IMPRESSION: Vasogenic edema involving the posterior cerebrum. Ill-defined round focal hyperdensities in the left temporal lobe and right occipital lobe. Findings are concerning for underlying neoplasm. Recommend MRI of the brain for further characterization. No celeste intracranial hemorrhage. The critical findings in the findings and impression above were relayed directly by Dr. Sherri Segura by telephone to Dr. Sylvester Morales on 07/19/2025 at 4:20 pm with readback verification. Reading Location: [facility] CC: Dr. Sylvester Morales MD; Dr. Rocky Fountain MD Extracting Machine Operator: Signed Normal [facility] STROKE CTA Head AND Neck W/C onon 07-19-2025 STROKE CTA Head AND Neck W/Con [facility] Imaging Services [address] [place] [address] [id number] STROKE CTA Head AND Neck W/Con MR#: [id number] Acct: [id number] Name: GARRY HERNANDEZ Rep #: [id number] : 1980 M 45 From: Sherri Segura MD PCP: Dr. Rocky Fountain MD Status: [facility] Study: STROKE CTA Head AND Neck W/Con Date of Exam: 0 07/19/25 Exam# [id number] Ordering Dr: Sylvester Morales MD PROCEDURE: STROKE CTA HEAD AND NECK W/CON 07/19/2025 REASON FOR EXAM: NEURO DEFICIT, ACUTE, STROKE SUSPECTED TECHNIQUE: Procedure Code: CTCTA.ST.HN Modality: CT Procedure: STROKE CTA HEAD AND NECK W/CON Multidetector CT angiography of the head and neck with intravenous contrast was performed with multiplaner and maximum intensity projection (MIP) reconstructions. CONTRAST: VOLUME: 100 mL One or more dose reduction techniques were used (e.g., Automated exposure control, adjustment of the mA and/or kV according to patient size, use of iterative reconstruction technique). RADIATION DOSE SUMMARY: DLP: 821.8 mGycm COMPARISON: None available. FINDINGS: CTA NECK: The origins of the vessels arising from the aortic arch are patent without high-grade stenosis. Right carotid artery: The right common carotid artery is patent without high-grade stenosis. The right cervical internal carotid artery is patent without hemodynamically significant stenosis. Left carotid artery: The left common carotid artery is patent without high-grade stenosis. The left cervical internal carotid artery is patent without hemodynamically significant stenosis. Cervical vertebral arteries: The cervical vertebral arteries are patent without high-grade stenosis. Assessment for carotid stenosis is performed utilizing NASCET criteria. NASCET carotid stenosis criteria: 0% - none, 1-49% - mild, 50-69% - moderate, 70-89% - severe, 90-99% - critical. % ICA stenosis = (normal distal cervical ICA diameter - narrowest cervical ICA diameter / normal distal cervical ICA diameter) x 100. CTA Head: The petrous, cavernous, and intracranial internal carotid arteries are patent without high-grade stenosis. The proximal anterior cerebral arteries are patent without high-grade stenosis. The proximal middle cerebral arteries are patent without high-grade stenosis. The intradural vertebral arteries are patent without high-grade stenosis. The basilar artery is patent without high-grade stenosis. The proximal posterior cerebral arteries are patent without high-grade stenosis. No dominant intracranial aneurysm or high flow arteriovenous malformation is identified. Ancillary findings: Heterogeneous enhancing intracranial masses in the right occipital lobe measuring approximately 2.4 x 1.5 cm and left temporal lobe measuring approximately 1.5 x 1.6 cm. There are multiple pulmonary nodules at the lung apices. CT/STROKE CTA Head AND Neck W/Con IMPRESSION: 1. No high-grade arterial stenosis, aneurysm, or arteriovenous malformation. 2. Heterogeneous enhancing intracranial masses. 3. Multiple pulmonary nodules at the lung apices. Reading Location: [id number] CC: Dr. Sylvester Morales MD; Dr. Rocky Fountain MD Extracting Machine Operator: Signed Normal [facility] STROKE CTA Head AND Neck W/Con [facility] Imaging Services [address] [place] [id number] STROKE CTA Head AND Neck W/Con MR#: [id number] Acct: [id number] Name: GARRY HERNANDEZ Rep #: [id number] : 1980 M 45 From: Sherri Segura MD PCP: Dr. Rocky Fountain MD Status: [facility] Study: STROKE CTA Head AND Neck W/Con Date of Exam: 0 07/19/25 Exam# [id number] Ordering Dr: Sylvester Morales MD PROCEDURE: STROKE CTA HEAD AND NECK W/CON 07/19/2025 REASON FOR EXAM: NEURO DEFICIT, ACUTE, STROKE SUSPECTED TECHNIQUE: Procedure Code: CTCTA.ST.HN Modality: CT Procedure: STROKE CTA HEAD AND NECK W/CON Multidetector CT angiography of the head and neck with intravenous contrast was performed with multiplaner and maximum intensity projection (MIP) reconstructions. CONTRAST: VOLUME: 100 mL One or more dose reduction techniques were used (e.g., Automated exposure control, adjustment of the mA and/or kV according to patient size, use of iterative reconstruction technique). RADIATION DOSE SUMMARY: DLP: 821.8 mGycm COMPARISON: None available. FINDINGS: CTA NECK: The origins of the vessels arising from the aortic arch are patent without high-grade stenosis. Right carotid artery: The right common carotid artery is patent without high-grade stenosis. The right cervical internal carotid artery is patent without hemodynamically significant stenosis. Left carotid artery: The left common carotid artery is patent without high-grade stenosis. The left cervical internal carotid artery is patent without hemodynamically significant stenosis. Cervical vertebral arteries: The cervical vertebral arteries are patent without high-grade stenosis. Assessment for carotid stenosis is performed utilizing NASCET criteria. NASCET carotid stenosis criteria: 0% - none, 1-49% - mild, 50-69% - moderate, 70-89% - severe, 90-99% - critical. % ICA stenosis = (normal distal cervical ICA diameter - narrowest cervical ICA diameter / normal distal cervical ICA diameter) x 100. CTA Head: The petrous, cavernous, and intracranial internal carotid arteries are patent without high-grade stenosis. The proximal anterior cerebral arteries are patent without high-grade stenosis. The proximal middle cerebral arteries are patent without high-grade stenosis. The intradural vertebral arteries are patent without high-grade stenosis. The basilar artery is patent without high-grade stenosis. The proximal posterior cerebral arteries are patent without high-grade stenosis. No dominant intracranial aneurysm or high flow arteriovenous malformation is identified. Ancillary findings: Heterogeneous enhancing intracranial masses in the right occipital lobe measuring approximately 2.4 x 1.5 cm and left temporal lobe measuring approximately 1.5 x 1.6 cm. There are multiple pulmonary nodules at the lung apices. CT/STROKE CTA Head AND Neck W/Con IMPRESSION: 1. No high-grade arterial stenosis, aneurysm, or arteriovenous malformation. 2. Heterogeneous enhancing intracranial masses. 3. Multiple pulmonary nodules at the lung apices. Reading Location: [id number] CC: Dr. Sylvester Morales MD; Dr. Rocky Fountain MD Extracting Machine Operator: Signed Normal [facility] Serum creatinine measurement (mass/volume)on 07-19-2025 Creatinine [Mass/Vol] 0.91 mg/dL Normal 0.70 - 1.20 mg/dL [facility] Work Phone: Comment on above: Performed By: #### L 300.4310, L501.4021, L300.3900, L500.2500, L100.0100 ####[facility] [id number] [facility] [place], [address] Serum glucose measurement (m ass/volume)on 07-19-2025 Glucose [Mass/Vol] 118 mg/dL Abnormal 70 - 99 mg/dL [facility] Work Phone: Comment on above: MANAGEMENT OF PATIEN T CARE PER NURSING PROTOCOL Performed By: #### L 300.4310, L501.4021, L300.3900, L500.2500, L100.0100 ####[facility] [id number] [facility] [place], [address] Serum or plasma calcium anni urement (mass/volume)on 07-19-2025 Calcium [Mass/Vol] 12.3 mg/dL Abnormal 7.6 - 11. 0 mg/dL [facility] Work Phone: Comment on above: Performed By: #### L 300.4310, L501.4021, L300.3900, L500.2500, L100.0100 ####[facility] [id number] [place], [place], [address] Serum or plasma urea nitroge n measurement (mass/volume)on 07-19-2025 Urea nitrogen [Mass/Vol] 16 mg/dL Normal 4 - 19 mg/d L [facility] Work Phone: Comment on above: Performed By: #### L 300.4310, L501.4021, L300.3900, L500.2500, L100.0100 ####[facility] [id number] [place], [place], [id number] Sodium levelon 07-19-2025 Sodium [Moles/Vol] 134 mmol/L Low 136-144 [facility] Work Phone: Comment on above: Performed By: #### L 300.4310, L501.4021, L300.3900, L500.2500, L100.0100 ####[facility] [id number] [place], [place], [address] Order Comment: Speci men Type: BLOOD SPECIMENOrdering Facility: [facility] Address: [address] [place] [address] Performed By: #### 2 4323-8, 40504-8, 2777-1 ####[facility] LABCLIA [id number] [place] [address] [place] TYPE + SCREENon 07-19-2025 ABO O Normal [facility] Comment on above: Order Comment: Speci men Type: BLOOD SPECIMENOrdering Facility: [facility] Address: [address] [place] [address] Performed By: #### T SCR ####[facility] BLOOD BANKCLIA [id number] [place] [address] [place] Rh Nom (Bld) Positive Normal [facility] Comment on above: Order Comment: Speci men Type: BLOOD SPECIMENOrdering Facility: [facility] Address: [address] [place] [address] Performed By: #### T SCR ####CC [facility] BLOOD BANKCLIA [id number] [address] [address] [place] TYPE AND SCREEN EXPIRATION 07/22/2025 23:59 Normal [facility] Comment on above: Order Comment: Speci men Type: BLOOD SPECIMENOrdering Facility: [facility] Address: [address] [place], [place] [id number] Performed By: #### T SCR ####CC MAIN BLOOD BANKCLIA [id number] [address] [place] Troponin T HS 2 HRon 025 Trop T High Sen Normal <=22 [facility] Comment on above: Result Comment: Angelica elled via OM: Ordered Performed By: #### L 499.0042 #### [facility] [address] [place], [place], [address] Troponin T HS 4 HRon 025 Trop T High Sen Normal <=22 [facility] Comment on above: Result Comment: Angelica fernandez via OM: Ordered Performed By: #### L 499.0043 ####[facility] [address] [place], [place], [address] Troponin T.cardiac [Mass/vol ume] in Serum or Plasma by High sensitivity methodOrdered By: Sylvester Morales on 07-19-2025 Troponin T.cardiac High sensitivity method [Mass/Vol] 23 ng/L High <22 [facility] White blood cell (WBC) count Ordered By: Sylvester Morales on 07-19-2025 WBC (Bld) [#/Vol] 11.0 10*3/uL 4.4-11.0 [facility] XR CHEST 1V FRONTAL PORTon 0 07-19-2025 XR CHEST 1V FRONTAL PORT * * *Final Repo rt* * * DATE OF EXAM: Jul 19 2025 10:14PM CHINO 5376 - XR CHEST 1V FRONTAL PORT / PROCEDURE REASON: Shortness of breath * * * * Physician Interpretation * * * * EXAMINATION: CHEST RADIOGRAPH (PORTABLE SINGLE VIEW AP) Exam Date/Time: 07/19/2025 10:14 PM Clinical History: Shortness of breath MQ: [id number] Comparison: None. RESULT: Lines, tubes, and devices: None. Lungs and pleura: Mild left basal atelectasis. No focal consolidation or overt pulmonary edema. No pleural effusion or pneumothorax. Cardiomediastinal silhouette: Normal cardiomediastinal silhouette. Other: . IMPRESSION: See result. Extracting Machine Operator: PSCB Transcribe Date/Time: Jul 20 2025 7:06A Dictated by : DIMA IBARRA MD This examination was interpreted and the report reviewed and electronically signed by: DIMA IBARRA MD on Jul 20 2025 7:08AM EST [id number] Normal [facility] aPTT PPPon 07-19-2025 aPTT Coag (PPP) [Time] 31.9 s Normal 23.0-32.[address] [facility] Comment on above: Order Comment: Speci men Type: BLOOD SPECIMENOrdering Facility: [facility] Address: [address] [place] [address] Performed By: #### 3 4528-0, 20381-9 ####[facility] LABCLIA [id number] [place] [address] [place] Laboratory - Chemistry and C hemistry - challengeon 07-16-2025 ALP [Catalytic activity/Vol] 278 U/L Abnormal 47 - 123 [iU]/L [employer]. Work Phone: ALP Bone [Catalytic fraction] 30 % Normal 12 - 68 % [employer]. Work Phone: ALP Intest [Catalytic fraction] 0 % Normal 0 - 18 % [employer]. Work Phone: ALP Liver [Catalytic fraction] 70 % Normal 13 - 88 % [facility]3].; Work Phone: Calcium.ionized ISE [Mass/Vol] 6.0 mg/dL Abnormal 4.5 - 5.6 mg/dL [facility]3].; [facility], [facility] Work Phone: Ferritin [Mass/Vol] 328 ng/mL Normal 30 - 400 ng/mL [facility]; Iron [Mass/Vol] 38 ug/dL Normal 38 - 169 ug/dL [facility]; [facility], [facility] Iron binding capacity [Mass/Vol] 264 ug/dL Normal 250 - 450 ug/dL [facility]3].; [facility], [facility] Iron binding capacity.unsaturated [Mass/Vol] 226 ug/dL Normal 111 - 343 ug/dL [facility]; [facility], [facility] Iron saturation [Mass fraction] 14 % Abnormal 15 - 55 % [facility]; [facility], [facility] Laboratory - Chemistry and C hemistry - challengeon 07-10-2025 Albumin [Mass/Vol] 4.6 g/dL Normal 4.1 - 5.1 g/dL [facility]; [facility], [facility] ALP [Catalytic activity/Vol] 250 U/L Abnormal 47 - 123 [iU]/L [facility]; [facility], [facility]. ALT [Catalytic activity/Vol] 24 U/L Normal 0 - 44 [iU]/L [facility]3].; [facility], [facility]. AST [Catalytic activity/Vol] 14 U/L Normal 0 - 40 [iU]/L [facility]3].; [facility], [facility] Bilirubin [Mass/Vol] mg/dL Normal 0.0 - 1 .2 mg/dL [facility]; [facility], [facility] Calcium [Mass/Vol] 11.4 mg/dL Abnormal 8.7 - 10. 2 mg/dL [facility]3].; [facility], [facility] Chloride [Moles/Vol] 100 mmol/L Normal 96 - 10 6 mmol/L [facility]3].; [facility], [facility] CO2 [Moles/Vol] 24 mmol/L Normal 20 - 29 mmol/L [facility]3].; [facility], [facility] Creatinine [Mass/Vol] 0.91 mg/dL Normal 0.76 - 1.27 mg/dL [facility]3].; [facility], [facility] GFR/1.73 sq M.predicted among non-blacks MDRD (S/P/Bld) [Vol rate/Area] 105 mL/min/{1.73_m2} Normal [facility]; [facility], [facility] Globulin (S) [Mass/Vol] 2.7 g/dL Normal 1.5 - 4.5 g/dL [facility]3].; [facility], [facility] Glucose [Mass/Vol] 100 mg/dL Abnormal 70 - 99 mg/dL [facility]; [facility], [facility]. Potassium [Moles/Vol] 4.4 mmol/L Normal 3.5 - 5.2 mmol/L [facility]3].; [facility], [facility] Protein [Mass/Vol] 7.3 g/dL Normal 6.0 - 8.5 g/dL [facility]3].; [facility], [facility] Sodium [Moles/Vol] 139 mmol/L Normal 134 - 144 mmol/L [facility]3].; [facility], [facility] Urea nitrogen [Mass/Vol] 12 mg/dL Normal 6 - 24 mg/d L [facility]3].; [facility], [facility] Urea nitrogen/Creatinine [Mass ratio] 13 mg/mg Normal 9 - 20 [facility]; [facility], [facility] Laboratory - Hematology and Cell countson 07-10-2025 Basophils (Bld) [#/Vol] 0.1 10*3/uL Normal 0.0 - 0.2 {x10E3/uL} [facility]; Basophils/100 WBC (Bld) 1 % Normal [facility]; Eosinophils (Bld) [#/Vol] 0.3 10*3/uL Normal 0.0 - 0.4 {x10E3/uL} [facility]; Eosinophils/100 WBC (Bld) 3 % Normal [facility]; Erythrocyte distribution width (RBC) [Ratio] 13.8 % Normal 11.6 - 15.4 % [facility]; [facility], [facility] Hematocrit (Bld) [Volume fraction] 36.9 % Abnormal 37.5 - 51.0 % [facility]; Hemoglobin (Bld) [Mass/Vol] 12.3 g/dL Abnormal 13.0 - 17.7 g/dL [facility]; [facility], [facility] Immature granulocytes (Bld) [#/Vol] 0.0 10*3/uL Normal 0.0 - 0.1 {x10E3/uL} [facility]3].; Immature granulocytes/100 WBC (Bld) 0 % Normal [facility]; Lymphocytes (Bld) [#/Vol] 1.7 10*3/uL Normal 0.7 - 3.1 {x10E3/uL} [facility]3].; [facility], [facility] Lymphocytes/100 WBC (Bld) 21 % Normal [facility]; [facility], [facility] MCH (RBC) [Entitic mass] 27.3 pg Normal 26. 6 - 33.0 pg [facility]3].; [facility] [employer] [facility] [employer] MCHC (RBC) [Mass/Vol] 33.3 g/dL Normal 31.5 - 35.7 g/dL [facility] [employer] [facility] [place] [facility] [employer] [facility] [employer] MCV (RBC) [Entitic vol] 82 fL Normal 79 - 97 fL [facility] [employer] [facility].; [facility], [employer] Monocytes (Bld) [#/Vol] 0.8 10*3/uL Normal 0.1 - 0.9 {x10E3/uL} [facility] [place] - [facility] [employer] [facility] [employer] Monocytes/100 WBC (Bld) 10 % Normal [facility] [employer] [facility] Campus[facility]ating[facility].; [facility], [employer] Neutrophils (Bld) [#/Vol] 5.4 10*3/uL Normal 1.4 - 7.0 {x10E3/uL} [facility] [employer] [facility] [place] - [facility] [employer] [facility] [employer] Neutrophils/100 WBC (Bld) 65 % Normal [facility] [employer] [facility] CampusNuble[facility] [employer].; [facility] [employer] [facility] [employer] Platelets (Bld) [#/Vol] 328 10*3/uL Normal 150 - 450 {x10E3/uL} [employer] [place] - [facility] [employer] [facility] [employer] RBC (Bld) [#/Vol] 4.50 10*6/uL Normal 4.14 - 5.8 0 {x10E6/uL} [employer] [facility] [employer] [facility] [employer] WBC (Bld) [#/Vol] 8.1 10*3/uL Normal 3.4 - 10.8 {x10E3/uL} [employer] [facility] [employer] [facility] 05-06-2025 [place] [id number] Patient: GARRY HERNANDEZ Phone#: : [phone] Age: 44 Gender: M Pt. Type: Out Account: [id number] Location: Ordering: [facility] Exam Date: 05/06/2025/7:25 Family Phys: Charge Code: [id number] Physician: [place] Order #: [id number] Dose#: PROCEDURE: SCROTAL ULTRASOUND COMPARISON: None. INDICATIONS: Left groin pain TECHNIQUE: The scrotum was evaluated with quiles scale and color duplex Doppler sonography. FINDINGS: TESTES: Normal. No visible mass. Normal echotexture, size, and flow. Right testicle measures 4.8 x 2.5 x 2.6 cm. Left testicle measures 4.4 x 2.1 x 2.9 cm. EPIDIDYMIS: Normal. No visible mass or cyst. Right epididymis measures 1.2 x 0.8 x 0.9 cm. Left epididymis measures 0.8 x 1.0 x 1.2 cm OTHER: With Valsalva there is sliding of contents in the inguinal canal. No peristalsis identified however the echogenicity pattern is suggestive of bowel. CONCLUSION: 1. Unremarkable appearance of the testicles 2. Left inguinal hernia, suspect containing bowel. Dictated by: Genia Plata MD on 05/06/2025 at 9:49 Approved by: Genia Plata MD on 05/06/2025 at 9:54 Normal [facility] - Chemistry and C hemistry - challengeon 10-12-2021 Albumin BCP dye [Mass/Vol] 4.2 g/dL Normal 3.2 - 4.8 g/dL [facility], [facility].; [facility], [facility]. Albumin/Globulin [Mass ratio] 1.5 {ratio} Normal 0.9 - 1.6 {ratio} [facility]3].; [facility], [facility]. ALP [Catalytic activity/Vol] 121 U/L Normal 38 - 126 U/L [facility]3].; [facility], [facility]. ALT No additional P-5'-P [Catalytic activity/Vol] 12 U/L Normal 12 - 55 U/L [facility], [facility].; [facility], [facility]. ALT With P-5'-P [Catalytic activity/Vol] 12 U/L Normal 12 - 55 U/L [facility]; AST [Catalytic activity/Vol] 15 U/L Normal 8 - 34 U/L [facility]; [facility]. AST With P-5'-P [Catalytic activity/Vol] 15 U/L Normal 8 - 34 U/L [facility] Bilirubin [Mass/Vol] 0.30 mg/dL Normal 0.20 - 1.20 mg/dL [facility]; Calcium [Mass/Vol] 10.0 mg/dL Normal 8.7 - 10. 4 mg/dL [facility]; Chloride [Moles/Vol] 104 mmol/L Normal 98 - 11 0 meq/L [facility]; Cholesterol [Mass/Vol] 241 mg/dL Abnormal 50 - 199 mg/dL [facility]; Cholesterol in HDL [Mass/Vol] 50 mg/dL Normal 40 - 59 mg/dL [facility]; [facility]. Cholesterol in LDL [Mass/Vol] 146 mg/dL Abnormal 0 - 129 mg/dL [facility]3].; CO2 [Moles/Vol] 29 mmol/L Normal 22 - 32 meq/L [facility]; Creatinine [Mass/Vol] 1.08 mg/dL Normal 0.60 - 1.40 mg/dL [facility]; [facility], [facility] GFR/1.73 sq M.predicted among blacks MDRD (S/P/Bld) [Vol rate/Area] mL/min/{1.73_m2} Normal [facility]; [facility], [facility] Work Phone: GFR/1.73 sq M.predicted among non-blacks MDRD (S/P/Bld) [Vol rate/Area] mL/min/{1.73_m2} Normal [facility]; [facility] Work Phone: Globulin (S) [Mass/Vol] 2.8 g/dL Normal 1.5 - 3.8 g/dL [facility]; [facility] Glucose [Mass/Vol] 93 mg/dL Normal 70 - 110 mg/dL [facility]; [facility] Iron [Mass/Vol] 43 ug/dL Abnormal 65 - 175 ug/dL [facility]; [facility] Potassium [Moles/Vol] 4.1 mmol/L Normal 3.5 - 5.0 meq/L [facility]; [facility] Hospital[facility] Protein [Mass/Vol] 7.0 g/dL Normal 5.7 - 8.2 g/dL [facility]; [facility] Sodium [Moles/Vol] 140 mmol/L Normal 136 - 145 meq/L [facility]; [facility] Triglyceride [Mass/Vol] 223 mg/dL Abnormal 3 - 149 mg/dL [facility].; [facility] TSH Qn 1.266 m[IU]/L Normal 0.550 - 4.780 m[iU]/mL [facility]; [facility] Urea nitrogen [Mass/Vol] 18.0 mg/dL Normal 8.0 - 22.0 mg/dL [facility]; [facility] Urea nitrogen/Creatinine [Mass ratio] 16.7 {ratio} Normal 10.0 - 22.0 {ratio} [facility]; [facility] [employer] [facility] Laboratory - Hematology and Cell countson 10-12-2021 Basophils (Bld) [#/Vol] 0.00 {10^3/mcL} Normal 0 .00 - 0.27 {10^3/mcL} [facility].; [facility], [facility]. Work Phone: Basophils/100 WBC (Bld) 0.7 % Normal 0.0 - 2.5 % [facility].; [facility], [facility]. Work Phone: Eosinophils (Bld) [#/Vol] 0.30 {10^3/mcL} Normal 0.00 - 0.65 {10^3/mcL} [facility].; [facility], [facility]. Work Phone: Eosinophils/100 WBC (Bld) 4.2 % Normal 0.0 - 6.0 % [facility].; [facility], [facility] Work Phone: Erythrocyte distribution width (RBC) [Ratio] 13.8 % Normal 11.5 - 15.5 % [facility].; [facility], [facility] Hematocrit (Bld) [Volume fraction] 41.0 % Normal 40.0 - 52.0 % [facility].; [facility], [facility] Hemoglobin (Bld) [Mass/Vol] 14.1 g/dL Normal 13.0 - 17.5 g/dL [facility].; [facility], [facility] Lymphocytes (Bld) [#/Vol] 1.60 {10^3/mcL} Normal 0.90 - 4.32 {10^3/mcL} [facility].; [facility], [facility]. Work Phone: Lymphocytes/100 WBC (Bld) 24.8 % Normal 20.0 - 40.0 % [facility].; [facility], [facility] Work Phone: MCH (RBC) [Entitic mass] 28.6 pg Normal 27. 0 - 33.0 pg [facility].; [facility], [facility] MCHC (RBC) [Mass/Vol] 34.3 g/dL Normal 32.0 - 36.0 g/dL [facility].; [facility], [facility] MCV (RBC) [Entitic vol] 83.4 fL Normal 81.0 - 100.0 fL [facility].; [facility], [facility] Monocytes (Bld) [#/Vol] 0.50 {10^3/mcL} Normal 0 .09 - 1.40 {10^3/mcL} [facility].; [facility], [facility]. Work Phone: Monocytes/100 WBC (Bld) 7.7 % Normal 2.0 - 13.0 % [facility].; [facility], [facility] Work Phone: Neutrophils (Bld) [#/Vol] 4.10 {10^3/mcL} Normal 2.25 - 8.10 {10^3/mcL} [facility].; [facility], [facility]. Work Phone: Neutrophils/100 WBC (Bld) 62.6 % Normal 50.0 - 75.0 % [facility].; [facility], [facility] Work Phone: Platelet mean volume (Bld) [Entitic vol] 10.2 fL Normal 6.4 - 10.5 fL [facility].; [facility], [facility]. Platelets (Bld) [#/Vol] 248 {10^3/mcL} Normal 15 0 - 450 {10^3/mcL} [facility], [facility].; [facility], [facility]. RBC (Bld) [#/Vol] 4.92 {10^6/mcL} Normal 4.50 - 6.00 {10^6/mcL} [facility], [facility].; [facility], [facility]. WBC (Bld) [#/Vol] 6.60 {10^3/mcL} Normal 4.50 - 10.80 {10^3/mcL} [facility] [employer] [facility].; [facility] HospitalN[facility]. No Panel Informationon 10-12 Basophil, Absolute 0.00 {10^3/mcL} Normal 0.00 - 0.27 {10^3/mcL} [facility] [employer] [facility].; [place] [employer] [facility] [employer] [facility], [employer]. Work Phone: Electrolyte Balance 7.0 meq/L Normal 4.0 - 15 .0 meq/L [facility] [employer] [facility].; [employer] [facility] [employer] [facility], [employer]. Eosinophil, Absolute 0.30 {10^3/mcL} Normal 0.00 - 0.65 {10^3/mcL} [facility] [employer] [facility].; [employer] [facility] [employer] [facility], Inc[employer] Work Phone: Lymphocyte, Absolute 1.60 {10^3/mcL} Normal 0.90 - 4.32 {10^3/mcL} [facility] [employer] [facility].; [employer] [facility] [employer] [facility], Inc[employer] Work Phone: Monocyte, Absolute 0.50 {10^3/mcL} Normal 0.09 - 1.40 {10^3/mcL} [facility] [employer] [facility], [employer].; [employer] [facility] [employer] [facility], Inc[employer] Work Phone: Neutrophil, Absolute 4.10 {10^3/mcL} Normal 2.25 - 8.10 {10^3/mcL} [facility] [employer] [facility].; [employer] [facility] [employer] [facility], Inc. Work Phone: Vital Signs Date Time Vital Sign Value Performing Clinician Faci lity 08-26-2025 15:28-0500 Body height 165.1 cm Ricki Jones MD, Ph D Work Phone: [facility] 08-26-2025 15:28-0500 Body mass index (BMI) [Ratio] 27.64 kg/m2 Ricki Jones MD, PhD Work Phone: [facility] 08-26-2025 15:28-0500 Body temperature 98.6 [degF] Ricki Jones MD, Ph D Work Phone: [facility] 08-26-2025 15:28-0500 Body weight 75.34 kg Ricki Jones MD, Ph D Work Phone: [facility] 08-26-2025 15:28-0500 Diastolic blood pressure 70 mm[Hg] Ricki Jones MD, PhD Work Phone: [facility] 08-26-2025 15:28-0500 Heart rate 74 /min Ricki Jones MD, Ph D Work Phone: [phone] [place] [address] 08-26-2025 15:28-0500 Respiratory rate 16 /min Ricki Jones MD, Ph D Work Phone: [phone] [place] [address] 08-26-2025 15:28-0500 SaO2% (BldA) [Mass fraction] 97 % Ricki Jones MD, PhD Work Phone: [facility] 08-26-2025 15:28-0500 Systolic blood pressure 124 mm[Hg] Ricki Jones MD, PhD Work Phone: [facility] 07-19-2025 19:07-0400 Body temperature 98.3 [degF] Dr. Sylvester Morales MD Work Phone: [facility] 07-19-2025 19:07-0400 Diastolic blood pressure 95 mm[Hg] Dr. Sylvester Morales MD Work Phone: [facility] 07-19-2025 19:07-0400 Heart rate 64 /min Dr. Sylvester Morales MD Work Phone: [facility] 07-19-2025 19:07-0400 Respiratory rate 17 /min Dr. Sylvester Morales MD Work Phone: [facility] 07-19-2025 19:07-0400 SaO2% (BldA) [Mass fraction] 100 % Dr. Sylvester Morales MD Work Phone: [facility] 07-19-2025 19:07-0400 Systolic blood pressure 151 mm[Hg] Dr. Sylvester Morales MD Work Phone: [facility] 07-19-2025 15:51-0400 Body height 162.[address] Sylvester Morales MD Work Phone: [facility] 07-19-2025 15:51-0400 Body mass index (BMI) [Ratio] 26.9 kg/m2 Dr. Sylvester Morales MD Work Phone: [facility] 07-19-2025 15:51-0400 Body weight 71.[address] Sylvester Morales MD Work Phone: [facility] 07-16-2025 09:10-0400 Body weight 75.75 kg Patti Mendoza RN [facility], [employer].; [facility], [employer]. 07-16-2025 09:10-0400 Diastolic blood pressure 76 mm[Hg] Patti [facility]endo[facility] RN [facility], [employer].; [facility] [employer] [facility], [employer]. Comment on above: Patient Position: Sitting; Cuff Location : Left Arm; Cuff Size: Large 07-16-2025 09:10-0400 Heart rate 60 /min Patti Mendoza RN [facility], [employer].; [facility] [employer] [facility], Inc[employer] Comment on above: Pattern: Regular 07-16-2025 09:10-0400 Systolic blood pressure 117 mm[Hg] Patti Mendoza RN [facility] [employer] [facility], [employer].; [facility] [employer] [facility], [employer]. Comment on above: Patient Position: Sitting; Cuff Location : Left Arm; Cuff Size: Large 07-10-2025 14:48-0400 Diastolic blood pressure 81 mm[Hg] Shea Flood RN [facility] [employer] [facility], [employer].; [employer] [facility] [employer] [facility], [employer]. Comment on above: Patient Position: Sitting; Cuff Location : Left Arm; Cuff Size: Large 07-10-2025 14:48-0400 Heart rate 73 /min Shea Flood RN [facility], [employer].; [facility], [employer]. Comment on above: Pattern: Regular 07-10-2025 14:48-0400 Inhaled oxygen concentration 21 % Shea Flood RN [facility], Inc.; [facility], Inc[employer] Comment on above: Room air 07-10-2025 14:48-0400 SaO2% (BldA) [Mass fraction] 98 % Shea Flood RN [facility], Inc.; [facility], Inc[employer] 07-10-2025 14:48-0400 Systolic blood pressure 140 mm[Hg] Shea Flood RN [facility], Inc.; [facility], Inc[employer] Comment on above: Patient Position: Sitting; Cuff Location : Left Arm; Cuff Size: Large 07-10-2025 14:48-0400 Body height 163.83 cm Shea Flood RN [facility], Inc.; [facility], Inc[employer] 07-10-2025 14:48-0400 Body mass index (BMI) [Ratio] 28.22 kg/m2 Shea Flood RN [facility], Inc.; [facility], Inc[employer] 07-10-2025 14:48-0400 Body surface area Derived from formula 1.82 m2 Shea Flood RN [facility], [facility].; [facility], Inc[employer] 07-10-2025 14:48-0400 Body weight 75.75 kg Shea Flood RN [facility], Inc.; [facility], Inc[employer] 07-10-2025 14:48-0400 Diastolic blood pressure 82 mm[Hg] Shea Flood RN [facility], Inc.; [facility], [employer]. Comment on above: Patient Position: Sitting; Cuff Location : Left Arm; Cuff Size: Large 07-10-2025 14:48-0400 Heart rate 70 /min Shea Flood RN [facility], Inc.; [facility] [employer] [facility], [employer]. Comment on above: Pattern: Regular 07-10-2025 14:48-0400 Systolic blood pressure 136 mm[Hg] Shea Flood RN [facility], Inc.; [facility], Inc[employer] Comment on above: Patient Position: Sitting; Cuff Location : Left Arm; Cuff Size: Large 06-26-2025 13:31-0400 Body height 163.83 cm Shea Flood RN [facility], Inc.; [facility], Inc[employer] 06-26-2025 13:31-0400 Body mass index (BMI) [Ratio] 28.39 kg/m2 Shea Flood RN [facility], Inc.; [facility], Inc[employer] 06-26-2025 13:31-0400 Body surface area Derived from formula 1.83 m2 Shea Flood RN [facility], Inc.; [facility], Inc[employer] 06-26-2025 13:31-0400 Body weight 76.2 kg Shea Flood RN [facility], Inc.; [facility], Inc[facility] 06-26-2025 13:31-0400 Diastolic blood pressure 82 mm[Hg] Shea Flood RN [facility], Inc.; [facility], Inc[facility] Comment on above: Patient Position: Sitting; Cuff Location : Left Arm; Cuff Size: Large 06-26-2025 13:31-0400 Heart rate 65 /min Shea Flood RN [facility], Inc.; [facility] [employer] [facility], Inc[employer] Comment on above: Pattern: Regular 06-26-2025 13:31-0400 Systolic blood pressure 150 mm[Hg] Shea Flood RN [facility], Inc.; [facility] [employer] [facility], Inc[employer] Comment on above: Patient Position: Sitting; Cuff Location : Left Arm; Cuff Size: Large 04-30-2025 13:56-0400 Body height 163.83 cm Patti Mendoza RN [facility], Inc.; [employer] [facility], Inc[employer] 04-30-2025 13:56-0400 Body mass index (BMI) [Ratio] 27.88 kg/m2 Patti Mendoza RN [facility], Inc.; [facility], Inc[facility] 04-30-2025 13:56-0400 Body surface area Derived from formula 1.81 m2 Patti Mendoza RN [facility], Inc.; [facility], Inc[employer] 04-30-2025 13:56-0400 Body weight 74.84 kg Patti Mendoza RN [facility], Inc.; [facility], Inc[facility] 04-30-2025 13:56-0400 Diastolic blood pressure 83 mm[Hg] Patti Mendoza RN [facility], Inc.; [facility] [employer] [facility], Inc[employer] Comment on above: Patient Position: Sitting; Cuff Location : Left Arm; Cuff Size: Large 04-30-2025 13:56-0400 Heart rate 76 /min Patti Mendoza RN [facility], Inc.; [facility] [employer] [facility], Inc[facility] Comment on above: Pattern: Regular 04-30-2025 13:56-0400 Systolic blood pressure 157 mm[Hg] Patti Mendoza RN [facility], Inc.; [facility] [employer] [facility], Inc[employer] Comment on above: Patient Position: Sitting; Cuff Location : Left Arm; Cuff Size: Large 05-02-2024 13:08-040 Body height 163.83 cm Zoraida Carpenter RN [facility], Inc.; [facility], Inc[facility] 05-02-2024 13:08-0400 Body mass index (BMI) [Ratio] 29.32 kg/m2 Zoraida Carpenter RN [facility], Inc.; [facility], Inc[facility] 05-02-2024 13:08-0400 Body surface area Derived from formula 1.85 m2 Zoraida Carpenter RN [facility], Inc.; [facility] [employer] [facility], Inc[employer] 05-02-2024 13:08-0400 Body temperature 98.4 [degF] Zoraida Carpenter RN [facility], [facility].; [facility] [employer] [facility], Inc[employer] Comment on above: Method: Oral 05-02-2024 13:08-0400 Body weight 78.7 kg Zoraida Carpenter RN [facility], Inc.; [facility] [employer] [facility], Inc[employer] 05-02-2024 13:08-0400 Diastolic blood pressure 74 mm[Hg] Zoraida Carpenter RN [facility], Inc.; [facility] [employer] [facility], [employer]. Comment on above: Patient Position: Sitting; Cuff Location : Left Arm; Cuff Size: Standard 05-02-2024 13:08-0400 Heart rate 59 /min Zoraida Carpenter RN [facility], Inc.; [facility] [employer] [facility], Inc[facility] Comment on above: Pattern: Regular 05-02-2024 13:08-0400 Inhaled oxygen concentration 21 % Zoraida Carpenter RN [facility], Inc.; [facility] [employer] [facility], Inc[facility] Comment on above: Room air 05-02-2024 13:08-0400 SaO2% (BldA) [Mass fraction] 96 % Zoraida Carpenter RN [facility], Inc.; [facility] [facility], Inc[facility] 05-02-2024 13:08-0400 Systolic blood pressure 130 mm[Hg] Zoraida Carpenter RN [facility], Inc.; [facility] [employer] [facility], Inc[facility] Comment on above: Patient Position: Sitting; Cuff Location : Left Arm; Cuff Size: Standard 11-02-2023 13:08-0500 Body height 163.83 cm Shea Flood RN [facility], Inc.; [facility], Inc[facility] 11-02-2023 13:08-0500 Body mass index (BMI) [Ratio] 29.93 kg/m2 Shea Flood RN [facility], Inc.; [facility] [employer] [facility], Inc[facility] 11-02-2023 13:08-0500 Body surface area Derived from formula 1.87 m2 Shea Flood RN [facility], Inc.; [facility] [employer] [facility], Inc[facility] 11-02-2023 13:08-0500 Body weight 80.34 kg Shea Flood RN [facility], Inc.; [facility] [facility], Inc[facility] 11-02-2023 13:08-0500 Diastolic blood pressure 81 mm[Hg] Shea Flood RN [facility] [employer] [facility], Inc.; [facility], Inc[facility] Comment on above: Patient Position: Sitting; Cuff Location : Left Arm; Cuff Size: Large 11-02-2023 13:08-0500 Heart rate 63 /min Shea Flood RN [facility], Inc.; [employer] [facility] [employer] [facility], Inc[facility] Comment on above: Pattern: Regular 11-02-2023 13:08-0500 Systolic blood pressure 124 mm[Hg] Shea Flood RN [facility], Inc.; [employer] [facility] [employer] [facility], Inc[facility] Comment on above: Patient Position: Sitting; Cuff Location : Left Arm; Cuff Size: Large 05-04-2023 12:55-0400 Body height 163.83 cm Zoraida Carpenter RN [facility], Inc.; [facility] [employer] [facility], [employer] 05-04-2023 12:55-0400 Body mass index (BMI) [Ratio] 29.74 kg/m2 Zoraida aCrpenter RN [facility], Inc.; [facility], Inc[facility] 05-04-2023 12:55-0400 Body surface area Derived from formula 1.86 m2 Zoraida Carepnter RN [facility], [facility].; [facility] [employer] [facility], Inc[employer] 05-04-2023 12:55-0400 Body temperature 98.6 [degF] Zoraida Carpenter RN [facility], Inc.; [employer] [facility] [employer] [facility], Inc[facility] Comment on above: Method: Oral 05-04-2023 12:55-0400 Body weight 79.83 kg Zoraida Carpenter RN [facility], Inc.; [facility] [facility], Inc[facility] 05-04-2023 12:55-0400 Diastolic blood pressure 71 mm[Hg] Zoraida Carpenter RN [facility] [employer] [facility], Inc.; [facility] Comment on above: Patient Position: Sitting; Cuff Location : Left Arm; Cuff Size: Standard 05-04-2023 12:55-0400 Heart rate 58 /min Zoraida Carpenter RN [facility] Comment on above: Pattern: Regular 05-04-2023 12:55-0400 Systolic blood pressure 112 mm[Hg] Zoraida Carpenter RN [facility] Comment on above: Patient Position: Sitting; Cuff Location : Left Arm; Cuff Size: Standard 10-11-2022 12:58-0500 Body height 163.83 cm Patti Mendoza RN [facility] 10-11-2022 12:58-0500 Body mass index (BMI) [Ratio] 29.74 kg/m2 Patti Mendoza RN [facility] 10-11-2022 12:58-0500 Body surface area Derived from formula 1.86 m2 Patti Mendoza RN [facility] 10-11-2022 12:58-0500 Body weight 79.83 kg Patti Mendoza RN [facility] 10-11-2022 12:58-0500 Diastolic blood pressure 80 mm[Hg] Patti Mendoza RN [facility] Comment on above: Patient Position: Sitting; Cuff Location : Left Arm; Cuff Size: Large 10-11-2022 12:58-0500 Heart rate 67 /min Patti Mendoza RN [facility] Comment on above: Pattern: Regular 10-11-2022 12:58-0500 Systolic blood pressure 133 mm[Hg] Patti Mendoza RN [facility] Comment on above: Patient Position: Sitting; Cuff Location : Left Arm; Cuff Size: Large 04-12-2022 12:53-0400 Body height 163.83 cm Zoraida Carpenter RN [facility] 04-12-2022 12:53-0400 Body mass index (BMI) [Ratio] 29.07 kg/m2 Zoraida Carpenter RN [facility] 04-12-2022 12:53-0400 Body surface area Derived from formula 1.85 m2 Zoraida Carpenter RN [facility] 04-12-2022 12:53-0400 Body temperature 98 [degF] Zoraida Carpenter RN [facility] Comment on above: Method: Oral 04-12-2022 12:53-0400 Body weight 78.02 kg Zoraida Carpenter RN [facility] 04-12-2022 12:53-0400 Diastolic blood pressure 73 mm[Hg] Zoraida Carpenter RN [facility] Comment on above: Patient Position: Sitting; Cuff Location : Left Arm; Cuff Size: Standard 04-12-2022 12:53-0400 Heart rate 52 /min Zoraida Carpenter RN [facility] Comment on above: Pattern: Regular 04-12-2022 12:53-0400 Inhaled oxygen concentration 21 % Zoraida Carpenter RN [facility] Comment on above: Room air 04-12-2022 12:53-0400 SaO2% (BldA) [Mass fraction] 96 % Zoraida Carpenter RN [facility] 04-12-2022 12:53-0400 Systolic blood pressure 113 mm[Hg] Zoraida Carpenter RN [facility] Comment on above: Patient Position: Sitting; Cuff Location : Left Arm; Cuff Size: Standard 10-12-2021 13:03-0500 Body height 163.83 cm Patti Mendoza RN [facility], [employer] [facility] 10-12-2021 13:03-0500 Body mass index (BMI) [Ratio] 29.24 kg/m2 Patti Mendoza RN [facility] 10-12-2021 13:03-0500 Body surface area Derived from formula 1.85 m2 Patti Mendoza RN [facility] 10-12-2021 13:03-0500 Body weight 78.47 kg Patti Mendoza RN [facility] 10-12-2021 13:03-0500 Diastolic blood pressure 88 mm[Hg] Patti Mendoza RN [facility] Comment on above: Patient Position: Sitting; Cuff Location : Left Arm; Cuff Size: Large 10-12-2021 13:03-0500 Heart rate 70 /min Patti Mendoza RN [facility] Comment on above: Pattern: Regular 10-12-2021 13:03-0500 Systolic blood pressure 142 mm[Hg] Patti Mendoza RN [facility] Comment on above: Patient Position: Sitting; Cuff Location : Left Arm; Cuff Size: Large 04-15-2021 12:58-0400 Body height 163.83 cm Shea Flood RN [facility] 04-15-2021 12:58-0400 Body mass index (BMI) [Ratio] 29.24 kg/m2 Shea Flood RN [facility] 04-15-2021 12:58-0400 Body surface area Derived from formula 1.85 m2 Shea Flood RN [facility] 04-15-2021 12:58-0400 Body weight 78.47 kg Shea Flood RN [facility] 04-15-2021 12:58-0400 Diastolic blood pressure 80 mm[Hg] Shea Flood RN [facility] Comment on above: Patient Position: Sitting; Cuff Location : Left Arm; Cuff Size: Large 04-15-2021 12:58-0400 Heart rate 68 /min Shea Flood RN [employer] [facility]. Comment on above: Pattern: Regular 04-15-2021 12:58-0400 Inhaled oxygen concentration 21 % Shea Flood RN [facility].; [facility]. Comment on above: Room air 04-15-2021 12:58-0400 SaO2% (BldA) [Mass fraction] 97 % Shea Flood RN [employer] AkbarP[facility]to [employer] [facility].; [facility]. 04-15-2021 12:58-0400 Systolic blood pressure 137 mm[Hg] hSea Flood RN [facility] [employer] [facility].; [facility] Akbar [facility]. Comment on above: Patient Position: Sitting; Cuff Location : Left Arm; Cuff Size: Large 11-21-2016 15:14-0500 Body height 163.83 cm [employer] Work Phone: [facility].; [facility]. 11-21-2016 15:14-0500 Body mass index (BMI) [Ratio] 28.39 kg/m2 BURLESQUICEOUSP-C Work Phone: [employer] Akbarsti[employer]d.; [facility]. 11-21-2016 15:14-0500 Body surface area Derived from formula 1.83 m2 BURLESQUICEOUSP-C Work Phone: [employer] [facility] [employer]. 11-21-2016 15:14-0500 Body temperature 98.9 [degF] Work[employer]ER [employer]C Work Phone: [employer] [facility]. Comment on above: Method: Oral 11-21-2016 15:14-0500 Body weight 76.2 kg GREG RODRIGUEZLightyear Network SolutionsTETTER STAVE BOLT EQUALIZER-C Work Phone: [employer]. 11-21-2016 15:14-0500 Diastolic blood pressure 83 mm[Hg] GREG RODRIGUEZFSTETTER STAVE BOLT EQUALIZER-C Work Phone: [facility] [employer].; [employer]. Comment on above: Patient Position: Sitting; Cuff Location : Left Arm; Cuff Size: Standard 11-21-2016 15:14-0500 Heart rate 68 /min GREG DelverTETTER STAVE BOLT EQUALIZER-C Work Phone: [employer].; [employer]. Comment on above: Pattern: Regular 11-21-2016 15:14-0500 Systolic blood pressure 132 mm[Hg] GREG DelverTETTER STAVE BOLT EQUALIZER-C Work Phone: [employer].; [employer]. Comment on above: Patient Position: Sitting; Cuff Location : Left Arm; Cuff Size: Standard 11-16-2015 15:08-0500 Body height 162.56 cm Patti Mendoza RN [facility] [employer] [facility].; [facility] [employer]. 11-16-2015 15:08-0500 Body mass index (BMI) [Ratio] 27.12 kg/m2 Patti Mendoza RN [facility] [employer] [facility].; [facility] Akbar [facility]. 11-16-2015 15:08-0500 Body surface area Derived from formula 1.77 m2 Patti Mendoza RN [facility] [employer] [facility].; [facility] [employer]. 11-16-2015 15:08-0500 Body weight 71.67 kg Patti Mendoza RN [facility] [employer] [facility].; [employer]. 11-16-2015 15:08-0500 Diastolic blood pressure 84 mm[Hg] Patti Mendoza RN [facility] [employer] [facility].; [employer]. Comment on above: Patient Position: Sitting; Cuff Location : Right Arm; Cuff Size: Large 11-16-2015 15:08-0500 Heart rate 77 /min Patti Mendoza RN [facility]. Comment on above: Pattern: Regular 11-16-2015 15:08-0500 Systolic blood pressure 125 mm[Hg] Patti Mendoza RN [facility]. Comment on above: Patient Position: Sitting; Cuff Location : Right Arm; Cuff Size: Large Encounters Encounter Date Encounter Type Care Provider Facility Start: 08-26-2025 End: 08-27-2025 Office outpatient new 60 minutes Ricki Jones MD, PhD Work Phone: [facility] Comment on above: Malignant neoplasm o f left kidney excluding renal pelvis (Primary Dx) Start: 08-26-2025 ambulatory SELF SELF Facility:[facility] Start: 08-19-2025 End: 08-20-2025 ambulatory GLORIA WOODY Facility:[facility] Start: 08-17-2025 End: 08-17-2025 ambulatory BRAYAN MIX Facility:[facility] Start: 08-17-2025 End: 08-17-2025 ambulatory BRAYAN MIX Facility:[facility] Start: 08-12-2025 End: 08-12-2025 ambulatory GLORIA WOODY Facility:[facility] Start: 08-12-2025 End: 08-12-2025 Transition of Care KIARA CARPENTER MD Work Phone: [facility] Start: 08-10-2025 ambulatory ONCOLOGY CONSULT Facili ty:[facility] Start: 08-05-2025 End: 08-05-2025 ambulatory GLORIA WOODY Facility:[facility] Start: 08-05-2025 End: 08-06-2025 ambulatory GLORIA WOODY Facility:[facility] Start: 07-29-2025 ambulatory BRAYANNANCY MIX Facil ity:[facility] Start: 07-20-2025 ambulatory [place] Facility:[facility] Start: 07-19-2025 End: 07-21-2025 Evaluation and management of inpatient ARIAN BAUTISTA Facility:[facility] Start: 07-19-2025 End: 07-19-2025 Emergency department patient visit Dr. Sylvester Morales MD -Emergency Department Work Phone: Start: 07-18-2025 End: 07-18-2025 Lab Only KIARA CARPENTER MD Work Phone: [employer] Start: 07-17-2025 End: 07-17-2025 Results Review KIARA CARPENTER MD Work Phone: [employer] Start: 07-16-2025 End: 07-16-2025 Office outpatient visit 10 minutes KIARA CARPENTER MD Work Phone: [employer] Start: 07-13-2025 End: 07-13-2025 Results Review KIARA CARPENTER MD Work Phone: [employer] Start: 07-10-2025 Review KIARA Esposito MD Work Phone: [employer] Start: 07-10-2025 End: 07-10-2025 Medication Refill/Order KIARA CARPENTER MD Work Phone: [employer] Start: 07-10-2025 End: 07-10-2025 Office outpatient visit 15 minutes KIARA CARPENTER MD Work Phone: [employer] Start: 06-26-2025 End: 06-26-2025 Patient encounter procedure KIARA CARPENTER MD Work Phone: [employer]. Start: 06-04-2025 End: 06-04-2025 Historical Summary GREG VERA STAVE B[employer] EQUALIZER[employer] Start: 06-03-2025 End: 06-03-2025 ambulatory DEE DEE Vasquez [facility] Start: 05-19-2025 End: 05-19-2025 ambulatory DEE DEE T KATHE [facility] Start: 2025 End: 2025 Historical Summary GREG GOELTETTER STAVE BOLT EQUALIZER-C [facility] Start: 05-07-2025 End: 05-07-2025 Patient encounter procedure GREG HOVERNONTETTER STAVE BOLT EQUALIZER-C [facility] Start: 05-06-2025 End: 05-06-2025 ambulatory ROCKY FOUNTAIN [facility] Start: 04-30-2025 End: 04-30-2025 Office outpatient visit 10 minutes GREG GOELTETTER STAVE BOLT EQUALIZER-C [facility] Start: 06-26-2024 End: 06-26-2024 Medication Refill/Order GREG HOVERNONTETTER STAVE BOLT EQUALIZER-C Work Phone: [facility] Start: 05-02-2024 Review GREG RODRIGUEZFSTE TTER STAVE BOLT EQUALIZER-C Work Phone: [facility] Start: 05-02-2024 End: 05-02-2024 Office outpatient visit 10 minutes GREG GOELTETTER STAVE BOLT EQUALIZER-C Work Phone: [facility] Start: 01-21-2024 End: 01-21-2024 Medication Refill/Order GREG HOFSTETTER STAVE BOLT EQUALIZER-C Work Phone: [facility] Start: 12-21-2023 End: 12-21-2023 Medication Refill/Order GREG HOFSTETTER STAVE BOLT EQUALIZER-C Work Phone: [facility] Start: 11-02-2023 End: 11-02-2023 Office outpatient visit 10 minutes GREG HOFSTETTER STAVE BOLT EQUALIZER-C Work Phone: [facility], [employer]. Start: 05-04-2023 End: 05-04-2023 Office outpatient visit 10 minutes GREG HOFSTETTER STAVE BOLT EQUALIZER-C Work Phone: [employer] [employer]. Start: 10-11-2022 End: 10-11-2022 Office outpatient visit 10 minutes GREG GOELTETTER STAVE BOLT EQUALIZER-C Work Phone: [facility] [employer]. Start: 04-12-2022 End: 04-12-2022 Office outpatient visit 10 minutes GREG GOELTETTER STAVE BOLT EQUALIZER-C Work Phone: [place] [employer] [facility] [employer] Start: 10-13-2021 End: 10-13-2021 Results Review GREG HOFSTETTER STAVE BOLT EQUALIZER-C Work Phone: [facility] [employer] Start: 10-12-2021 End: 10-12-2021 Office outpatient visit 10 minutes GREG GOELTETTER STAVE BOLT EQUALIZER-C Work Phone: [facility] [employer] Start: 04-15-2021 End: 04-15-2021 Office outpatient new 20 minutes GREG HOFSTETTER STAVE BOLT EQUALIZER-C Work Phone: [employer] Start: 11-21-2016 End: 11-21-2016 Office outpatient visit 15 minutes GREG GOELTETTER STAVE BOLT EQUALIZER-C Work Phone: [facility] [employer] Start: 11-16-2015 End: 11-16-2015 Office outpatient visit 15 minutes GREG GOELTETTER STAVE BOLT EQUALIZER-C Work Phone: [employer] Procedures Date Procedure Procedure Detail Performing Clinician Start: 07-19-2025 Antibody screen GLORIA WOODY Comment on above: Order Comment: Speci men Type: BLOOD SPECIMENOrdering Facility: [facility] Address: [address] [place] [address] Performed By: #### T SCR ####CC MAIN BLOOD BANKCLIA [id number] [place] [address] [place] Start: 07-19-2025 Plain chest X-ray Dr. Jarred Morales MD Work Phone: Start: 07-19-[address] Sylvester Morales MD Work Phone: Start: 07-19-2025 CT angiography of he ad and neck Dr. Sylvester Morales MD Work Phone: Start: 07-19-2025 CT of head without contrast Dr. Sylvester Morales MD Work Phone: Start: 07-16-2025 End: 07-16-2025 Dischrg meds reconciled w/current med list ROCKY FOUNTAIN MD Work Phone: Start: 07-10-2025 End: 07-10-2025 Collj & interpj physiol data min 30 min ea 30 d R KIRAN BOWIE MD Work Phone: Start: 06-26-2025 End: 06-26-2025 Dischrg meds reconciled w/current med list KIARA CARPENTER MD Work Phone: Start: 06-03-2025 End: 06-03-2025 Repair of inguinal hernia ROCKY FOUNTAIN MD Work Phone: Comment on above: Bilateral. Dr. Timmy jiménez Bilateral. DR Lechuga Start: 04-30-2025 End: 04-30-2025 Dischrg meds reconciled w/current med list ROCKY FOUNTAIN MD Work Phone: Start: 05-02-2024 End: 05-02-2024 Dischrg meds reconciled w/current med list GREG VERA STAVE B[employer]T EQUALIZER-C Work Phone: Start: 11-02-2023 End: 11-02-2023 Dischrg meds reconciled w/current med list GREG VERA STAVE BOLT EQUALIZER-C Work Phone: Start: 05-04-2023 End: 05-04-2023 Dischrg meds reconciled w/current med list GREG M HOFSTETTER STAVE BOLT EQUALIZER-C Work Phone: Start: 10-11-2022 End: 10-11-2022 Dischrg meds reconciled w/current med list GREG Garcia HOGURVINDERER STAVE BOLT EQUALIZER-C Work Phone: Start: 04-12-2022 End: 04-12-2022 Dischrg meds reconciled w/current med list GREG Garcia HOESTRELLITA STAVE BOLT EQUALIZER-C Work Phone: Start: 10-12-2021 End: 10-12-2021 Dischrg meds reconciled w/current med list GREG Garcia HOBRETTTTER STAVE BOLT EQUALIZER-C Work Phone: [facility] Adacel/Boostrix FABIO Garcia HOBRETTTTER STAVE BOLT EQUALIZER-C Work Phone: Comment on above: Discussed. 05/04/2023 [facility] Marivel Carpenter RN Comment on above: Discussed. 05/02/2024 Plan of Treatment Date Care Activity Detail Author Start: 12-25-2025 Patient encounter procedure Medical; DEPRESSION - [facility] Start: 25-Dec-2025 14:00-05:00 MD KIARA CARPENTER Appointment Request [facility] Start: 10-15-2025 Assay of iron IRON (26327) Start: 15-Oct-2025 17:31-05:00 Request [employer] [facility]; [place] - [facility]. Start: 10-09-2025 Follow-up encounter Medical; RE CHECK OR FOLLOW-UP MEDICAL ILLNESS - [facility]. Start: 09-Oct-2025 14:00-05:00 MD KIARA CARPENTER Appointment Request [facility]. Start: 07-20-2025 25 hydroxy includes fractions if performed VITAMIN D, 25 HYDROXY ([id number]) Start: 20-Jul-2025 Request [facility]; [facility] [employer] [facility]. Start: 07-20-2025 Assay of parathormone PTH ([id number]) Start: 20-Jul-2025 Request [facility].; [facility] [employer]. Start: 07-20-2025 Calcium ionized CALCIUM, IONIZED ([id number]) Start: 20-Jul-2025 Request [facility].; [facility], [employer]. Start: 07-19-2025 [facility] Start: 07-19-2025 End: 07-19-2025 [facility] Start: 07-18-2025 25 hydroxy includes fractions if performed VITAMIN D, 25 HYDROXY ([id number]) Start: 18-Jul-2025 09:37-04:00 [facility]. Start: 07-18-2025 Assay of parathormone PTH ([id number]) Start: 18-Jul-2025 09:37-04:00 [facility].; [facility]. Start: 07-16-2025 Mri brain brain stem w/o contrast material MRI BRAIN W/O CONTRAST for trama or cva only ([id number]) Start: 16-Jul-2025 Intent [facility].; [facility] [employer]. Start: 07-16-2025 Assay of phosphatase alkaline isoenzymes ALKALINE PHOSPHATASE-ISOENZYM ([id number]) Start: 16-Jul-2025 09:04-04:00 Request [facility].; [facility] [employer]. Start: 07-16-2025 Calcium ionized CALCIUM, IONIZED ([id number]) Start: 16-Jul-2025 09:04-04:00 Request [facility].; [facility], [employer]. Start: 07-16-2025 Assay of ferritin FERRITIN ([id number]) Start: 16-Jul-2025 09:04-04:00 Request [facility].; [facility], [employer]. Start: 07-16-2025 Assay of iron IRON ([id number]) Start: 16-Jul-2025 09:04-04:00 Request [facility].; [facility]. Start: 07-16-2025 Iron binding capacity IRON BINDING CAPACITY (TIBC) ([id number]) Start: 16-Jul-2025 09:04-04:00 Request [employer] [facility].; [facility]. Start: 07-14-2025 Assay of ferritin FERRITIN ([id number]) Start: 14-Jul-2025 Request [facility].; [email or web address] [facility]. Start: 07-14-2025 Assay of iron IRON ([id number]) Start: 14-Jul-2025 Request [facility] [employer] [facility]. Start: 07-14-2025 Assay of phosphatase alkaline isoenzymes ALKALINE PHOSPHATASE-ISOENZYM (28664) Start: 14-Jul-2025 Request [facility].; [facility] [employer]. Start: 07-14-2025 Calcium ionized CALCIUM, IONIZED (52238) Start: 14-Jul-2025 Request [employer] [facility].; [facility]. Start: 07-14-2025 Iron binding capacity IRON BINDING CAPACITY (TIBC) (52210) Start: 14-Jul-2025 Request [employer] [facility].; [facility]. Start: 07-10-2025 Comprehensive metabolic panel CMP - COMPREHENSIVE METABOLIC PANEL (23956) Start: 10-Jul-2025 15:10-04:00 Request [employer] [facility]. Start: 07-10-2025 Blood count complete auto&auto difrntl wbc CBC, PLATELETS & AUT DIFF (00930) Start: 10-Jul-2025 15:10-04:00 Request [employer] [facility], [employer]. Start: 06-26-2025 Medical; ANXIETY - former pt- Med refills Medical; ANXIETY - former pt- Med refills [facility]. Start: 26-Jun-2025 13:30-04:00 MD KIARA CARPENTER Appointment Request [employer]. Start: 06-22-2025 COVID-19 VACCINE ( season) COVID-19 VACCINE ( season) [facility] Start: 06-22-2025 Influenza vaccination INFLUENZA VACCINE (#1) [facility] Start: 04-30-2025 Us scrotum & contents US SCROTUM (62352) Start: 30-Apr-2025 [facility] [employer]. Start: 2024 Screening for malignant neoplasm of colon COLORECTAL CANCER SCREENING DISCUSSION [facility] Start: 05-02-2024 Patient encounter procedure [facility]. Start: 2019 Lipid panel LIPID SCREENING [facility] Start: 11-21-2016 Pure tone audiometry air only PURE TONE AUDIOMETRY, AIR (97716) Start: 21-Nov-2016 [facility] Peak 10; [facility] [employer]. Start: 11-21-2016 Tympanometry TYMPANOMETRY (22153) Start: 21-Nov-2016 [facility] Peak [facility]; [employer]. Work Phone: Start: 11-16-2015 Patient Education TOBACCO INSTRUCTIONS Indication: Tobacco use disorder Start: 16-Nov-2015 Instruction Type: Patient Education [facility] [employer]. Start: 11-16-2015 Tobacco use cessation ivntj counseling TOBACCO USE TXMNT COUNSELING (4000F) Start: 16-Nov-2015 [facility] [employer]. Start: 1998 Hepatitis B vaccination HEP B VACCINE (1 of 3 - 19+ 3-dose series) [facility] Start: 1998 Third diphtheria, tetanus and acellular pertussis (DTaP) vaccination TDAP (ADULT) [facility] Start: 1994 HIV screening HIV SCREENING DISCUSSION [facility] Start: 1979 Hepatitis C screening HEPATITIS C VIRUS SCREENING [facility] Start: 1979 Tetanus vaccination TETANUS [facility] Payers Date Payer Category Payer Managed Care (unspecified) [facility] [id number] 2025 Self-pay 2024 Unknown [id number] 1979 Unknown [id number] 1979 Unknown [id number] 1979 Unknown [id number] 1979 Unknown [id number] Unknown Unknown [id number] Unknown [id number] Unknown [id number] Social History Date Type Detail Facility Alcohol Use: Alcohol Use: ; N o Alcohol Use. [facility]; [facility] Start: 08-26-2025 Current Work/Study Status Current Work/Study Status [employer] [facility]; [facility] Tobacco use: Tobacco use: ; S mokes < 1 pack of cigarettes per day. Current every day smoker. [facility]; [facility]. Start: [address] [facility] Smokes tobacco daily [facility]; Work Phone: Smokes < 1 pack of cigarettes per day [facility]; Work Phone: Tobacco use: Tobacco use: ; F ormer smoker. [facility]; [facility]. Start: 08-26-2025 Ex-smoker [facility]; Work Phone: Start: 07-19-2025 Tobacco smoking stat [facility] Never smoked tobacco (finding) [facility] Start: 08-26-[address] [facility] History of tobacco use Current smoker [facility] Start: 08-26-2025 Tobacco use and exposure Smokeless tobacco non-user [facility] Start: 08-26-2025 Alcoholic beverage intake Lifetime non-drinker (finding) [facility] Adolescent depressio n screening assessment 0 [facility] Start: 1980 Sex assigned at Not on file [facility] Start: 07-19-2025 Sex Male (finding) [facility] Mental Status Date Assessment Result Facility 07-19-2025 Cognitive function Awake [facility] Work Phone: Clinical Notes 07-19-2025 to 08-26-2025 Justine Banerjee, WIRE WEAVER CLOTH-MOLD YARN SUPERVISOR - 08/26/2025 3:40 PM Jason Jones MD, PhD - 08/26/2025 3:40 PM EST Note Date & Type Note Facility 08-26-2025 History of Present illness Narrative Reason for visit: Garry Hernandez is a 45 y.o. male who is presenting for new patient consultation for newly diagnosed renal cell carcinoma. Referred by: Self Summary of Cancer Dx: He initially presented in June 2025 with 3 weeks of worsening headaches and word-finding difficulty. 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 CT chest showed scattered bilateral pulmonary nodules, and CT abdomen suggested possible hepatic lesions. He underwent GKRS on 07/21/2025 (2 treatment areas) and 08/17/2025 (1 treatment area)with symptom improvement. Interim Hx: Mr. Hernandez has seen Dr. Joel Woody at [facility] and Dr. Mix (Neuro Rad Onc at [facility]). He completed Gamma knife to known brain metastasis, as well as starting first line systemic therapy w/ Ipi/Nivo 08/19/2025. Today he comes with his family for a second opinion visit. He feels well overall. No residual GÓMEZ, very mild positional dizziness. Dex weaned off 2 days ago. He has started to return to work, but does have fatigue and less stamina. He had a low grade fever and more fatigue on Sunday, but his improved. No pain. No N/V/D/C. No rash. No cardiopulmonary complaints. [facility] Onc[facility] Tx Hx: 08/26/2025 1st Med Onc Visit, Bianka Jones 08/19/2025 C1 Ipi/Nivo 08/17/2025 S/p Gamma Knife Tx: 15Gy R; 12Gy L mes tmpr; and 24Gy L postcntr 07/21/2025 S/p Gamma Knife 07/20/2025 (+) LLL endo bx, c/w met ccRCC 07/20/2025 MRI Brain w/ R occipital mass; L temporal lobe mass 07/20/2025 CT C/A/P w/ scattered pulmonary nodules, 10.1cm L renal mass w/ involvement of the pancreatic tail and L adrenal and possible extension to the splenic hilum and colon. Past Medical History: He has a past medical history of Anxiety, Brain mass, History of cancer, Pulmonary nodules, and Renal cancer. Current Medications: Current Outpatient Medications Medication Sig FLUoxetine 20 MG capsule Take 1 capsule by mouth daily. levETIRAcetam 500 MG tablet 1 tablet by Enteral route 2 times daily. Pantoprazole [address] tablet DR Take 1 tablet by mouth daily. (Patient not taking: Reported on 08/26/2025) Allergies: Patient has no known allergies. Past Surgical History: Past Surgical History[1] Social History: He reports that he has quit smoking. His smoking use included cigarettes. He has never used smokeless tobacco. He reports that he does not drink alcohol. No history on file for drug use. Works in [employer]. Supportive and family/community. Family History: He family history includes Coronary Artery Disease in his father; Diabetes in his mother; Heart Disease - Other in his father; Hypertension in his father; Myocardial Infarction in his father. Family Status Relation Name Status Mother Alive Father Son Alive Son Alive Tabitha Alive Tabitha Alive No partnership data on file Review of Systems: Constitutional: Negative for severe fatigue, fever, or chills. PS = 1. Skin:Negative for rash, itching and skin complaints. HENT: Negative for mouth sores, epistaxis, or jaw/mouth pain. Eyes: No eye pain. No blurred or vision changes. Denies drainage. Cardiovascular: Negative for chest pain, dyspnea, or orthopnea. Respiratory: Negative for cough, hemoptysis, sputum production, or difficulty breathing. Gastrointestinal: Negative for heartburn, nausea, vomiting, abdominal pain. Negative for diarrhea, constipation, blood in stool, or melena. Denies change in appetite and weight stable. Genitourinary: Negative for dysuria, hesitancy, or hematuria. Denies change in nocturia and frequency. Musculoskeletal: Negative for muscle pain or acute injury. Back and joint pain, stable. Extremities: Negative leg swelling or extremity weakness. Denies neuropathy in hands and feet. Neurological: Negative for dizziness, headaches, or change in cognition. Psychiatric: Denies depression symptoms or complaints of anxiety . Lymph/Heme: Negative for easily bruising or bleeding. Negative for lymph node swelling. Endocrine: Negative for hot flashes and sweats. Denies difficulty sleeping. Physical Examination: BP 124/70 Pulse 74 Temp 98.6 F (37 C) Resp 16 Ht 1.651 m (5' 5) Wt 75.3 kg (166 lb 1.6 oz) SpO2 97% BMI 27.64 kg/m Smoking Status Former Wt Readings from Last 3 Encounters: 08/26/25 75.3 kg (166 lb 1.6 oz) General Appearance: Alert and oriented x3, in no acute distress or pain. HEENT : Head atraumatic, normocephalic. Pupils equal, round, reactive to light. No scleral icterus. Mucous membranes moist, no lesions or thrush. Neck: Supple without rigidity, no lymphadenopathy. Lungs: Clear to auscultation bilaterally. Normal respiratory effort. Cardiac:Normal S1, S2 . Rate and rhythm regular. No murmur, gallop or rub. GI: Abdomen is soft, nontender, nondistended, positive bowel sounds. No hepatosplenomegaly. : No CVA tenderness. Extremities: No cyanosis, clubbing or edema. Extremities are atraumatic. Neuro: CN 2-12 grossly intact. Speech is clear and appropriate. Lymph: No cervical, supraclavicular, or axillary or inguinal adenopathy. Musculoskeletal: No tenderness with palpation of ribs or vertebrae. No joint inflammation or swelling. Gait stable. Psych: Pleasant affect. No sign of agitation. Skin: No rash or skin breakdown. No excessive bruising or petechiae. No hand foot symptoms. Lab Review: Labs reviewed in IS from visit 08/19/2025 Pathology Review: Left lower lobe lung biopsy (07/20/25): Metastatic clear cell carcinoma consistent with renal primary FINAL DIAGNOSIS A - Lung, Left, Wash - Left lower lobe Negative for malignant cells. Benign bronchial epithelial cells and pulmonary macrophages. B - Lung, Left Lower Lobe, Transbronchial, FNA - endobronchial mass Positive for malignant cells. Metastatic renal cell carcinoma (see comment). Diagnostic Tests: Pertinent available radiologic studies were reviewed. MRI brain 07/20/25: Irregular partially necrotic and hemorrhagic masses in the right occipital and left temporal lobes highly suspicious for intracranial metastases. Extensive vasogenic edema/local mass effect effaces the ventricular system without evidence of developing hydrocephalus. No midline shift. 2.4 cm left temporal and 2.1 cm right occipital hemorrhagic metastases with vasogenic edema; midline shift. CT Chest 07/20/2025: 1. Scattered bilateral pulmonary nodules are suspicious for metastatic disease, most likely due to a large left renal mass seen on the concurrent abdominal/pelvic CT exam. 2. No thoracic lymphadenopathy. CT A/P 07/20/2025: 10.1 cm invasive left renal mass, suspicious for renal cell carcinoma. Involvement of the pancreatic tail and left adrenal gland, with possible extension to the splenic hilum and left colon. Tumor in left renal vein also suspected. Finding should BE further characterized with a dedicated renal mass imaging protocol without and with contrast. Possible hepatic lesions can also be further characterized with dedicated renal mass protocol. (Suspect 1.5 cm low-attenuation lesion in the left hepatic dome with possible adjacent subcentimeter lesion (2:13). ) Assessment/Plan: Metastatic Renal Cell Carcinoma: (Brain, Bx proven lung, L Kidney): - S/p Gamma knife to brain metastasis. S/p C1 Ipi/Nivo 08/19/2025. Briefly, Garry Hernandez is a 45 y.o. 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 S/p Gamma knife to brain metastasis. Received C1 Ipi/Nivo 08/19/2025 at [facility] by Dr. Woody. He presents to the clinic for second opinion. - Tolerating ipi/nivo well with mild fatigue. - Agree with treatment with IO/IO given brain involvement. - Recommend germline genetic testing d/t young age and small children. Referral to genetics sent. - Continue with ipi/nivo at [facility]. - Return PRN. Brain Metastasis: Symptoms of GÓMEZ on presentation. - S/p Gamma Knife per Dr. Mix ([facility]). - OFF steroids. - No GÓMEZ, mild positional dizziness. CAR [facility]il[facility] Medical Oncology [1] Past Surgical History: Procedure Laterality Date HERNIA REPAIR 06/03/2025 Attending addendum: I have seen the patient in conjunction with our Nurse Practitioner, CAR Gilliland, and formulated the medical decision making, as above. I personally interviewed and examined the patient. All review of systems was completed and is negative unless otherwise stated. I have reviewed all the available medical records, pertinent laboratory and diagnostic tests today. I have personally reviewed all the available radiographic imaging studies. I edited the above clinic note entirely and it reflects the details of my interview, exam, and medical decision making. I provided substantial proportion of the care (>50%). Briefly, Garry Hernandez is a 45 y.o. 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 S/p Gamma knife to brain metastasis. Received C1 Ipi/Nivo 08/19/2025 at [facility] by Dr. Woody. He presents to the clinic for second opinion. - Tolerating ipi/nivo well with mild fatigue. - Agree with treatment with IO/IO given brain involvement. - Recommend germline genetic testing d/t young age and small children. Referral to genetics sent. - Continue with ipi/nivo at [facility]. - Return PRN. 60 minutes spent on this visit. Documented by Idalmis Sue, for Dr. Ricki Jones MD, PhD on 08/26/2025 4:01 PM. All medical record entries made by the Sharoniblashaun were at my direction and personally dictated by me, Ricki Jones MD, PhD . I have reviewed and edited the chart and agree that the record accurately reflects my personal performance of the history, physical exam, assessment and plan. I have also personally directed, reviewed, and agree with the discharge instructions. Ricki Jones MD, PhD documented in this encounter [facility] 08-19-2025 Note HNO ID: [id number] Author: ALMA ROSA PRO RN Service: ? Author Type: Registered Nurse Type: Progress Notes Filed: 08/20/2025 07:51 Note Text: Met with Garry Hernandez in infusion suite today, he is receiving Nivolumab and Ipilimumab infusion C1D1 today. ONCOLOGY PATIENT EDUCATION NOTE TOPIC: Immunotherapy, Medications: Ipilimumab and Nivolumab patient and spouse here today for education for treatment of Kidney Cancer Anticipated/Scheduled start date: 08/19/2025 READINESS TO LEARN: COGNITIVE ABILITY: Alert and oriented MOTIVATION TO LEARN: Eager Interested FAMILY SUPPORT: High - Very involved in pt care INSTRUCTION PROVIDED TO: Patient and Spouse INSTRUCTION PROVIDED BY: Nurse Coordinator and Nurse Practitioner PATIENT LEARNS BEST BY: Written Instruction - Hand-outs Verbal Instruction FACTORS AFFECTING LEARNING: None PHYSICAL LIMITATIONS AFFECTING LEARNING: None LEARNING RESPONSE METHOD OF INSTRUCTION: Individual instruction Written instruction/Handouts PATIENT/FAMILY RESPONSE: Verbalizes understanding of: Immune therapy FOLLOW UP PLAN: Follow up phone call. SUPPLEMENTAL MATERIAL: Written material was provided at this visit with the following information: - Immunotherapy education was provided by a pharmacist NO - Side effect management information was provided/discussed including but not limited to: arthralgia, diet, fatigue, headache, mouth hygiene, nausea/vomitting, peripheral neuropathy, rash, shortness of breath, skin changes YES - Provided important phone numbers and contacts during and after hours. YES - Provided information on symptoms that require immediate assistance. YES - Provided Immunotherapy when to call handouts YES - Preventing infection. YES - Treatment schedule and confirmation of appointment times. YES - Available support groups. NA - The importance of contraception during the course of chemotherapy NA - Immuno therapy information StepLeaderet card Time Spent: 15 REFERRAL (RECOMMENDATION): N/A Alma Rosa Pro RN [facility] 08-19-2025 Note HNO ID: [id number] Author: JAYRO SOLIMAN APRN.MOLD YARN SUPERVISOR Service: ? 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 Garry Hernandez is a 45-year-old man with newly diagnosed metastatic clear cell renal cell carcinoma. He initially presented in June 2025 with 3 weeks of worsening headaches and word-finding difficulty. 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 CT chest showed scattered bilateral pulmonary nodules, and CT abdomen suggested possible hepatic lesions. He underwent GKRS on 07/21/2025 with symptom improvement. 08/19/2025: started ipi/nivo INTERVAL HISTORY: Completed another dose of GKRS on 08/17/25 - he is currently on dexamethasone 4mg once daily. No headaches or visual disturbance. Denies any hematuria. No new pain. REVIEW OF SYSTEMS: As described above. All other systems were reviewed and were negative. MEDICATIONS: dexAMETHasone (DECADRON) 2 mg tablet Start the day after your Gamma Knife Procedure: Decadron (dexamethasone) Take 4 mg (2 tablets) daily for 3 days. Take 2 mg (1 tablet) daily for 3 days then Stop Decadron Patient should start on August 18, 2025. ferrous sulfate 325 mg (65 mg iron) tablet Take 1 tablet by mouth every other day. (Patient not taking: Reported on 08/17/2025) levETIRAcetam (KEPPRA) 500 mg tablet Take 1 tablet by mouth two times a day. pantoprazole DR (PROTONIX) 40 mg tablet Take 1 tablet by mouth once daily. Continue taking daily while taking decadron (dexamethasone) (Patient not taking: Reported on 08/17/2025) FLUoxetine (PROZAC) 20 mg capsule Take 20 mg by mouth once daily. PHYSICAL EXAM ECOG 0 BP 124/72 Pulse 72 Temp 36.7 ?C (98.1 ?F) (Oral) Resp 20 Wt 75.4 kg (166 lb 3.6 oz) SpO2 98% BMI 28.52 kg/m? GENERAL: Well appearing and in NAD. Comfortable, alert, ambulatory. Presents with sister and . HEENT: Normocephalic. Mucous membranes moist. No pallor or jaundice. LUNGS: Breathing non-labored. SKIN: Without notable lesions or rash NEURO: Grossly intact EXT: Without erythema or edema. PSYCH: Normal affect and good eye contact LABS: Latest Ref Rng 08/19/2025 WBC 3.70 - 11.00 k/uL 9.09 RBC 4.20 - 6.00 m/uL 3.97 (L) Hemoglobin 13.0 - 17.0 g/dL 10.8 (L) Hematocrit 39.0 - 51.0 % 32.7 (L) MCV 80.0 - 100.0 fL 82.4 MCH 26.0 - 34.0 pg 27.2 MCHC 30.5 - 36.0 g/dL 33.0 RDW-CV 11.5 - 15.0 % 14.6 Platelet Count 150 - 400 k/uL 211 MPV 9.0 - 12.7 fL 9.9 Neut% % 87.0 Abs Neut (ANC) 1.45 - 7.50 k/uL 7.92 (H) Lymph% % 8.4 Abs Lymph 1.00 - 4.00 k/uL 0.76 (L) [place]% % 3.9 Abs Lemhi <0.87 k/uL 0.35 Eosin% % 0.0 Abs Eosin <0.46 k/uL <0.03 Baso% % 0.1 Abs Baso <0.11 k/uL <0.03 Immature Gran % % 0.6 IMMATURE GRANS (ABS) <0.10 k/uL 0.05 NRBC /100 WBC 0.0 Absolute nRBC <0.01 k/uL <0.01 DTYPE Auto Protein, Total 6.3 - 8.0 g/dL 7.1 Albumin 3.9 - 4.9 g/dL 4.2 Calcium 8.5 - 10.2 mg/dL 10.9 (H) Bilirubin, Total 0.2 - 1.3 mg/dL <0.2 (L) Alkaline Phosphatase 38 - 113 U/L 154 (H) AST 14 - 40 U/L 9 (L) ALT 10 - 54 U/L 19 Glucose 74 - 99 mg/dL 111 (H) BUN 9 - 24 mg/dL 18 Creatinine 0.73 - 1.22 mg/dL 0.82 Sodium 136 - 144 mmol/L 138 Potassium 3.7 - 5.1 mmol/L 4.0 Chloride 98 - 107 mmol/L 102 CO2 22 - 30 mmol/L 25 Anion Gap 8 - 15 mmol/L 11 eGFR >=60 mL/min/1.73m? 110 Legend: (L) Low (H) High IMAGING: MRI brain (07/20/25): 2.4 cm left temporal and 2.1 cm right occipital hemorrhagic metastases with vasogenic edema; midline shift. CT brain (07/21/25): Stable appearance post-Gamma Knife; persistent edema. CT chest (07/20/25): Scattered bilateral pulmonary nodules suspicious for metastases; no adenopathy. 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 Hernandez is a 45-year-old male with stage IV clear cell renal cell carcinoma with brain, pulmonary, and possible hepatic metastases. Pathology confirmed ccRCC (lung biopsy 07/23/25). Status post GKRS (07/21/25 and 08/17/25). He is here to start therapy with ipi/nivo today. We discussed rationale of this treatment including risk, benefit and potential side effects. Pt remains agreeable to proceed with th (more content not included)... [facility] 08-19-2025 Note HNO ID: [id number] Author: ALMA ROSA SYLVESTER LPN Service: ? Author Type: Licensed Nurse Type: Progress Notes Filed: 08/19/2025 14:44 Note Text: Additional intake questions: Has the patient had fever, nausea, vomiting, diarrhea, constipation, fatigue for > 1 week? Yes, fatigue Does the patient have a decreased appetite? No Does patient want to see a Analyst Competitive Intelligence? No (yes to any of above refer patient to schedulers for dietitian appointment) ) Does patient have any new or increased numbness or tingling of extremities? No Is patient interested in fertility information? No Does patient need any prescription refills? No Does patient have an advanced directive in place? No, Patient referred to Resource Center Electronically Signed By: Alma Rosa Sylvester LPN [facility] 08-19-2025 Note HNO ID: [id number] Author: ?, ?, ? Service: ? Author Type: ? Type: Progress Notes Filed: 08/19/2025 10:42 Note Text: Summary: [facility] Patient Assistance Program Received message from community service officer inquiring about PAP for Opdivo and Yervoy. Obtained patient signature on BMSPAF application and proof of income. Pending provider's signature. Will submit application to [facility] once received. [facility] 08-19-2025 Note Education (HEMCA3) GARRY HERNANDEZ ([id number]) 1980 M Date Time Provider Department 08/19/25 ALMA ROSA PRO HEMCA3 Reason for Visit: Renal Cancer [3907] During your visit today, we recorded the following information about you: Allergies As of Date: 08/19/2025 (No Known Allergies) Date Reviewed: 08/19/2025 Reviewed by: Jayro Soliman APRN.MOLD YARN SUPERVISOR - Fully Assessed Prescriptions as of 08/20/2025 - dexAMETHasone (DECADRON) 2 mg tablet Start the day after your Gamma Knife Procedure: Decadron (dexamethasone) Take 4 mg (2 tablets) daily for 3 days. Take 2 mg (1 tablet) daily for 3 days then Stop Decadron Patient should start on August 18, 2025. - ferrous sulfate 325 mg (65 mg iron) tablet Take 1 tablet by mouth every other day. - levETIRAcetam (KEPPRA) 500 mg tablet Take 1 tablet by mouth two times a day. - pantoprazole DR (PROTONIX) 40 mg tablet Take 1 tablet by mouth once daily. Continue taking daily while taking decadron (dexamethasone) - FLUoxetine (PROZAC) 20 mg capsule Take 20 mg by mouth once daily. Encounter Status:Closed by ALMA ROSA PRO on 08/20/25 [facility] 08-19-2025 Note Patient Outreach (HE SAE) GARRY HERNANDEZ ([id number]) 1980 M Date Time Provider Department 08/19/25 SUPPORT SERVICES [facility] During your visit today, we recorded the following information about you: Tommie Che 08/19/2025 10:42 AM Signed Received message from community service officer inquiring about PAP for Opdivo and Yervoy. Obtained patient signature on [employer] application and proof of income. Pending provider's signature. Will submit application to [employer] once received. Allergies As of Date: 08/19/2025 (No Known Allergies) Date Reviewed: 08/17/2025 Reviewed by: Alexa Hartman RN - Fully Assessed Prescriptions as of 08/19/2025 - dexAMETHasone (DECADRON) 2 mg tablet Start the day after your Gamma Knife Procedure: Decadron (dexamethasone) Take 4 mg (2 tablets) daily for 3 days. Take 2 mg (1 tablet) daily for 3 days then Stop Decadron Patient should start on August 18, 2025. - ferrous sulfate 325 mg (65 mg iron) tablet Take 1 tablet by mouth every other day. - levETIRAcetam (KEPPRA) 500 mg tablet Take 1 tablet by mouth two times a day. - pantoprazole DR (PROTONIX) 40 mg tablet Take 1 tablet by mouth once daily. Continue taking daily while taking decadron (dexamethasone) - FLUoxetine (PROZAC) 20 mg capsule Take 20 mg by mouth once daily. 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 08-17-2025 Note HNO ID: [id number] Author: DONA HUSTON RN Service: Radiology Author Type: Registered Nurse Type: Progress Notes Filed: 08/17/2025 12:45 Note Text: Radiology Service Progress Note DATE OF SERVICE: August 17, 2025 TIME: 12:40 PM PATIENT WEIGHT: 167LBS PATIENT IDENTITY VERIFICATION COMPLETED USING TWO (2) STANDARD IDENTIFIERS: Name and Date of confirmed by patient verbally and Name and Date of confirmed by identification band. FALL SCREENING: Has the patient had 2 falls in the last year or 1 fall with injury or currently using an Ambulatory Assistive Device (Walker, Cane, Wheelchair, Crutches, etc.)? No PATIENT GENDER DATA: Assigned male at ALLERGIES: Reviewed and unchanged CONTRAST ALLERGY: No EXAM: MRI - CONTRAST TYPE: GROUP II IV SITE: Ambulatory: A peripheral IV was started in the Left antecubital site with a Angio cath: 22 gauge. and A Saline lock was inserted per protocol IV SITE APPEARANCE: Clean,Dry and Intact SIGNATURE: Dona Huston RN PATIENT NAME: Garry Hernandez DATE: August 17, 2025 TIME: 12:40 PM [facility] 08-17-2025 Note HNO ID: [id number] Author: ALEXA HARTMAN RN Service: ? Author Type: Registered Nurse Type: Progress Notes Filed: 08/19/2025 06:32 Note Text: August 17, 2025 1126 Garry arrived ambulatory with: , Neoma and other elders from his community 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 1318 Arrived from imaging to GK and had pt get back into his clothes. Transportation home verified: yes, with milk tanker driverAide, ph [phone]. Garry here for today for imaging, mask fitting, pre-planning for Icon mask based Gamma Knife Stereotactic Radiosurgery by radiation therapist, and single session mask based treatment. ID verified with patient with two identifiers, name and birthdate. Alexa Hartman RN Garry assessed for the following: Does Garry have any pain? No. Pain 0 on scale of 0-10 Does Garry have: Difficulty chewing and/or swallowing: no Fall risk assessment: Not at risk for falls Concerns about physical or emotional abuse: no Allergies reviewed with patient, yes. [id number] Mask completed. To imaging for CT Scan and MRI. Garry Hernandez returned to department for treatment # 1 of 1. Is patient on immunotherapy? Intends to start on Sun. Patient's Age: 45 1416 Decadron 4 mg po given prior to Gamma Knife SRS per order of Dr. Maria Del Rosario MD.Printed and verbal discharge instructions given to patient. Instructions reviewed by this nurse and patient verbalized understanding. [id number] Patient assisted to treatment room. Gamma Knife SRS begun. 1652 Gamma Knife Stereotactic Radiosurgery Completed. 1657 Pt then discharged. Alexa Hartman RN [facility] 08-17-2025 Note HNO ID: [id number] Author: ANDREW HERNANDEZ RT(R) Service: Radiology Author Type: Technologist Type: Progress Notes Filed: 08/17/2025 13:15 Note Text: Radiology Service Progress Note PATIENT NAME: Garry Hernandez DATE OF SERVICE: August 17, 2025 TIME: 1:14 PM PATIENT IDENTITY VERIFICATION COMPLETED USING TWO (2) IDENTIFIERS: Name and Date of confirmed by patient verbally and Name and Date of confirmed by identification band. FALL SCREENING: Has the patient had 2 falls in the last year or 1 fall with injury or currently using an Ambulatory Assistive Device (Walker, Cane, Wheelchair, Crutches, etc.)? No PATIENT GENDER DATA: Assigned male at PATIENT RELEVANT IMPLANT DATA REVIEWED: Yes PATIENT PRESENTS WITH AN IMPLANTABLE OR ATTACHED SEED TESTER: No RADIOLOGY DEPARTMENT: CT; Exam(s) Completed: Brain . Anesthesia: No PERIPHERAL IV DATA: Not applicable SIGNED BY: RT Yudith(R) August 17, 2025 1:14 PM [facility] 08-17-2025 Note HNO ID: [id number] Author: JUAN PRADHAN MD Service: Radiation Oncology Author Type: Physician Type: Progress Notes Filed: 08/17/2025 16:24 Note Text: GARRY HERNANDEZ [id number] 08/17/2025 [facility] GAMMA KNIFE STEREOTACTIC RADIOSURGERY (SRS) DAILY PROCEDURE NOTE FRACTION NUMBER: 1 of 1 for all sites CUMULATIVE DOSE: 15Gy (Out of a planned 15Gy) for R ocpt st 2 12Gy (Out of a planned 12Gy) for L mes tmpr st 2 24Gy (Out of a planned 24Gy) for L postcntr 24Gy (Out of a planned 24Gy) for L postcntr ant DIAGNOSIS: paste from simulation note PROCEDURE: Under my direct supervision the patient was set up on the treatment table and all treatment parameters were verified, including patient identity and treatment site. CBCT obtained which was co-registered using the treatment planning system. Adaptive replan was verified and approved. Once the beam was turned on, the patient position and target location were continuously monitored during delivery of the SRS using infrared tracking. At all points of decision-making with regard to patient setup, I conferred with the diagnostic medical sonographer to approve the final setup. I was available throughout the SRS treatment to manage the execution of the treatment and make real-time adjustments in response to patient motion, target movement, or equipment issues to ensure accuracy and safety. The patient was evaluated by me after treatment and was discharged in stable condition. TREATMENT VOLUMES: GTV (Defined by neurosurgeon) PHYSICIST NAME: Arjun Mauricio, PhD INTERVENTIONS: None ASSESSMENT/PLAN: Patient tolerated procedure well. We will continue as planned. Electronically Signed JUAN PRADHAN M.D. :24 PM [facility] 08-17-2025 Note HNO ID: [id number] Author: JUAN PRADHAN MD Service: Radiation Oncology Author Type: Physician Type: Progress Notes Filed: 08/18/2025 17:09 Note Text: GARRY HERNANDEZ [id number] 08/17/2025 [facility] Department of Radiation Oncology [facility] RADIATION ONCOLOGY: COMPLETION NOTE DATE OF SIMULATION: 08/17/2025 DATES OF TREATMENT: 08/17/2025 UNIT: Gamma Knife AREA TREATED: 1) R ocpt st 2 2) L mes tmpr st 2 3) L postcntr 4) L postcntr ant DISEASE: 45 yo M presenting with 3 weeks of headaches and new onset word finding difficulty. MRI brain reveals 2.4 cm L temporal and 2.1 cm R occipital brain masses with significant vasogenic edema c/f brain metastases. Staging CT CAP reveals 10 cm Left renal mass c/f renal cell carcinoma, possible hepatic lesions, and multiple pulmonary nodule, here for planned staged GKRS CONCURRENT THERAPY: DELIVERED DOSE: 1. 1500.0 cGy was prescribed to the 64% isodose line, which covered 100% of the target. The plan utilized 21 shots using 16 mm, 8 mm, 4 mm, composite sectors, with some of the sectors blocked. GTV volume = 2.389 cm3. Maximum dose = 2345.0 cGy. Maximum diameter = 3.05 cm. MD/PD = 1.563. PIV/CTV = 1.962. Gradient Index = 3.12. Number of Fractions = 1. 2. 1200.0 cGy was prescribed to the 64% isodose line, which covered 100% of the target. The plan utilized 25 shots using 16 mm, 8 mm, 4 mm, composite sectors, with some of the sectors blocked. GTV volume = 2.177 cm3. Maximum dose = 1875.0 cGy. Maximum diameter = 2.42 cm. MD/PD = 1.562. PIV/CTV = 1.755. Gradient Index = 3.17. Number of Fractions = 1. 3. 2400.0 cGy was prescribed to the 96% isodose line, which covered 100% of the target. The plan utilized 4 shots using 16 mm, 8 mm, 4 mm, composite sectors, with some of the sectors blocked. GTV volume = 0.027 cm3. Maximum dose = 2545.0 cGy. Maximum diameter = 0.65 cm. MD/PD = 1.06. PIV/CTV = 6.889. Gradient Index = 15.19. Number of Fractions = 1. 4. 2400.0 cGy was prescribed to the 89% isodose line, which covered 100% of the target. The plan utilized 1 shot using 16 mm, 8 mm, 4 mm, composite sectors, with some of the sectors blocked. GTV volume = 0.01 cm3. Maximum dose = 2935.0 cGy. Maximum diameter = 0.39 cm. MD/PD = 1.223. PIV/CTV = 18.6. Gradient Index = 11.65. Number of Fractions = 1. 4 separate treatment plans were devised. ELAPSED TIME: 88 minutes (one session). TOLERANCE: Excellent. RESPONSE: To be assessed in outpatient clinic. REMARKS: The patient will follow-up in 2 months with repeat MRI scan. Authorized user was present during the entire treatment. The total treatment time was within 10% of the written directive. Staff Physician Juan Pradhan M.D covering for Dr. Madsen. :09 PM Electronically Signed cc: Dr. Yoel Mix, [facility] Dr. Carlos A Woody MD [facility] 08-17-2025 Note HNO ID: [id number] Author: JUAN PRADHAN MD Service: Radiation Oncology Author Type: Physician Type: Progress Notes Filed: 08/17/2025 16:24 Note Text: GARRY HERNANDEZ [id number] 08/17/2025 [facility] Department of Radiation Oncology [facility] RADIATION ONCOLOGY GAMMA KNIFE SIMULATION NOTE DATE OF SIMULATION: 08/17/2025 MACHINE: Gamma Knife DIAGNOSIS: metastatic cancer here for staged GKRS AREA:Brain PATIENT POSITION: Supine. CONTRAST: None PROTOCOL: None FIXATION DEVICE: In order to achieve accurate and reproducible treatments, the patient is immobilized with custom 3-point mask and mold care. PROCEDURE: A time-out was conducted and recorded by the therapist. Patient was simulated on the Gamma Knife for SRS therapy. ASSESSMENT/PLAN: Patient tolerated simulation procedure well. Treatments will be initiated after treatment planning. Electronically Signed Juan Pradhan M.D. :24 PM [facility] 08-05-2025 Note HNO ID: [id number] Author: GLORIA WOODY MD Service: ? Author Type: Physician Type: Progress Notes Filed: 08/06/2025 14:55 Note Text: [facility] Department of Hematology and Medical Oncology PATIENT NAME: Garry Hernandez CLINIC NO.: [id number] DATE OF SERVICE: 08/05/2025 DIAGNOSIS: metastatic clear cell renal cell carcinoma STAGE: Stage IV PRIOR THERAPY: - 07/21/25: GKRS to two brain metastases (left temporal, right occipital). - 07/22/25: dexamethasone taper for vasogenic edema. - No prior systemic therapy CURRENT THERAPY: - Initiation today HISTORY OF PRESENT ILLNESS: Mr. Garry Hernandez is a 45-year-old man with newly diagnosed metastatic clear cell renal cell carcinoma who presents for post-treatment follow-up and to discuss systemic therapy options. He initially presented in June 2025 with 3 weeks of worsening headaches and word-finding difficulty. 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 CT chest showed scattered bilateral pulmonary nodules, and CT abdomen suggested possible hepatic lesions. He underwent GKRS on 07/21/2025 with symptom improvement. He is here today to discuss therapy for metastatic ccRCC. Consultation requested by Dr. Brayan Mix for an opinion regarding therapy for metastatic renal cell carcinoma. My final recommendations will be communicated back to the requesting physician by way of shared Medical record or letter to requesting physician via US mail. MEDICATIONS: levETIRAcetam (KEPPRA) 500 mg tablet Take 1 tablet by mouth two times a day. pantoprazole DR (PROTONIX) 40 mg tablet Take 1 tablet by mouth once daily. Continue taking daily while taking decadron (dexamethasone) dexAMETHasone (DECADRON) 2 mg tablet Take 2 tablets by mouth three times a day with meals for 4 days, THEN 2 tablets two times a day with meals for 4 days, THEN 2 tablets daily with breakfast for 4 days, THEN 1 tablet daily with breakfast for 4 days, THEN 1 tablet every other day in the morning for 4 days. Patient should start on July 22, 2025. FLUoxetine (PROZAC) 20 mg capsule Take 20 mg by mouth once daily. ALLERGIES: ALLERGIES No Known Allergies SOCIAL HISTORY: Patient is . He quit smoking 10 years ago. REVIEW OF SYSTEMS: As described above. All other systems were reviewed and were negative. PHYSICAL EXAMINATION: 08/05/25 1249 BP: 107/72 Pulse: 66 Resp: 20 Temp: 36.2 ?C (97.2 ?F) TempSrc: Temporal SpO2: 97% Weight: 75.8 kg (167 lb 1.7 oz) Height: 162.6 cm (5' 4.02) ECOG PERFORMANCE STATUS: 1- Restricted in physically strenuous activity. Carries out light duty. General: Alert and oriented in person, place and time. In no distress DIAGNOSTIC STUDIES: LABS: Recent Labs 07/19/25 2221 WBC 8.91 HB 13.8 MCV 79.8* PLT 305 ABSNEUT 8.08* ABSMONO 0.10 Recent Labs 07/19/25 2221 NA 134* K 4.2 CHLOR 96* CO2 26 BUN 15 CREAT 0.89 ALB 4.6 TPROT 8.0 CA 12.2* MG 2.2 ALT 13 AST 9* TBILI 0.3 GLUC 138* EGFROTH 107 Recent Labs 07/19/25 2221 APTT 31.9 PTSEC 11.7 INR 1.1 IMAGING: MRI brain (07/20/25): 2.4 cm left temporal and 2.1 cm right occipital hemorrhagic metastases with vasogenic edema; midline shift. CT brain (07/21/25): Stable appearance post-Gamma Knife; persistent edema. CT chest (07/20/25): Scattered bilateral pulmonary nodules suspicious for metastases; no adenopathy. 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 Pathology confirmed ccRCC (lung biopsy 07/23/25). Status post GKRS (07/21/25) with steroid taper with good neurologic recovery. Plan: Systemic therapy initiation - IMDC risk: poor risk (High Ca, neutrophil count, metastatic disease at time of diagnosis) - Discuss options for treatment-naive mccRCC with brain and possible liver metastases: Options include: - Pembrolizumab + lenvatinib (CLEAR) or Nivolumab + Cabozantinib (CheckMate 9ER) Nivolumab + Ipilimumab (Checkmate 214) or pembolizumab plus axitinib. I recommended ipilimumab and nivolumab dual immunotherapy for him. Risks, benefits, alternatives and personnel discussed with patient who consents to proceed. He signed the informed consent form. - Baseline CMP, CBC prior to initiation 2. Hypercalcemia - Likely neoplastic - Repeat Ca, Albumin - Start bisphosphonate (zoledronate) if hypercalc (more content not included)... [facility] 08-05-2025 Note HNO ID: [id number] Author: ALMA ROSA SYLVESTER LPN Service: ? Author Type: Licensed Nurse Type: Progress Notes Filed: 08/05/2025 14:04 Note Text: Additional intake questions: Has the patient had fever, nausea, vomiting, diarrhea, constipation, fatigue for > 1 week? No Does the patient have a decreased appetite? No Does patient want to see a Analyst Competitive Intelligence? No (yes to any of above refer patient to schedulers for dietitian appointment) ) Does patient have any new or increased numbness or tingling of extremities? No Is patient interested in fertility information? No Does patient need any prescription refills? No Does patient have an advanced directive in place? No, Patient referred to Resource Center Electronically Signed By: Alma Rosa Sylvester LPN [facility] 07-21-2025 Note HNO ID: [id number] Author: JESSICA HOLDEN PA-C Service: Neurosurgery Author Type: Physician Floor Worker Well Service Type: Progress Notes Filed: 07/29/2025 06:07 Note Text: Documentation Query Please clarify the significance of the pathology report I agree with the pathology findings dated 07/23/2025 which confirms the clinically significant diagnosis of metastatic clear cell carcinoma of left lung consistent with renal cell carcinoma as primary This document will become part of the patient's medical record. [facility] 07-21-2025 Note HNO ID: [id number] Author: CHANTELLE WAGGONER, [place] Service: Pharmacy Author Type: Building Services Engineer Type: Plan of Care Filed: 07/23/2025 08:15 Note Text: Insurance investigation completed Patient has active prescription insurance: Yes - Patient's insurance is in-network with [facility] Insurance loaded into [place]: Yes Test claim was completed to verify insurance is active: Successful Is patient eligible for [facility]? No Any questions, please reach out to your medication social service coordinator. [facility] 07-21-2025 Note HNO ID: [id number] Author: DERRELL CLARK RT(R) Service: Radiology Author Type: Technologist Type: Progress Notes Filed: 07/21/2025 13:28 Note Text: Radiology Service Progress Note PATIENT NAME: Garry Hernandez DATE OF SERVICE: July 21, 2025 TIME: 1:28 PM PATIENT IDENTITY VERIFICATION COMPLETED USING TWO (2) IDENTIFIERS: Name and Date of confirmed by patient verbally and Name and Date of confirmed by identification band. FALL SCREENING: Has the patient had 2 falls in the last year or 1 fall with injury or currently using an Ambulatory Assistive Device (Walker, Cane, Wheelchair, Crutches, etc.)? No PATIENT GENDER DATA: Assigned male at PATIENT RELEVANT IMPLANT DATA REVIEWED: Yes PATIENT PRESENTS WITH AN IMPLANTABLE OR ATTACHED SEED TESTER: No RADIOLOGY DEPARTMENT: CT; Exam(s) Completed: Brain . Anesthesia: No PERIPHERAL IV DATA: Not applicable SIGNED BY: RT Tamika(R) July 21, 2025 1:28 PM [facility] 07-21-2025 Note HNO ID: [id number] Author: JESSICA HOLDEN PA-C Service: Neurosurgery Author Type: Physician Floor Worker Well Service Type: Progress Notes Filed: 07/21/2025 12:13 Note Text: SERVICE DATE: 07/21/2025 SERVICE TIME: 7:22 AM NEUROSURGERY TUMOR TEAM INPATIENT PROGRESS NOTE [place]GY [place] [phone] for questions/concerns about this patient from 3PM through 6AM and on weekends. Attending: Brayan Flores MD Location: [id number] Hospital Day # 2 CC: Headache and vision changes INTERVAL HPI (Subjective): Patient reports mild headache, significantly improved from headaches prior to admission. He reports some episodes of visual hallucinations overnight, seeing deer hunting and the side of a barn, denies VH currently. We discussed plan for GKRS today, consideration of home pending OT evaluation. He is neurologically stable with no new deficits. Overnight events noted were VH. Objective PHYSICAL EXAM GENERAL: A AND O x 3. Appears stated age, well built, in no apparent distress. PSYCHIATRIC: Mood and affect: Mildly confused. SKIN: Color, texture, turgor normal CV: Normal heart sounds, rate, rhythm RESPIRATORY: unlabored breathing ABDOMEN: Soft and Non-tender MUSCULOSKELETAL: Sensory: Normal sensory exam Gait: N/A Muscle strength: UE BICEPS TRICEPS DELTS [employer] Executive R 5/5 5/5 5/5 5/5 L 5/5 5/5 5/5 5/5 LE Hip Flex Knee Flex Knee Extend Plantarflex Dorsiflex EHL R 5/5 5/5 5/5 5/5 5/5 5/5 L 5/5 5/5 5/5 5/5 5/5 5/5 CRANIAL NERVES: Pupils: OD Right: 3 mm Reactive OS Left: 3 mm Reactive II Visual kellogg: Homonymous hemianopsia: left III, IV, EOM full V Facial sensation normal VII Normal strength VIII Normal bilaterally IX, X Normal, midline palatal rise XI Symmetric shrug XII Tongue midline, mobile Drift: no drift bilaterally Speech: slow with moderate WFD, mixed aphasia Vital Signs 24 Hour Review: 07/21/25 0116 07/21/25 0544 07/21/25 0755 07/21/25 0845 BP: 126/69 130/67 Pulse: (!) 54 (!) 51 Resp: 18 18 17 16 Temp: 36.4 ?C (97.5 ?F) 36.7 ?C (98.1 ?F) TempSrc: Oral Oral SpO2: 99% 97% Weight: Height: Intake AND Output Intake/Output Summary (Last 24 hours) at 07/21/2025 1135 Last data filed at 07/21/2025 0800 Gross per 24 hour Intake 900 ml Output -- Net 900 ml Drains: Lines, Drains, and Airways Line Duration Peripheral External Facility Right Antecubital 20 Gauge -- days LABS: CBC: Recent Labs 07/19/25 2221 WBC 8.91 HB 13.8 HCT 40.6 PLT 305 MCV 79.8* RDWCV 13.5 NEUTP 90.8 ABSNEUT 8.08* LYMPHP 7.6 MONOP 1.1 EODINP 0.0 BMP: Recent Labs 07/19/25 2221 GLUC 138* NA 134* K 4.2 CHLOR 96* CO2 26 ANION 12 BUN 15 CREAT 0.89 1. Out of bed and ambulating: Yes Needs PT or OT Evaluation: Yes 2. Central line present? No 3. Continued need for urinary catheter? Not Applicable 4. Nutrition: PO- Yes. 5. Restraints No. 6. Last BM CHEMICAL PLANT WORKER Assessment AND Plan Active Hospital Problems as of 07/21/2025 Noted - Resolved POA Hospital * (Principal) Vasogenic edema (HCC) 07/19/2025 - Present Yes Current Assessment AND Plan Clinically significant cerebral edema treating with decadron 4bid (SSI, PPI) with joint terminal attack controller taper plan Neoplasm causing mass effect and brain compression on adjacent structures (HCC) 07/21/2025 - Present Yes Current Assessment AND Plan R/t brain mets, see brain met POC Multiple pulmonary nodules 07/20/2025 - Present Yes Current Assessment AND Plan Noted on CT CAP Appreciate pulmonary recs: bronchoscopy 07/20 (prelim path carcinoma) Malignant neoplasm metastatic to brain (HCC) 07/20/2025 - Present Yes Current Assessment AND Plan MRI for WFD and visual changes with 1.9cm left frontal and 2.5 cm right occipital masses c/w mets Appreciate radiation oncology recs and assistance Plan for GKRS to mets 07/21 Left kidney mass 07/21/2025 - Present Yes Current Assessment AND Plan Noted on CT CAP- likely primary See lung nodule POC At risk for seizures 07/21/2025 - Present Yes Current Assessment AND Plan Treating with keppra 500mg bid * Vasogenic edema (HCC)- (present on admission) Clinically significant cerebral edema treating with decadron 4bid (SSI, PPI) with assisted taper plan Left kidney mass- (present on admission) Noted on CT CAP- likely primary See lung nodule POC Neoplasm causing mass effect and brain compression on adjacent structures (HCC)- (present on admission) R/t brain mets, see brain met POC At risk for seizures- (present on admission) Treating with keppra 500mg bid Malignant neoplasm metastatic to brain (HCC)- (present on admission) MRI for WFD and visual changes with 1.9cm left frontal and 2.5 cm right occipital masses c/w mets Appreciate radiation oncology recs and assistance Plan for GKRS to mets 07/21 Multiple pulmonary nodules- (present on admission) Noted on CT CAP Appreciate pulmonary recs: bronchoscopy 07/20 (p (more content not included)... [facility] 07-21-2025 Note HNO ID: [id number] Author: ECTOR CUNNINGHAM LSW Service: Care Management Author Type: Manager Retail Type: Care Mgt Progress Note Filed: 07/21/2025 12:01 Note Text: CARE MANAGEMENT DISCHARGE NOTE SERVICE DATE: 07/21/2025 SERVICE TIME: 12:00 PM LOS: 2 days Admission Date: 07/19/2025 DISCHARGE ARRANGEMENT Discharge Arrangement: Home with Self Care Medical Services: Referred to Outpatient OT CAREGIVER ASSESSMENT: Caregiver Assessment Caregiver is ready, willing and able to meet the patient's needs as recommended by the inter-professional team: No Caregiver needed TRANSPORTATION ARRANGEMENTS: Transportation Arrangements: Car Destination: Home Per medical team, pt is ready to DC., social media manager for outpatient OT. No skilled needs SIGNATURE: CLIFTON Posada PATIENT NAME: Garry Hernandez DATE: July 21, 2025 TIME: 12:00 PM [facility] 07-21-2025 Note HNO ID: [id number] Author: RADHA ALLAN APRN.MOLD YARN SUPERVISOR Service: ? Author Type: Nurse Practitioner Type: Progress Notes Filed: 07/21/2025 10:28 Note Text: See inpatient note. Radha Allan APRN.MOLD YARN SUPERVISOR [facility] 07-21-2025 Note HNO ID: [id number] Author: ALEXA HARTMAN RN Service: ? Author Type: Registered Nurse Type: Progress Notes Filed: 07/21/2025 17:03 Note Text: July 21, 2025 1218 Received SBAR from Natalia Taylor RN. Reviewed DEC. Brandon denies pt needing anything prn for pain/anxiety at this time. States Garry is AANDOx4, but sometimes does not stay focused. 1246 Garry Hernandez arrived wheelchair via patient transportation from inpatient unit. Garry was discharged from unit, but has PIV in right AC for GK frame. Garry here for Gamma Knife Stereotactic Radiosurgery. MRI completed on 07/20/25 @ 1240 while inpatient. ID verified with patient with two identifiers, name and birthdate. ID band applied. Alexa Hartman RN Garry assessed for the following: Does Garry have any pain? No. Pain 0 on scale of 0-10 Does Garry have: Difficulty chewing and/or swallowing: no Fall risk assessment: Not at risk for falls Concerns about physical or emotional abuse: no Allergies reviewed with patient, yes. Glasses: Yes . Dentures:Yes Hearing Aid: No Is patient on immunotherapy? No. HANDP done, dated: . IV site: #20 Angiocath inserted in right ACF prior to arrival to GK, site unremarkable and patent to NS flush. Alexa Hartman RN Patient's Age: 45 Garry positioned in sitting position for stereotactic frame application. UNIVERSAL PROTOCOL / SAFETY CHECKLIST Procedure to be performed: Gamma Knife headframe placement. Sign in communication: Completed. 1312 Time Out.: Team Confirms the Correct Patient, Correct Procedure, Correct Site and Site Marking, Correct Position. Alexa Hartman RN 1315 Versed 1 mg IV per order of Dr. Yoel Mix for anxiolysis, Alexa Hartman RN. Falls risk assessment: Patient now at risk for falls d/t administration of versed for frame placement. 1321 [place] Frame Used for frame placement by Dr. Maria Del Rosario MD. Anterior pin sites: size 3 . Posterior pin sites: size 4 . Post frame scannin Report called to nurse Deanna. [address] scan via wheelchair and returned at 1355hrs. 1357 CT scan completed. Garry returned to [facility] center waiting with family. Nutrition offered. Garry updated regarding treatment planning. 1418 Decadron 6 mg PO pre-Gamma Knife per order of Dr. Maria Del Rosario MD, Alexa Hartman RN Does Garry have any pain? No. Pain 0 on scale of 0-10 [id number] Garry assisted to treatment room. Gamma Knife SRS begun. 1602 Gamma Knife Stereotactic Radiosurgery completed. Garry assisted to exam bed. 1610 Head frame removed. 1611 Four pinsite wounds cleansed with hydrogen peroxide, antibiotic ointment applied, Band-Aids to Frontal area pin sites. Does Garry have any pain post frame removal? Yes: LOCATION: mild headache pain before frame removal, slightly less after. 1618 R AC PIV discontinued with catheter intact, site unremarkable, hemostasis obtained and site care instructions given to patient. 1630 Acetaminophen 500 mg orally given per orders of Dr rAben Mix MD. Jeffrey Hartman RN Garry is able to move within pre-procedural abilities. Discharge Information: Printed and verbal post-procedural discharge instructions given to Garry with stated understanding. Reviewed pin site care of cleansing pin sites twice a day x3-4 days and application of antibiotic ointment to sites. To keep pin sites clean/dry, do not wash hair/scalp for 48 hours post Gamma Knife Radiosurgery. Keep head elevated on 2 pillows x1 week to minimize pin site swelling. May take Ibuprofen or Tylenol for discomfort. Discharge prescriptions eScripted to pharmacy of choice: Yes picked up from [facility]. Local and toll free telephone numbers for [facility]ife nurse, hours of availability, Dr. Yoel Mix's clinic telephone number, and [facility] local and toll free numbers given to Garry and family/visitors. 1633 Garry left via wheelchair home with . Alexa Hartman, WATSON [facility] 07-21-2025 Note HNO ID: [id number] Author: RAYMON MADSEN MD Service: Radiation Oncology Author Type: Physician Type: Progress Notes Filed: 07/21/2025 16:29 Note Text: GARRY HERNANDEZ [id number] 07/21/2025 [facility] Department of Radiation Oncology [facility] RADIATION ONCOLOGY: COMPLETION NOTE DATE OF TREATMENT: July 21, 2025 UNIT: Gamma Knife AREA TREATED: 1) r ocpt 2) l mes tmpr DISEASE: 45 yo M presenting with 3 weeks of headaches and new onset word finding difficulty. MRI brain reveals 2.4 cm L temporal and 2.1 cm R occipital brain masses with significant vasogenic edema c/f brain metastases. Staging CT CAP reveals 10 cm Left renal mass c/f renal cell carcinoma, possible hepatic lesions, and multiple pulmonary nodules. DELIVERED DOSE: 1. 1500.0 cGy was prescribed to the 54% isodose line, which covered 100% of the target. The plan utilized 14 shots using 16 mm sector. GTV volume = 8.06 cm3. Maximum dose = 2780.0 cGy. Maximum diameter = 3.4 cm. MD/PD = 1.853. PIV/CTV = 1.737. Gradient Index = 3.5. Number of Fractions = 1. 2. 1800.0 cGy was prescribed to the 57% isodose line, which covered 100% of the target. The plan utilized 16 shots using 16 mm and 8 mm sectors. GTV volume = 4.8 cm3. Maximum dose = 3160.0 cGy. Maximum diameter = 2.6 cm. MD/PD = 1.756. PIV/CTV = 1.525. Gradient Index = 3.5. Number of Fractions = 1. 2 separate treatment plans were devised. ELAPSED TREATMENT TIME: 63 minutes (one session). TOLERANCE: Excellent. RESPONSE: To be evaluated. REMARKS: The patient will return in 1 month for staged GKRS. Authorized user was present during the entire treatment. The total treatment time was within 10% of the written directive. Staff Physician Raymon Madsen M.D./maría 54:29 PM Electronically Signed cc: Dr. Yoel Mix, [facility] 07-20-2025 Note HNO ID: [id number] Author: ECTOR CUNNINGHAM LSW Service: Care Management Author Type: Manager Retail Type: Care Mgt Initial Assessment Filed: 07/20/2025 18:33 Note Text: CARE MANAGEMENT: ASSESSMENT AND DISCHARGE PLAN SERVICE DATE: July 20, 2025 SERVICE TIME: 6:27 PM PCP: No primary care provider on file. Primary Contact: Extended Emergency Contact Information Primary Emergency Contact: Riya Hernandez Relation: Spouse Admission Status: Inpatient Insurance Provider: [facility] Discharge Planning requested by: Per Department Practice Potential Transition Plans To Be Determined Advance Directives Current Advance Directive: None Revenue Analyst Attempted to Assist with AD Completion: Yes Action: Education Provided, Patient Unwilling Current Living Arrangements and Support Lives with: Spouse/significant other, Children Type of Residence: Private Residence (House) Does the patient have to climb stairs at home?: Yes, stairs outside the home, stairs within the home (five steps outside) Support: Spouse/significant other How do you manage to accomplish the following: Independent: Ambulation, Bathe/Shower, Dress, Going to the bathroom, Medication Management Needs Assistance: Meals/Meal Prep, Transportation to appointments/community Current Services/Equipment Current Post-Acute Service(s): None Discharge Planning Patient Goal(s): Be able to go home [place] of Choice Explained: [place] of Choice Given: No Reason Not Given: Unable to complete with this assessment - revisit Are you interested in bedside delivery of your medications? No Discharge Planning Participant(s): Patient, Spouse/significant other, Family Caregiver Assessment: Caregiver is ready, willing and able to meet the patient's needs as recommended by the inter-professional team: Other: See Comment (pt reported spouse is able to assist if needed.) Transport at Discharge: Transportation Arrangements: Car Destination: Home Needs Prior to Discharge: Needs Prior to Discharge: To Be Determined Post-Acute Discharge Plan: Per medical team, [place] TBD RA 6 click score 22 CM met with pt, pt's spouse, and family. Pt reported he lives with spouse and children. Pt denied SNF, HHC, DME, Home O2 prior to admission. CM completed SDOH no concerns indicated. No PCP listed on file. Pt and spouse reported pt receives his primary care at [facility] and they have different doctors. Pt reported family will transport him home at [place]. Transitional needs TBD. Care Management will follow for Post Hospital Transition Needs. Twenty four (24) hours notice is required if any new needs are anticipated in order to ensure a safe discharge. For questions, please contact the manager wind (Transitional Medical Scientific Officer) or Manager Retail assigned to the patient under Treatment team. SIGNATURE: CLIFTON Posada PATIENT NAME: Garry Hernandez DATE: July 20, 2025 TIME: 6:27 PM [facility] 07-20-2025 Note HNO ID: [id number] Author: THERESA MAXWELL APRN.CRNA Service: ? Author Type: Nurse Beamer Hand Type: Anesthesia Procedure Notes Filed: 07/20/2025 14:47 Note Text: ANESTHESIOLOGY PROCEDURE NOTE Airway General Information Procedure Start Time/Medication Administration: 07/20/2025 2:39 PM Procedure End Time: 07/20/2025 2:39 PM Patient location during procedure: OR Timeout Performed Pre-procedure: timeout performed Consent Obtained: Yes Patient identity confirmed: arm band and patient Staffing Anesthesiologist: Andrew Larkin DO COMPLAINT SUPERVISOR: Theresa Maxwell APRN.COMPLAINT SUPERVISOR Performed by: ANISHA Indications and Patient Condition Indications for airway management: anesthesia Preoxygenated: yes anesthesia circuit Patient position: sniffing Method: asleep Cricoid Pressure: No Manual In-Line Stabilization: No Difficult Mask: No Final Airway Details Final airway type: endotracheal airwayFinal Endotracheal Airway: ETT Cuffed: yes Successful intubation technique: video laryngoscopy Devices used: InSphero Endotracheal tube insertion site: oral Blade size: #4 ETT size (mm): 8.5 Placement verified by: chest auscultation, bronchoscopy and capnometry Cormack-Lehane Classification: grade I - full view of glottis Number of attempts at approach: 1 Failed airway: no Unrecognized esophageal intubation: no Airway not difficult SIGNATURE: Theresa Maxwell APRN.CRNA PATIENT NAME: Garry Hernandez DATE: July 20, 2025 TIME: 2:46 PM CSN: [id number] [facility] 07-20-2025 Note Patient Name: Garry garza Procedure Date: 07/20/2025 2:02 PM Date of : 1980 Admit Type: Inpatient Age: 45 Gender: Male Note Status: Stave Bolt Equalizer Override Procedure: Bronchoscopy Indications: Left upper lobe mass, Left lower lobe mass, Multiple pulmonary nodules Providers: Dee Dee Martinez (Doctor), Juvenal Sadelr DO (Fellow) Referring MD: Jessica Hernández (Referring MD) Requesting Physician: Medicines: General Anesthesia Complications: No immediate complications Estimated Blood Loss: Estimated blood loss was minimal. Procedure: After confirmation of universal protocol, the bronchoscope was introduced. The bronchoscope was introduced through the mouth, via the endotracheal tube (the patient was intubated for the procedure) and advanced to the tracheobronchial tree of both lungs. The Bronchoscope was introduced through the nose, via the endotracheal tube (the patient was intubated for the procedure) and advanced to the tracheobronchial tree of both lungs. The procedure was accomplished without difficulty. The patient tolerated the procedure well. Findings: The nasopharynx/oropharynx appears normal. The larynx appears normal. The vocal cords appear normal. The subglottic space is normal. The trachea is of normal caliber. The magdaleno is sharp. The tracheobronchial tree of the right lung was examined to at least the first subsegmental level. Bronchial mucosa and anatomy in the right lung are normal; there are no endobronchial lesions, and no secretions. Left Lung Abnormalities: A completely obstructing mass was found proximally, at the orifice in the lateral basal segment of the left lower lobe (B9). The mass was small and endobronchial. The lesion was successfully traversed after the intervention. Transbronchial needle aspiration of a solid mass was performed in the lateral basal segment of the left lower lobe using a GoRest Software superDimension 21 gauge needle and sent for routine cytology. Five samples were obtained. After the FIO2 was decreased so that the end-tidal O2 was <40%, the Hexagonal small Heriberto Sci snare was maneuvered around the LLL lesion. As the snare was closed, electroacautery was engaged. The LLL lesion was then removed with suction from the scope. An endobronchial biopsy was performed in the lateral basal segment of the left lower lobe using cautery snare and sent for histopathology examination. One sample was obtained. Transbronchial needle aspiration of a solid mass was performed in the lateral basal segment of the left lower lobe using an Olympus TheLaddersiShot 22 gauge needle and sent for routine cytology. The procedure was guided by ultrasound. Five samples were obtained. Laser ablation was performed in the left lower lobe of the lung using an Argon Plasma Coagulation (APC). 5 de leon of pulse energy were used. The pulse duration was set at 0.4 second. The post-procedure lumen size was improved compared to before the procedure. Normal right side and trachea Normal LMSB, BLANCA/lingula and all LLL except for a tumor from the LLL lateral segment. it was polypoid. Thick secretions behind, sent for micro and culture TBNA done to lesion, RACHNA was + for malignancy. Cautery snare used ot remove en toto. EBUS TBNA done to ensure adequate tissue for path-sent to Cyto APC to ooze at lesion, excellent hemostasis. Washings were obtained in the left lower lobe and sent for routine cytology and bacterial, AFB and fungal analysis. The return was mucoid. Impression: - Left upper lobe mass - Left lower lobe mass - Multiple pulmonary nodules - The airway examination of the right lung was normal. 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 - A transbronchial needle aspiration was performed. - An endobronchial biopsy was performed. - A transbronchial needle aspiration was performed. - Ablation using an Argon Plasma Coagulation (APC) was performed. Recommendation: - Await test results. - Return patient to [facility] for [facility] care. Attending Participation: I was present and participated during the entire procedure, including non-white portions. I was present and participated during the entire procedure, from insertion to removal of the scope. The fellow participated in less than 50 percent of the procedure. MD Dee Dee Titus, 07/20/2025 3:38:18 PM This report has been signed electronically by Dee Dee Martinez Number of Addenda: 0 Note Initiated On: 07/20/2025 2:02 PM Procedure Start: 2:43:23 PM Procedure End: 3:21:02 PM [facility] 07-20-2025 Note HNO ID: [id number] Author: ARTEMIO ARIZMENDI MD Service: Radiation Oncology Author Type: Resident Type: Plan of Care Filed: 07/20/2025 12:50 Note Text: Radiation Oncology Plan of Care Garry Hernandez will be seen by team, Radha Allan APRN.ANNABELLE and Dr. Madsen (attending), for radiation oncology consult. Please page/call their care team during work hours for further RT needs during this admission. For any issues on weekdays between 4pm-7am and on weekends, please page the on-call radiation oncology pager ([phone]). Artemio Arizmendi MD [facility] 07-20-2025 Note HNO ID: [id number] Author: NATHALIE MURPHY RT(R) Service: Radiology Author Type: Technologist Type: Progress Notes Filed: 07/20/2025 08:41 Note Text: Radiology Service Progress Note PATIENT NAME: Garry Hernandez DATE OF SERVICE: July 20, 2025 TIME: 8:41 AM PATIENT IDENTITY VERIFICATION COMPLETED USING TWO (2) IDENTIFIERS: Name and Date of confirmed by patient verbally and Name and Date of confirmed by identification band. FALL SCREENING: Has the patient had 2 falls in the last year or 1 fall with injury or currently using an Ambulatory Assistive Device (Walker, Cane, Wheelchair, Crutches, etc.)? Inpatient: Screened on floor PATIENT GENDER DATA: Assigned male at PATIENT RELEVANT IMPLANT DATA REVIEWED: Yes PATIENT PRESENTS WITH AN IMPLANTABLE OR ATTACHED SEED TESTER: No RADIOLOGY DEPARTMENT: CT; Exam(s) Completed: Chest Abdomen Pelvis. Anesthesia: No PERIPHERAL IV DATA: Not applicable SIGNED BY: RT Tish(R) July 20, 2025 8:41 AM [facility] 07-19-2025 Discharge summary Note Date/Time July 19, 2025 5:47pm [facility] Medical Records Department [address] [place] [id number] Emergency Department Summary 07/19/25 MR#: [id number] Acct: [id number] Name: GARRY HERNANDEZ Rep #:[id number] : 1980 45 From: Sylvester Morales MD PCP: Dr. Rocky Fountain MD Status:REG E R Location: ED HPI History of Present Illness Chief Complaint: Headache Informant: patient and spouse/S.O. Onset/Context/Timing Onset: Weeks (Intermittent headaches that come and go for 3 weeks. Progressively worsening.) Context: Sudden Timing: Intermittent Quality -Headache: Positive for Similar Prior Headaches and Sharp Current Severity: Moderate Maximum Severity: Moderate Associated Symptoms/Injury Associated Symptoms: Positive for Nausea and Vomiting; Negative for Fever, Sore Throat, Sinus Pressure, Numbness, Tingling, Preceding Aura, Visual Changes, Blurred Vision, Photophobia or Visual Loss Injury - GÓMEZ: Negative for Direct Trauma, Fall or Assault Narrative Narrative: 45-year-old Advent male history of anxiety. He has been having intermittent headaches for 3 weeks that come and was daily. They are progressively getting worse in intensity. It is scheduled MRI coming up in the next several days. Nohead trauma. He is on no blood thinners. No history of any cancer or metastases. He is on no blood thinners. Today headache worsened he started having nausea vomiting. Difficulty speaking. Speech is audible just having trouble putting his words together. No weakness in his arms or legs. Prior similar symptoms: Yes Recent Illness/Hospitalization: No PFSH PFSH Medical History no medical history Home Medications ?Medication ?Instructions ?Recorded ?Last Taken ?Type butalbital 50 mg-acetaminophen 325 1 tab PO .COMPLEX P RN pain 07/19/25 Unknown History mg tablet (Tencon) fluoxetine 20 mg capsule 20 mg PO DAILY 07/19/25 Unkn own History Family History no significant family his Surgical History no surgical history Social History Smoking Status: Never smoker ROS ROS ED ROS Narrative Headache. Nausea and vomiting. Constitutional Constitutional ED: Denies chills or fever(s) Eyes Eyes: Denies blurry vision ENT ENT ED: Denies ear pain, rhinorrhea or sore throat Cardiovascular Cardiovascular: Denies chest pain or palpitations Respiratory/Chest Respiratory/Chest: Denies cough or dyspnea Gastrointestinal Gastrointestinal: Reports nausea and vomiting; Denies abdominal pain, constipation, diarrhea or melena Genitourinary Genitourinary ED: Denies dysuria or hematuria Musculoskeletal Musculoskeletal: Denies arthralgias or back pain Integumentary Denies abscess Neurologic Neurologic: Reports headache(s); Denies paresthesias or weakness Psychiatric Psychiatric: Denies anxiety or depression Endocrine Endocrinology: Denies polydipsia Hematologic/Lymphatic Hematologic/Lymphatic: Denies easy bleeding, easy bruising or lymphadenopathy Allergic/Immunologic Allergic/Immunologic ED: Denies mouth swelling, tongue swelling or urticaria EXAM Physical Exam Narrative Exam Narrative: 45-year-old [employer] male lying in bed. Vital signs are stable afebrile. at bedside. H EENT exam pupils round react light. His motions are intact. No facial droop. He has dysarthria but his words are clear he just having trouble putting them together. Tongue midline. No trauma to his face or scalp. Neck nontender. No lymphadenopathy. Back nontender. Lungs clear to auscultation bilaterally. Heart regular rhythm no murmur. Chest wall ribs nontender. Abdomen soft nontender. Moving all 4 extremities. 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 Dorsi plantarflexion intact. Fingertip to nose within normal limits. Dorsi plantarflexion intact. He can lift either leg. No droop to either upper or lower extremities. Neurologic exam he is awake alert. He is answering questions. He is mildly confused to where he is at. He has a dysarthria. His NIH is 2. Const Vital Signs: 07/19/25 15:44 07/19/25 15:44 07/19/25 15:51 Temperature 98.8 F Temperature Source Oral Pulse Rate 62 66 77 Respiratory Rate 12 14 18 Blood Pressure 147/75 H 156/74 H 147/75 H Blood Pressure Mean 99 101 99 Pulse Ox 99 99 100 Oxygen Delivery Method Room Air Room Air 07/19/25 15:56 07/19/25 16:02 07/19/25 16:25 Temperature Temperature Source Pulse Rate 60 63 Respiratory Rate 16 15 Blood Pressure 147/75 H 156/76 H Blood Pressure Mean 99 102 Pulse Ox 99 95 Oxygen Delivery Method Room Air 07/19/25 16:29 Temperature 98.3 F Temperature Source Oral Pulse Rate 64 Respiratory Rate 13 Blood Pressure 152/84 H Blood Pressure Mean 106 Pulse Ox 99 Oxygen Delivery Method Room Air Positive well nourished and well developed; Negative for obese, cachectic, contractures or unkempt General Appearance ED: well developed; Negative for unkempt, cachectic, contractures, cyanotic, diaphoretic or NAD Nutritional Appearance: Negative for cachectic or obese HEENT Reports normocephalic and moist mucous membranes atraumatic; Negative for trauma, tenderness, temporal artery tenderness or vesicular rash Face and Sinus: Negative for sinus tenderness Eyes PERRL and EOMs intact bilaterally Neck no lymphadenopathy, supple, no meningeal signs and no JVD General: Negative for tenderness Resp normal respiratory effort and clear to auscultation bilaterally Effort and Inspection: Negative for retractions Auscultation: Negative for rales, rhonchi or wheezes Cardio regular rate, regular rhythm, S1 normal heart sound, S2 normal heart sound and no murmurs GI non-tender and non-distended Palpation: soft; Negative for firm or tender Back/Spine no CVA tenderness Extremity normal to inspection, full ROM and normal capillary refill General Extremety ED: Negative for edema or tenderness General Extremity: Negative for edema Neuro oriented x3 and CN's II-XII intact bilaterally Neuro Narrative: NIH of 2. Mildly confused. Dysarthria. Sensorium / Orientation: awake, alert, oriented to person, oriented to place andoriented to time Coordination / Balance: skibnh-zy-[id number] test normal Speech: Negative for speech normal Motor Exam: strength 5/5 throughout Psych mental status grossly normal Appearance: Negative for unkempt Skin General Skin Exam: elasticity normal Lesions: no lesions Rashes: no rashes NIHSS NIHSS Initial: 1a Level of Consciousness: 1 1b LOC Questions (Score 2 if aphasic/stupor): 0 1c LOC Commands (Only score 1st attempt): 0 2 Best Gaze (If aphasic, use reflexive mvmts.): 0 3 Visual: 0 4 Facial Palsy: 0 5 Motor Arm Right (UN = amputation/fusion): 0 5 Motor Arm Left: 0 6 Motor Leg Right: 0 6 Motor Leg Left: 0 7 Limb ataxia (Only + if out of proportion): 0 8 Sensory (Aphasia/stupor=0 or 1, coma=2): 0 9 Best Language: 0 10 Dysarthria (mute, coma=2, intubated=UN): 1 11 Extinction and Inattention (only scored if +): 0 Total Score: 2 MDM MDM MDM Narrative Medical decision making narrative: 45-year-old Advent male with concern for dysarthria and confusion and he has beenhaving intermittent headaches for weeks that come and go progressively getting worse. My concern is for an acute hemorrhagic stroke or ruptured aneurysm versus intracranial mass or swelling.. He was made a stroke protocol. CAT scandoes show bilateral abnormalities consistent with vasogenic edema. Repeat exam patient is resting comfortably at 5:05 PM. I discussed with he and his all his current test results. Specifically the CAT scan results. [facility] [place] for the transfer. They have the CAT scan I spoke with the transfer line we are awaiting acceptance if possible. Patient was given IV Decadron. History & Record Review Discussion w/independent historian: Patient and Family Additional record(s) reviewed:: No prior records Lab Data Attestation: I reviewed the patient's lab results. Lab results narrative: CBC shows a white count 11. H&H 13 and 40. Platelets 318. PT and INR [address] brain CTA head and neck shows bilateral vasogenic edema in the posterior cerebrum. Ill-defined focal hyperdensities in the left temporal lobe and right occipital lobe. Chemistries show a gap of 16. BUN and creatinine of 16 and 0.9. Glucose 118. Troponin is 23. Labs: Laboratory Results - last 24 hr 07/19/25 07/19/25 15:52 16:04 WBC 11.0 RBC 5.03 Hgb 13.5 Hct 40.1 MCV 79.7 L MCH 26.8 L MCHC 33.7 RDW Std Deviation 37.8 RDW Coeff of Benigno 13.4 Plt Count 318 MPV 10.4 Immature Gran % (Auto) 0.500 Neut % (Auto) 74.0 H Lymph % (Auto) 15.4 L [place] % (Auto) 9.0 Eos % (Auto) 0.6 Baso % (Auto) 0.5 Absolute Neuts (auto) 8.1 H Absolute Lymphs (auto) 1.69 Nucleated RBC % 0 PT 14.0 INR 1.1 APTT 30.3 Sodium 134 Potassium 3.6 Chloride 95 L Carbon Dioxide 22.7 Anion Gap 16 H BUN 16 Creatinine 0.91 Estim Creat Clear Calc 91.88 Est GFR (MDRD) Non-Af 105 BUN/Creatinine Ratio 17.1 Glucose 118 H Calcium 12.3 H Troponin T High Sens 23 H POC Glucose 118 H Radiography Diagnostic Testing: Clinical Impression(s) from Imaging Studies Brain CT 07/19/25 15:56 IMPRESSION: Vasogenic edema involving the posterior cerebrum. Ill-defined round focal hyperdensities in the left temporal lobe and right occipital lobe. Findings are concerning for underlying neoplasm. Recommend MRI of the brain for further characterization. No celeste intracranial hemorrhage. The critical findings in the findings and impression above were relayed directlyby Dr. Sherri Segura by telephone to Dr. Sylvester Morales on 07/19/2025 at 4:20 pm with readback verification. Reading Location: [id number] Head/Neck CTA 07/19/25 15:56 IMPRESSION: 1. No high-grade arterial stenosis, aneurysm, or arteriovenous malformation. 2. Heterogeneous enhancing intracranial masses. 3. Multiple pulmonary nodules at the lung apices. Reading Location: [facility] Chest X-Ray 07/19/25 16:45 IMPRESSION: No acute cardiopulmonary disease. Reading Location: [facility] Chest x-ray, portable, single view interpreted by myself and the radiologist shows no acute abnormality. Normal cardiac silhouette. Normal mediastinum. Normal lung kellogg. Rhythm Strip Rhythm Strip: Sinus Rhythm Rate: 62 Ectopy: None EKG Initial EKG: Attestation: I personally reviewed and interpreted this EKG as follows: Interpretation: Sinus Rhythm and No Acute Injury Pattern Comments: Normal sinus rhythm rate of 62 no acute signs of AK or ischemia. Critical Care Time Critical Care Time: Yes Critical care time (excluding procedures): 30-74 minutes, Including time spent:,Discussing w/Patient &/or Family/Senior Health Consultant, Discussing w/Consultants, ArrangingAdmission or Transfer, Performing Direct Patient Care at Bedside and - (40 minutes) Discharge Plan Dx/Rx/DC Orders Clinical Impression: Headache, Dysarthria, Cerebral edema, Brain mass Disposition Disposition: Acute Care Hospital [facility] What to do if you have Problems For any increased pain, shortness of breath, bleeding, nausea or vomiting, chestpain, or any unexpected problems, contact your Primary Care Provider. Call [facility] ([phone]) or report to the closest Emergency Room. Call 911 if necessary. 07/19/251746 <Electronically signed by Sylvester Morales MD> Cosigner Signature (if applicable): CC: Dr. Rocky Fountain MD ~ Signed [facility] Work Phone: [phone] Discharge summary [facility] Medical Records Department [address] [place] [address] Emergency Department Summary 07/19/25 MR#: [id number] Acct: [id number] Name: GARRY HERNANDEZ Rep #:[id number] : 1980 45 From: Sylvester Morales MD PCP: Dr. Rocky Fountain MD Status:REG E R Location: ED HPI History of Present Illness Chief Complaint: Headache Informant: patient and spouse/S.O. Onset/Context/Timing Onset: Weeks (Intermittent headaches that come and go for 3 weeks. Progressively worsening.) Context: Sudden Timing: Intermittent Quality -Headache: Positive for Similar Prior Headaches and Sharp Current Severity: Moderate Maximum Severity: Moderate Associated Symptoms/Injury Associated Symptoms: Positive for Nausea and Vomiting; Negative for Fever, Sore Throat, Sinus Pressure, Numbness, Tingling, Preceding Aura, Visual Changes, Blurred Vision, Photophobia or Visual Loss Injury - GÓMEZ: Negative for Direct Trauma, Fall or Assault Narrative Narrative: 45-year-old Advent male history of anxiety. He has been having intermittent headaches for 3 weeks that come and was daily. They are progressively getting worse in intensity. It is scheduled MRI comingup in the next several days. Nohead trauma. He is on no blood thinners. No history of any cancer or metastases. He is on no blood thinners. Today headache worsened he started having nausea vomiting. Difficulty speaking. Speech is audible just having trouble putting his words together. No weakness in his arms or legs. Prior similar symptoms: Yes Recent Illness/Hospitalization: No PFSH PFSH Medical History no medical history Home Medications ?Medication ?Instructions ?Recorded ?Last Taken ?Type butalbital 50 mg-acetaminophen 325 1 tab PO .COMPLEX P RN pain 07/19/25 Unknown History mg tablet (Tencon) fluoxetine 20 mg capsule 20 mg PO DAILY 07/19/25 Unkn own History Family History no significant family his Surgical History no surgical history Social History Smoking Status: Never smoker ROS ROS ED ROS Narrative Headache. Nausea and vomiting. Constitutional Constitutional ED: Denies chills or fever(s) Eyes Eyes: Denies blurry vision ENT ENT ED: Denies ear pain, rhinorrhea or sore throat Cardiovascular Cardiovascular: Denies chest pain or palpitations Respiratory/Chest Respiratory/Chest: Denies cough or dyspnea Gastrointestinal Gastrointestinal: Reports nausea and vomiting; Denies abdominal pain, constipation, diarrhea or melena Genitourinary Genitourinary ED: Denies dysuria or hematuria Musculoskeletal Musculoskeletal: Denies arthralgias or back pain Integumentary Denies abscess Neurologic Neurologic: Reports headache(s); Denies paresthesias or weakness Psychiatric Psychiatric: Denies anxiety or depression Endocrine Endocrinology: Denies polydipsia Hematologic/Lymphatic Hematologic/Lymphatic: Denies easy bleeding, easy bruising or lymphadenopathy Allergic/Immunologic Allergic/Immunologic ED: Denies mouth swelling, tongue swelling or urticaria EXAM Physical Exam Narrative Exam Narrative: 45-year-old Advent male lying in bed. Vital signs are stable afebrile. at bedside. H EENT exam pupils round react light. His motions are intact. No facial droop. He has dysarthria but his words are clear he just having trouble putting them together. Tongue midline. No trauma to his face or scalp. Neck nontender. No lymphadenopathy. Back nontender. Lungs clear to auscultation bilaterally. Heart regular rhythm no murmur. Chest wall ribs nontender. Abdomen soft nontender. Moving all 4 extremities. 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 Dorsi plantarflexion intact. Fingertip to nose within normal limits. Dorsi plantarflexion intact. He can lift either leg. No droop to either upper or lower extremities. Neurologic exam he is awake alert. He is answering questions. He is mildly confused to where he is at. He has a dysarthria. His NIH is 2. Const Vital Signs: 07/19/25 15:44 07/19/25 15:44 07/19/25 15:51 Temperature 98.8 F Temperature Source Oral Pulse Rate 62 66 77 Respiratory Rate 12 14 18 Blood Pressure 147/75 H 156/74 H 147/75 H Blood Pressure Mean 99 101 99 Pulse Ox 99 99 100 Oxygen Delivery Method Room Air Room Air 07/19/25 15:56 07/19/25 16:02 07/19/25 16:25 Temperature Temperature Source Pulse Rate 60 63 Respiratory Rate 16 15 Blood Pressure 147/75 H 156/76 H Blood Pressure Mean 99 102 Pulse Ox 99 95 Oxygen Delivery Method Room Air 07/19/25 16:29 Temperature 98.3 F Temperature Source Oral Pulse Rate 64 Respiratory Rate 13 Blood Pressure 152/84 H Blood Pressure Mean 106 Pulse Ox 99 Oxygen Delivery Method Room Air Positive well nourished and well developed; Negative for obese, cachectic, contractures or unkempt General Appearance ED: well developed; Negative for unkempt, cachectic, contractures, cyanotic, diaphoretic or NAD Nutritional Appearance: Negative for cachectic or obese HEENT Reports normocephalic and moist mucous membranes atraumatic; Negative for trauma, tenderness, temporal artery tenderness or vesicular rash Face and Sinus: Negative for sinus tenderness Eyes PERRL and EOMs intact bilaterally Neck no lymphadenopathy, supple, no meningeal signs and no JVD General: Negative for tenderness Resp normal respiratory effort and clear to auscultation bilaterally Effort and Inspection: Negative for retractions Auscultation: Negative for rales, rhonchi or wheezes Cardio regular rate, regular rhythm, S1 normal heart sound, S2 normal heart sound and no murmurs GI non-tender and non-distended Palpation: soft; Negative for firm or tender Back/Spine no CVA tenderness Extremity normal to inspection, full ROM and normal capillary refill General Extremety ED: Negative for edema or tenderness General Extremity: Negative for edema Neuro oriented x3 and CN's II-XII intact bilaterally Neuro Narrative: NIH of 2. Mildly confused. Dysarthria. Sensorium / Orientation: awake, alert, oriented to person, oriented to place andoriented to time Coordination / Balance: [id number]-ml-[id number] test normal Speech: Negative for speech normal Motor Exam: strength 5/5 throughout Psych mental status grossly normal Appearance: Negative for unkempt Skin General Skin Exam: elasticity normal Lesions: no lesions Rashes: no rashes NIHSS NIHSS Initial: 1a Level of Consciousness: 1 1b LOC Questions (Score 2 if aphasic/stupor): 0 1c LOC Commands (Only score 1st attempt): 0 2 Best Gaze (If aphasic, use reflexive mvmts.): 0 3 Visual: 0 4 Facial Palsy: 0 5 Motor Arm Right (UN = amputation/fusion): 0 5 Motor Arm Left: 0 6 Motor Leg Right: 0 6 Motor Leg Left: 0 7 Limb ataxia (Only + if out of proportion): 0 8 Sensory (Aphasia/stupor=0 or 1, coma=2): 0 9 Best Language: 0 10 Dysarthria (mute, coma=2, intubated=UN): 1 11 Extinction and Inattention (only scored if +): 0 Total Score: 2 MDM MDM MDM Narrative Medical decision making narrative: 45-year-old Advent male with concern for dysarthria and confusion and he has beenhaving intermittentheadaches for weeks that come and go progressively getting worse. My concern is for an acute hemorrhagic stroke or ruptured aneurysm versus intracranial mass or swelling.. He was made a stroke protocol. CAT scandoes show bilateral abnormalities consistent with vasogenic edema. Repeat exam patient is resting comfortably at 5:05 PM. I discussed with he and his all his current test results. Specifically the CAT scan results. [facility] [place] for the transfer.They have the CAT scan I spoke with the transfer line we are awaiting acceptance if possible. Patient was given IV Decadron. History & Record Review Discussion w/independent historian: Patient and Family Additional record(s) reviewed:: No prior records Lab Data Attestation: I reviewed the patient's lab results. Lab results narrative: CBC shows a white count 11. H&H 13 and 40. Platelets 318. PT and INR [address] brain CTA head and neck shows bilateral vasogenic edema in the posterior cerebrum. Ill-defined focal hyperdensities in the left temporal lobe and right occipital lobe. Chemistries show a gap of 16. BUN and creatinine of 16 and 0.9. Glucose 118. Troponin is 23. Labs: Laboratory Results - last 24 hr 07/19/25 07/19/25 15:52 16:04 WBC 11.0 RBC 5.03 Hgb 13.5 Hct 40.1 MCV 79.7 L MCH 26.8 L MCHC 33.7 RDW Std Deviation 37.8 RDW Coeff of Benigno 13.4 Plt Count 318 MPV 10.4 Immature Gran % (Auto) 0.500 Neut % (Auto) 74.0 H Lymph % (Auto) 15.4 L [place] % (Auto) 9.0 Eos % (Auto) 0.6 Baso % (Auto) 0.5 Absolute Neuts (auto) 8.1 H Absolute Lymphs (auto) 1.69 Nucleated RBC % 0 PT 14.0 INR 1.1 APTT 30.3 Sodium 134 Potassium 3.6 Chloride 95 L Carbon Dioxide 22.7 Anion Gap 16 H BUN 16 Creatinine 0.91 Estim Creat Clear Calc 91.88 Est GFR (MDRD) Non-Af 105 BUN/Creatinine Ratio 17.1 Glucose 118 H Calcium 12.3 H Troponin T High Sens 23 H POC Glucose 118 H Radiography Diagnostic Testing: Clinical Impression(s) from Imaging Studies Brain CT 07/19/25 15:56 IMPRESSION: Vasogenic edema involving the posterior cerebrum. Ill-defined round focal hyperdensities in the left temporal lobe and right occipital lobe. Findings are concerning for underlying neoplasm. Recommend MRI of the brain for further characterization. No celsete intracranial hemorrhage. The critical findings in the findings and impression above were relayed directlyby Dr. Sherri Seguraby telephone to Dr. Sylvester Morales on 07/19/2025 at 4:20 pm with readback verification. Reading Location: [facility] Head/Neck CTA 07/19/25 15:56 IMPRESSION: 1. No high-grade arterial stenosis, aneurysm, or arteriovenous malformation. 2. Heterogeneous enhancing intracranial masses. 3. Multiple pulmonary nodules at the lung apices. Reading Location: [facility] Chest X-Ray 07/19/25 16:45 IMPRESSION: No acute cardiopulmonary disease. Reading Location: [facility] Chest x-ray, portable, single view interpreted by myself and the radiologist shows no acute abnormality. Normal cardiac silhouette. Normal mediastinum. Normal lung kellogg. Rhythm Strip Rhythm Strip: Sinus Rhythm Rate: 62 Ectopy: None EKG Initial EKG: Attestation: I personally reviewed and interpreted this EKG as follows: Interpretation: Sinus Rhythm and No Acute Injury Pattern Comments: Normal sinus rhythm rate of 62 no acute signs of AK or ischemia. Critical Care Time Critical Care Time: Yes Critical care time (excluding procedures): 30-74 minutes, Including time spent:,Discussing w/Patient &/or Family/Senior Health Consultant, Discussing w/Consultants, ArrangingAdmission or Transfer, Performing Direct Patient Care at Bedside and - (40 minutes) Discharge Plan Dx/Rx/DC Orders Clinical Impression: Headache, Dysarthria, Cerebral edema, Brain mass Disposition Disposition: Acute Care [facility] What to do if you have Problems For any increased pain, shortness of breath, bleeding, nausea or vomiting, chestpain, or any unexpected problems, contact your Primary Care Provider. Call [facility] ([phone]) or report tothe closest Emergency Room. Call 911 if necessary. 07/19/25 1747 Cosigner Signature (if applicable): CC: Dr. Rocky Fountain MD ~ Signed [facility]09-28-2025 Radiology Diagnostic study note [facility] Imaging Services [address] [place], [place] [id number] Chest 1 View MR#: [id number] Acct: [id number] Name: GARRY HERNANDEZ Rep #: [id number] : 1980 M 45 From: Heriberto Dave MD PCP: Dr. Rocky Fountain MD Status: REG E R Study:Chest 1 View Date of Exam: 5 Exam# [id number] Ordering Dr: Jarred Morales MD PROCEDURE: CHEST 1 VIEW 07/19/2025 REASON FOR EXAM: NEURO DEFICIT, ACUTE, STROKE SUSPECTED TECHNIQUE: Frontal view of the chest. COMPARISON: None. FINDINGS: Lungs/Pleura: Clear. Heart/Mediastinum: Normal in size. Bones/Soft tissues: Unremarkable. RAD/Chest 1 View IMPRESSION: No acute cardiopulmonary disease. Reading Location: [facility] CC: Dr. Sylvester Morales MD; Dr. Rocky Fountain MD ~ Extracting Machine Operator: Signed [facility]09-28-2025 Radiology Diagnostic study note [facility] Imaging Services [address] [place], [place] [id number] STROKE CTA Head AND Neck W/Con MR#: [id number] Acct: [id number] Name: GARRY HERNANDEZ Rep #: [id number] : 1980 M 45 From: Risa Segura MD PCP: Dr. Rocky Fountain MD Status: REG E R Study:STROKE CTA Head AND Neck W/Con Date of Exam: 07/19/25 Exam# [id number] Ordering Dr: Jarred Morales MD PROCEDURE: STROKE CTA HEAD AND NECK W/CON 07/19/2025 REASON FOR EXAM: NEURO DEFICIT, ACUTE, STROKE SUSPECTED TECHNIQUE: Procedure Code: CTCTA.ST.HN Modality: CT Procedure: STROKE CTA HEAD AND NECK W/CON Multidetector CT angiography of the head and neck with intravenous contrast was performed with multiplaner and maximum intensity projection (MIP) reconstructions. CONTRAST: VOLUME: 100 mL One or more dose reduction techniques were used (e.g., Automated exposure control, adjustment of the mA and/or kV according to patient size, use of iterative reconstruction technique). RADIATION DOSE SUMMARY: DLP: 821.8 mGycm COMPARISON: None available. FINDINGS: CTA NECK: The origins of the vessels arising from the aortic arch are patent without high- grade stenosis. Right carotid artery: The right common carotid artery is patent without high- grade stenosis. The right cervical internal carotid artery is patent without hemodynamically significant stenosis. Left carotid artery: The left common carotid artery is patent without high- gradestenosis. The left cervical internal carotid artery is patent without hemodynamically significant stenosis. Cervical vertebral arteries: The cervical vertebral arteries are patent without high-grade stenosis. Assessment for carotid stenosis is performed utilizing NASCET criteria. NASCET carotid stenosis criteria: 0% - none, 1-49% - mild, 50-69% - moderate, 70-89% - severe, 90-99% - critical. % ICA stenosis = (normal distal cervical ICA diameter - narrowest cervical ICA diameter / normal distal cervical ICA diameter) x 100. CTA Head: The petrous, cavernous, and intracranial internal carotid arteries are patent without high-grade stenosis. The proximal anterior cerebral arteries are patent without high-grade stenosis. The proximal middle cerebral arteries are patent without high-grade stenosis. The intradural vertebral arteries are patent without high-grade stenosis. The basilar artery is patent without high-grade stenosis. The proximal posterior cerebral arteries are patent without high-grade stenosis. No dominant intracranial aneurysm or high flow arteriovenous malformation is identified. Ancillary findings: Heterogeneous enhancing intracranial masses in the right occipital lobe measuring approximately 2.4 x 1.5 cm and left temporal lobe measuring approximately 1.5 x 1.6 cm. There are multiplepulmonary nodules atthe lung apices. CT/STROKE CTA Head AND Neck W/Con IMPRESSION: 1. No high-grade arterial stenosis, aneurysm, or arteriovenous malformation. 2. Heterogeneous enhancing intracranial masses. 3. Multiple pulmonary nodules at the lung apices. Reading Location: [facility] CC: Dr. Sylvester Morales MD; Dr. Rocky Fountain MD ~ Extracting Machine Operator: Signed [facility]09-28-2025 Radiology Diagnostic study note [facility] Imaging Services [address] [place] [address] STROKE Brain/Head without Cont MR#: [id number] Acct: [id number] Name: Garry Hernandez Rep #: [id number] : 1980 M 45 From: Risa Segura MD PCP: Status: PRE ER Study:STROKE Brain/Head without Cont Date of Exam: 07/19/25 Exam# [id number] Ordering Dr: Jarerd Morales MD PROCEDURE: STROKE BRAIN/HEAD WITHOUT CONT 07/19/2025 REASON FOR EXAM: NEURO DEFICIT, ACUTE, STROKE SUSPECTED TECHNIQUE: Procedure Code: CTBR.ST Modality: CT Procedure: STROKE BRAIN/HEAD WITHOUT CONT Coronal and Sagittal reconstruction series were provided. One or more dose reduction techniques were used (e.g., Automated exposure control, adjustment of the mA and/or kV according to patient size, use of iterative reconstruction technique. RADIATION DOSE SUMMARY: DLP: 829.85 mGycm COMPARISON: None available. FINDINGS: Hypoattenuating white matter of the left temporal, left occipital, right occipital, and right parietal lobes. There is a focal hyperdensity centered in the left temporal lobe (series 2, image 14) and right occipital lobe (series 2, image 20). No celeste hemorrhage. No definite acute transcortical infarct. No brain herniation. The ventricular system and sulci/fissures are within normal limits of size and configuration for the patient's stated age. No extra-axial fluid collection. The basal cisterns are patent. The mastoid air cells are clear. The paranasal sinuses are predominantly clear. The calvarium appears intact. CT/STROKE Brain/Head without Cont IMPRESSION: Vasogenic edema involving the posterior cerebrum. Ill-defined round focal hyperdensities in the left temporal lobe and right occipital lobe. Findings are concerning for underlying neoplasm. Recommend MRI of the brain for further characterization. No celeste intracranial hemorrhage. The critical findings in the findings and impression above were relayed directlyby Dr. Sherri Haji telephone to Dr. Sylvester Morales on 07/19/2025 at 4:20 pm with readback verification. Reading Location: [id number] CC: Dr. Sylvester Morales MD ~ Extracting Machine Operator: [facility]igned [facility] note[facility] assessment information available [facility] Work Phone: Evaluation note* Diagnosis Malignant neoplasm of left kidney excluding renal pelvis- [facility]narrative)No reason for referral information availableWFisher-[facility] Work Phone: Summary Purpose Family History No Family History Records FoundNo Family History Records FoundNo Family History Records FoundNo Family History Records FoundNo Family History Records FoundNo Family History Records Found Advance Directives No Advanced Directives Records Found Advance Directive Response Recorded Date/ Time Do you have a Healthcare Power of Tea Leaf Reader? No July 19, 2025 4:19pm Chief Complaint and Reason for Visit Chief Complaint Admit Date headache/ nausea July 19, 2025 3:42pm Additional Source Comments (unrecognized sect ion and content) No Status Records FoundNo Status Records FoundNo Status Records FoundNo Status Records FoundNo Status Records FoundNo Status Records Found INFORMATION SOURCE (unrecogn ized section and content) DATE CREATED AUTHOR 06/05/2025 [facility] DATE CREATED AUTHOR AUTHOR'S ORGANIZ ATION 07/25/2025 [facility] DATE CREATED AUTHOR AUTHOR'S ORGANIZ ATION 07/29/2025 [facility] DATE CREATED AUTHOR AUTHOR'S ORGANIZ ATION 08/28/2025 [facility] DATE CREATED AUTHOR AUTHOR'S ORGANIZ ATION 09/02/2025 [facility] DATE CREATED AUTHOR AUTHOR'S ORGANIZ ATION 09/03/2025 [facility] nter Care Teams (unrecognized sec tion and content) Team Status: Active Member Role/Relationship Status Dates Dr. Rocky Fountain MD Primary care physician Active Team Status: Inactive Member Role/Relationship Status Dates Dr. Sylvester Morales MD Attending physician Active Start: July 19, 2025 End: July 19, 2025 Dr. Sylvester Morales MD Emergency Departmen t Physician Active Start: July 19, 2025 End: July 19, 2025 Dr. Rocky Fountain MD Primary care physician Active Start: July 19, 2025 End: July 19, 2025 Goals (unrecognized section and content) Goals may be documented in a n alternate section Reason for Visit (unrecogniz ed section and content) Reason Comments New Patient Specialty Diagnoses / Procedures Referred By Contac t Referred To Contact Medical Oncology / Oncology Diagnoses New Pt, Renal Cell, Self Ref/Second Opinion, Recs in [place], HASN'T seen Urologist Procedures NEW ONCOLOGY Self, Self Ricki Jones MD, PhD [address] [facility] [address] [place] [address] Phone: tel: fax: Referral ID Status Reason Start Date Expiration Date Visits Re quested Visits Authorized [id number] Closed 08/26/2025 09/20/2026 1 1 FOR RECORDS PERTAINING TO PATIENTS WHO ARE OR HAVE BEEN ENROLLED IN A CHEMICAL DEPENDENCY/SUBSTANCEABUSE PROGRAM, SOME INFORMATION MAY BE OMITTED. This clinical summary was aggregated from multiple sources. Caution should be exercised in using it in the provision of clinical care. This summary normalizes information from multiple sources, and as a consequence, information in this document may materially change the coding, format and clinical context of patient data. In addition, data may be omitted in some cases. CLINICAL DECISIONS SHOULD BE BASED ON THE PRIMARY CLINICAL RECORDS. [facility]. provides no warranty or guarantee of the accuracy or completeness of information in this document.
--- NOTE | 2025-10-16 20:20 | RAD_ITS ---
PROCEDURE: CHEST 1 VIEW (PORTABLE) 10/16/2025 REASON FOR EXAM: FEVER TECHNIQUE: Frontal view of the chest. COMPARISON: 07/19/2025 FINDINGS: Hardware: The support lines and tubes are in stable and satisfactory position. Heart: The heart size is normal. Lungs: The lungs are clear. Bones: The bones are unremarkable. RAD/Chest 1 View (Portable) IMPRESSION: No Acute Findings. Reading Location: [facility]
[2025-10-16 20:32] LABS: Prothrombin Time (Protime)PT. 14.5 SECONDS (11.7-14.9)
[2025-10-16 20:33] LABS: Partial Thromboplast Time 31.7 Seconds (24.1-36.2)
[2025-10-16 21:00] VITALS: BP 115/69; PULSE 83; RESP 18; TEMP 37.8; O2SAT 98
[2025-10-16 21:07] LABS: AST(SGOT) 100 U/L (<=37); Alanine Aminotransfer ALT/SGPT 140 U/L (<=46); Albumin, Serum 3.7 g/dL (3.5-5.0); Alkaline Phosphatase 261 U/L (40-129); Anion Gap 12 (7-18); BUN 35 mg/dL (4-19); BUN/Creat Ratio 15.9 RATIO (10-20); Calcium,Total 9.2 mg/dL (7.6-11.0); Carbon Dioxide 21.8 mmol/L (20.0-29.0); Chloride 102 mmol/L (96-106); Estimated Creatinine Clearance 39.17 ml/min (50-250); Globulin 3.4 g/dL (2.2-4.2); Glucose 91 mg/dL (70-99); Lipase 38 U/L (13-75); Potassium 4.4 mmol/L (3.5-5.1)
[2025-10-16 21:16] LABS: Mucous, Urine 0 SEEN /hpf (<or=2+)
[2025-10-16 21:23] LABS: Hematocrit 27.7 % (40-54); Hemoglobin 8.7 g/dL (13.0-16.5); Immature Granulocytes Count 0.020 X10^3/uL (0.0-0.0); Mean Corp Hgb Conc 31.4 g/dL (32-36); Mean Corpuscular Volume 78.5 fL (80-94); NRBC Flagged by Analyzer 0 % (0-5); POSITIVE COUNT YES; POSITIVE MORPHOLOGY YES; RBC Distribution Width CV 14.9 % (11.6-14.6); RBC Distribution Width SD 43.0 fl (35.1-43.9); Red Blood Count 3.53 M/mm3 (4.6-6.2); White Blood Count 4.3 K/mm3 (4.4-11.0)
[2025-10-16 21:23] LABS: Color, Urine Yellow (Yellow); Glucose, Dipstick Normal (Normal); Ketone-Dipstick 5 mg/dl (Negative); Leukocyte Esterase-Dipstick 25 /ul (Negative); Nitrite-Dipstick Negative (Negative); Occult Blood-Urine 10 /ul (Negative); Protein-Dipstick 100 mg/dl (Negative); Specific Gravity, Urine 1.020 (1.002-1.030)
[2025-10-16 21:26] LABS: Differential Indicated SCAN CRITERIA MET
[2025-10-16 21:42] LABS: Urine Bilirubin Dipstick 1 mg/dL (Negative)
[2025-10-16 21:43] LABS: CPK Total, Creatine Kinase 22 U/L (24-195)
[2025-10-16 22:00] VITALS: BP 110/73; PULSE 85; RESP 16; TEMP 37.2; O2SAT 94
[2025-10-16 22:18] LABS: Red Blood Cells-Urine 0-5 SEEN /hpf (0-5); Squamous Epithelial Cells - UA 0-5 SEEN /hpf (0-5)
[2025-10-16 23:00] VITALS: BP 124/74; PULSE 78; RESP 18; TEMP 37.2; O2SAT 96
[2025-10-16 23:21] VITALS: BP 124/74; PULSE 78; RESP 18; TEMP 37.2; O2SAT 96
[2025-10-16] MEDS: 0.9% Normal Saline (1000mL) 1,000 ML 999 ML IV (23:21)
--- OUTSIDE RECORDS SUMMARY | 2025-10-16 23:59 | XMS RPT_ITS | CCD ---
Author Organization [facility] Care Team Providers Care Silk Screener Name Role Phone GREG ARRINGTON Unavailable KIRAN FOUNTAIN MD Unavailable Jo BOWIE MD Unavailable [phone] Jayden CHAUDHARI, Zoraida Unavailable Unavailable Remigio RN, Shea Unavailable Unavaila monster Mendoza RN, Patti Unavailable Unavailable Unavailable Unavailable ROCKY FOUNTAIN MD Unavailable [phone] GREG ARRINGTON Unavailable Unav SOLANGE Penn MD [...] Dr. Rocky Fountain MD Primary Care Physician [phone] Fountain, Rocky Primary Care Unavailable Sylvester Morales [...] ROSARIO, BRAYAN Referring Unavailable MARIA DEL ROSARIO, RBAYAN Referring Unavailable MARIA DEL ROSARIO, BRAYAN Admitting [...] Test Name Value Interpretation Reference Range Facility [facility] HER[facility]NDE[facility] ([id number]) 1980 M Date Time Provider Department 09/02/[facility] During your visit today, we recorded the following information about you: Tommie Che 09/02/2025 9:02 AM Signed Patient approved for [facility] for Opdivo and Yervoy effective 08/31/25 - 08/30/26 Program ID: [id number] OB made to [facility] at [phone] to schedule Opdivo+Yervoy shipments via PAP. Spoke with Abril. Opdivo+Yervoy scheduled to deliver to [facility] on Sunday09/04/25 for patient's upcoming administrations on 09/08/25 (Acct ID: [id number]) and 09/29/25 (Acct ID: [id number]). Pharmacy team notified. Confirmed shipping address: [address] [place] [address] Attn: [place] [address]. Allergies As of Date: 09/02/2025 (No Known Allergies) Date Reviewed: 08/19/2025 Reviewed by: Jayro Soliman APRN.RADIOLOGY ORDERLY - Fully Assessed Reason for Visit: Opdivo+Yervoy [...] Encounter Status:Closed by TOMMIE CHE [facility] 09/02/[facility] CBC W Auto Differential pane l (Bld)on 08-19-2025 Basophils (Bld) [#/Vol] 10*3/uL Normal <0.11 [facility] Comment on above: Order Comment: Speci men Type: BLOOD SPECIMENOrdering Facility: [facility] Address: [address] [place] [address] Performed By: #### 5 7021-8 ####[facility] LABCLIA [id number] [place] [address] [place] Basophils/100 WBC (Bld) 0.1 % Normal [facility] Comment on above: Order Comment: Speci men Type: BLOOD SPECIMENOrdering Facility: [facility] Address: [address] [place] [address] Performed By: #### 5 7021-8 ####[facility] LABCLIA [id number] [place] [address] [place] Differential cell count method Nom (Bld) Auto Normal [facility] Comment on above: Order Comment: Speci men Type: BLOOD SPECIMENOrdering Facility: [facility] Address: [address] [place] [address] Performed By: #### 5 7021-8 ####[facility] LABCLIA [id number] [place] [address] [place] Eosinophils (Bld) [#/Vol] 10*3/uL Normal <0.46 [facility] Comment on above: Order Comment: Speci men Type: BLOOD SPECIMENOrdering Facility: [facility] Address: [address] [place] [address] Performed By: #### 5 7021-8 ####[facility] LABCLIA [id number] [address] [place] Eosinophils/100 WBC (Bld) 0.0 % Normal [facility] Comment on above: Order Comment: Speci men Type: BLOOD SPECIMENOrdering Facility: [facility] Address: [address] [place] [address] Performed By: #### 5 7021-8 ####[facility] LABCLIA [id number] [address] [place] Erythrocyte distribution width (RBC) [Ratio] 14.6 % Normal 11.5-15.0 [facility] Comment on above: Order Comment: Speci men Type: BLOOD SPECIMENOrdering Facility: [facility] Address: [address] [place] [address] Performed By: #### 5 7021-8 ####[facility] LABCLIA [id number] [address] [place] Hematocrit (Bld) [Volume fraction] 32.7 % Low 39.0-51.0 [facility] Comment on above: Order Comment: Speci men Type: BLOOD SPECIMENOrdering Facility: [facility] Address: [address] [place] [address] Performed By: #### 5 7021-8 ####[facility] LABCLIA [id number] [place] [address] [place] Hemoglobin (Bld) [Mass/Vol] 10.8 g/dL Low 13.0-17.0 [facility] Comment on above: Order Comment: Speci men Type: BLOOD SPECIMENOrdering Facility: [facility] Address: [address] [place] [address] Performed By: #### 5 7021-8 ####[facility] LABCLIA [id number] [place] [address] [place] Immature granulocytes (Bld) [#/Vol] 0.05 10*3/uL Normal <0.10 [facility] Comment on above: Order Comment: Speci men Type: BLOOD SPECIMENOrdering Facility: [facility] Address: [address] [place] [address] Performed By: #### 5 7021-8 ####[facility] LABCLIA [id number] [place] [address] [place] Immature granulocytes/100 WBC (Bld) 0.6 % Normal [facility] Comment on above: Order Comment: Speci men Type: BLOOD SPECIMENOrdering Facility: [facility] Address: [address] [place] [address] Performed By: #### 5 7021-8 ####[facility] LABCLIA [id number] [place] [address] [place] Lymphocytes (Bld) [#/Vol] 0.76 10*3/uL Low 1.00-4.00 [facility] Comment on above: Order Comment: Speci men Type: BLOOD SPECIMENOrdering Facility: [facility] Address: [address] [place] [address] Performed By: #### 5 7021-8 ####[facility] LABCLIA [id number] [place] [address] [place] Lymphocytes/100 WBC (Bld) 8.4 % Normal [facility] Comment on above: Order Comment: Speci men Type: BLOOD SPECIMENOrdering Facility: [facility] Address: [address] [place] [address] Performed By: #### 5 7021-8 ####[facility] LABCLIA [id number] [place] [address] [place] MCH (RBC) [Entitic mass] 27.2 pg Normal 26.0-34.0 [facility] Comment on above: Order Comment: Speci men Type: BLOOD SPECIMENOrdering Facility: [facility] Address: [address] [place] [address] Performed By: #### 5 7021-8 ####[facility] LABCLIA [id number] [address] [place] MCHC (RBC) [Mass/Vol] 33.0 g/dL Normal 30.5-36.0 [facility] Comment on above: Order Comment: Speci men Type: BLOOD SPECIMENOrdering Facility: [facility] Address: [address] [place] [address] Performed By: #### 5 7021-8 ####[facility] LABCLIA [id number] [address] [place] MCV (RBC) [Entitic vol] 82.4 fL Normal 80.0-100.0 [facility] Comment on above: Order Comment: Speci men Type: BLOOD SPECIMENOrdering Facility: [facility] Address: [address] [place] [address] Performed By: #### 5 7021-8 ####[facility] LABCLIA [id number] [place] [address] [place] Monocytes (Bld) [#/Vol] 0.35 10*3/uL Normal <0.87 [facility] Comment on above: Order Comment: Speci men Type: BLOOD SPECIMENOrdering Facility: [facility] Address: [address] [place] [address] Performed By: #### 5 7021-8 ####[facility] LABCLIA [id number] [place] [address] [place] Monocytes/100 WBC (Bld) 3.9 % Normal C [facility] Comment on above: Order Comment: Speci men Type: BLOOD SPECIMENOrdering Facility: [facility] Address: [address] [place] [address] Performed By: #### 5 7021-8 ####[facility] LABCLIA [id number] [place] [address] [place] Neutrophils (Bld) [#/Vol] 7.92 10*3/uL High 1.45-7.50 [facility] Comment on above: Order Comment: Speci men Type: BLOOD SPECIMENOrdering Facility: [facility] Address: [address] [place] [address] Performed By: #### 5 7021-8 ####[facility] LABCLIA [id number] [place] [address] [place] Neutrophils/100 WBC (Bld) 87.0 % Normal [facility] Comment on above: Order Comment: Speci men Type: BLOOD SPECIMENOrdering Facility: [facility] Address: [address] [place] [address] Performed By: #### 5 7021-8 ####[facility] LABCLIA [id number] [place] [address] [place] Nucleated RBC (Bld) [#/Vol] 10*3/uL Normal <0.01 [facility] Comment on above: Order Comment: Speci men Type: BLOOD SPECIMENOrdering Facility: [facility] Address: [address] [place] [address] Performed By: #### 5 7021-8 ####[facility] LABCLIA [id number] [place] [address] [place] Nucleated RBC/100 WBC (Bld) [Ratio] 0.0 /100 WBC Normal [facility] Comment on above: Order Comment: Speci men Type: BLOOD SPECIMENOrdering Facility: [facility] Address: [address] [place] [address] Performed By: #### 5 7021-8 ####[facility] LABCLIA [id number] [place] [address] [place] Platelet mean volume (Bld) [Entitic vol] 9.9 fL Normal 9.0-12.7 [facility] Comment on above: Order Comment: Speci men Type: BLOOD SPECIMENOrdering Facility: [facility] Address: [address] [place] [address] Performed By: #### 5 7021-8 ####[facility] LABCLIA [id number] [place] [address] [place] Platelets (Bld) [#/Vol] 211 10*3/uL Normal 150-400 [facility] Comment on above: Order Comment: Speci men Type: BLOOD SPECIMENOrdering Facility: [facility] Address: [address] [place] [address] Performed By: #### 5 7021-8 ####[facility] LABCLIA [id number] [place] [address] [place] RBC (Bld) [#/Vol] 3.97 10*6/uL Low 4.20-6.00 [facility] Comment on above: Order Comment: Speci men Type: BLOOD SPECIMENOrdering Facility: [facility] Address: [address] [place] [address] Performed By: #### 5 7021-8 ####[facility] LABCLIA [id number] [place] [id number] [place] WBC (Bld) [#/Vol] 9.09 10*3/uL Normal 3.70-11.00 [facility] Comment on above: Order Comment: Speci men Type: BLOOD SPECIMENOrdering Facility: [facility] Address: [address] [place] [address] Performed By: #### 5 7021-8 ####[facility] LABCLIA [id number] [place] [address] [place] CNOVSPon 08-19-2025 CNOVSP Visit (SP) Office (HEMCA3) GARRY HERNANDEZ ([id number]) 1980 M Date Time Provider Department 08/19/25 [...] No Does patient want to see a Lining Layer? No (yes to any of above refer [...] Soler Carolyn, APRN.CNP 08/19/2025 2:44 PM Signed [facility] Department of Hematology and Medical Oncology PATIENT NAME: Garry Hernandez [facility] NO: [id number] DATE OF SERVICE: August 19, 2025 DIAGNOSIS: [...] Lymph 1.00 - 4.00 k/uL 0.76 (L) [place]% % 3.9 Abs [place] <0.87 k/uL 0.35 Eosin% % 0.0 Abs [...] hemorrhagic met (more content not included)... Normal [facility] metabolic 2000 panelon 08-19-2025 Albumin [Mass/Vol] 4.2 g/dL Normal 3.9-4.9 [facility] Comment on above: Order Comment: Speci men Type: BLOOD SPECIMENOrdering Facility: [facility] Address: [address] [place] [address] Performed By: #### 2 4323-8 ####[facility] LABCLIA [id number] [place] [address] [place] ALP [Catalytic activity/Vol] 154 U/L High 38-113 [facility] Comment on above: Order Comment: Speci men Type: BLOOD SPECIMENOrdering Facility: [facility] Address: [address] [place] [address] Performed By: #### 2 4323-8 ####[facility] LABCLIA [id number] [place] [address] [place] ALT [Catalytic activity/Vol] 19 U/L Normal 10-54 [facility] Comment on above: Order Comment: Speci men Type: BLOOD SPECIMENOrdering Facility: [facility] Address: [address] [place] [address] Performed By: #### 2 4323-8 ####[facility] LABCLIA [id number] [place] [address] [place] Anion gap [Moles/Vol] 11 mmol/L Normal 8-15 [facility] Comment on above: Order Comment: Speci men Type: BLOOD SPECIMENOrdering Facility: [facility] Address: [address] [place] [address] Performed By: #### 2 4323-8 ####[facility] LABCLIA [id number] [place] [address] [place] AST [Catalytic activity/Vol] 9 U/L Low 14-40 [facility] Comment on above: Order Comment: Speci men Type: BLOOD SPECIMENOrdering Facility: [facility] Address: [address] [place] [address] Performed By: #### 2 4323-8 ####[facility] LABCLIA [id number] [place] [id number] [place] Bilirubin [Mass/Vol] mg/dL Low 0.2-1.3 [facility] Comment on above: Order Comment: Speci men Type: BLOOD SPECIMENOrdering Facility: [facility] Address: [address] [place] [address] Performed By: #### 2 4323-8 ####[facility] LABCLIA [id number] [place] [address] [place] Calcium [Mass/Vol] 10.9 mg/dL High 8.5-10.2 [facility] Comment on above: Order Comment: Speci men Type: BLOOD SPECIMENOrdering Facility: [facility] Address: [address] [place] [address] Performed By: #### 2 4323-8 ####[facility] LABCLIA [id number] [place] [address] [place] Chloride [Moles/Vol] 102 mmol/L Normal 98-107 [facility] Comment on above: Order Comment: Speci men Type: BLOOD SPECIMENOrdering Facility: [facility] Address: [address] [place] [address] Performed By: #### 2 4323-8 ####[facility] LABCLIA [id number] [place] [id number] [place] CO2 [Moles/Vol] 25 mmol/L Normal 22-30 [facility] Comment on above: Order Comment: Speci men Type: BLOOD SPECIMENOrdering Facility: [facility] Address: [address] [place], [place] [address] Performed By: #### 2 4323-8 ####[facility] LABCLIA [id number] [place] [address] [place] Creatinine [Mass/Vol] 0.82 mg/dL Normal 0.73-1.22 [facility] Comment on above: Order Comment: Speci men Type: BLOOD SPECIMENOrdering Facility: [facility] Address: [address] [place] [address] Performed By: #### 2 4323-8 ####[facility] LABCLIA [id number] [place] [address] [place] eGFRcr SerPlBld CKD-EPI 2020 110 mL/min/1.73m??? Normal >=60 [facility] Comment on above: Order Comment: Jihan neri Type: BLOOD SPECIMENOrdering Facility: [facility] Address: [address] [place] [address] Result Comment: Rhonda mated Glomerular Filtration Rate [...] actual GFR. Performed By: #### 2 4323-8 ####[facility] LABIA [id number] [place] [address] [place] Glucose [Mass/Vol] 111 mg/dL High 74-99 [facility] Comment on above: Order Comment: Jihan neri Type: BLOOD SPECIMENOrdering Facility: [facility] Address: [address] [place] [address] Result Comment: The [place] Diabetes Association (ADA) provides guidance for cutoff [...] Standards of Medical Care in Diabetes 2016, [place] [employer]. Diabetes Care. 2016.39(Suppl 1). Performed By: #### 2 4323-8 ####[facility] LABCLIA [id number] [place] [address] [place] Potassium [Moles/Vol] 4.0 mmol/L Normal 3.7-5.1 [facility] Comment on above: Order Comment: Speci men Type: BLOOD SPECIMENOrdering Facility: [facility] Address: [address] [place] [address] Performed By: #### 2 4323-8 ####[facility] LABCLIA [id number] [place] [address] [place] Protein [Mass/Vol] 7.1 g/dL Normal 6.3-8.0 [facility] Comment on above: Order Comment: Speci men Type: BLOOD SPECIMENOrdering Facility: [facility] Address: [address] [place] [address] Performed By: #### 2 4323-8 ####[facility] LABCLIA [id number] [place] [address] [place] Sodium [Moles/Vol] 138 mmol/L Normal 136-144 [facility] Comment on above: Order Comment: Speci men Type: BLOOD SPECIMENOrdering Facility: [facility] Address: [address] [place] [address] Performed By: #### 2 4323-8 ####[facility] LABCLIA [id number] [place] [address] [place] Urea nitrogen [Mass/Vol] 18 mg/dL Normal 9-24 [facility] Comment on above: Order Comment: Speci men Type: BLOOD SPECIMENOrdering Facility: [facility] Address: [address] [place] [address] Performed By: #### 2 4323-8 ####[facility] LABCLIA [id number] [address] [place] CNOVon 08-17-2025 CNOV Office Visit ([facility] ) GARRY HERNANDEZ ([id number]) 1980 M Date Time Provider Department 08/17/25 7:30 AM PLACEMENT RADHA ZAVALETA During your visit today, we recorded the following information about you: Pulse Respiration Blood pressure 69/minute 19/minute 130/71 Alexa Hartman RN 08/19/2025 6:32 AM Addendum August 17, 2025 1126 Garry arrived ambulatory with: , Neoma and other elders from his community and a feeder driver. 1318 Arrived from imaging to GK and had pt get back into his clothes. Transportation home verified: yes, with feeder driverAide, ph [phone]. Garry here for today for imaging, mask [...] abuse: no Allergies reviewed with patient, yes. [id number] Mask completed. To imaging for CT Scan [...] by this nurse and patient verbalized understanding. [id number] Patient assisted to treatment room. Gamma Knife SRS begun. 1652 Gamma Knife Stereotactic Radiosurgery Completed. 1657 Pt then discharged. WATSON Balderas Heidi, RN 08/17/2025 2:13 PM Signed [facility] Knife [facility] Discharge Instructions As with [...] a physician or hospital other than the [facility] with any problem related to the Gamma Knife procedure, please call your physician, Dr. Patricio Mix at [phone]. After your treatment, you may experience a [...] call your physician, Dr. Patricio Mix at [phone] Sunday through Sunday 8:00 am to 5:00 pm. In the evening or on weekends, call [phone] or toll-free [phone] and ask the string winding machine operator to page your neurosurgeon's resident enterprise solutions architect. Referring Provider: BRAYAN MIX [[id number]] Allergies As of Date: 08/17/2025 (No Known [...] by mouth (more content not included)... Normal [facility] CT BRAIN WO IVCONon 08-17-20 CT [...] within normal limits. IMPRESSION: Stereotactic localization examination. Jewel Hole Rough Opener: DARIEL Transcribe Date/Time: Aug 17 2025 1:24P Dictated by : WILBERT POWELL MD This examination was interpreted and the report reviewed and electronically signed by: WILBERT POWELL MD on Aug 17 2025 1:37PM EST [id number] Normal [facility] MRI BRAIN LOCAL W IVCONon MRI [...] malignant neoplasm of brain (HCC) . CPT 79406 With T1 Spacing. No Mprage. Brain MRI [...] enhancement in the LEFT postcentral gyrus/perirolandic region. Jewel Hole Rough Opener: DARIEL Transcribe Date/Time: Aug 17 2025 1:25P Dictated by : WILBERT POWELL MD This examination was interpreted and the report reviewed and electronically signed by: WILBERT POWELL MD on Aug 17 2025 1:35PM EST [id number] Normal [facility] OPERATIVE NOon 08-17-2025 OPERATIVE NO HNO ID: [id number] Author: BRAYAN MIX MD Service: Neurosurgery Author Type: Physician Type: Operative Report Filed: 08/18/2025 07:44 Note Text: [facility] [address] [place] [address] [place] OPERATIVE REPORT NAME: Garry Hernandez [facility] NO.: [id number] MASK SIMULATION DATE: 2025-08-17 RADIATION TREATMENT START [...] were loaded in the planning computer and [facility] [employer] gamma plan was used to perform fractionated [...] Number of Fractions: 1 After the usual quality control projectionist procedures were performed, fractionated radiosurgery was delivered with use of the Gamma Knife. The Gamma Knife checklists and time outs were performed during this procedure in a standard manner. Brayan Mix M.D. [facility] GARR[facility] HERNANDEZ ([id number]) 1980 M Date Time Provider Department 08/13/25 RBAYAN MIX During your visit today, we recorded [...] any doses. Instructed Garry to report to [facility] at 0630. Patient instructed to disregard any other emails, phone calls, or DocSea messages regarding arrival time. Directions given regarding software applications designer parking at [facility] entrance. Aide confirms they have a responsible adult to accompany them with transportation to and from their Gamma Knife appointment. All questions answered and Aide receptive to information and verbalized understanding. Lina Ortiz RN Allergies As of Date: 08/13/2025 (No Known Allergies) Date Reviewed: 08/05/2025 Reviewed by: Alma Rosa Sylvester LPN - Fully Assessed Reason for Visit: Information [5068] Prescriptions as of 08/13/2025 - ferrous sulfate [...] Status:Closed by LINA ORTIZ on 08/13/25 Normal [facility] CBC W Auto Differential pane l (Bld)on 08-05-2025 Basophils (Bld) [#/Vol] 10*3/uL Normal <0.11 [facility] Comment on above: Order Comment: Speci men Type: BLOOD SPECIMENOrdering Facility: [facility] Address: [address] [place] [address] Performed By: #### 5 7021-8 ####[facility] LABCLIA [id number] [place] [address] [place] Basophils/100 WBC (Bld) 0.1 % Normal [facility] Comment on above: Order Comment: Speci men Type: BLOOD SPECIMENOrdering Facility: [facility] Address: [address] [place] [address] Performed By: #### 5 7021-8 ####[facility] LABCLIA [id number] [place] [address] [place] Differential cell count method Nom (Bld) Auto Normal [facility] Comment on above: Order Comment: Speci men Type: BLOOD SPECIMENOrdering Facility: [facility] Address: [address] [place] [address] Performed By: #### 5 7021-8 ####[facility] LABCLIA [id number] [place] [address] [place] Eosinophils (Bld) [#/Vol] 0.03 10*3/uL Normal <0.46 [facility] Comment on above: Order Comment: Speci men Type: BLOOD SPECIMENOrdering Facility: [facility] Address: [address] [place] [address] Performed By: #### 5 7021-8 ####[facility] LABCLIA [id number] [place] [address] [place] Eosinophils/100 WBC (Bld) 0.4 % Normal [facility] Comment on above: Order Comment: Speci men Type: BLOOD SPECIMENOrdering Facility: [facility] Address: [address] [place] [address] Performed By: #### 5 7021-8 ####[facility] LABIA [id number] [place] [address] [place] [place] Erythrocyte distribution width (RBC) [Ratio] 15.3 % High 11.5-15.0 [facility] Comment on above: Order Comment: Speci men Type: BLOOD SPECIMENOrdering Facility: [facility] Address: [address] [place] [address] Performed By: #### 5 7021-8 ####[facility] LABCLIA [id number] [place] [address] [place] Hematocrit (Bld) [Volume fraction] 37.6 % Low 39.0-51.0 [facility] Comment on above: Order Comment: Speci men Type: BLOOD SPECIMENOrdering Facility: [facility] Address: [address] [place] [address] Performed By: #### 5 7021-8 ####[facility] LABCLIA [id number] [place] [address] [place] Hemoglobin (Bld) [Mass/Vol] 12.4 g/dL Low 13.0-17.0 [facility] Comment on above: Order Comment: Speci men Type: BLOOD SPECIMENOrdering Facility: [facility] Address: [address] [place] [address] Performed By: #### 5 7021-8 ####[facility] LABCLIA [id number] [address] Immature granulocytes (Bld) [#/Vol] 0.08 10*3/uL Normal <0.10 [facility] Comment on above: Order Comment: Speci men Type: BLOOD SPECIMENOrdering Facility: [facility] Address: [address] [place] [address] Performed By: #### 5 7021-8 ####[facility] LABCLIA [id number] [address] Immature granulocytes/100 WBC (Bld) 1.0 % Normal [facility] Comment on above: Order Comment: Speci men Type: BLOOD SPECIMENOrdering Facility: [facility] Address: [address] [place] [address] Performed By: #### 5 7021-8 ####[facility] LABCLIA [id number] [address] [place] Lymphocytes (Bld) [#/Vol] 0.60 10*3/uL Low 1.00-4.00 [facility] Comment on above: Order Comment: Speci men Type: BLOOD SPECIMENOrdering Facility: [facility] Address: [address] [place] [address] Performed By: #### 5 7021-8 ####[facility] LABCLIA [id number] [address] STATES [facility] Lymphocytes/100 WBC (Bld) 7.8 % Normal [facility] Comment on above: Order Comment: Speci men Type: BLOOD SPECIMENOrdering Facility: [facility] Address: [address] [place] [address] Performed By: #### 5 7021-8 ####[facility] LABCLIA [id number] [place] [address] [place] MCH (RBC) [Entitic mass] 27.0 pg Normal 26.0-34.0 [facility] Comment on above: Order Comment: Speci men Type: BLOOD SPECIMENOrdering Facility: [facility] Address: [address] [place] [address] Performed By: #### 5 7021-8 ####[facility] LABCLIA [id number] [place] [address] [place] MCHC (RBC) [Mass/Vol] 33.0 g/dL Normal 30.5-36.0 [facility] Comment on above: Order Comment: Speci men Type: BLOOD SPECIMENOrdering Facility: [facility] Address: [address] [place] [address] Performed By: #### 5 7021-8 ####[facility] LABCLIA [id number] [place] [address] [place] MCV (RBC) [Entitic vol] 81.9 fL Normal 80.0-100.0 [facility] Comment on above: Order Comment: Speci men Type: BLOOD SPECIMENOrdering Facility: [facility] Address: [address] [place] [address] Performed By: #### 5 7021-8 ####[facility] LABCLIA [id number] [place] [address] [place] Monocytes (Bld) [#/Vol] 0.54 10*3/uL Normal <0.87 [facility] Comment on above: Order Comment: Speci men Type: BLOOD SPECIMENOrdering Facility: [facility] Address: [address] [place] [address] Performed By: #### 5 7021-8 ####[facility] LABCLIA [id number] [address] [place] Monocytes/100 WBC (Bld) 7.0 % Normal [facility] Comment on above: Order Comment: Speci men Type: BLOOD SPECIMENOrdering Facility: [facility] Address: [address] [place] [address] Performed By: #### 5 7021-8 ####[facility] LABCLIA [id number] [place] [address] [place] Neutrophils (Bld) [#/Vol] 6.43 10*3/uL Normal 1.45-7.50 [facility] Comment on above: Order Comment: Speci men Type: BLOOD SPECIMENOrdering Facility: [facility] Address: [address] [place] [address] Performed By: #### 5 7021-8 ####[facility] LABCLIA [id number] [place] [address] [place] Neutrophils/100 WBC (Bld) 83.7 % Normal [facility] Comment on above: Order Comment: Speci men Type: BLOOD SPECIMENOrdering Facility: [facility] Address: [address] [place] [address] Performed By: #### 5 7021-8 ####[facility] LABCLIA [id number] [place] [address] [place] Nucleated RBC (Bld) [#/Vol] 10*3/uL Normal <0.01 [facility] Comment on above: Order Comment: Speci men Type: BLOOD SPECIMENOrdering Facility: [facility] Address: [address] [place] [address] Performed By: #### 5 7021-8 ####[facility] LABCLIA [id number] [place] [address] [place] Nucleated RBC/100 WBC (Bld) [Ratio] 0.0 /100 WBC Normal [facility] Comment on above: Order Comment: Speci men Type: BLOOD SPECIMENOrdering Facility: [facility] Address: [address] [place] [address] Performed By: #### 5 7021-8 ####[facility] LABCLIA [id number] [place] [address] [place] Platelet mean volume (Bld) [Entitic vol] 10.4 fL Normal 9.0-12.7 [facility] Comment on above: Order Comment: Speci men Type: BLOOD SPECIMENOrdering Facility: [facility] Address: [address] [place] [address] Performed By: #### 5 7021-8 ####[facility] LABCLIA [id number] [place] [address] [place] Platelets (Bld) [#/Vol] 214 10*3/uL Normal 150-400 [facility] Comment on above: Order Comment: Speci men Type: BLOOD SPECIMENOrdering Facility: [facility] Address: [address] [place] [address] Performed By: #### 5 7021-8 ####[facility] LABCLIA [id number] [place] [address] [place] RBC (Bld) [#/Vol] 4.59 10*6/uL Normal 4.20-6.00 [facility] Comment on above: Order Comment: Speci men Type: BLOOD SPECIMENOrdering Facility: [facility] Address: [address] [place] [address] Performed By: #### 5 7021-8 ####[facility] LABCLIA [id number] [address] STATES OF [facility] WBC (Bld) [#/Vol] 7.69 10*3/uL Normal 3.70-11.00 [facility] Comment on above: Order Comment: Speci men Type: BLOOD SPECIMENOrdering Facility: [facility] Address: [address] [place] [address] Performed By: #### 5 7021-8 ####[facility] LABCLIA [id number] [address] CNOVSPon 08-05-2025 CNOVSP Visit (SP) Office (HEMCA3) GARRY HERNANDEZ ([id number]) 1980 M Date Time Provider Department 08/05/25 [...] No Does patient want to see a Lining Layer? No (yes to any of above refer [...] Timothy D, MD 08/06/2025 2:[address] [facility] Department of Hematology and Medical Oncology PATIENT NAME: Garry Hernandez CLINIC NO.: [id number] DATE OF SERVICE: 08/05/2025 DIAGNOSIS: metastatic clear [...] AND ANNA (more content not included)... Normal [facility] Comprehensive metabolic 2000 panelon 08-05-2025 Albumin [Mass/Vol] 3.9 g/dL Normal 3.9-4.9 [facility] Comment on above: Order Comment: Speci men Type: BLOOD SPECIMENOrdering Facility: [facility] Address: [address] [place] [address] Performed By: #### 2 4323-8, 42988-2 ####[facility] LABCLIA [id number] [place] [address] [place] ALP [Catalytic activity/Vol] 172 U/L High 38-113 [facility] Comment on above: Order Comment: Erlindai daron Type: BLOOD SPECIMENOrdering Facility: [facility] Address: [address] [place] [address] Performed By: #### 2 4323-8, 17034-3 ####[facility] LABCLIA [id number] [place] [address] [place] ALT [Catalytic activity/Vol] 50 U/L Normal 10-54 [facility] Comment on above: Order Comment: Speci men Type: BLOOD SPECIMENOrdering Facility: [facility] Address: [address] [place] [address] Performed By: #### 2 4323-8, 83338-7 ####[facility] LABCLIA [id number] [place] [address] [place] Anion gap [Moles/Vol] 10 mmol/L Normal 8-15 [facility] Comment on above: Order Comment: Speci men Type: BLOOD SPECIMENOrdering Facility: [facility] Address: [address] [place] [address] Performed By: #### 2 4323-8, 77396-5 ####[facility] LABCLIA [id number] [place] [address] [place] AST [Catalytic activity/Vol] 20 U/L Normal 14-40 [facility] Comment on above: Order Comment: Speci men Type: BLOOD SPECIMENOrdering Facility: [facility] Address: [address] [place] [address] Performed By: #### 2 4323-8, 70109-4 ####[facility] LABCLIA [id number] [place] [address] [place] Bilirubin [Mass/Vol] 0.2 mg/dL Normal 0.2-1.3 [facility] Comment on above: Order Comment: Speci men Type: BLOOD SPECIMENOrdering Facility: [facility] Address: [address] [place] [address] Performed By: #### 2 4323-8, 92306-0 ####[facility] LABCLIA [id number] [place] [address] [place] Calcium [Mass/Vol] 9.4 mg/dL Normal 8.5-10.2 [facility] Comment on above: Order Comment: Speci men Type: BLOOD SPECIMENOrdering Facility: [facility] Address: [address] [place] [address] Performed By: #### 2 4323-8, 81653-7 ####[facility] LABCLIA [id number] [place] [id number] [place] Chloride [Moles/Vol] 100 mmol/L Normal 98-107 [facility] Comment on above: Order Comment: Speci men Type: BLOOD SPECIMENOrdering Facility: [facility] Address: [address] [place] [address] Performed By: #### 2 4323-8, 38449-3 ####[facility] LABCLIA [id number] [place] [id number] [place] CO2 [Moles/Vol] 26 mmol/L Normal 22-30 [facility] Comment on above: Order Comment: Speci men Type: BLOOD SPECIMENOrdering Facility: [facility] Address: [address] [place] [address] Performed By: #### 2 4323-8, 57712-7 ####[facility] LABCLIA [id number] [place] [address] [place] Creatinine [Mass/Vol] 0.92 mg/dL Normal 0.73-1.22 [facility] Comment on above: Order Comment: Speci men Type: BLOOD SPECIMENOrdering Facility: [facility] Address: [address] [place] [address] Performed By: #### 2 4323-8, 87104-7 ####[facility] LABCLIA [id number] [place] [address] [place] eGFRcr SerPlBld CKD-EPI 2020 104 mL/min/1.73m??? Normal >=60 [facility] Comment on above: Order Comment: Speci men Type: BLOOD SPECIMENOrdering Facility: [facility] Address: [address] [place] [address] Result Comment: Rhonda mated Glomerular Filtration Rate [...] actual GFR. Performed By: #### 2 4323-8, 53059-8 ####[facility] LABCLIA [id number] [place] [address] [place] Glucose [Mass/Vol] 112 mg/dL High 74-99 [facility] Comment on above: Order Comment: Speci men Type: BLOOD SPECIMENOrdering Facility: [facility] Address: [address] [place] [id number] Result Comment: The [place] Diabetes Association (ADA) provides guidance for cutoff [...] Standards of Medical Care in Diabetes 2016, [place] [employer]. Diabetes Care. 2016.39(Suppl 1). Performed By: #### 2 4323-8, 67657-9 ####[facility] LABCLIA [id number] [place] [address] [place] Potassium [Moles/Vol] 4.8 mmol/L Normal 3.7-5.1 [facility] Comment on above: Order Comment: Speci men Type: BLOOD SPECIMENOrdering Facility: [facility] Address: [address] [place], [place] [address] Performed By: #### 2 4323-8, 26454-7 ####[facility] LABCLIA [id number] [place] [id number] [place] Protein [Mass/Vol] 6.6 g/dL Normal 6.3-8.0 [facility] Comment on above: Order Comment: Speci men Type: BLOOD SPECIMENOrdering Facility: [facility] Address: [address] [place] [address] Performed By: #### 2 4323-8, 10523-5 ####[facility] LABCLIA [id number] [place] [id number] [place] Sodium [Moles/Vol] 136 mmol/L Normal 136-144 [facility] Comment on above: Order Comment: Speci men Type: BLOOD SPECIMENOrdering Facility: [facility] Address: [address] [place] [address] Performed By: #### 2 4323-8, 99427-9 ####[facility] LABCLIA [id number] [place] [id number] [place] Urea nitrogen [Mass/Vol] 16 mg/dL Normal 9-24 [facility] Comment on above: Order Comment: Speci men Type: BLOOD SPECIMENOrdering Facility: [facility] Address: [address] [place] [address] Performed By: #### 2 4323-8, 29682-1 ####[facility] LABCLIA [id number] [place] [address] [place] Iron and Iron binding capaci ty panelon 08-05-2025 Iron [Mass/Vol] 30 ug/dL Low 41-186 [facility] Comment on above: Order Comment: Speci men Type: BLOOD SPECIMENOrdering Facility: [facility] Address: [address] [place] [address] Performed By: #### 2 4323-8, 80907-7 ####[facility] LABCLIA [id number] [address] [place] Iron binding capacity [Mass/Vol] 225 ug/dL Low 232-386 [facility] Comment on above: Order Comment: Speci men Type: BLOOD SPECIMENOrdering Facility: [facility] Address: [address] [place] [address] Performed By: #### 2 4323-8, 91348-4 ####[facility] LABCLIA [id number] [place] [address] [place] Iron/TIBC [Molar ratio] 13.3 % Low 15.0-57.0 [facility] Comment on above: Order Comment: Speci men Type: BLOOD SPECIMENOrdering Facility: [facility] Address: [address] [place] [address] Performed By: #### 2 4323-8, 63721-2 ####[facility] LABCLIA [id number] [place] [id number] [place] Elizabeth 07-23-2025 CNPN Telephone (NSCAMN) GARRY HERNANDEZ ([id number]) 1980 M Date Time Provider Department 07/23/25 RADHA DIAZ [facility] During your visit today, we [...] Encounter Status:Closed by RADHA DIAZ on 07/27/25 [facility] CNOVon 07-21-2025 CNOV Office Visit (NOGA ) GARRY HERNANDEZ ([id number]) 1980 M Date Time Provider Department 07/21/25 9:00 AM PLACEMENT NEUMalaika [facility] During your visit today, we recorded the [...] administration of versed for frame placement. [address] Frame Used for frame placement by Dr. [...] No. Pain 0 on scale of 0-10 [phone] Garry assisted to treatment room. Gamma Knife [...] nurse, hours of availability, Dr. Yoel Mix[facility] telephone number, and [facility] local and toll free numbers given to Garry and family/visitors. [phone] Garry left via wheelchair home with . WATSON Balderas Heidi, RN 07/21/2025 1:45 PM Signed [facility] Gamma Knife [place] Discharge Instructions - As with any surgery [...] a physician or hospital other than the [facility] with any problem related to the Gamma Knife procedure, please call your physician, Dr. Patricio Mix at [phone]. 1.) Ke (more content not included)... Normal [facility] CONSULTon 07-21-2025 CONSULT HNO ID: [id number] Author: RAYMON MADSEN MD Service: Radiation Oncology Author Type: Physician Type: Consults Filed: 07/21/2025 15:18 Note Text: [facility] FOLLOW-UP SERVICE DATE: 07/21/2025 SERVICE TIME: 12p [...] and com (more content not included)... Normal [facility] CT BRAIN STEREOLOCAL WO IVCO Non [...] with localized mass effect without midline shift. Jewel Hole Rough Opener: DARIEL Transcribe Date/Time: Jul 21 2025 1:40P Dictated by : GABRIEL GIBBONS MD This examination was interpreted and the report reviewed and electronically signed by: ARTEMIO JAY MD on Jul 21 2025 1:57PM EST [id number] Normal [facility] OPERATIVE NOon 07-21-2025 OPERATIVE NO HNO ID: [id number] Author: BRAYAN MIX MD Service: Neurosurgery Author Type: Physician Type: Operative Report Filed: 07/23/2025 10:33 Note Text: [facility] [address] [place] [address] [place] OPERATIVE REPORT NAME: Garry Hernandez [facility] NO.: [id number] RADIATION TREATMENT START DATE AND TIME: 2025-07-21, [...] Number of Fractions: 1 After the usual quality control projectionist procedures were performed, stereotactic radiosurgery was delivered with use of the Gamma Knife. Following the completion of the last shot, the stereotactic frame was removed and the pin sites were dressed. The Gamma Knife checklists and time outs were performed during this procedure in a standard manner. Brayan Mix M.D. Normal [facility] NTon 07-21-2025 THERAPY NT HNO ID: [id number] Author: CATHIE STANTON PT DPИрина Service: Physical Therapy Author Type: Physical Therapist Type: Therapy (PT/OT/Speech/Resp) Filed: 07/21/2025 12:28 Note Text: PHYSICAL THERAPY MISSED VISIT SERVICE DATE: 07/21/2025 SERVICE TIME: 1227 ROOM: [place] [address] (CA-LL-1 Gamma Knife) Patient not seen due to no skilled needs per discussion with OT. PT will sign off. 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 SUBJECTIVE COGNITION Orientation Deficits: Not [...] daily living (ADL) TREATMENT INTERVENTIONS Evaluation, Self Fpc Management (12478), Cognitive Training per First 15 Minutes (57603) Timed Code Treatment (minutes): 30 Skilled Treatment [...] July 21, 2025 TIME: 11:55 AM [facility] THERAPY NT HNO ID: [id number] Author: JHONNY DAVEY OTR/L Service: Occupational Therapy Author Type: Occupational Therapist Type: Therapy (PT/OT/Speech/Resp) Filed: 07/21/2025 09:36 Note Text: OCCUPATIONAL THERAPY MISSED VISIT SERVICE DATE: 07/21/2025 SERVICE TIME: 935 ROOM: [place] [address] Patient not seen due to Test / Procedure. SIGNATURE: PAULIE Martínez PATIENT NAME: Garry Hernandez DATE: July 21, 2025 TIME: 9:36 AM [facility] ALLIED HEALTHon 07-20-2025 ALLIED HEALTH HNO ID: [id number] Author: REJI KAUR RT(Jo) Service: Radiology Author [...] PATIENT PRESENTS WITH AN IMPLANTABLE OR ATTACHED COLLET MAKING MACHINE OPERATOR: No RADIOLOGY DEPARTMENT: MR; Exam(s) Completed: Head: Routine Brain +GKS. Anesthesia: No. Aromatherapy Administered: No PERIPHERAL IV DATA: Inpatient: see LDA documentation SIGNED BY: Reji Kaur RT(R) July 20, 2025 12:28 AM [facility] ANES POSTPROC EVALon 025 ANES POSTPROC EVAL HNO ID: [id number] Author: ANDREW LARKIN DO Service: ? Author Type: Anesthesiologist Type: Anesthesia Postprocedure Evaluation Filed: 07/20/2025 15:44 Note Text: POST ANESTHESIA EVALUATION NOTE : 1980 Procedure Summary Date: 07/20/25 Room / Location: [facility] B-01 / PUL LAB H23 Anesthesia [...] July 20, 2025 TIME: 3:44 PM CSN: [id number] [facility] ANES PRE-OPon 07-20-2025 ANES PRE-OP HNO ID: [id number] Author: ANDREW LARKIN DO Service: ? Author [...] and consent discussed: yes. Patient / Responsible Constitution Party agrees to proceed: yes Patient / Surrogate [...] July 20, 2025 TIME: 12:46 PM CSN: [id number] [facility] Bacteria Spec Resp Culton Bacteria identified Respiratory culture Nom (Unsp spec) CULTURE, RESPIRATORY: No growth 2 days GRAM STAIN: No organisms seen Rare Polymorphonuclear leukocytes [facility] Comment on above: Performed By: #### 3 2355-0 ####[facility] LABCLIA [id number] [address] [place]#### [address]-6 ####[facility] LABCLIA [id number] [address] [place] CONSULTon 07-20-2025 CONSULT HNO ID: [id number] Author: RADHA ALLAN APRN.CNP Service: Radiation Oncology Author Type: Nurse Practitioner Type: Consults Filed: 07/20/2025 21:42 Note Text: [employer]DERJIT INITIAL CONSULT FIXING CARPENTER SERVICE DATE: 07/20/2025 SERVICE TIME: 1200 CONSULTING [...] given dex 10 mg and transferred to [facility] main same day for further management. 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 He denies nausea, focal [...] Acuity: mild, (more content not included)... Normal [facility] CONSULT HNO ID: [id number] Author: JESSICA HERNÁNDEZ MD Service: Cardiovascular Medicine [...] and multiple pulmonary nodules. Subsequently transferred to [facility] main [place] for further evaluation. We were consulted for [...] TBILI 0.3 (more content not included)... Normal [facility] CT ABD/PEL WO IVCONon 2024 CT ABD/PEL WO IVCON * * *Final Report* * * DATE OF EXAM: Jul 20 2025 8:41AM [facility] 0531 - CT ABD/PEL WO IVCON / [...] further characterized with dedicated renal mass protocol. Jewel Hole Rough Opener: DARIEL Transcribe Date/Time: Jul 20 2025 8:48A Dictated by : ABDIAZIZ DEL TORO MD This examination was interpreted and the report reviewed and electronically signed by: ENRIQUE WILKS MD on Jul 20 2025 9:24AM EST [id number] [facility] CT CHEST WO IVCONon 07-20-[address] CHEST WO IVCON * * *Final Report* * * DATE OF EXAM: Jul 20 2025 8:41AM [facility] 0541 - CT CHEST WO IVCON / [...] abdominal/pelvic CT exam. 2. No thoracic lymphadenopathy. Jewel Hole Rough Opener: [facility]ITAL[facility] Transcribe Date/Time: Jul 20 2025 8:51A Dictated by : LANDON TAMAYO MD This examination was interpreted and the report reviewed and electronically signed by: LANDON TAMAYO MD on Jul 20 2025 9:08AM EST [id number] [facility] CYTOLOGY NON-GYNon ADEQUACY INTERPRETATION Normal [facility] Comment on above: Order Comment: Speci men Type: SPECIMEN OBTAINED BY LAVAGEOrdering Facility: [facility] Address: [address] [place] [address] Result Comment: A: N o adequacy given [...] discrete evaluation episode. Intra-[place] [address] Performed By: #### C YTONON ####[facility] LABCLIA [id number] [facility] [id number] [address] [place] AP DISCLAIMER [facility] Comment on above: Order Comment: Speci men Type: SPECIMEN OBTAINED BY LAVAGEOrdering Facility: [facility] Address: [address] [place] [address] Result Comment: Obey gómez Developed Test (LDT) Disclaimer: Performance characteristics of immunohistochemical, immunofluorescent, and chromogenic in-situ hybridization tests have been determined by the performing laboratory within the [facility] Department of Pathology and Laboratory Medicine ([facility], [facility], [facility], [facility], [facility], [facility], or [facility]) in a manner consistent with CLIA requirements. One or more of these tests may not have been cleared or approved by the FDA. The [facility] Department of Pathology and Laboratory Medicine is regulated under CLIA as qualified to perform high-complexity testing. These tests are used for clinical purposes. These should not be regarded as investigational or for research. Positive and negative controls stain appropriately. Performed By: #### C YTONON ####[facility] LABCLIA [id number] [place] [address] [place] CASE REPORT [facility] Comment on above: Order Comment: Speci men Type: SPECIMEN OBTAINED BY LAVAGEOrdering Facility: [facility] Address: [address] [place] [address] Result Comment: [facility] Cytology Report Case: [id number] Authorizing Provider: Dee Dee Martinez MD Collected: 07/20/2025 02:47 PM Ordering Location: [place] [address] Received: 07/20/2025 03:53 PM Pathologist: Piper Reyes MD Specimens: A) - Lung, Left, Left lower lobe B) - Lung, Left Lower Lobe, Transbronchial, endobronchial mass Performed By: #### C YTONON ####[facility] LABCLIA [id number] [address] [place] CLINICAL HISTORY History of renal fidel l carcinoma [facility] Comment on above: Order Comment: Speci men Type: SPECIMEN OBTAINED BY LAVAGEOrdering Facility: [facility] Address: [address] [place] [address] Performed By: #### C YTONON ####[facility] LABCLIA [id number] [address] DIAGNOSIS COMMENT An immunostain for PAX-8 was performed on the cell block material from specimen B and the malignant cells are positive, further supporting the above diagnosis. Selected slides from specimen B were reviewed in consultation with Dr. Denita Soto, who concurs. [facility] Comment on above: Order Comment: Speci men Type: SPECIMEN OBTAINED BY LAVAGEOrdering Facility: [facility] Address: [address] [place] [address] Performed By: #### C YTONON ####[facility] LABCLIA [id number] [address] FINAL DIAGNOSIS [facility] Comment on above: Order Comment: Speci men Type: SPECIMEN OBTAINED BY LAVAGEOrdering Facility: [facility] Address: [address] [place] [address] Result Comment: A - Lung, Left, Wash [...] 1558 EDT Performed By: #### C YTONON ####[facility] LABCLIA [id number] [address] FINAL PERFORMING LAB Normal [facility] Comment on above: Order Comment: Speci men Type: SPECIMEN OBTAINED BY LAVAGEOrdering Facility: [facility] Address: [address] [place] [address] Result Comment: Tech nical component, client operations manager screening performed at: [facility], [address] [place] [address] CLIA: [id number] Diagnostic interpretation performed at: [facility], [address] [place] [address] [place] [address] CLIA# [id number] Senior Materials Analyst: Luis Armando Cardoza MD Performed By: #### C YTONON ####[facility] LABCLIA [id number] [address] GROSS DESCRIPTION A. Lung, Left Normal [facility] Comment on above: Order Comment: Speci men Type: SPECIMEN OBTAINED BY LAVAGEOrdering Facility: [facility] Address: [address] [place] [address] Result Comment: 10 c c hazy colorless fluid . ThinPrep prepared. B. Lung, Left Lower Lobe, Transbronchial 2 containers:60 cc hazy red CytoLyt with particles. ThinPrep and Cell Block prepared and 4 smears (2 air dried and 2 fixed). Performed By: #### C YTONON ####[facility] LABCLIA [id number] [address] [place] HISTORY PHYSICALon HISTORY PHYSICAL HNO ID: [id number] Author: BRAYAN MIX MD Service: Neurosurgery Author [...] and multiple pulmonary nodules. Subsequently transferred to [facility] for further evaluation. At OSH, received dex 10 IV. Per family, had improvement in mental status and headache. MRI wwo obtained at [facility], which demonstrates heterogeneous contrast-enhancement with necrotic features [...] and multiple pulmonary nodules. Subsequently transferred to [facility] [place] for further [place]. - NSGY RNF q4 [...] Rosario Deluca MD PGY-2, Neurological Surgery Pager: [phone] 07/19/2025 5394 CURRENT OVERNIGHT RESIDENT Please page [phone] between 6:30 AM and 6:00 PM, or if I am not reachable at the above number between 6:00 PM and 6:30 AM The following problems are present on admission at this time: Neurologic disorder Continue current outpatient treatment plan and current medications for these conditions, except where otherwise noted. [facility] STAFF: TEACHING PHYSICIAN NOTE OF PERSONAL INVOLVEMENT [...] at bedside Brayan Mix MD Beeper Number: [id number] Date and Time of Service: July 20, 2025 3:31 PM [1] [facility] MRI BRAIN WO/W IVCONon 07-20 MRI [...] evidence of developing hydrocephalus. No midline shift. Jewel Hole Rough Opener: PSCB Transcribe Date/Time: Jul 20 2025 9:20A Dictated by : LINUS CASTRO MD This examination was interpreted and the report reviewed and electronically signed by: MAICO FRANK MD on Jul 20 2025 10:12AM EST [id number] [facility] Microorganism Spec Culton Microorganism identified Cx Nom (Unsp spec) CULTURE, FUNGAL: No Fungus isolated after 28 days FUNGAL SMEAR: No fungus seen [facility] Comment on above: Performed By: #### 3 2355-0 ####[facility] LABIA [id number] [address]#### [address]-6 ####[facility] LABIA [id number] [address] Microorganism identified Cx Nom (Unsp spec) CULTURE, AFB: No Acid Fast Bacilli isolated after 42 days AFB STAIN: No acid fast bacilli seen by fluorochrome stain [facility] Comment on above: Performed By: #### 3 2355-0 ####[facility] LABCLIA [id number] [address]#### [address]-5 ####[facility] LABIA [id number] [address] NURSING PROGon 07-20-2025 NURSING PROG HNO ID: [id number] Author: NAPOLEON SIMON RN Service: ? Author Type: Registered Nurse Type: Nursing Progress Note Filed: 07/20/2025 20:30 Note Text: Patient reports visual hallucinations that started today. States the ceiling is coming down on him and that he sees a barn window. RN notified treatment team Shakila Lam NP. Waiting for response. [facility] NURSING PROG HNO ID: [id number] Author: CANDY BAUER RN Service: Nursing Author [...] II IV SITE: Inpatient - refer to [facility] documentation IV SITE APPEARANCE: Clean,Dry and Intact SIGNATURE: Candy Bauer RN PATIENT NAME: Garry Hernandez DATE: July 20, 2025 TIME: 12:25 AM [facility] Pathology biopsy report Parag (Tiss)on 07-20-2025 AP DISCLAIMER [facility] Comment on above: Order Comment: Speci men Type: TISSUE SPECIMENOrdering Facility: [facility] Address: [address] [place] [address] Result Comment: Obey Millan Test (LDT) Disclaimer: Performance characteristics of immunohistochemical, immunofluorescent, and chromogenic in-situ hybridization tests have been determined by the performing laboratory within the [facility] Department of Pathology and Laboratory Medicine ([facility], [facility], [facility], [facility], [facility], [facility], or [facility]) in a manner consistent with CLIA requirements. One or more of these tests may not have been cleared or approved by the FDA. The [facility] Department of Pathology and Laboratory Medicine is regulated under CLIA as qualified to perform high-complexity testing. These tests are used for clinical purposes. These should not be regarded as investigational or for research. Positive and negative controls stain appropriately. Performed By: #### 6 6121-5 ####[facility] LABCLIA [id number] [place] [address] [place] CASE REPORT [facility] Comment on above: Order Comment: Speci men Type: TISSUE SPECIMENOrdering Facility: [facility] Address: [address] [place] [address] Result Comment: [facility] Pathology Report Case: [id number] Authorizing Provider: Dee Dee Martinez MD Collected: 07/20/2025 03:19 PM Ordering Location: [place] [address] Received: 07/20/2025 05:36 PM Pathologist: Lauro Salmeron MD Specimen: Lung, Left, Biopsy, LLL ENDOBRONCHIAL MASS EBBX Performed By: #### 6 6121-5 ####[facility] LABCLIA [id number] [place] [address] [place] FINAL DIAGNOSIS [facility] Comment on above: Order Comment: Speci men Type: TISSUE SPECIMENOrdering Facility: [facility] Address: [address] [place] [address] Result Comment: A. 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 at 0742 EDT Performed By: #### 6 6121-5 ####[facility] LABCLIA [id number] [address] [place] FINAL PERFORMING LAB Normal [facility] Comment on above: Order Comment: Speci men Type: TISSUE SPECIMENOrdering Facility: [facility] Address: [address] [place] [address] Result Comment: Diag nostic interpretation performed at: [facility], [address] [place] [address] CLIA# [id number] Senior Materials Analyst: Luis Armando Cardoza MD Performed By: #### 6 6121-5 ####[facility] LABCLIA [id number] [address] [address] [place] GROSS DESCRIPTION Normal [facility] Comment on above: Order Comment: Speci men Type: TISSUE SPECIMENOrdering Facility: [facility] Address: [address] [place] [address] Result Comment: Patricio Jiménez shagufta, Left, Biopsy Received in formalin labeled as LLL endobronchial mass EBBX are multiple pieces of hemorrhagic tissue aggregating to 2.0 x 1.2 x 0.7 cm. The tissue is totally submitted in 1 cassette. MLG 07/21/25 10:00 AM Gross examination performed at [facility], [address] [place] [address] Performed By: #### 6 6121-5 ####[facility] LABCLIA [id number] [address] [place] 12 Lead EKGon 07-19-2025 12 Lead EKG [facility] [address] [place] [address] 12 Lead EKG 07/19/25 1633 MR#: [id number] Acct: [id number] Name: GARRY HERNANDEZ Rep #: [id number] : 1980 45 From: Hao Candelario MD Attending Dr: Status: DEP ER [...] Confirmed by KELLEY DE PAZ, HAO ([id number]), book editor EVENS HENSON ([id number]) on 07/21/2025 8:00:49 AM Referred By: Confirmed By: HAO CANDELARIO MD 07/21/25 0800 Date Hao Candelario MD CC: Dr. Sylvester Morales MD; Dr. Rocky Fountain MD Signed [facility] 12 Lead EKG [facility] [address] [place] [address] 12 Lead EKG 07/19/25 1633 MR#: [id number] Acct: [id number] Name: GARRY HERNANDEZ Rep #: [id number] : 1980 45 From: Hao Candelario MD [...] Confirmed by KELLEY DE PAZ, HAO ([id number]), book editor EVENS HENSON ([id number]) on 07/21/2025 8:00:49 AM Referred By: Confirmed By: HAO CANDELARIO MD 07/21/25 0800 Date Hao Candelario MD CC: Dr. Sylvester Morales MD; Dr. Rocky Fountain MD Signed Normal [facility] Absolute lymphocyte countOrd ered By: Sylvester Morales on 07-19-2025 Lymphocytes Auto (Unsp spec) [#/Vol] 1.69 10*3/uL 0.83-4.51 [facility] Absolute neutrophil countOrd ered By: Sylvester Morales on 07-19-2025 Neutrophils (Bld) [#/Vol] 8.1 10*3/uL High 2.0-7.7 [facility] Activated partial thrombopla stin time (aPTT) in platelet poor plasma by coagulation aOrdered By: Sylvester Morales on 07-19-2025 aPTT Coag (PPP) [Time] 30.3 s 24.1-36.2 [facility] Anion gap in Serum or Plasma Ordered By: Sylvester Morales on 07-19-2025 Anion gap [Moles/Vol] 16 mmol/L High 5-15 [facility] Automated lymphocyte count a s percentage of total leukocytesOrdered By: Sylvester Morales on 07-19-2025 Lymphocytes/100 WBC Auto (Unsp spec) 15.4 % Low [facility] BUN/creatinine ratioOrdered By: Sylvester Morales on 07-19-2025 Urea nitrogen/Creatinine [Mass ratio] 17.1 mg/mg 08-10 [facility] Basic Metabolic Profile (BMP )on 07-19-2025 BUN/CRE 17.1 RATIO Normal 08-10 [facility] Comment on above: Performed By: #### L 300.4310, L501.4021, L300.3900, L500.2500, L100.0100 ####[facility] [address] [place], [place], [address] ECRCL 91.88 ml/min Normal 50 - 250 ml/min [facility]; [facility] Work Phone: Comment on above: Performed By: #### L 300.4310, L501.4021, L300.3900, L500.2500, L100.0100 ####[facility] [address] [facility] [place], [place], [address] GAP 16 Abnormal 5 - 15 [facility]; [facility] Work Phone: Comment on above: Performed By: #### L 300.4310, L501.4021, L300.3900, L500.2500, L100.0100 ####[facility] [address] [facility] [place], [address] Potassium [Moles/Vol] 3.6 mmol/L Normal 3.3 - 5.1 mmol/L [facility]; [facility] Work Phone: Comment on above: Result Comment: Hemo lysis present, Results??could be affected. ?? Performed By: #### L 300.4310, L501.4021, L300.3900, L500.2500, L100.0100 ####[facility] [address] [place], [address] Basophil percentageOrdered B y: Sylvester Morales on 07-19-2025 Basophils/100 WBC (Bld) 0.5 % 0-1 [facility] Bedside Glucoseon 07-19-2025 FINGERSTICK GLU 118 mg/dL High 74-106 [facility] Comment on above: Result Comment: [facility] OF PATIENT CARE PER NURSING PROTOCOL Performed By: #### L 501.080 #### [facility] [address] [place], [address] CBC W Auto Differential pane l (Bld)on 07-19-2025 Basophils (Bld) [#/Vol] 10*3/uL Normal <0.11 [facility] Comment on above: Order Comment: Speci men Type: BLOOD SPECIMENOrdering Facility: [facility] Address: [address] [place] [address] Performed By: #### 5 7021-8 ####[facility] LABCLIA [id number] [place] [address] [place] Basophils/100 WBC (Bld) 0.2 % Normal [facility] Comment on above: Order Comment: Speci men Type: BLOOD SPECIMENOrdering Facility: [facility] Address: [address] [place] [address] Performed By: #### 5 7021-8 ####[facility] LABCLIA [id number] [place] [address] [place] Differential cell count method Nom (Bld) Auto [facility] Comment on above: Order Comment: Speci men Type: BLOOD SPECIMENOrdering Facility: [facility] Address: [address] [place] [address] Performed By: #### 5 7021-8 ####[facility] LABCLIA [id number] [place] [address] [place] Eosinophils (Bld) [#/Vol] 10*3/uL Normal <0.46 [facility] Comment on above: Order Comment: Speci men Type: BLOOD SPECIMENOrdering Facility: [facility] Address: [address] [place] [address] Performed By: #### 5 7021-8 ####[facility] LABCLIA [id number] [place] [id number] [place] Eosinophils/100 WBC (Bld) 0.0 % [facility] Comment on above: Order Comment: Speci men Type: BLOOD SPECIMENOrdering Facility: [facility] Address: [address] [place] [address] Performed By: #### 5 7021-8 ####[facility] LABIA [id number] [place] [address] [place] Erythrocyte distribution width (RBC) [Ratio] 13.5 % Normal 11.5-15.0 [facility] Comment on above: Order Comment: Speci men Type: BLOOD SPECIMENOrdering Facility: [facility] Address: [address] [place] [address] Performed By: #### 5 7021-8 ####[facility] LABIA [id number] [place] [address] [place] Hematocrit (Bld) [Volume fraction] 40.6 % Normal 39.0-51.0 [facility] Comment on above: Order Comment: Speci men Type: BLOOD SPECIMENOrdering Facility: [facility] Address: [address] [place] [address] Performed By: #### 5 7021-8 ####[facility] LABIA [id number] [place] [id number] [place] Hemoglobin (Bld) [Mass/Vol] 13.8 g/dL Normal 13.0-17.0 [facility] Comment on above: Order Comment: Speci men Type: BLOOD SPECIMENOrdering Facility: [facility] Address: [address] [place] [address] Performed By: #### 5 7021-8 ####[facility] LABCLIA [id number] [place] [address] [place] Immature granulocytes (Bld) [#/Vol] 0.03 10*3/uL Normal <0.10 [facility] Comment on above: Order Comment: Speci men Type: BLOOD SPECIMENOrdering Facility: [facility] Address: [address] [place] [address] Performed By: #### 5 7021-8 ####[facility] LABCLIA [id number] [address] [place] Immature granulocytes/100 WBC (Bld) 0.3 % Normal [facility] Comment on above: Order Comment: Speci men Type: BLOOD SPECIMENOrdering Facility: [facility] Address: [address] [place] [address] Performed By: #### 5 7021-8 ####[facility] LABIA [id number] [place] [address] [place] Lymphocytes (Bld) [#/Vol] 0.68 10*3/uL Low 1.00-4.00 [facility] Comment on above: Order Comment: Speci men Type: BLOOD SPECIMENOrdering Facility: [facility] Address: [address] [place] [address] Performed By: #### 5 7021-8 ####[facility] LABCLIA [id number] [address] [place] Lymphocytes/100 WBC (Bld) 7.6 % Normal [facility] Comment on above: Order Comment: Speci men Type: BLOOD SPECIMENOrdering Facility: [facility] Address: [address] [place] [address] Performed By: #### 5 7021-8 ####[facility] LABIA [id number] [place] [address] [place] MCH (RBC) [Entitic mass] 27.1 pg Normal 26.0-34.0 [facility] Comment on above: Order Comment: Speci men Type: BLOOD SPECIMENOrdering Facility: [facility] Address: [address] [place] [address] Performed By: #### 5 7021-8 ####[facility] LABCLIA [id number] [place] [address] [place] MCHC (RBC) [Mass/Vol] 34.0 g/dL Normal 30.5-36.0 [facility] Comment on above: Order Comment: Speci men Type: BLOOD SPECIMENOrdering Facility: [facility] Address: [address] [place] [address] Performed By: #### 5 7021-8 ####[facility] LABCLIA [id number] [place] [address] [place] MCV (RBC) [Entitic vol] 79.8 fL Low 80.0-100.0 [facility] Comment on above: Order Comment: Speci men Type: BLOOD SPECIMENOrdering Facility: [facility] Address: [address] [place] [address] Performed By: #### 5 7021-8 ####[facility] LABIA [id number] [place] [address] [place] Monocytes (Bld) [#/Vol] 0.10 10*3/uL Normal <0.87 [facility] Comment on above: Order Comment: Speci men Type: BLOOD SPECIMENOrdering Facility: [facility] Address: [address] [place] [address] Performed By: #### 5 7021-8 ####[facility] LABCLIA [id number] [address] [place] Monocytes/100 WBC (Bld) 1.1 % Normal [facility] Comment on above: Order Comment: Speci men Type: BLOOD SPECIMENOrdering Facility: [facility] Address: [address] [place] [address] [place], [place] [address] Performed By: #### 5 7021-8 ####[facility] LABCLIA [id number] [address], [place] [address] [place] Neutrophils (Bld) [#/Vol] 8.08 10*3/uL High 1.45-7.50 [facility] Comment on above: Order Comment: Speci men Type: BLOOD SPECIMENOrdering Facility: [facility] Address: [address] [place] [address] Performed By: #### 5 7021-8 ####[facility] LABCLIA [id number] [address], [place] [address] [place] Neutrophils/100 WBC (Bld) 90.8 % Normal [facility] Comment on above: Order Comment: Speci men Type: BLOOD SPECIMENOrdering Facility: [facility] Address: [address] [place] [address] Performed By: #### 5 7021-8 ####[facility] LABCLIA [id number] [facility] [address] [place] [address], [facility] [place] Nucleated RBC (Bld) [#/Vol] 10*3/uL Normal <0.01 [facility] Comment on above: Order Comment: Speci men Type: BLOOD SPECIMENOrdering Facility: [facility] Address: [address] [place] [address] Performed By: #### 5 7021-8 ####[facility] LABCLIA [id number] [facility] [place] [id number] [place] Nucleated RBC/100 WBC (Bld) [Ratio] 0.0 /100 WBC Normal [facility] Comment on above: Order Comment: Speci men Type: BLOOD SPECIMENOrdering Facility: [facility] Address: [address] [place] [address] Performed By: #### 5 7021-8 ####[facility] LABCLIA [id number] [address], [facility] [place] Platelet mean volume (Bld) [Entitic vol] 10.6 fL Normal 9.0-12.7 [facility] Comment on above: Order Comment: Speci men Type: BLOOD SPECIMENOrdering Facility: [facility] Address: [address] [place] [address] Performed By: #### 5 7021-8 ####[facility] LABCLIA [id number] [place] [address] [place] Platelets (Bld) [#/Vol] 305 10*3/uL Normal 150-400 [facility] Comment on above: Order Comment: Speci men Type: BLOOD SPECIMENOrdering Facility: [facility] Address: [address] [place] [address] Performed By: #### 5 7021-8 ####[facility] LABCLIA [id number] [place] [address] [place] RBC (Bld) [#/Vol] 5.09 10*6/uL Normal 4.20-6.00 [facility] Comment on above: Order Comment: Speci men Type: BLOOD SPECIMENOrdering Facility: [facility] Address: [address] [place] [address] Performed By: #### 5 7021-8 ####[facility] LABIA [id number] [place] [address] [place] WBC (Bld) [#/Vol] 8.91 10*3/uL Normal 3.70-11.00 [facility] Comment on above: Order Comment: Speci men Type: BLOOD SPECIMENOrdering Facility: [facility] Address: [address] [place] [address] Performed By: #### 5 7021-8 ####[facility] LABCLIA [id number] [place] [id number] [place] CBC W/Diff, Automatedon 09-2 Absolute Lymph 1.69 X10 3/uL Normal 0.83-4.51 [facility] Comment on above: Performed By: #### L 300.4310, L501.4021, L300.3900, L500.2500, L100.0100 #### [facility] [address] [place], [address] Absolute Neut 8.1 X10 3/uL High 2.0-7.7 [facility] Comment on above: Performed By: #### L 300.4310, L501.4021, L300.3900, L500.2500, L100.0100 #### [facility] [address] [place], [address] Basophils/100 WBC (Bld) 0.5 % Normal 0-1 [facility] Comment on above: Performed By: #### L 300.4310, L501.4021, L300.3900, L500.2500, L100.0100 #### [facility] [address] [place], [address] Eosinophils/100 WBC (Bld) 0.6 % Normal 0-5 [facility] Comment on above: Performed By: #### L 300.4310, L501.4021, L300.3900, L500.2500, L100.0100 #### [facility] [address] [place], [address] Erythrocyte distribution width (RBC) [Ratio] 13.4 % Normal 11.6-14.6 [facility] Comment on above: Performed By: #### L 300.4310, L501.4021, L300.3900, L500.2500, L100.0100 #### [facility] [address] [place], [address] Hematocrit (Bld) [Volume fraction] 40.1 % Normal 40-54 [facility] Comment on above: Performed By: #### L 300.4310, L501.4021, L300.3900, L500.2500, L100.0100 #### [facility] [address] [place], [address] Hemoglobin (Bld) [Mass/Vol] 13.5 g/dL Normal 13.0-16.5 [facility] Comment on above: Performed By: #### L 300.4310, L501.4021, L300.3900, L500.2500, L100.0100 #### [facility] [address] [place], [address] IG% 0.500 Normal 0.0-0.9 [facility] Comment on above: Result Comment: IG% - Immature Granulocytes (promyelocytes, myelocytes and metamyelocytes) > 1% indicates that a LEFT SHIFT is Present. Performed By: #### L 300.4310, L501.4021, L300.3900, L500.2500, L100.0100 #### [facility] [address] [place], [address] Lymphocytes/100 WBC (Bld) 15.4 % Low 19-41 [facility] Comment on above: Performed By: #### L 300.4310, L501.4021, L300.3900, L500.2500, L100.0100 #### [facility] [address] [place], [address] MCH (RBC) [Entitic mass] 26.8 pg Low 27.0-32.0 [facility] Comment on above: Performed By: #### L 300.4310, L501.4021, L300.3900, L500.2500, L100.0100 #### [facility] [address] [place], [address] MCHC (RBC) [Mass/Vol] 33.7 g/dL Normal 32-36 [facility] Comment on above: Performed By: #### L 300.4310, L501.4021, L300.3900, L500.2500, L100.0100 #### [facility] [address] [place], [address] MCV (RBC) [Entitic vol] 79.7 fL Low 80-94 [facility] Comment on above: Performed By: #### L 300.4310, L501.4021, L300.3900, L500.2500, L100.0100 #### [facility] [address] [place], [address] Monocytes/100 WBC (Bld) 9.0 % Normal 0-10 [facility] Comment on above: Performed By: #### L 300.4310, L501.4021, L300.3900, L500.2500, L100.0100 #### [facility] [address] [place], [address] Neutrophils/100 WBC (Bld) 74.0 % High 47-70 [facility] Comment on above: Performed By: #### L 300.4310, L501.4021, L300.3900, L500.2500, L100.0100 #### [facility] [address] [place], [address] Nucleated RBC (Bld) [#/Vol] 0 10*3/uL Normal 0-5 [facility] Comment on above: Performed By: #### L 300.4310, L501.4021, L300.3900, L500.2500, L100.0100 #### [facility] [address] [place], [address] Platelet mean volume (Bld) [Entitic vol] 10.4 fL Normal 6.2-12.0 [facility] Comment on above: Performed By: #### L 300.4310, L501.4021, L300.3900, L500.2500, L100.0100 #### [facility] [address] [place], [address] Platelets (Bld) [#/Vol] 318 10*3/uL Normal 150-450 [facility] Comment on above: Performed By: #### L 300.4310, L501.4021, L300.3900, L500.2500, L100.0100 #### [facility] [address] [place], [address] RBC (Bld) [#/Vol] 5.03 10*6/uL Normal 4.6-6.2 [facility] Comment on above: Performed By: #### L 300.4310, L501.4021, L300.3900, L500.2500, L100.0100 #### [facility] [address] [place], [address] RDW SD 37.8 fl Normal 35.1-43.9 [facility] Comment on above: Performed By: #### L 300.4310, L501.4021, L300.3900, L500.2500, L100.0100 #### [facility] [address] [place], [address] WBC (Bld) [#/Vol] 11.0 10*3/uL Normal 4.4-11.0 [facility] Comment on above: Performed By: #### L 300.4310, L501.4021, L300.3900, L500.2500, L100.0100 #### [facility] [address] [place], [address] CONFIRM BLOOD TYPEon 025 ABO O Normal [facility] Comment on above: Order Comment: Speci men Type: BLOOD SPECIMENOrdering Facility: [facility] Address: [address] [place] [address] Performed By: #### C ONABO ####CC MAIN BLOOD BANKCLIA [id number] [facility] [place], [place] [address] [place] Rh Nom (Bld) Positive Normal [facility] Comment on above: Order Comment: Speci men Type: BLOOD SPECIMENOrdering Facility: [facility] Address: [address] [place] [place] [id number] Performed By: #### C ONABO ####CC MAIN BLOOD BANKCLIA [id number] [facility] [place]TF[place] [address] [place] Carbon dioxide, total [Moles /volume] in Central venous bloodon 07-19-2025 CO2 [Moles/Vol] 22.7 mmol/L Normal 21.0 - 32.0 mmol/L [facility] Work Phone: Comment on above: Performed By: #### L 300.4310, L501.4021, L300.3900, L500.2500, L100.0100 ####[facility] [id number] [facility] [place], [place], [address] Chest 1 Viewon 07-19-2025 Chest 1 View [facility] Imaging Services [address] [place], [place] [address] Chest 1 View MR#: [id number] Acct: [id number] Name: GARRY HERNANDEZ Rep #: [id number] : 1980 M 45 From: Sunny Dave MD PCP: Dr. Rocky Fountain MD Status: REG ER Study: Chest 1 View Date of Exam: 07/19/25 Exam# [id number] Ordering Dr: Sylvester Morales MD PROCEDURE: CHEST 1 VIEW 07/19/2025 REASON FOR EXAM: NEURO DEFICIT, ACUTE, STROKE SUSPECTED TECHNIQUE: Frontal view of the chest. COMPARISON: None. FINDINGS: Lungs/Pleura: Clear. Heart/Mediastinum: Normal in size. Bones/Soft tissues: Unremarkable. RAD/Chest 1 View IMPRESSION: No acute cardiopulmonary disease. Reading Location: [facility] CC: Dr. Sylvester Morales MD; Dr. Rocky Fountain MD Jewel Hole Rough Opener: Signed Normal [facility] Chest 1 View [facility] Imaging Services [address] [place], [place] [address] Chest 1 View MR#: [id number] Acct: [id number] Name: GARRY HERNANDEZ Rep #: [id number] : 1980 M 45 From: Sunny Dave MD PCP: Dr. Rocky Fountain MD Status: DEP ER Study: Chest 1 View Date of Exam: 07/19/25 Exam# [id number] Ordering Dr: Sylvester Morales MD PROCEDURE: CHEST 1 VIEW 07/19/2025 REASON FOR EXAM: NEURO DEFICIT, ACUTE, STROKE SUSPECTED TECHNIQUE: Frontal view of the chest. COMPARISON: None. FINDINGS: Lungs/Pleura: Clear. Heart/Mediastinum: Normal in size. Bones/Soft tissues: Unremarkable. RAD/Chest 1 View IMPRESSION: No acute cardiopulmonary disease. Reading Location: [facility] CC: Dr. Sylvester Morales MD; Dr. Rocky Fountain MD Jewel [place] Rough Opener: Signed Normal [facility] Chloride assayon 07-19-2025 Chloride [Moles/Vol] 95 mmol/L Abnormal 98 - 10 8 mmol/L [facility] Work Phone: Comment on above: Performed By: #### L 300.4310, L501.4021, L300.3900, L500.2500, L100.0100 ####[facility] [address] [place], [place], [address] Comprehensive metabolic 2000 panelon 07-19-2025 Albumin [Mass/Vol] 4.6 g/dL Normal 3.9-4.9 [facility] Comment on above: Order Comment: Speci men Type: BLOOD SPECIMENOrdering Facility: [facility] Address: [address] [place] [address] Performed By: #### 2 4323-8, 67057-8, 2777-1 ####[facility] LABCLIA [id number] [place] [address] [place] ALP [Catalytic activity/Vol] 269 U/L High 38-113 [facility] Comment on above: Order Comment: Speci men Type: BLOOD SPECIMENOrdering Facility: [facility] Address: [address] [place], [place] [address] Performed By: #### 2 4323-8, , 2776-10 ####[facility] LABCLIA [id number] [place] [id number] [place] ALT [Catalytic activity/Vol] 13 U/L Normal 10-54 [facility] Comment on above: Order Comment: Speci men Type: BLOOD SPECIMENOrdering Facility: [facility] Address: [address] [place] [address] Performed By: #### 2 4323-8, , 2776-10 ####[facility] LABCLIA [id number] [place] [id number] [place] Anion gap [Moles/Vol] 12 mmol/L Normal 8-15 [facility] Comment on above: Order Comment: Speci men Type: BLOOD SPECIMENOrdering Facility: [facility] Address: [address] [place] [address] Performed By: #### 2 4323-8, , 2776-10 ####[facility] LABIA [id number] [place] [address] [place] AST [Catalytic activity/Vol] 9 U/L Low 14-40 [facility] Comment on above: Order Comment: Speci men Type: BLOOD SPECIMENOrdering Facility: [facility] Address: [address] [place], [place] [address] Performed By: #### 2 4323-8, , 2776-10 ####[facility] LABCLIA [id number] [address] [address] [place] Bilirubin [Mass/Vol] 0.3 mg/dL Normal 0.2-1.3 [facility] Comment on above: Order Comment: Speci men Type: BLOOD SPECIMENOrdering Facility: [facility] Address: [address] [place] [address] Performed By: #### 2 4323-8, , 2776-10 ####[facility] LABCLIA [id number] [address] [address] [place] Calcium [Mass/Vol] 12.2 mg/dL High 8.5-10.2 [facility] Comment on above: Order Comment: Speci men Type: BLOOD SPECIMENOrdering Facility: [facility] Address: [address] [place], [place] [address] Performed By: #### 2 4323-8, , 2776-10 ####[facility] LABCLIA [id number] [address] [address] [place] Chloride [Moles/Vol] 96 mmol/L Low 98-107 [facility] Comment on above: Order Comment: Speci men Type: BLOOD SPECIMENOrdering Facility: [facility] Address: [address] [place], [place] [address] Performed By: #### 2 4323-8, , 2776-10 ####[facility] LABCLIA [id number] [place] [id number] [place] CO2 [Moles/Vol] 26 mmol/L Normal 22-30 [facility] Comment on above: Order Comment: Speci men Type: BLOOD SPECIMENOrdering Facility: [facility] Address: [address] [place] [address] Performed By: #### 2 4323-8, , 2776-10 ####[facility] LABCLIA [id number] [address] [address] [place] Creatinine [Mass/Vol] 0.89 mg/dL Normal 0.73-1.22 [facility] Comment on above: Order Comment: Speci men Type: BLOOD SPECIMENOrdering Facility: [facility] Address: [address] [place] [address] Performed By: #### 2 4323-8, 39831-7, 2776-10 ####[facility] [id number] [place] [id number] [place] eGFRcr SerPlBld CKD-EPI 2020 107 mL/min/1.73m??? Normal >=60 [facility] Comment on above: Order Comment: Jihan neri Type: BLOOD SPECIMENOrdering Facility: [facility] Address: [address] [place] [address] Result Comment: Rhonda mated Glomerular Filtration Rate [...] actual GFR. Performed By: #### 2 4323-8, 98268-2, 2776-10 ####[facility] LABIA [id number] [address] [address] [place] Glucose [Mass/Vol] 138 mg/dL High 74-99 [facility] Comment on above: Order Comment: Jihan neri Type: BLOOD SPECIMENOrdering Facility: [facility] Address: [address] [place] [address] Result Comment: The [place] [employer] (ADA) provides guidance for cutoff [...] Standards of Medical Care in Diabetes 2016, [place] [employer]. Diabetes Care. 2016.39(Suppl 1). Performed By: #### 2 4323-8, , 2776-10 ####[facility] LABIA [id number] [address] [address] [place] Potassium [Moles/Vol] 4.2 mmol/L Normal 3.7-5.1 [facility] Comment on above: Order Comment: Speci men Type: BLOOD SPECIMENOrdering Facility: [facility] Address: [address] [place] [address] Performed By: #### 2 4323-8, , 2776-10 ####[facility] LABIA [id number] [place] [id number] [place] Protein [Mass/Vol] 8.0 g/dL Normal 6.3-8.0 [facility] Comment on above: Order Comment: Speci men Type: BLOOD SPECIMENOrdering Facility: [facility] Address: [address] [place] [address] Performed By: #### 2 4323-8, , 2776-10 ####[facility] [id number] [place] [id number] [place] Urea nitrogen [Mass/Vol] 15 mg/dL Normal 9-24 [facility] Comment on above: Order Comment: Speci men Type: BLOOD SPECIMENOrdering Facility: [facility] Address: [address] [place], [place] [address] Performed By: #### 2 4323-8, , 2776-10 ####[facility] [id number] [address] [address] [place] ECG COMPLETEon 07-19-2025 ECG COMPLETE Ventricular Rate : 6 0 BPM Atrial Rate : 60 BPM P-R Interval : 168 ms QRS Duration : 84 ms Q-T Interval : 418 ms QTC Calculation(Bazett) : 418 ms Calculated P Garibaldi : 59 degrees Calculated R Garibaldi : 45 degrees Calculated T Garibaldi : 54 degrees NORMAL SINUS RHYTHM NORMAL ECG Confirmed by JHONNY RAO MD ([id number]) on 08/22/2025 2:11:39 PM NAME : GARRY HERNANDEZ PID : [id number] : 1980 Gender : Male Race : ORD : [id number] Procedure Date : Jul 19 2025 22:00:34 Edit Date : Aug 22 2025 14:11:44 Diagnosis: NORMAL SINUS RHYTHM NORMAL ECG Confirmed by JHONNY RAO MD ([id number]) on 08/22/2025 2:11:39 PM Test Reason : Vasogenic edema Location : 63 : H60 H060-44 Overread By : JHONNY RAO MD Edited By : JHONNY RAO MD Referred By : JAMIN MORALES Acquired by : MARLA YUSUF [facility] Electrocardiogram reportOrde red By: Hao Candelario on 07-19-2025 EKG study [facility] Cardiovascular Services [address] [place] [address] 12 Lead EKG 07/19/25 1633 MR#: [id number] Acct: [id number] Name: GARRY HERNANDEZ Rep #:[id number] : 1980 45 From: Hao Candelario MD [...] Normal ECG Confirmed by HAO CANDELARIO MD ([id number]), book editor EVENS HENSON ([id number]) on 58:00:49 AM Referred By: Confirmed By: HAO CANDELARIO MD 07/21/25 0800 Date _ Hao Candelario MD CC: Dr. Sylvester Morales MD; Dr. Rocky Fountain MD ~ Signed [facility] Other Phone: Emergency Department Summary on 07-19-2025 Emergency Department Summary [facility] Medical Records Department [address] [place] [address] Emergency Department Summary 07/19/25 MR#: [id number] Acct: [id number] Name: GARRY HERNANDEZ Rep #: [id number] : 1980 45 From: Sylvester Morales MD [...] Trauma, Fall or Assault Narrative Narrative: 45-year-old [place] male history of anxiety. He has been [...] EXAM Physical Exam Narrative Exam Narrative: 45-year-old [place] male lying in bed. Vital signs are [...] all 4 extremities. 5 out of 5 hand or machine paster strength. Dorsi plantarflexion intact. Fingertip to nose [...] well nourished (more content not included)... Normal [facility] Emergency Department Summary [facility] Medical Records Department [address] [place] [address] Emergency Department Summary 07/19/25 MR#: [id number] Acct: [id number] Name: GARRY HERNANDEZ Rep #: [id number] : 1980 45 From: Sylvester Morales MD [...] Trauma, Fall or Assault Narrative Narrative: 45-year-old [place] male history of anxiety. He has been [...] EXAM Physical Exam Narrative Exam Narrative: 45-year-old [place] male lying in bed. Vital signs are [...] all 4 extremities. 5 out of 5 hand or machine paster strength. Dorsi plantarflexion intact. Fingertip to nose [...] well nourished (more content not included)... Normal [facility] Eosinophil percentageOrdered By: Sylvester Morales on 07-19-2025 Eosinophils/100 WBC (Bld) 0.6 % 0-5 [facility] Erythrocyte distribution wid th ratioOrdered By: Sylvester Morales on 07-19-2025 Erythrocyte distribution width (RBC) [Ratio] 13.4 % 11.6-14.6 [facility] Erythrocyte distribution wid th standard deviationOrdered By: Sylvester Morales on 07-19-2025 Erythrocyte distribution width (RBC) [Ratio] 37.8 fl 35.1-43.9 [facility] Glomerular filtration rate ( GFR) estimation/1.73 sq m using serum, plasma, or whole bon 07-19-2025 GFR/1.73 sq M.predicted among non-blacks MDRD (S/P/Bld) [Vol rate/Area] 105 mL/min/{1.73_m2} Normal [facility] Work Phone: Comment on above: mL/min/1.73m2 CKD-EP I Creatinine Equation (2020) Result Comment: mL/m in/1.73m2 CKD-EPI Creatinine Equation (2020) Performed By: #### L 300.4310, L501.4021, L300.3900, L500.2500, L100.0100 ####[facility] [address] [place], [place], [address] Hematocrit Auto (Bld) [Volum e fraction]Ordered By: Sylvester Morales on 07-19-2025 Hematocrit (Bld) [Volume fraction] 40.1 % 40-54 [facility] Hemoglobin measurementOrdere d By: Sylvester Morales on 07-19-2025 Hemoglobin (Bld) [Mass/Vol] 13.5 g/dL 13.0-16.5 [facility] Immature granulocytes/100 WB C Auto (Bld)Ordered By: Sylvester Morales on 07-19-2025 Immature granulocytes/100 WBC (Bld) 0.500 % 0.0-0.9 [facility] Comment on above: IG% - Immature Granu locytes (promyelocytes, myelocytes and metamyelocytes) > 1% indicates that a LEFT SHIFT is Present. International normalized rat io (INR) calculationOrdered By: Sylvester Morales on 07-19-2025 INR Coag (Bld) [Relative time] 1.1 {INR} [facility] L501.4021on 07-19-2025 Trop T High Sen 23 ng/L Abnormal [facility], [facility] Work Phone: Comment on above: Performed By: #### L 300.4310, L501.4021, L300.3900, L500.2500, L100.0100 ####[facility] [address] [place], [place], [address] Laboratory - Chemistry and C hemistry - challengeon 07-19-2025 Magnesium [Mass/Vol] 118 mg/dL Abnormal 74 - 10 6 mg/dL [facility], [facility]. Work Phone: MCV (mean corpuscular volume ) determinationOrdered By: Sylvester Morales on 07-19-2025 MCV (RBC) [Entitic vol] 79.7 fL Low 80-94 [facility] Magnesium SerPl-mCncon 07-19 Magnesium [Mass/Vol] 2.2 mg/dL Normal 1.7-2.3 [facility] Comment on above: Order Comment: Speci men Type: BLOOD SPECIMENOrdering Facility: [facility] Address: [address] [place] [address] Performed By: #### 2 4323-8, 03992-8, 2777-1 ####[facility] LABCLIA [id number] [address] [address] [place] Mean corpuscular hemoglobin (MCH) determinationOrdered By: Sylvester Morales on 07-19-2025 MCH (RBC) [Entitic mass] 26.8 pg Low 27.0-32.0 [facility] Mean corpuscular hemoglobin concentration (MCHC) determinationOrdered By: Sylvester Morales on 07-19-2025 MCHC (RBC) [Mass/Vol] 33.7 g/dL 32-36 [facility] Mean platelet volume determi nationOrdered By: Sylvester Morales on 07-19-2025 Platelet mean volume (Bld) [Entitic vol] 10.4 fL 6.2-12.0 [facility] Monocyte percentageOrdered B y: Sylvester Morales on 07-19-2025 Monocytes/100 WBC (Bld) 9.0 % 0-10 [facility] NURSING PROGon 07-19-2025 NURSING PROG HNO ID: [id number] Author: NAPOLEON SIMON RN Service: ? Author Type: Registered Nurse Type: Nursing Progress Note Filed: 07/19/2025 21:39 Note Text: Transfer Note: PATIENT NAME: Garry Hernandez Patient Location: [place] [address] Room: [place] [address] Patient transferred into room/unit 0-44 in stable condition. Actions taken: Patient belongings with patient Normal [facility] Neutrophil percentageOrdered By: Sylvester Morales on 07-19-2025 Neutrophils/100 WBC (Bld) 74.0 % High 47-70 [facility] No Panel Informationon 07-19 BUN/CRE 17.1 {RATIO} Normal 10 - 20 {RATIO} [facility] Work Phone: Nucleated red blood cell per centageOrdered By: Sylvester Morales on 07-19-2025 Nucleated RBC/100 WBC (Bld) [Ratio] 0 % 0-5 [facility] PT panel Coag (PPP)on 2024 INR Coag (PPP) [Relative time] 1.1 {INR} Normal 0.9-1.3 [facility] Comment on above: Order Comment: Speci men Type: BLOOD SPECIMENOrdering Facility: [facility] Address: [address] [place] [address] Result Comment: Kena min K Antagonist (VKA) Therapeutic Range: INR 2 to 3 (Target INR of 2.5) Note: For patients treated with VKA drugs, such as warfarin, the [place] [employer] 2012 Guideline recommends [...] Chest 2012, 141:7S-47S Nasra RA, et al. [facility] 2017, 70: 252-289 Performed By: #### 3 4528-0, 69538-3 ####[facility] [id number] [address] [address] [place] PT Coag (PPP) [Time] 11.7 s Normal 9.7-13.0 [facility] Comment on above: Order Comment: Speci men Type: BLOOD SPECIMENOrdering Facility: [facility] Address: [address] [place] [id number] Performed By: #### 3 4528-0, 96022-6 ####[facility] [id number] [address] [address] [place] Partial Thromboplast Timeon 07-19-2025 aPTT Coag (Bld) [Time] 30.3 s Normal 24.1-36.2 [facility] Comment on above: Performed By: #### L 300.4310, L501.4021, L300.3900, L500.2500, L100.0100 #### [facility] [address] [place], [address] Phosphate SerPl-mCncon 07-19 Phosphate [Mass/Vol] 3.3 mg/dL Normal 2.7-4.8 [facility] Comment on above: Order Comment: Speci men Type: BLOOD SPECIMENOrdering Facility: [facility] Address: [address] [place] [address] Performed By: #### 2 4323-8, 87971-5, 2777-1 ####[facility] LABCLIA [id number] [place] JUNCTIONDESK [address] [address] [place] Platelet countOrdered By: Tani Morales on 07-19-2025 Platelets (Bld) [#/Vol] 318 10*3/uL 150-450 [facility] Potassium measurement (mass/ volume)Ordered By: Sylvester Morales on 07-19-2025 Potassium (Unsp spec) [Mass/Vol] 3.6 mmol/L 3.3-5.1 [facility] Comment on above: Hemolysis present, R esults could be affected. Prothrombin Time w/INRon INR Coag (PPP) [Relative time] 1.1 {INR} Normal [facility] Comment on above: Performed By: #### L 300.4310, L501.4021, L300.3900, L500.2500, L100.0100 #### [facility] [address] [place], [address] PT Coag (PPP) [Time] 14.0 s Normal 11.7-14.9 [facility] Comment on above: Performed By: #### L 300.4310, L501.4021, L300.3900, L500.2500, L100.0100 #### [facility] [address] [place], [address] Prothrombin timeOrdered By: Sylvester Morales on 07-19-2025 PT Coag (PPP) [Time] 14.0 s 11.7-14.9 [facility] RBC Auto (Bld) [#/Vol]Ordere d By: Sylvester Morales on 07-19-2025 RBC (Bld) [#/Vol] 5.03 10*6/uL 4.6-6.2 [facility] STAPHYLOCOCCUS AUREUS AND MR SA SCREEN, PCR, NASALon 07-19-2025 S. aureus and MRSA panel BIANCA+probe (Nose) Not detected Normal Not Detected [facility] Comment on above: Order Comment: Speci men Type: SWABOrdering Facility: [facility] Address: [address] [place] [address] Performed By: #### S APCR ####[facility] LABCLIA [id number] [facility] [address] OF [facility] STROKE Brain/Head without Co nton 07-19-2025 STROKE Brain/Head without Cont [facility] Imaging Services [address] [place], [place] [address] STROKE Brain/Head without Cont MR#: [id number] Acct: [id number] Name: Garry Hernandez Rep #: [id number] : 1980 M 45 From: Sherri Segura MD PCP: Status: PRE ER Study: STROKE Brain/Head without Cont Date of Exam: 0 07/19/25 Exam# [id number] Ordering Dr: Sylvester Morales MD PROCEDURE: STROKE [...] 4:20 pm with readback verification. Reading Location: [facility] CC: Dr. Sylvester Morales MD [place] Rough Opener: Signed Normal [facility] STROKE Brain/Head without Cont [facility] Imaging Services [address] [place] [address] [id number] STROKE Brain/Head without Cont MR#: [id number] Acct: [id number] Name: GARRY HERNANDEZ Rep #: [id number] : 1980 M 45 From: Sherri Segura MD PCP: Dr. Rocky Fountain MD Status: [facility] Study: STROKE Brain/Head without Cont Date of Exam: 0 07/19/25 Exam# [id number] Ordering Dr: Sylvester Morales MD PROCEDURE: STROKE [...] 4:20 pm with readback verification. Reading Location: [facility] CC: Dr. Sylvester Morales MD; Dr. Rocky Fountain MD [place] Rough Opener: Signed Normal [facility] STROKE CTA Head AND Neck W/C onon 07-19-2025 STROKE CTA Head AND Neck W/Con [facility] Imaging Services [address] [place] [address] [id number] STROKE CTA Head AND Neck W/Con MR#: [id number] Acct: [id number] Name: GARRY HERNANDEZ Rep #: [id number] : 1980 M 45 From: Sherri Segura MD PCP: Dr. Rocky Fountain MD Status: [facility] ER Study: STROKE CTA Head AND Neck W/Con Date of Exam: 0 07/19/25 Exam# [id number] Ordering Dr: Sylvester Morales MD PROCEDURE: STROKE [...] nodules at the lung apices. Reading Location: [id number] CC: Dr. Sylvester Morales MD; Dr. Rocky Fountain MD [place] Rough Opener: Signed Normal [facility] STROKE CTA Head AND Neck W/Con [facility] Imaging Services [address] [place] [address] STROKE CTA Head AND Neck W/Con MR#: [id number] Acct: [id number] Name: GARRY HERNANDEZ Rep #: [id number] : 1980 M 45 From: Sherri Segura MD PCP: Dr. Rocky Fountain MD Status: DEP Study: STROKE CTA Head AND Neck W/Con Date of Exam: 0 07/19/25 Exam# [id number] Ordering Dr: Sylvester Morales MD PROCEDURE: STROKE [...] nodules at the lung apices. Reading Location: [id number] CC: Dr. Sylvester Morales MD; Dr. Rocky Fountain MD [place] Rough Opener: Signed Normal [facility] Serum creatinine measurement (mass/volume)on 07-19-2025 Creatinine [Mass/Vol] 0.91 mg/dL Normal 0.70 - 1.20 mg/dL [facility] Work Phone: Comment on above: Performed By: #### L 300.4310, L501.4021, L300.3900, L500.2500, L100.0100 ####[facility] [address] [place], [address] Serum glucose measurement (m ass/volume)on 07-19-2025 Glucose [Mass/Vol] 118 mg/dL Abnormal 70 - 99 mg/dL [facility] Work Phone: Comment on above: MANAGEMENT OF PATIEN T CARE PER NURSING PROTOCOL Performed By: #### L 300.4310, L501.4021, L300.3900, L500.2500, L100.0100 ####[facility] [address] [facility] [place], [address] Serum or plasma calcium anni urement (mass/volume)on 07-19-2025 Calcium [Mass/Vol] 12.3 mg/dL Abnormal 7.6 - 11. 0 mg/dL [facility] Work Phone: Comment on above: Performed By: #### L 300.4310, L501.4021, L300.3900, L500.2500, L100.0100 ####[facility] [id number] [place], [place], [address] Serum or plasma urea nitroge n measurement (mass/volume)on 07-19-2025 Urea nitrogen [Mass/Vol] 16 mg/dL Normal 4 - 19 mg/d L [facility] Work Phone: Comment on above: Performed By: #### L 300.4310, L501.4021, L300.3900, L500.2500, L100.0100 ####[facility] [address] [place], [place], [id number] Sodium levelon 07-19-2025 Sodium [Moles/Vol] 134 mmol/L Low 136-[address] [facility] Work Phone: Comment on above: Performed By: #### L 300.4310, L501.4021, L300.3900, L500.2500, L100.0100 ####[facility] [address] [place], [place], [id number] Order Comment: Speci men Type: BLOOD SPECIMENOrdering Facility: [facility] Address: [address] [place] [address] Performed By: #### 2 4323-8, 36586-3, 2777-1 ####[facility] LABCLIA [id number] [place] [address] [place] TYPE + SCREENon 07-19-2025 ABO O Normal [facility] Comment on above: Order Comment: Speci men Type: BLOOD SPECIMENOrdering Facility: [facility] Address: [address] [place] [address] Performed By: #### T SCR ####CC [facility] BLOOD BANKCLIA [id number] [place] [address] [place] Rh Nom (Bld) Positive Normal [facility] Comment on above: Order Comment: Speci men Type: BLOOD SPECIMENOrdering Facility: [facility] Address: [address] [place] [address] Performed By: #### T SCR ####CC MAIN BLOOD BANKCLIA [id number] [address] [address] [place] TYPE AND SCREEN EXPIRATION 07/22/2025 23:59 Normal [facility] Comment on above: Order Comment: Speci men Type: BLOOD SPECIMENOrdering Facility: [facility] Address: [address] [place], [place] [id number] Performed By: #### T SCR ####CC MAIN BLOOD BANKCLIA [id number] [address] [place] Troponin T HS 2 HRon 025 Trop T High Sen Normal <=22 [facility] Comment on above: Result Comment: Angelica elled via OM: Ordered Performed By: #### L 499.0042 #### [facility] Laboratory [address] [place], [place], [address] Troponin T HS 4 HRon 025 Trop T High Sen Normal <=22 [facility] Comment on above: Result Comment: Angelica fernandez via OM: Ordered Performed By: #### L 499.0043 ####[facility] [address] [place], [place], [address] Troponin T.cardiac [Mass/vol ume] in Serum or Plasma by High sensitivity methodOrdered By: Sylvester Morales on 07-19-2025 Troponin T.cardiac High sensitivity method [Mass/Vol] 23 ng/L High <22 [facility] White blood cell (WBC) count Ordered By: Sylvester Morales on 07-19-2025 WBC (Bld) [#/Vol] 11.0 10*3/uL 4.4-11.0 [facility] XR CHEST 1V FRONTAL PORTon 0 07-19-2025 [...] cardiomediastinal silhouette. Other: . IMPRESSION: See result. [place] Rough Opener: PSCB Transcribe Date/Time: Jul 20 2025 7:06A Dictated by : DIMA IBARRA MD This examination was interpreted and the report reviewed and electronically signed by: DIMA IBARRA MD on Jul 20 2025 7:08AM EST [id number] Normal [facility] aPTT PPPon 07-19-2025 aPTT Coag (PPP) [Time] 31.9 s Normal 23.0-32.4 [facility] Comment on above: Order Comment: Speci men Type: BLOOD SPECIMENOrdering Facility: [facility] Address: [address] [place] [address] Performed By: #### 3 4528-0, 34245-6 ####[facility] LABCLIA [id number] [place] [address] [place] Laboratory - Chemistry and C hemistry - challengeon 07-16-2025 ALP [Catalytic activity/Vol] 278 U/L Abnormal 47 - 123 [iU]/L [employer]. Work Phone: ALP Bone [Catalytic fraction] 30 % Normal 12 - 68 % [employer]. Work Phone: ALP Intest [Catalytic fraction] 0 % Normal 0 - 18 % [employer], [employer]. Work Phone: ALP Liver [Catalytic fraction] 70 % Normal 13 - 88 % [facility].; [facility] Work Phone: Calcium.ionized ISE [Mass/Vol] 6.0 mg/dL Abnormal 4.5 - 5.6 mg/dL [facility].; [facility] Work Phone: Ferritin [Mass/Vol] 328 ng/mL Normal 30 - 400 ng/mL [facility]; [facility] Iron [Mass/Vol] 38 ug/dL Normal 38 - 169 ug/dL [facility]; [facility] Iron binding capacity [Mass/Vol] 264 ug/dL Normal 250 - 450 ug/dL [facility].; [facility] Iron binding capacity.unsaturated [Mass/Vol] 226 ug/dL Normal 111 - 343 ug/dL [facility]; [facility], [facility] Iron saturation [Mass fraction] 14 % Abnormal 15 - 55 % [facility]; [facility] Laboratory - Chemistry and C hemistry - challengeon 07-10-2025 Albumin [Mass/Vol] 4.6 g/dL Normal 4.1 - 5.1 g/dL [facility]; [facility] ALP [Catalytic activity/Vol] 250 U/L Abnormal 47 - 123 [iU]/L [facility]; [facility], [facility]. ALT [Catalytic activity/Vol] 24 U/L Normal 0 - 44 [iU]/L [facility].; [facility], [facility]. AST [Catalytic activity/Vol] 14 U/L Normal 0 - 40 [iU]/L [facility].; [facility], [facility] Bilirubin [Mass/Vol] mg/dL Normal 0.0 - 1 .2 mg/dL [facility]; [facility], [facility] Calcium [Mass/Vol] 11.4 mg/dL Abnormal 8.7 - 10. 2 mg/dL [facility].; [facility], [facility] Chloride [Moles/Vol] 100 mmol/L Normal 96 - 10 6 mmol/L [facility].; [facility], [facility] CO2 [Moles/Vol] 24 mmol/L Normal 20 - 29 mmol/L [facility].; [facility], [facility] Creatinine [Mass/Vol] 0.91 mg/dL Normal 0.76 - 1.27 mg/dL [facility].; [facility], [facility] GFR/1.73 sq M.predicted among non-blacks MDRD (S/P/Bld) [Vol rate/Area] 105 mL/min/{1.73_m2} Normal [facility]; [facility], [facility] Globulin (S) [Mass/Vol] 2.7 g/dL Normal 1.5 - 4.5 g/dL [facility].; [facility], [facility] Glucose [Mass/Vol] 100 mg/dL Abnormal 70 - 99 mg/dL [facility]; [facility], [facility]. Potassium [Moles/Vol] 4.4 mmol/L Normal 3.5 - 5.2 mmol/L [facility].; [facility], [facility] Protein [Mass/Vol] 7.3 g/dL Normal 6.0 - 8.5 g/dL [facility].; [facility], [facility] Sodium [Moles/Vol] 139 mmol/L Normal 134 - 144 mmol/L [facility].; [facility], [facility] Urea nitrogen [Mass/Vol] 12 mg/dL Normal 6 - 24 mg/d L [facility].; [facility], [facility] Urea nitrogen/Creatinine [Mass ratio] 13 mg/mg Normal 9 - 20 [facility]; [facility], [facility] Laboratory - Hematology and Cell countson 07-10-2025 Basophils (Bld) [#/Vol] 0.1 10*3/uL Normal 0.0 - 0.2 {x10E3/uL} [facility]; [facility] Basophils/100 WBC (Bld) 1 % Normal [facility]; [facility] Eosinophils (Bld) [#/Vol] 0.3 10*3/uL Normal 0.0 - 0.4 {x10E3/uL} [facility]; [facility] Eosinophils/100 WBC (Bld) 3 % Normal [facility]; [facility] Erythrocyte distribution width (RBC) [Ratio] 13.8 % Normal 11.6 - 15.4 % [facility]; [facility], [facility] Hematocrit (Bld) [Volume fraction] 36.9 % Abnormal 37.5 - 51.0 % [facility]; [facility] Hemoglobin (Bld) [Mass/Vol] 12.3 g/dL Abnormal 13.0 - 17.7 g/dL [facility]; [facility], [facility] Immature granulocytes (Bld) [#/Vol] 0.0 10*3/uL Normal 0.0 - 0.1 {x10E3/uL} [facility].; [facility] Immature granulocytes/100 WBC (Bld) 0 % Normal [facility]; [facility] Lymphocytes (Bld) [#/Vol] 1.7 10*3/uL Normal 0.7 - 3.1 {x10E3/uL} [facility].; [facility], [facility] Lymphocytes/100 WBC (Bld) 21 % Normal [facility]; [facility], [facility] MCH (RBC) [Entitic mass] 27.3 pg Normal 26. 6 - 33.0 pg [facility].; [facility] [employer] [facility] MCHC (RBC) [Mass/Vol] 33.3 g/dL Normal 31.5 - 35.7 g/dL [facility] [employer] [facility] [place] - [facility] [employer] [facility] MCV (RBC) [Entitic vol] 82 fL Normal 79 - [address] [facility] [employer] [facility].; [facility] Monocytes (Bld) [#/Vol] 0.8 10*3/uL Normal 0.1 - 0.9 {x10E3/uL} [facility] [place] - [facility] [employer] [facility] Monocytes/100 WBC (Bld) 10 % Normal E [facility] [employer] [facility].; [facility] Neutrophils (Bld) [#/Vol] 5.4 10*3/uL Normal 1.4 - 7.0 {x10E3/uL} [facility] [employer] [facility] [place] - [facility] [employer] [facility] Neutrophils/100 WBC (Bld) 65 % Normal [facility] [employer] [facility].; [facility] [place] [employer] [facility] Platelets (Bld) [#/Vol] 328 10*3/uL Normal 150 - 450 {x10E3/uL} [employer] [place] - [facility] [employer] [facility] RBC (Bld) [#/Vol] 4.50 10*6/uL Normal 4.14 - 5.8 0 {x10E6/uL} [employer] [facility] [place] [employer] [facility] WBC (Bld) [#/Vol] 8.1 10*3/uL Normal 3.4 - 10.8 {x10E3/uL} [employer] [facility] [employer] [facility] 05-06-2025 [place] [id number] Patient: GARRY HERNANDEZ Phone#: : 1980 Age: 44 Gender: M Pt. Type: Out Account: [id number] Location: Ordering: [facility] Exam Date: 05/06/2025/7:25 Family Phys: Charge Code: [id number] Physician: [place] Order #: [id number] Dose#: PROCEDURE: SCROTAL ULTRASOUND COMPARISON: None. INDICATIONS: [...] Plata MD on 05/06/2025 at 9:54 Normal [facility] Laboratory - Chemistry and C hemistry - challengeon 10-12-2021 Albumin BCP dye [Mass/Vol] 4.2 g/dL Normal 3.2 - 4.8 g/dL [facility], [facility].; [facility], [facility]. Albumin/Globulin [Mass ratio] 1.5 {ratio} Normal 0.9 - 1.6 {ratio} [facility].; [facility], [facility]. ALP [Catalytic activity/Vol] 121 U/L Normal 38 - 126 U/L [facility].; [facility], [facility]. ALT No additional P-5'-P [Catalytic activity/Vol] 12 U/L Normal 12 - 55 U/L [facility], [facility].; [facility], [facility]. ALT With P-5'-P [Catalytic activity/Vol] 12 U/L Normal 12 - 55 U/L [facility]; [facility] AST [Catalytic activity/Vol] 15 U/L Normal 8 - 34 U/L [facility]; [facility]. AST With P-5'-P [Catalytic activity/Vol] 15 U/L Normal 8 - 34 U/L [facility].; [facility] Bilirubin [Mass/Vol] 0.30 mg/dL Normal 0.20 - 1.20 mg/dL [facility]; [facility] Calcium [Mass/Vol] 10.0 mg/dL Normal 8.7 - 10. 4 mg/dL [facility]; [facility] Chloride [Moles/Vol] 104 mmol/L Normal 98 - 11 0 meq/L [facility]; [facility] Cholesterol [Mass/Vol] 241 mg/dL Abnormal 50 - 199 mg/dL [facility]; [facility] Cholesterol in HDL [Mass/Vol] 50 mg/dL Normal 40 - 59 mg/dL [facility]; [facility]. Cholesterol in LDL [Mass/Vol] 146 mg/dL Abnormal 0 - 129 mg/dL [facility].; [facility] CO2 [Moles/Vol] 29 mmol/L Normal 22 - 32 meq/L [facility]; [facility] Creatinine [Mass/Vol] 1.08 mg/dL Normal 0.60 - 1.40 mg/dL [facility]; [facility], [facility] GFR/1.73 sq M.predicted among blacks MDRD (S/P/Bld) [Vol rate/Area] mL/min/{1.73_m2} Normal [facility]; [facility], [facility] Work Phone: GFR/1.73 sq M.predicted among non-blacks MDRD (S/P/Bld) [Vol rate/Area] mL/min/{1.73_m2} Normal [facility] Center[facility]; [facility] Work Phone: Globulin (S) [Mass/Vol] 2.8 g/dL Normal 1.5 - 3.8 g/dL [facility]; [facility] Glucose [Mass/Vol] 93 mg/dL Normal 70 - 110 mg/dL [facility]; [facility] Iron [Mass/Vol] 43 ug/dL Abnormal 65 - 175 ug/dL [facility]; [facility] Potassium [Moles/Vol] 4.1 mmol/L Normal 3.5 - 5.0 meq/L [facility]; [facility] Protein [Mass/Vol] 7.0 g/dL Normal 5.7 - 8.2 g/dL [facility]; [facility] Sodium [Moles/Vol] 140 mmol/L Normal 136 - 145 meq/L [facility]; [facility] Triglyceride [Mass/Vol] 223 mg/dL Abnormal 3 - 149 mg/dL [facility].; [facility] TSH Qn 1.266 m[IU]/L Normal 0.550 - 4.780 m[iU]/mL [facility]; [facility] Urea nitrogen [Mass/Vol] 18.0 mg/dL Normal 8.0 - 22.0 mg/dL [facility] Center[facility]; [facility] Urea nitrogen/Creatinine [Mass ratio] 16.7 {ratio} Normal 10.0 - 22.0 {ratio} [facility] CenterIm[facility]; [facility] [place] [employer] [facility] Laboratory - Hematology and Cell countson 10-12-2021 Basophils (Bld) [#/Vol] 0.00 {10^3/mcL} Normal 0 .00 - 0.27 {10^3/mcL} [facility] Center[facility].; [facility], [facility]. Work Phone: Basophils/100 WBC (Bld) 0.7 % Normal 0.0 - 2.5 % [facility].; [facility], [facility]. Work Phone: Eosinophils (Bld) [#/Vol] 0.30 {10^3/mcL} Normal 0.00 - 0.65 {10^3/mcL} [facility] Center[facility].; [facility], [facility]. Work Phone: Eosinophils/100 WBC (Bld) 4.2 % Normal 0.0 - 6.0 % [facility].; [facility], [facility] Work Phone: Erythrocyte distribution width (RBC) [Ratio] 13.8 % Normal 11.5 - 15.5 % [facility].; [facility], [facility] Hematocrit (Bld) [Volume fraction] 41.0 % Normal 40.0 - 52.0 % [facility].; [facility], [facility] Hemoglobin (Bld) [Mass/Vol] 14.1 g/dL Normal 13.0 - 17.5 g/dL [facility].; [facility], [facility] Lymphocytes (Bld) [#/Vol] 1.60 {10^3/mcL} Normal 0.90 - 4.32 {10^3/mcL} [facility].; [facility], [facility]. Work Phone: Lymphocytes/100 WBC (Bld) 24.8 % Normal 20.0 - 40.0 % [facility].; [facility], [facility] Work Phone: MCH (RBC) [Entitic mass] 28.6 pg Normal 27. 0 - 33.0 pg [facility] CenterU[facility].; [facility], [facility] MCHC (RBC) [Mass/Vol] 34.3 g/dL Normal 32.0 - 36.0 g/dL [facility].; [facility], [facility] MCV (RBC) [Entitic vol] 83.4 fL Normal 81.0 - 100.0 fL [facility].; [facility], [facility] Monocytes (Bld) [#/Vol] 0.50 {10^3/mcL} Normal 0 .09 - 1.40 {10^3/mcL} [facility].; [facility], [facility]. Work Phone: Monocytes/100 WBC (Bld) 7.7 % Normal 2.0 - 13.0 % [facility].; [facility], [facility] Work Phone: Neutrophils (Bld) [#/Vol] 4.10 {10^3/mcL} Normal 2.25 - 8.10 {10^3/mcL} [facility].; [facility], [facility]. Work Phone: Neutrophils/100 WBC (Bld) 62.6 % Normal 50.0 - 75.0 % [facility].; [facility], [facility] Work Phone: Platelet mean volume (Bld) [Entitic vol] 10.2 fL Normal 6.4 - 10.5 fL [facility].; [facility], [facility]. Platelets (Bld) [#/Vol] 248 {10^3/mcL} Normal 15 0 - 450 {10^3/mcL} [facility], [facility].; [facility], [facility]. RBC (Bld) [#/Vol] 4.92 {10^6/mcL} Normal 4.50 - 6.00 {10^6/mcL} [facility], [facility].; [facility], [facility]. WBC (Bld) [#/Vol] 6.60 {10^3/mcL} Normal 4.50 - 10.80 {10^3/mcL} [facility] [employer] [facility].; [facility]. No Panel Informationon 10-12 Basophil, Absolute 0.00 {10^3/mcL} Normal 0.00 - 0.27 {10^3/mcL} [facility] [employer] [facility].; [place] [employer] [facility] [employer] [facility], [employer]. Work Phone: Electrolyte Balance 7.0 meq/L Normal 4.0 - 15 .0 meq/L [facility] [employer] [facility] [employer] [facility] [employer] [facility], [employer] Eosinophil, Absolute 0.30 {10^3/mcL} Normal 0.00 - 0.65 {10^3/mcL} [facility] [employer] [facility] [employer] [facility] [employer] [facility] Work Phone: Lymphocyte, Absolute 1.60 {10^3/mcL} Normal 0.90 - 4.32 {10^3/mcL} [facility] [employer] [facility] [employer] [facility] [employer] [facility] Work Phone: Monocyte, Absolute 0.50 {10^3/mcL} Normal 0.09 - 1.40 {10^3/mcL} [facility] [employer] [facility], [employer] [facility] [employer] [facility] Work Phone: Neutrophil, Absolute 4.10 {10^3/mcL} Normal 2.25 - 8.10 {10^3/mcL} [facility] [employer] [facility] [employer] [facility] [employer] [facility] Work Phone: Vital Signs Date Time Vital Sign Value Performing Clinician Faci lity 08-26-2025 15:28-0500 Body height 165.1 cm Ricki Jones MD, Ph D Work Phone: [facility] 08-26-2025 15:28-0500 Body mass index (BMI) [Ratio] 27.64 kg/m2 Ricki Jones MD, PhD Work Phone: [facility] 08-26-2025 15:28-0500 Body temperature 98.6 [degF] Ricki Jones MD, Ph D Work Phone: [facility] 08-26-2025 15:28-0500 Body weight 75.34 kg Ricki Jones MD, Ph D Work Phone: [facility] 08-26-2025 15:28-0500 Diastolic blood pressure 70 mm[Hg] Ricki Jones MD, PhD Work Phone: [facility] 08-26-2025 15:28-0500 Heart rate 74 /min Ricki Jones MD, Ph D Work Phone: [phone] [place] [address] 08-26-2025 15:28-0500 Respiratory rate 16 /min Ricki Jones MD, Ph D Work Phone: [phone] [place] [address] 08-26-2025 15:28-0500 SaO2% (BldA) [Mass fraction] 97 % Ricki Jones MD, PhD Work Phone: [facility] 08-26-2025 15:28-0500 Systolic blood pressure 124 mm[Hg] Ricki Jones MD, PhD Work Phone: [facility] 07-19-2025 19:07-0400 Body temperature 98.3 [degF] Dr. Sylvester Morales MD Work Phone: [facility] 07-19-2025 19:07-0400 Diastolic blood pressure 95 mm[Hg] Dr. Sylvester Morales MD Work Phone: [facility] 07-19-2025 19:07-0400 Heart rate 64 /min Dr. Sylvester Morales MD Work Phone: [facility] 07-19-2025 19:07-0400 Respiratory rate 17 /min Dr. Sylvester Morales MD Work Phone: [facility] 07-19-2025 19:07-0400 SaO2% (BldA) [Mass fraction] 100 % Dr. Sylvester Morales MD Work Phone: [facility] 07-19-2025 19:07-0400 Systolic blood pressure 151 mm[Hg] Dr. Sylvester Morales MD Work Phone: [facility] 07-19-2025 15:51-0400 Body height 162.[address] Sylvester Morales MD Work Phone: [facility] 07-19-2025 15:51-0400 Body mass index (BMI) [Ratio] 26.9 kg/m2 Dr. Sylvester Morales MD Work Phone: [facility] 07-19-2025 15:51-0400 Body weight 71.[address] Sylvester Morales MD Work Phone: [facility] 07-16-2025 09:10-0400 Body weight 75.75 kg Patti Mendoza RN [facility], [employer] [facility], [employer]. 07-16-2025 09:10-0400 Diastolic blood pressure 76 mm[Hg] Patti Mendoza RN [email or web address], [employer] [facility] [place] [employer] [facility], [employer]. Comment on above: Patient Position: Sitting; Cuff Location : Left Arm; Cuff Size: Large 07-16-2025 09:10-0400 Heart rate 60 /min Patti Mendoza RN [email or web address], [employer] [facility] [employer] [facility], [employer] Comment on above: Pattern: Regular 07-16-2025 09:10-0400 Systolic blood pressure 117 mm[Hg] Patti Mendoza RN [facility] [employer] [facility], [employer] [facility] [employer] [facility], [employer]. Comment on above: Patient Position: Sitting; Cuff Location : Left Arm; Cuff Size: Large 07-10-2025 14:48-0400 Diastolic blood pressure 81 mm[Hg] Shea Flood RN [facility] [employer] [facility], [employer] [facility] [employer] [facility], [employer]. Comment on above: Patient Position: Sitting; Cuff Location : Left Arm; Cuff Size: Large 07-10-2025 14:48-0400 Heart rate 73 /min Shea Flood RN [email or web address], [employer] [facility], [employer]. Comment on above: Pattern: Regular 07-10-2025 14:48-0400 Inhaled oxygen concentration 21 % Shea Flood RN [facility], Inc.; [facility], Inc[employer] Comment on above: Room air 07-10-2025 14:48-0400 SaO2% (BldA) [Mass fraction] 98 % Shea Flood RN [facility], Inc.; [facility], Inc[employer] 07-10-2025 14:48-0400 Systolic blood pressure 140 mm[Hg] Shea Flood RN [facility], Inc.; [facility], Inc[employer] Comment on above: Patient Position: Sitting; Cuff Location : Left Arm; Cuff Size: Large 07-10-2025 14:48-0400 Body height 163.83 cm Shea Flood RN [facility], Inc.; [facility], [employer] 07-10-2025 14:48-0400 Body mass index (BMI) [Ratio] 28.22 kg/m2 Shea Flood RN [facility], Inc.; [facility], Inc[employer] 07-10-2025 14:48-0400 Body surface area Derived from formula 1.82 m2 Shea Flood RN [facility], [facility].; [facility], [employer] 07-10-2025 14:48-0400 Body weight 75.75 kg Shea Flood RN [facility], Inc.; [facility], [employer] 07-10-2025 14:48-0400 Diastolic blood pressure 82 mm[Hg] Shea Flood RN [facility], Inc.; [facility], [employer]. Comment on above: Patient Position: Sitting; Cuff Location : Left Arm; Cuff Size: Large 07-10-2025 14:48-0400 Heart rate 70 /min Shea Flood RN [facility], Inc.; [employer] [facility] [employer] [facility], [employer]. Comment on above: Pattern: Regular 07-10-2025 14:48-0400 Systolic blood pressure 136 mm[Hg] Shea Flood RN [facility], Inc.; [facility], Inc[employer] Comment on above: Patient Position: Sitting; Cuff Location : Left Arm; Cuff Size: Large 06-26-2025 13:31-0400 Body height 163.83 cm Shea Flood RN [facility], Inc.; [facility], [employer] 06-26-2025 13:31-0400 Body mass index (BMI) [Ratio] 28.39 kg/m2 Shea Flood RN [facility], Inc.; [facility], Inc[employer] 06-26-2025 13:31-0400 Body surface area Derived from formula 1.83 m2 Shea Flood RN [facility], Inc.; [facility], Inc[employer] 06-26-2025 13:31-0400 Body weight 76.2 kg Shea Flood RN [facility], Inc.; [facility], Inc[employer] 06-26-2025 13:31-0400 Diastolic blood pressure 82 mm[Hg] Shea Flood RN [facility], Inc.; [facility], Inc[facility] Comment on above: Patient Position: Sitting; Cuff Location : Left Arm; Cuff Size: Large 06-26-2025 13:31-0400 Heart rate 65 /min Shea Flood RN [facility], Inc[employer] [facility] [employer] [facility] Comment on above: Pattern: Regular 06-26-2025 13:31-0400 Systolic blood pressure 150 mm[Hg] Shea Flood RN [facility], Inc.; [facility] [place], [facility] [employer] [facility], [employer] Comment on above: Patient Position: Sitting; Cuff Location : Left Arm; Cuff Size: Large 04-30-2025 13:56-0400 Body height 163.83 cm Patti Mendoza RN [facility], Inc.; [employer] [facility], Inc[employer] 04-30-2025 13:56-0400 Body mass index (BMI) [Ratio] 27.88 kg/m2 Patti Mendoza RN [facility], Inc.; [facility], Inc[facility] 04-30-2025 13:56-0400 Body surface area Derived from formula 1.81 m2 Patti Mendoza RN [facility], Inc.; [facility], Inc[employer] 04-30-2025 13:56-0400 Body weight 74.84 kg Patti Mendoza RN [facility], Inc.; [facility], Inc[employer] 04-30-2025 13:56-0400 Diastolic blood pressure 83 mm[Hg] Patti Mendoza RN [facility], Inc.; [facility] [place], [facility] [employer] [facility], [employer] Comment on above: Patient Position: Sitting; Cuff Location : Left Arm; Cuff Size: Large 04-30-2025 13:56-0400 Heart rate 76 /min Patti Mendoza RN [facility], Inc.; [employer] [facility] [employer] [facility] Comment on above: Pattern: Regular 04-30-2025 13:56-0400 Systolic blood pressure 157 mm[Hg] Patti Mendoza RN [facility], Inc.; [facility] [place], [facility] [employer] [facility] Comment on above: Patient Position: Sitting; Cuff Location : Left Arm; Cuff Size: Large 05-02-2024 13:08-040 Body height 163.83 cm Zoraida Carpenter RN [facility], Inc.; [facility], Inc[employer] 05-02-2024 13:08-0400 Body mass index (BMI) [Ratio] 29.32 kg/m2 Zoraida Carpenter RN [facility], Inc.; [facility], Inc[employer] 05-02-2024 13:08-0400 Body surface area Derived from formula 1.85 m2 Zoraida Carpenter RN [facility], Inc.; [facility] [place], [facility] [employer] [facility] [employer] 05-02-2024 13:08-0400 Body temperature 98.4 [degF] Zoraida Carpenter RN [facility], [facility].; [facility] [place], [facility] [employer] [facility], [employer] Comment on above: Method: Oral 05-02-2024 13:08-0400 Body weight 78.7 kg Zoraida Carpenter RN [facility], Inc.; [facility] [place], [facility] [employer] [facility] [employer] 05-02-2024 13:08-0400 Diastolic blood pressure 74 mm[Hg] Zoraida Carpenter RN [facility], Inc.; [facility] [place], [facility] [employer] [facility], [employer]. Comment on above: Patient Position: Sitting; Cuff Location : Left Arm; Cuff Size: Standard 05-02-2024 13:08-0400 Heart rate 59 /min Zoraida Carpenter RN [facility], Inc.; [facility] [place], [facility] [employer] [facility] Comment on above: Pattern: Regular 05-02-2024 13:08-0400 Inhaled oxygen concentration 21 % Zoraida Carpenter RN [facility], Inc.; [employer] [facility] [employer] [facility], [employer] Comment on above: Room air 05-02-2024 13:08-0400 SaO2% (BldA) [Mass fraction] 96 % Zroaida Carpenter RN [facility], Inc.; [employer] [facility] [employer] [facility] 05-02-2024 13:08-0400 Systolic blood pressure 130 mm[Hg] Zoraida Carpenter RN [facility], Inc.; [facility] [place], [facility] [employer] [facility], [employer] Comment on above: Patient Position: Sitting; Cuff Location : Left Arm; Cuff Size: Standard 11-02-2023 13:08-0500 Body height 163.83 cm Shea Flood RN [facility], Inc.; [facility], Inc[employer] 11-02-2023 13:08-0500 Body mass index (BMI) [Ratio] 29.93 kg/m2 Shea Flood RN [facility], Inc.; [facility] [place], [facility] [employer] [facility] [employer] 11-02-2023 13:08-0500 Body surface area Derived from formula 1.87 m2 Shea Flood RN [facility], Inc.; [facility] [place], [facility] [employer] [facility] 11-02-2023 13:08-0500 Body weight 80.34 kg Shea Flood RN [facility], Inc.; [employer] [facility] [employer] [facility], [facility] 11-02-2023 13:08-0500 Diastolic blood pressure 81 mm[Hg] Shea Flood RN [facility] [employer] [facility], Inc.; [facility], Inc[employer] Comment on above: Patient Position: Sitting; Cuff Location : Left Arm; Cuff Size: Large 11-02-2023 13:08-0500 Heart rate 63 /min Shea Flood RN [facility], Inc[employer] [facility] [employer] [facility] [employer] Comment on above: Pattern: Regular 11-02-2023 13:08-0500 Systolic blood pressure 124 mm[Hg] Shea Flood RN [facility], Inc[employer] [facility] [employer] [facility] [employer] Comment on above: Patient Position: Sitting; Cuff Location : Left Arm; Cuff Size: Large 05-04-2023 12:55-0400 Body height 163.83 cm Zoraida Carpenter RN [facility], Inc.; [facility] [place], [facility] [employer] [facility] [employer] 05-04-2023 12:55-0400 Body mass index (BMI) [Ratio] 29.74 kg/m2 Zoraida Carpenter RN [facility], Inc.; [facility], Inc[employer] 05-04-2023 12:55-0400 Body surface area Derived from formula 1.86 m2 Zoraida Carpenter RN [facility], [facility].; [facility] [place], [facility] [employer] [facility] 05-04-2023 12:55-0400 Body temperature 98.6 [degF] Zoraida Carpenter RN [facility], Inc[employer] [facility] [employer] [facility] [employer] Comment on above: Method: Oral 05-04-2023 12:55-0400 Body weight 79.83 kg Zoraida Carpenter RN [facility], Inc[employer] [facility] [employer] [facility] [employer] 05-04-2023 12:55-0400 Diastolic blood pressure 71 mm[Hg] Zoraida Carpenter RN [facility] [employer] [facility], [facility] [facility] [employer] [facility] Comment on above: Patient Position: Sitting; Cuff Location : Left Arm; Cuff Size: Standard 05-04-2023 12:55-0400 Heart rate 58 /min Zoraida Carpenter RN [facility] [employer] [facility], [facility] [facility] [employer] [facility] Comment on above: Pattern: Regular 05-04-2023 12:55-0400 Systolic blood pressure 112 mm[Hg] Zoraida Carpenter RN [facility], Inc[employer] [facility] [employer] [facility], [employer] Comment on above: Patient Position: Sitting; Cuff Location : Left Arm; Cuff Size: Standard 10-11-2022 12:58-0500 Body height 163.83 cm Patti Mendoza RN [facility], Inc[employer] [facility], Inc[employer] 10-11-2022 12:58-0500 Body mass index (BMI) [Ratio] 29.74 kg/m2 Patti Mendoza RN [facility], Inc[employer] [facility], Inc[employer] 10-11-2022 12:58-0500 Body surface area Derived from formula 1.86 m2 Patti Mendoza RN [facility], Inc[employer] [facility], Inc[employer] 10-11-2022 12:58-0500 Body weight 79.83 kg Patti Mendoza RN [facility], Inc.; [facility], Inc[facility] 10-11-2022 12:58-0500 Diastolic blood pressure 80 mm[Hg] Patti Mendoza RN [facility] [employer] [facility], [facility] [facility] [employer] [facility], [employer] Comment on above: Patient Position: Sitting; Cuff Location : Left Arm; Cuff Size: Large 10-11-2022 12:58-0500 Heart rate 67 /min Patti Mendoza RN [facility] [employer] [facility], [facility] [facility] [employer] [facility], [employer] Comment on above: Pattern: Regular 10-11-2022 12:58-0500 Systolic blood pressure 133 mm[Hg] Patti Mendoza RN [facility] [employer] [facility], [facility] [facility] [employer] [facility] [employer] Comment on above: Patient Position: Sitting; Cuff Location : Left Arm; Cuff Size: Large 04-12-2022 12:53-0400 Body height 163.83 cm Zoraida Carpenter RN [facility] [employer] [facility], [facility] [facility] [employer] [facility] [employer] 04-12-2022 12:53-0400 Body mass index (BMI) [Ratio] 29.07 kg/m2 Zoraida Carpenter RN [facility] [employer] [facility], Inc[employer] [facility] [employer] [facility], Inc[facility] 04-12-2022 12:53-0400 Body surface area Derived from formula 1.85 m2 Zoraida Carpenter RN [facility], Inc.; [facility], Inc[facility] 04-12-2022 12:53-0400 Body temperature 98 [degF] Zoraida Carpenter RN [facility], Inc[employer] [facility] [employer] [facility] Comment on above: Method: Oral 04-12-2022 12:53-0400 Body weight 78.02 kg Zoraida Carpenter RN [facility], Inc.; [facility] [place], [facility] [employer] [facility], [employer] 04-12-2022 12:53-0400 Diastolic blood pressure 73 mm[Hg] Zoraida Carpenter RN [facility] [employer] [facility], Inc.; [facility] [place], [facility] [employer] [facility], Inc[employer] Comment on above: Patient Position: Sitting; Cuff Location : Left Arm; Cuff Size: Standard 04-12-2022 12:53-0400 Heart rate 52 /min Zoraida Carpenter RN [facility] [employer] [facility], Inc.; [facility] [place], [facility] [employer] [facility], Inc[employer] Comment on above: Pattern: Regular 04-12-2022 12:53-0400 Inhaled oxygen concentration 21 % Zoraida Carpenter RN [facility] [employer] [facility], Inc.; [facility] [place], [facility] [employer] [facility], Inc[employer] Comment on above: Room air 04-12-2022 12:53-0400 SaO2% (BldA) [Mass fraction] 96 % Zoraida Carpenter RN [facility] [employer] [facility], Inc.; [facility] [place], [facility] [employer] [facility], [employer] 04-12-2022 12:53-0400 Systolic blood pressure 113 mm[Hg] Zoraida Carpenter RN [facility] [employer] [facility], Inc[employer] [facility] [employer] [facility], [employer] Comment on above: Patient Position: Sitting; Cuff Location : Left Arm; Cuff Size: Standard 10-12-2021 13:03-0500 Body height 163.83 cm Patti Mendoza RN [facility] [employer] [facility], [employer] [facility] [employer] [facility], [employer] 10-12-2021 13:03-0500 Body mass index (BMI) [Ratio] 29.24 kg/m2 Patti Mendoza RN [facility] [employer] [facility], Inc.; [facility] [place], [facility] [employer] [facility], [employer] 10-12-2021 13:03-0500 Body surface area Derived from formula 1.85 m2 Patti Mendoza RN [facility], Inc.; [facility] [place], [facility] [employer] [facility] [employer] 10-12-2021 13:03-0500 Body weight 78.47 kg Patti Mendoza RN [facility], Inc[employer] [facility] [employer] [facility] [employer] 10-12-2021 13:03-0500 Diastolic blood pressure 88 mm[Hg] Ptati Mendoza RN [facility], Inc[employer] [facility] [employer] [facility] [employer] Comment on above: Patient Position: Sitting; Cuff Location : Left Arm; Cuff Size: Large 10-12-2021 13:03-0500 Heart rate 70 /min Patti Mendoza RN [facility], Inc[employer] [facility] [employer] [facility] Comment on above: Pattern: Regular 10-12-2021 13:03-0500 Systolic blood pressure 142 mm[Hg] Patti Mendoza RN [facility], Inc[facility] [employer] [facility] [employer] [facility] [employer] Comment on above: Patient Position: Sitting; Cuff Location : Left Arm; Cuff Size: Large 04-15-2021 12:58-0400 Body height 163.83 cm Shea Flood RN [facility], Inc.; [facility], [employer] 04-15-2021 12:58-0400 Body mass index (BMI) [Ratio] 29.24 kg/m2 Shea Flood RN [facility], Inc.; [facility], [employer] 04-15-2021 12:58-0400 Body surface area Derived from formula 1.85 m2 Shea Flood RN [facility], Inc[employer] [facility] [employer] [facility] [employer] 04-15-2021 12:58-0400 Body weight 78.47 kg Shea Flood RN [facility], Inc[employer] [facility] [employer] [facility] [employer] 04-15-2021 12:58-0400 Diastolic blood pressure 80 mm[Hg] Shea Flood RN [facility] [employer] [facility], [facility] [facility] [employer] [facility] [employer] Comment on above: Patient Position: Sitting; Cuff Location : Left Arm; Cuff Size: Large 04-15-2021 12:58-0400 Heart rate 68 /min Shea Flood RN [employer] [facility] [facility] [employer] [facility] Comment on above: Pattern: Regular 04-15-2021 12:58-0400 Inhaled oxygen concentration 21 % Shea Flood RN [email or web address] [employer] [facility] [employer] [facility] Comment on above: Room air 04-15-2021 12:58-0400 SaO2% (BldA) [Mass fraction] 97 % Shea Flood RN [email or web address] [facility] [employer] [facility] [employer] [facility] 04-15-2021 12:58-0400 Systolic blood pressure 137 mm[Hg] Shea Flood RN [facility] [employer] [facility] [employer] [facility] [employer] [facility] Comment on above: Patient Position: Sitting; Cuff Location : Left Arm; Cuff Size: Large 11-21-2016 15:14-0500 Body height 163.83 cm [employer]achTown-C Work Phone: [facility] [employer] [facility] [employer] [facility] 11-21-2016 15:14-0500 Body mass index (BMI) [Ratio] 28.39 kg/m2 [employer]-C Work Phone: [employer] [facility] [employer] [facility] 11-21-2016 15:14-0500 Body surface area Derived from formula 1.83 m2 [employer]-C Work Phone: [employer] [facility] [employer]. 11-21-2016 15:14-0500 Body temperature 98.9 [degF] CariloopER AGENT PRODUCER-C Work Phone: [employer] [facility]. Comment on above: Method: Oral 11-21-2016 15:14-0500 Body weight 76.2 kg GREG RODRIGUEZNimbus Cloud AppsTETTER AGENT PRODUCER-C Work Phone: [employer]. 11-21-2016 15:14-0500 Diastolic blood pressure 83 mm[Hg] GREG RODRIGUEZFSTETTER AGENT PRODUCER-C Work Phone: [facility] [employer]. Comment on above: Patient Position: Sitting; Cuff Location : Left Arm; Cuff Size: Standard 11-21-2016 15:14-0500 Heart rate 68 /min GREG Trinity BiosystemsTETTER AGENT PRODUCER-C Work Phone: [employer]. Comment on above: Pattern: Regular 11-21-2016 15:14-0500 Systolic blood pressure 132 mm[Hg] GREG Trinity BiosystemsTETTER AGENT PRODUCER-C Work Phone: [employer]. Comment on above: Patient Position: Sitting; Cuff Location : Left Arm; Cuff Size: Standard 11-16-2015 15:08-0500 Body height 162.56 cm Patti Mendoza RN [facility] [employer] [facility].; [employer] [facility] [employer]. 11-16-2015 15:08-0500 Body mass index (BMI) [Ratio] 27.12 kg/m2 Patti Mendoza RN [facility] [employer] [facility].; [employer] [facility] [employer] [facility]. 11-16-2015 15:08-0500 Body surface area Derived from formula 1.77 m2 Patti Mendoza RN [facility] [employer] [facility].; [employer] [facility] [employer]. 11-16-2015 15:08-0500 Body weight 71.67 kg Patti Mendoza RN [facility] [employer] [facility].; [employer]. 11-16-2015 15:08-0500 Diastolic blood pressure 84 mm[Hg] Patti Mendoza RN [facility] [employer] [facility].; [employer]. Comment on above: Patient Position: Sitting; Cuff Location : Right Arm; Cuff Size: Large 11-16-2015 15:08-0500 Heart rate 77 /min Patti Mendoza RN [facility]. Comment on above: Pattern: Regular 11-16-2015 15:08-0500 Systolic blood pressure 125 mm[Hg] Patti Mendoza RN [facility]. Comment on above: Patient Position: Sitting; Cuff Location : Right Arm; Cuff Size: Large Encounters Encounter Date Encounter Type Care Provider Facility Start: 08-26-2025 End: 08-27-2025 Office outpatient new 60 minutes Ricki Jones MD, PhD Work Phone: Medical Oncology at [facility] Comment on above: Malignant neoplasm o f left kidney excluding renal pelvis (Primary Dx) Start: 08-26-2025 ambulatory SELF SELF Facility:[facility] Start: 08-19-2025 End: 08-20-2025 ambulatory GLORIA WOODY Facility:[facility] Start: 08-17-2025 End: 08-17-2025 ambulatory BRAYAN MIX Facility:[facility] Start: 08-17-2025 End: 08-17-2025 ambulatory BRAYAN MIX Facility:[facility] Start: 08-12-2025 End: 08-12-2025 ambulatory GLORIA WOODY Facility:[facility] Start: 08-12-2025 End: 08-12-2025 Transition of Care KIARA CARPENTER MD Work Phone: [facility] Start: 08-10-2025 ambulatory ONCOLOGY CONSULT Facili ty:[facility] Start: 08-05-2025 End: 08-05-2025 ambulatory GLORIA WOODY Facility:[facility] Start: 08-05-2025 End: 08-06-2025 ambulatory GLORIA WOODY Facility:[facility] Start: 07-29-2025 ambulatory BRAYANNANCY MIX Facil ity:[facility] Start: 07-20-2025 ambulatory [place] Facility:[facility] Start: 07-19-2025 End: 07-21-2025 Evaluation and management of inpatient ARIAN BAUTISTA Facility:[facility] Start: 07-19-2025 End: 07-19-2025 Emergency department patient visit Dr. Sylvester Morales MD -Emergency Department Work Phone: Start: 07-18-2025 End: 07-18-2025 Lab Only KIARA CARPENTER MD Work Phone: [employer] [facility] Start: 07-17-2025 End: 07-17-2025 Results Review KIARA CARPENTER MD Work Phone: [employer] Start: 07-16-2025 End: 07-16-2025 Office outpatient visit 10 minutes KIARA CARPENTER MD Work Phone: [facility] Start: 07-13-2025 End: 07-13-2025 Results Review KIARA CARPENTER MD Work Phone: [employer] Start: 07-10-2025 Review KIAAR Esposito MD Work Phone: [facility] Start: 07-10-2025 End: 07-10-2025 Medication Refill/Order KIARA CARPENTER MD Work Phone: [employer] [facility] Start: 07-10-2025 End: 07-10-2025 Office outpatient visit 15 minutes KIARA CARPENTER MD Work Phone: [facility] Start: 06-26-2025 End: 06-26-2025 Patient encounter procedure KIARA CARPENTER MD Work Phone: [employer]. Start: 06-04-2025 End: 06-04-2025 Historical Summary GREG VERA AGENT PRODUCER-C [employer] Start: 06-03-2025 End: 06-03-2025 ambulatory DEE DEE Vasquez [facility] Start: 05-19-2025 End: 05-19-2025 ambulatory DEE DEE T KATHE [facility] Start: 2025 End: 2025 Historical Summary GREG GOELTETTER AGENT PRODUCER-C [facility] Start: 05-07-2025 End: 05-07-2025 Patient encounter procedure GREG HOVERNONTETTER AGENT PRODUCER-C [facility] Start: 05-06-2025 End: 05-06-2025 ambulatory ROCKY FOUNTAIN [facility] Start: 04-30-2025 End: 04-30-2025 Office outpatient visit 10 minutes GREG GOELTETTER AGENT PRODUCER-C [facility] Start: 06-26-2024 End: 06-26-2024 Medication Refill/Order GREG HOVERNONTETTER AGENT PRODUCER-C Work Phone: [facility] Start: 05-02-2024 Review GREG RODRIGUEZFSTE TTER AGENT PRODUCER-C Work Phone: [facility] Start: 05-02-2024 End: 05-02-2024 Office outpatient visit 10 minutes GREG GOELTETTER AGENT PRODUCER-C Work Phone: [facility] Start: 01-21-2024 End: 01-21-2024 Medication Refill/Order GREG HOFSTETTER AGENT PRODUCER-C Work Phone: [facility] Start: 12-21-2023 End: 12-21-2023 Medication Refill/Order GREG HOFSTETTER AGENT PRODUCER-C Work Phone: [facility] [employer] [facility] Start: 11-02-2023 End: 11-02-2023 Office outpatient visit 10 minutes GREG HOFSTETTER AGENT PRODUCER-C Work Phone: [facility] [place] [employer] [facility] [employer]. Start: 05-04-2023 End: 05-04-2023 Office outpatient visit 10 minutes GREG HOFSTETTER AGENT PRODUCER-C Work Phone: [employer] [facility] [employer] Start: 10-11-2022 End: 10-11-2022 Office outpatient visit 10 minutes GREG GOELTETTER AGENT PRODUCER-C Work Phone: [employer] [facility] [employer] Start: 04-12-2022 End: 04-12-2022 Office outpatient visit 10 minutes GREG GOELTETTER AGENT PRODUCER-C Work Phone: DELANO [employer]jit [facility] [employer] Start: 10-13-2021 End: 10-13-2021 Results Review GREG HOFSTETTER AGENT PRODUCER-C Work Phone: [facility] [employer] Start: 10-12-2021 End: 10-12-2021 Office outpatient visit 10 minutes GREG GOELTETTER AGENT PRODUCER-C Work Phone: [employer] [facility] [employer] Start: 04-15-2021 End: 04-15-2021 Office outpatient new 20 minutes GREG HOFSTETTER AGENT PRODUCER-C Work Phone: [employer] Start: 11-21-2016 End: 11-21-2016 Office outpatient visit 15 minutes GREG GOELTETTER AGENT PRODUCER-C Work Phone: [employer] [facility] [employer] Start: 11-16-2015 End: 11-16-2015 Office outpatient visit 15 minutes GREG GOELTETTER AGENT PRODUCER-C Work Phone: [employer] [facility] Procedures Date Procedure Procedure Detail Performing Clinician Start: 07-19-2025 Antibody screen GLORIA WOODY Comment on above: Order Comment: Speci men Type: BLOOD SPECIMENOrdering Facility: [facility] Address: [address] [place] [address] Performed By: #### T SCR ####CC MAIN BLOOD BANKCLIA [id number] [place] [address] [place] Start: 07-19-2025 Plain [...] meds reconciled w/current med list GREG VERA AGENT PRODUCER-C Work Phone: Start: 11-02-2023 End: 11-02-2023 Dischrg meds reconciled w/current med list GREG VERA AGENT PRODUCER-C Work Phone: Start: 05-04-2023 End: 05-04-2023 Dischrg meds reconciled w/current med list GREG M HOFSTETTER AGENT PRODUCER-C Work Phone: Start: 10-11-2022 End: 10-11-2022 Dischrg meds reconciled w/current med list GREG Garcia HOGURVINDERER AGENT PRODUCER-C Work Phone: Start: 04-12-2022 End: 04-12-2022 Dischrg meds reconciled w/current med list GREG Garcia HOESTRELLITA AGENT PRODUCER-C Work Phone: Start: 10-12-2021 End: 10-12-2021 Dischrg meds reconciled w/current med list GREG Garcia HOBRETTTTER AGENT PRODUCER-C Work Phone: [facility] [employer] FABIO Garcia HOBRETTTTER AGENT PRODUCER-C Work Phone: Comment on above: Discussed. 05/04/2023 [employer] [employer] Marivel Carpenter RN Comment on above: Discussed. 05/02/2024 Plan of Treatment Date Care Activity Detail Author Start: 12-25-2025 Patient encounter procedure Medical; DEPRESSION - [facility] [place] [employer] [facility] Start: 25-Dec-2025 14:00-05:00 MD KIARA CARPENTER Appointment Request [facility] [place] [employer] [facility] Start: 10-15-2025 Assay of iron IRON (85850) Start: 15-Oct-2025 17:31-05:00 Request [employer] [facility]; [place] - [facility] [employer] [facility]. Start: 10-09-2025 Follow-up encounter Medical; RE CHECK OR FOLLOW-UP MEDICAL ILLNESS - [facility] [place] [employer] [facility]. Start: 09-Oct-2025 14:00-05:00 MD KIARA CARPENTER Appointment Request [facility] [place] [employer] [facility]. Start: 07-20-2025 25 hydroxy includes fractions if performed VITAMIN D, 25 HYDROXY (26018) Start: 20-Jul-2025 Request [facility]; [employer] [facility] [employer] [facility]. Start: 07-20-2025 Assay of parathormone PTH (97785) Start: 20-Jul-2025 Request [facility] [employer] [facility].; [facility], [employer]. Start: 07-20-2025 Calcium ionized CALCIUM, IONIZED (81062) Start: 20-Jul-2025 Request [facility] [employer] [facility].; [facility] [place] [employer] [facility] [employer]. Start: 07-19-2025 [facility] Start: 07-19-2025 End: 07-19-2025 [facility] Start: 07-18-2025 25 hydroxy includes fractions if performed VITAMIN D, 25 HYDROXY (77561) Start: 18-Jul-2025 09:37-04:00 [facility] Start: 07-18-2025 Assay of parathormone PTH (27707) Start: 18-Jul-2025 09:37-04:00 [facility] Start: 07-16-2025 Mri brain brain stem w/o contrast material MRI BRAIN W/O CONTRAST for trama or cva only (00893) Start: 16-Jul-2025 Intent [facility] [employer] [facility].; [facility], [employer]. Start: 07-16-2025 Assay of phosphatase alkaline isoenzymes ALKALINE PHOSPHATASE-ISOENZYM (44286) Start: 16-Jul-2025 09:04-04:00 Request [facility] [employer] [facility].; [facility], [employer]. Start: 07-16-2025 Calcium ionized CALCIUM, IONIZED (58952) Start: 16-Jul-2025 09:04-04:00 Request [facility] [employer] [facility].; [facility], [employer]. Start: 07-16-2025 Assay of ferritin FERRITIN (33497) Start: 16-Jul-2025 09:04-04:00 Request [facility] [employer] [facility].; [facility] [place] [employer] [facility] [employer]. Start: 07-16-2025 Assay of iron IRON (76025) Start: 16-Jul-2025 09:04-04:00 Request [facility].; [facility] [place] [employer] [facility]. Start: 07-16-2025 Iron binding capacity IRON BINDING CAPACITY (TIBC) (05225) Start: 16-Jul-2025 09:04-04:00 Request [employer] [facility].; [facility] [place] [employer] [facility]. Start: 07-14-2025 Assay of ferritin FERRITIN (74248) Start: 14-Jul-2025 Request [facility].; [facility] [employer] [facility]. Start: 07-14-2025 Assay of iron IRON (69241) Start: 14-Jul-2025 Request [facility].; [facility] [employer] [facility]. Start: 07-14-2025 Assay of phosphatase alkaline isoenzymes ALKALINE PHOSPHATASE-ISOENZYM (59786) Start: 14-Jul-2025 Request [facility].; [facility] [employer] Start: 07-14-2025 Calcium ionized CALCIUM, IONIZED (26013) Start: 14-Jul-2025 Request [employer] [facility].; [facility] [employer] [facility]. Start: 07-14-2025 Iron binding capacity IRON BINDING CAPACITY (TIBC) (09668) Start: 14-Jul-2025 Request [employer] [facility].; [facility] [employer] [facility]. Start: 07-10-2025 Comprehensive metabolic panel CMP - COMPREHENSIVE METABOLIC PANEL (37894) Start: 10-Jul-2025 15:10-04:00 Request [employer] [facility] [employer] [facility] Start: 07-10-2025 Blood count complete auto&auto difrntl wbc CBC, PLATELETS & AUT DIFF (55720) Start: 10-Jul-2025 15:10-04:00 Request [employer] [facility] [employer] [facility], [employer]. Start: 06-26-2025 Medical; ANXIETY - former pt- Med refills Medical; ANXIETY - former pt- Med refills [employer] [facility] [employer] [facility]. Start: 26-Jun-2025 13:30-04:00 MD KIARA CARPENTER Appointment Request [employer]. Start: 06-22-2025 COVID-19 VACCINE ( season) COVID-19 VACCINE ( season) [facility] Start: 06-22-2025 Influenza vaccination INFLUENZA VACCINE (#1) [facility] Start: 04-30-2025 Us scrotum & contents US SCROTUM (57399) Start: 30-Apr-2025 [facility] [employer]. Start: 2024 Screening for malignant neoplasm of colon COLORECTAL CANCER SCREENING DISCUSSION [facility] Start: 05-02-2024 Patient encounter procedure [facility] [place] [employer] [facility] Start: 2019 Lipid panel LIPID SCREENING [facility] Start: 11-21-2016 Pure tone audiometry air only PURE TONE AUDIOMETRY, AIR (11308) Start: 21-Nov-2016 [facility] [employer]; [employer] [facility] [employer] Start: 11-21-2016 Tympanometry TYMPANOMETRY (88198) Start: 21-Nov-2016 [facility] [employer]; [employer]. Work Phone: Start: 11-16-2015 Patient Education TOBACCO INSTRUCTIONS Indication: Tobacco use disorder Start: 16-Nov-2015 Instruction Type: Patient Education [facility] [employer]. Start: 11-16-2015 Tobacco use cessation ivntj counseling TOBACCO USE TXMNT COUNSELING (4000F) Start: 16-Nov-2015 [facility] [employer]. Start: 1998 Hepatitis B vaccination HEP B VACCINE (1 of 3 - 19+ 3-dose series) [facility] Start: 1998 Third diphtheria, tetanus and acellular pertussis (DTaP) vaccination TDAP (ADULT) [facility] Start: 1994 HIV screening HIV SCREENING DISCUSSION [facility] Start: 1979 Hepatitis C screening HEPATITIS C VIRUS SCREENING [facility] Start: 1979 Tetanus vaccination TETANUS [facility] Payers Date Payer Category Payer Managed Care (unspecified) [facility] [id number] 2025 Self-pay 2024 Unknown [id number] 1979 Unknown [id number] 1979 Unknown [id number] 1979 Unknown [id number] 1979 Unknown [id number] Unknown Unknown [id number] Unknown [id number] Unknown [id number] Social History Date Type Detail Facility Alcohol Use: Alcohol Use: ; N o Alcohol Use. [facility]; [facility] Start: 08-26-2025 Current Work/Study Status Current Work/Study Status [employer] [facility]; [facility] Tobacco use: Tobacco use: ; S mokes < 1 pack of cigarettes per day. Current every day smoker. [facility]; [facility]. Start: 1980 Male [facility] Smokes tobacco daily [facility]; [facility] Work Phone: Smokes < 1 pack of cigarettes per day [facility]; [facility] Work Phone: Tobacco use: Tobacco use: ; F ormer smoker. [facility]; [facility]. Start: 08-26-2025 Ex-smoker [facility]; [facility] Work Phone: Start: 07-19-2025 Tobacco smoking stat [facility] Never smoked tobacco (finding) [facility] Start: 08-26-2025 Sex [facility] History of tobacco use Current smoker [facility] Start: 08-26-2025 Tobacco use and exposure Smokeless tobacco non-user [facility] Start: 08-26-2025 Alcoholic beverage intake Lifetime non-drinker (finding) [facility] Adolescent depressio n screening assessment 0 [facility] Start: 1980 Sex assigned at Not on file [facility] Start: 07-19-2025 Sex Male (finding) [facility] Mental Status Date Assessment Result Facility 07-19-2025 Cognitive function Aw[facility] Work Phone: Clinical Notes 07-19-2025 to 08-26-2025 Justine Banerjee, IRON HANDLER-RADIOLOGY ORDERLY - 08/26/2025 3:40 PM Jason Jones MD, [...] Hernandez has seen Dr. Joel Woody at [facility] and Dr. Mix (Neuro Rad Onc at [facility]). He completed Gamma knife to known brain [...] file for drug use. Works in [employer]. Supportive and family/community. Family History: He family [...] brain metastasis. Received C1 Ipi/Nivo 08/19/2025 at [facility] by Dr. Woody. He presents to the clinic for second opinion. - Tolerating ipi/nivo well with mild fatigue. - Agree with treatment with IO/IO given brain involvement. - Recommend germline genetic testing d/t young age and small children. Referral to genetics sent. - Continue with ipi/nivo at [facility]. - Return PRN. Brain Metastasis: Symptoms of GÓMEZ on presentation. - S/p Gamma Knife per Dr. Mix ([facility]). - OFF steroids. - No GÓMEZ, mild [...] brain metastasis. Received C1 Ipi/Nivo 08/19/2025 at [facility] by Dr. Woody. He presents to the clinic for second opinion. - Tolerating ipi/nivo well with mild fatigue. - Agree with treatment with IO/IO given brain involvement. - Recommend germline genetic testing d/t young age and small children. Referral to genetics sent. - Continue with ipi/nivo at [facility]. - Return PRN. 60 minutes spent on [...] MD, PhD documented in this encounter [facility] 08-19-2025 Note HNO ID: [id number] Author: ALMA ROSA PRO RN Service: ? [...] of chemotherapy NA - Immuno therapy information Cloud[employer]et card Time Spent: 15 REFERRAL (RECOMMENDATION): N/A Alma Rosa Pro RN [facility] 08-19-2025 Note HNO ID: [id number] Author: JAYRO SOLIMAN APRN.RADIOLOGY ORDERLY Service: ? Author Type: Nurse Practitioner Type: Progress Notes Filed: 08/19/2025 14:44 Note Text: [facility] Department of Hematology and Medical Oncology PATIENT NAME: Garry Hernandez [facility] NO: [id number] DATE OF SERVICE: August 19, 2025 DIAGNOSIS: [...] Lymph 1.00 - 4.00 k/uL 0.76 (L) [place]% % 3.9 Abs [place] <0.87 k/uL 0.35 Eosin% % 0.0 Abs [...] proceed with th (more content not included)... [facility] 08-19-2025 Note HNO ID: [id number] Author: ALMA ROSA SYLVESTER LPN Service: ? Author Type: Licensed Nurse Type: Progress Notes Filed: 08/19/2025 14:44 Note Text: Additional intake questions: Has the patient had fever, nausea, vomiting, diarrhea, constipation, fatigue for > 1 week? Yes, fatigue Does the patient have a decreased appetite? No Does patient want to see a Lining Layer? No (yes to any of above refer patient to schedulers for dietitian appointment) ) Does patient have any new or increased numbness or tingling of extremities? No Is patient interested in fertility information? No Does patient need any prescription refills? No Does patient have an advanced directive in place? No, Patient referred to Resource Center Electronically Signed By: Alma Rosa Sylvester LPN [facility] 08-19-2025 Note HNO ID: [id number] Author: ?, ?, ? Service: ? Author Type: ? Type: Progress Notes Filed: 08/19/2025 10:42 Note Text: Summary: [facility] Patient Assistance Program Received message from community case manager inquiring about PAP for Opdivo and [employer]. Obtained patient signature on BMSPAF application and proof of income. Pending provider's signature. Will submit application to [facility] once received. [facility] 08-19-2025 Note Education (HEMCA3) GARRY HERNANDEZ ([id number]) 1980 M Date Time Provider Department 08/19/25 ALMA ROSA PRO HEMCA3 Reason for Visit: Renal Cancer [3907] During your visit today, we recorded the following information about you: Allergies As of Date: 08/19/2025 (No Known Allergies) Date Reviewed: 08/19/2025 Reviewed by: Jayro Soliman APRN.RADIOLOGY ORDERLY - Fully Assessed Prescriptions as of 08/20/2025 [...] Status:Closed by ALMA ROSA PRO on 08/20/25 [facility] 08-19-2025 Note Patient Outreach (HE SAE) GARRY HERNANDEZ ([id number]) 1980 M Date Time Provider Department 08/19/25 SUPPORT SERVICES [facility] During your visit today, we recorded the following information about you: Tommie Che 08/19/2025 10:42 AM Signed Received message from community case manager inquiring about PAP for Opdivo and Yervoy. Obtained patient signature on [employer] application and proof of income. Pending provider's signature. Will submit application to [employer] once received. Allergies As of Date: 08/19/2025 [...] Encounter Status:Closed by TOMMIE CHE on 08/19/25 [facility] 08-17-2025 Note HNO ID: [id number] Author: DONA HUSTON RN Service: Radiology Author [...] DATE: August 17, 2025 TIME: 12:40 PM [facility] 08-17-2025 Note HNO ID: [id number] Author: ALEXA HARTMAN RN Service: ? Author Type: Registered Nurse Type: Progress Notes Filed: 08/19/2025 06:32 Note Text: August 17, 2025 1126 Garry arrived ambulatory with: , Ne[place] and other elders from his community and a feeder driver. 1318 Arrived from imaging to [facility] and had pt get back into his clothes. Transportation home verified: yes, with feeder driverAide, ph [phone]. Garry here for today for imaging, mask [...] abuse: no Allergies reviewed with patient, yes. [id number] Mask completed. To imaging for CT Scan [...] by this nurse and patient verbalized understanding. [id number] Patient assisted to treatment room. Gamma Knife SRS begun. 1652 Gamma Knife Stereotactic Radiosurgery Completed. 1657 Pt then discharged. Alexa Hartman RN [facility] 08-17-2025 Note HNO ID: [id number] Author: ANDREW HERNANDEZ RT(R) Service: Radiology Author [...] PATIENT PRESENTS WITH AN IMPLANTABLE OR ATTACHED COLLET MAKING MACHINE OPERATOR: No RADIOLOGY DEPARTMENT: CT; Exam(s) Completed: Brain . Anesthesia: No PERIPHERAL IV DATA: Not applicable SIGNED BY: RT Yudith(R) August 17, 2025 1:14 PM [facility] 08-17-2025 Note HNO ID: [id number] Author: JUAN PRADHAN MD Service: Radiation Oncology Author Type: Physician Type: Progress Notes Filed: 08/17/2025 16:24 Note Text: GARRY HERNANDEZ [id number] 08/17/2025 [facility] Rachna Woo Brain Tumor and Neuro-Oncology Center [facility] GAMMA KNIFE STEREOTACTIC RADIOSURGERY (SRS) DAILY PROCEDURE [...] to patient setup, I conferred with the medical scientific liaison to approve the final setup. I was [...] Electronically Signed JUAN PRADHAN M.D. :24 PM [facility] 08-17-2025 Note HNO ID: [id number] Author: JUAN PRADHAN MD Service: Radiation Oncology Author Type: Physician Type: Progress Notes Filed: 08/18/2025 17:09 Note Text: GARRY HERNANDEZ [id number] 08/17/2025 [facility] Department of Radiation Oncology [facility] RADIATION ONCOLOGY: COMPLETION NOTE DATE OF SIMULATION: [...] [facility] Carlos A Woody MD [facility] 08-17-2025 Note HNO ID: [id number] Author: JUAN PRADHAN MD Service: Radiation Oncology Author Type: Physician Type: Progress Notes Filed: 08/17/2025 16:24 Note Text: GARRY HERNANDEZ [id number] 08/17/2025 [facility] Neuro[facility] Department of Radiation Oncology [facility] RADIATION ONCOLOGY GAMMA KNIFE SIMULATION NOTE DATE [...] Electronically Signed Juan Pradhan M.D. :24 PM [facility] 08-05-2025 Note HNO ID: [id number] Author: GLORIA WOODY MD Service: ? Author Type: Physician Type: Progress Notes Filed: 08/06/2025 14:55 Note Text: [facility] Department of Hematology and Medical Oncology PATIENT NAME: Garry Hernandez CLINIC NO.: [id number] DATE OF SERVICE: 08/05/2025 DIAGNOSIS: metastatic clear [...] (zoledronate) if hypercalc (more content not included)... [facility] 08-05-2025 Note HNO ID: [id number] Author: ALMA ROSA SYLVESTER LPN Service: ? Author Type: Licensed Nurse Type: Progress Notes Filed: 08/05/2025 14:04 Note Text: Additional intake questions: Has the patient had fever, nausea, vomiting, diarrhea, constipation, fatigue for > 1 week? No Does the patient have a decreased appetite? No Does patient want to see a Lining Layer? No (yes to any of above refer patient to schedulers for dietitian appointment) ) Does patient have any new or increased numbness or tingling of extremities? No Is patient interested in fertility information? No Does patient need any prescription refills? No Does patient have an advanced directive in place? 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 [facility] 07-21-2025 Note HNO ID: [id number] Author: CHANTELLE WAGGONER, [place] Service: Pharmacy Author Type: Home Appliance Washing Machine Mechanic Type: Plan of Care Filed: 07/23/2025 08:15 Note Text: Insurance investigation completed Patient has active prescription insurance: Yes - Patient's insurance is in-network with [facility] Insurance loaded into [place]: Yes Test claim was completed to verify insurance is active: Successful Is patient eligible for [facility]? No Any questions, please reach out to your medication event coordinator marketing and sales. [facility] 07-21-2025 Note HNO ID: [id number] Author: DERRELL CLARK RT(R) Service: Radiology Author [...] PATIENT PRESENTS WITH AN IMPLANTABLE OR ATTACHED COLLET MAKING MACHINE OPERATOR: No RADIOLOGY DEPARTMENT: CT; Exam(s) Completed: Brain . Anesthesia: No PERIPHERAL IV DATA: Not applicable SIGNED BY: RT Tamika(R) July 21, 2025 1:28 PM [facility] 07-21-2025 Note HNO ID: [id number] Author: JESSICA HOLDEN PA-C Service: Neurosurgery Author Type: Physician Biodiesel Product Manager Type: Progress Notes Filed: 07/21/2025 12:13 Note Text: SERVICE DATE: 07/21/2025 SERVICE TIME: 7:22 AM NEUROSURGERY TUMOR TEAM INPATIENT PROGRESS NOTE [place] [phone] for questions/concerns about this patient from 3PM [...] N/A Muscle strength: UE BICEPS TRICEPS DELTS Cable Mock Up Assembler R 5/5 5/5 5/5 5/5 L 5/5 [...] Yes. 5. Restraints No. 6. Last BM ELECTRICAL ENGINEERING DIRECTOR Assessment AND Plan Active Hospital Problems as of 07/21/2025 Noted - Resolved POA Hospital * (Principal) Vasogenic edema (HCC) 07/19/2025 - Present Yes Current Assessment AND Plan Clinically significant cerebral edema treating with decadron 4bid (SSI, PPI) with watermaster taper plan Neoplasm causing mass effect and [...] bronchoscopy 07/20 (p (more content not included)... [facility] 07-21-2025 Note HNO ID: [id number] Author: ECTOR CUNNINGHAM LSW Service: Care Management Author Type: Waiter/Waitress Type: Care Mgt Progress Note Filed: 07/21/2025 [...] medical team, pt is ready to DC., pin drafter operator for outpatient OT. No skilled needs SIGNATURE: CLIFTON Posada PATIENT NAME: Garry Hernandez DATE: July 21, 2025 TIME: 12:00 PM [facility] 07-21-2025 Note HNO ID: [id number] Author: RADHA ALLAN APRN.RADIOLOGY ORDERLY Service: ? Author Type: Nurse Practitioner Type: Progress Notes Filed: 07/21/2025 10:28 Note Text: See inpatient note. Radha Allan APRN.RADIOLOGY ORDERLY [facility] 07-21-2025 Note HNO ID: [id number] Author: ALEXA HARTMAN RN Service: ? Author [...] administration of versed for frame placement. [address] [place] Frame Used for frame placement by Dr. [...] No. Pain 0 on scale of 0-10 [id number] Garry assisted to treatment room. Gamma Knife [...] Dr. Yoel Mix's clinic telephone number, and [facility] local and toll free numbers given to Garry and family/visitors. 1633 Garry left via wheelchair home with . Alexa Hartman, [facility] 07-21-2025 Note HNO ID: [id number] Author: RAYMON MADSEN MD Service: Radiation Oncology Author Type: Physician Type: Progress Notes Filed: 07/21/2025 16:29 Note Text: GARRY HERNANDEZ [id number] 07/21/2025 [facility] Rachna Woo Brain Tumor AND Neuro-Oncology Center Department of Radiation Oncology [facility] RADIATION ONCOLOGY: COMPLETION NOTE DATE OF TREATMENT: [...] Electronically Signed cc: Dr. Yoel Mix, [facility] 07-20-2025 Note HNO ID: [id number] Author: ECTOR CUNNINGHAM LSW Service: Care Management Author Type: Waiter/Waitress Type: Care Mgt Initial Assessment Filed: 07/20/2025 18:33 Note Text: CARE MANAGEMENT: ASSESSMENT AND DISCHARGE PLAN SERVICE DATE: July 20, 2025 SERVICE TIME: 6:27 PM PCP: No primary care provider on file. Primary Contact: Extended Emergency Contact Information Primary Emergency Contact: Riya Hernandez Relation: Spouse Admission Status: Inpatient Insurance Provider: [facility] Discharge Planning requested by: Per Department Practice Potential Transition Plans To Be Determined Advance Directives Current Advance Directive: None Loading Unit Operator Seating Attempted to Assist with AD Completion: Yes [...] Patient Goal(s): Be able to go home [place] of Choice Explained: [place] of Choice Given: No Reason Not Given: [...] Determined Post-Acute Discharge Plan: Per medical team, [place] TBD RA 6 click score 22 CM met with pt, pt's spouse, and family. Pt reported he lives with spouse and children. Pt denied SNF, HHC, DME, Home O2 prior to admission. CM completed SDOH no concerns indicated. No PCP listed on file. Pt and spouse reported pt receives his primary care at [facility] and they have different doctors. Pt reported family will transport him home at [place]. Transitional needs TBD. Care Management will follow for Post Hospital Transition Needs. Twenty four (24) hours notice is required if any new needs are anticipated in order to ensure a safe discharge. For questions, please contact the janitorial manager (Transitional Underwater Hunter) or Waiter/Waitress assigned to the patient under Treatment team. SIGNATURE: CLIFTON Posada PATIENT NAME: Garry Hernandez DATE: July 20, 2025 TIME: 6:27 PM [facility] 07-20-2025 Note HNO ID: [id number] Author: THERESA MAXWELL APRN.CRNA Service: ? 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 Performed by: ANISHA Indications and Patient Condition Indications for airway management: anesthesia Preoxygenated: yes anesthesia circuit Patient position: sniffing Method: asleep Cricoid Pressure: No Manual In-Line Stabilization: No Difficult Mask: No Final Airway Details Final airway type: endotracheal airwayFinal Endotracheal Airway: ETT Cuffed: yes Successful intubation technique: video laryngoscopy Devices used: [facility] Endotracheal tube insertion site: oral Blade size: #4 ETT size (mm): 8.5 Placement verified by: chest auscultation, bronchoscopy and capnometry Cormack-Lehane Classification: grade I - full view of glottis Number of attempts at approach: 1 Failed airway: no Unrecognized esophageal intubation: no Airway not difficult SIGNATURE: Theresa Maxwell APRN.CRNA PATIENT NAME: Garry Hernandez DATE: July 20, 2025 TIME: 2:46 PM CSN: [id number] [facility] 07-20-2025 Note Patient Name: Garry garza Procedure Date: 07/20/2025 2:02 PM Date of : 1980 Admit Type: Inpatient Age: 45 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 The magdaleon is sharp. The tracheobronchial tree of the [...] of the left lower lobe using a KAL superDimension 21 gauge needle and sent for [...] the left lower lobe using an Olympus ABT Molecular ImagingiShot 22 gauge needle and sent for routine [...] Start: 2:43:23 PM Procedure End: 3:21:02 PM [facility] 07-20-2025 Note HNO ID: [id number] Author: ARTEMIO ARIZMENDI MD Service: Radiation Oncology [...] please page the on-call radiation oncology pager ([phone]). 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 Anesthesia: No PERIPHERAL IV DATA: Not applicable SIGNED BY: RT Tish(R) July 20, 2025 8:41 AM [facility] 07-19-2025 Discharge summary Note Date/Time July 19, 2025 5:47pm [facility] Medical Records Department [address] [place] [id number] Emergency Department Summary 07/19/25 MR#: [id number] Acct: [id number] Name: GARRY HERNANDEZ Rep #:[id number] : 1980 45 From: Sylvester Morales MD [...] Trauma, Fall or Assault Narrative Narrative: 45-year-old [place] male history of anxiety. He has been [...] EXAM Physical Exam Narrative Exam Narrative: 45-year-old [place] male lying in bed. Vital signs are [...] all 4 extremities. 5 out of 5 hand or machine paster strength. Dorsi plantarflexion intact. Fingertip to nose [...] place andoriented to time Coordination / Balance: [id number] test normal Speech: Negative for speech normal [...] MDM Narrative Medical decision making narrative: 45-year-old [place] male with concern for dysarthria and confusion [...] results. Specifically the CAT scan results. [facility] for the transfer. They have the CAT [...] 74.0 H Lymph % (Auto) 15.4 L [place] % (Auto) 9.0 Eos % (Auto) 0.6 [...] 4:20 pm with readback verification. Reading Location: [id number] Head/Neck CTA 07/19/25 15:56 IMPRESSION: 1. No high-grade arterial stenosis, aneurysm, or arteriovenous malformation. 2. Heterogeneous enhancing intracranial masses. 3. Multiple pulmonary nodules at the lung apices. Reading Location: [facility] Chest X-Ray 07/19/25 16:45 IMPRESSION: No acute cardiopulmonary disease. Reading Location: [facility] Chest x-ray, portable, single view [...] rate of 62 no acute signs of [place] or ischemia. Critical Care Time Critical Care Time: Yes Critical care time (excluding procedures): 30-74 minutes, Including time spent:,Discussing w/Patient &/or Family/Chemical Educator, Discussing w/Consultants, ArrangingAdmission or Transfer, Performing Direct Patient Care at Bedside and - (40 minutes) Discharge Plan Dx/Rx/DC Orders Clinical Impression: Headache, Dysarthria, Cerebral edema, Brain mass Disposition Disposition: Acute Care [facility] What to do if you have Problems For any increased pain, shortness of breath, bleeding, nausea or vomiting, chestpain, or any unexpected problems, contact your Primary Care Provider. Call [facility] ([phone]) or report to the closest Emergency Room. Call 911 if necessary. 07/19/251746 <Electronically signed by Sylvester Morales MD> Cosigner Signature (if applicable): CC: Dr. Rocky Fountain MD ~ Signed [facility] Work Phone: [phone] Discharge summary [facility] Medical Records Department [address] [place] [address] Emergency Department Summary 07/19/25 MR#: [id number] Acct: [id number] Name: GARRY HERNANDEZ Rep #:[id number] : 1980 45 From: Sylvester Morales MD [...] Trauma, Fall or Assault Narrative Narrative: 45-year-old [place] male history of anxiety. He has been [...] EXAM Physical Exam Narrative Exam Narrative: 45-year-old [place] male lying in bed. Vital signs are [...] all 4 extremities. 5 out of 5 hand or machine paster strength. Dorsi plantarflexion intact. Fingertip to nose [...] place andoriented to time Coordination / Balance: rhkvmp-[id number] test normal Speech: Negative for speech normal [...] MDM Narrative Medical decision making narrative: 45-year-old [place] male with concern for dysarthria and confusion [...] results. Specifically the CAT scan results. [facility] for the transfer.They have the CAT scan [...] 74.0 H Lymph % (Auto) 15.4 L [place] % (Auto) 9.0 Eos % (Auto) 0.6 [...] 4:20 pm with readback verification. Reading Location: [facility] Head/Neck CTA 07/19/25 15:56 IMPRESSION: 1. No high-grade arterial stenosis, aneurysm, or arteriovenous malformation. 2. Heterogeneous enhancing intracranial masses. 3. Multiple pulmonary nodules at the lung apices. Reading Location: [facility] Chest X-Ray 07/19/25 16:45 IMPRESSION: No acute cardiopulmonary disease. Reading Location: [facility] Chest x-ray, portable, single view [...] rate of 62 no acute signs of [place] or ischemia. Critical Care Time Critical Care Time: Yes Critical care time (excluding procedures): 30-74 minutes, Including time spent:,Discussing w/Patient &/or Family/Chemical Educator, Discussing w/Consultants, ArrangingAdmission or Transfer, Performing Direct Patient Care at Bedside and - (40 minutes) Discharge Plan Dx/Rx/DC Orders Clinical Impression: Headache, Dysarthria, Cerebral edema, Brain mass Disposition Disposition: Acute Care [facility] What to do if you have Problems For any increased pain, shortness of breath, bleeding, nausea or vomiting, chestpain, or any unexpected problems, contact your Primary Care Provider. Call [facility] ([phone]) or report tothe closest Emergency Room. Call 911 if necessary. 07/19/25 1747 Cosigner Signature (if applicable): CC: Dr. Rocky Fountain MD ~ Signed [facility]09-28-2025 Radiology Diagnostic study note [facility] Imaging Services [address] [place], [place] [id number] Chest 1 View MR#: [id number] Acct: [id number] Name: GARRY HERNANDEZ Rep #: [id number] : 1980 M 45 From: Heriberto Dave MD PCP: Dr. Rocky Fountain MD Status: REG E R Study:Chest 1 View Date of Exam: 5 Exam# [id number] Ordering Dr: Jarred Morales MD PROCEDURE: CHEST 1 VIEW 07/19/2025 REASON FOR EXAM: NEURO DEFICIT, ACUTE, STROKE SUSPECTED TECHNIQUE: Frontal view of the chest. COMPARISON: None. FINDINGS: Lungs/Pleura: Clear. Heart/Mediastinum: Normal in size. Bones/Soft tissues: Unremarkable. RAD/Chest 1 View IMPRESSION: No acute cardiopulmonary disease. Reading Location: [facility] CC: Dr. Sylvester Morales MD; Dr. Rocky Fountain MD ~ [place] Rough Opener: Signed [facility]09-28-2025 Radiology Diagnostic study note [facility] Imaging Services [address] [place], [place] [id number] STROKE CTA Head AND Neck W/Con MR#: [id number] Acct: [id number] Name: GARRY HERNANDEZ Rep #: [id number] : 1980 M 45 From: Risa Segura MD PCP: Dr. Rocky Fountain MD Status: REG E R Study:STROKE CTA Head AND Neck W/Con Date of Exam: 07/19/25 Exam# [id number] Ordering Dr: Jarred Morales MD PROCEDURE: STROKE [...] Morales MD; Dr. Rocky Fountain MD ~ [place] Rough Opener: Signed [facility]09-28-2025 Radiology Diagnostic study note [facility] Imaging Services [address] [place] [address] STROKE Brain/Head without Cont MR#: [id number] Acct: [id number] Name: Garry Hernandez Rep #: [id number] : 1980 M 45 From: Risa Segura MD PCP: Status: PRE ER Study:STROKE Brain/Head without Cont Date of Exam: 07/19/25 Exam# [id number] Ordering Dr: Jarred Morales MD PROCEDURE: STROKE BRAIN/HEAD WITHOUT CONT [...] 4:20 pm with readback verification. Reading Location: [id number] CC: Dr. 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 No July 19, 2025 4:19pm Chief Complaint and Reason for Visit Chief Complaint Admit Date headache/ nausea July 19, 2025 3:42pm Additional Source Comments (unrecognized sect ion and content) No Status Records FoundNo Status Records FoundNo Status Records FoundNo Status Records FoundNo Status Records FoundNo Status Records Found INFORMATION SOURCE (unrecogn ized section and content) DATE CREATED AUTHOR 06/05/[address] [facility] DATE CREATED AUTHOR AUTHOR'S ORGANIZ ATION 07/25/2025 [facility] DATE CREATED AUTHOR AUTHOR'S ORGANIZ ATION 07/29/2025 [facility] DATE CREATED AUTHOR AUTHOR'S ORGANIZ ATION 08/28/[address] [facility] DATE CREATED AUTHOR AUTHOR'S ORGANIZ ATION 09/02/2025 [facility] DATE CREATED AUTHOR AUTHOR'S ORGANIZ ATION 09/03/2025 [facility] nter Care Teams (unrecognized sec tion [...] ONCOLOGY Self, Self Ricki Jones MD, PhD [address] [facility] [address] [place] [address] Phone: tel: fax: Referral ID Status Reason Start Date Expiration Date Visits Re quested Visits Authorized [id number] Closed 08/26/2025 09/20/2026 1 1 FOR RECORDS [...] BE BASED ON THE PRIMARY CLINICAL RECORDS. [employer] [facility]. provides no warranty or guarantee of the accuracy or completeness of information in this document.
[2025-10-17] VITALS (10 sets, daily range): BP systolic 103–147; BP diastolic 67–88; PULSE 69–113; RESP 16–28; TEMP 36.7–39.4; O2SAT 92–100; BMI 27.8
--- NOTE | 2025-10-17 | CT_ITS ---
PROCEDURE: ABDOMEN/PELVIS WITHOUT CONT 10/17/2025 REASON FOR EXAM: RENAL CANCER, CR, RULE OUT OBSTRUCTION TECHNIQUE: Procedure Code: CTABDPEL Modality: CT Procedure: ABDOMEN/PELVIS WITHOUT CONT Noncontrast technique limits evaluation of the abdominal and pelvic viscera. Coronal and Sagittal reconstruction series were provided. One or more dose reduction techniques were used (e.g., Automated exposure control, adjustment of the mA and/or kV according to patient size, use of iterative reconstruction technique). RADIATION DOSE SUMMARY: CTDI Vol 13.71 mGy DLP :713.64 mGycm COMPARISON: none FINDINGS: A large partially exophytic soft tissue mass is seen involving the left renal upper and mid zones 8.4 x 8.2 x 4.1 cm in diameter. It is seen extending into/infiltrating the renal pelvis and inducing moderate to marked calyceal dilatation. It is seen bulging into the renal hilum and possibly infiltrating the left renal vein and its tributaries which appear distended. It is seen infiltrating the posteroinferior aspect of the pancreatic tail as well as the left adrenal gland. It is seen abutting the left psoas muscle with no clear line of cleavage in-between. It is seen indenting the splenic hilum, anteriorly displacing the jejunal loops and duodenum with no current obvious infiltration. Associated extensive santo-nephric and left retroperitoneal fat stranding with thickened peritoneal reflections, minimal retroperitoneal fluid densities and associated enlarged left renal, santo-aortic and aorto-caval lymph nodes. The right kidney is of average size and showing smooth outline with preserved parenchymal thickness. No renal calculi. No hydronephrosis. Pancreatic fatty changes noted. Enlarged liver showing homogenous parenchymal attenuation. No dilated intra or extra-hepatic biliary tracts. Gall bladder showing no radiodense calculi. Enlarged spleen. The right adrenal gland and IVC are unremarkable. Under distension of the urinary bladder showing minimal uniform mural thickening with no obvious masses. No obvious masses related to the pelvic viscera. The examined ascending colon, the transverse colon and the descending colon are unremarkable. The small bowel loops are unremarkable. The stomach is unremarkable. Minimal free pelvic fluid is noted. No free air. Bilateral inguinal operative scar showing related subcutaneous fat stranding and small encysted fluid densities seen underneath the anterior pelvic wall. Scanned osseous structures show no osseous destruction. Multilevel Schmorl's nodes of the examined vertebral end plates. Scanned lung bases show mild bilateral pleural effusion with bilateral basal atelectatic and consolidative changes. bilateral pulmonary smooth interlobular septae thickening worrisome of pulmonary edema. Minimal pericardial effusion. 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 Advise clinical and pr ior studies correlation. Rest of the study findings as detailed. Reading [facility]
--- OUTSIDE RECORDS SUMMARY | 2025-10-17 00:27 | XMS RPT_ITS | CCD ---
Author Organization [facility] Care Team Providers Care Acoustical Tile Patternmaker Name Role Phone GREG ARRINGTON Unavailable [phone] KIRAN FOUNTAIN MD Unavailable Jo BOWIE MD [...] Andrew DE PAZ, Dr. Phan Attending Physician [phone] Dr. Sylvester Morales MD Emergency Department Physici [...] Test Name Value Interpretation Reference Range Facility [facility] GARRY HERNANDEZ ([id number]) 1980 M Date Time Provider Department 09/02/25 [facility] During your visit today, we recorded the following information about you: Tommie Che 09/02/2025 9:02 AM Signed Patient approved for [facility] for Opdivo and Yervoy effective 08/31/25 - 08/30/26 Program ID: [id number] OB made to [facility] at [phone] to schedule Opdivo+Yervoy shipments via PAP. Spoke with Abril. Opdivo+Yervoy scheduled to deliver to [facility] on Sunday09/04/25 for patient's upcoming administrations on 09/08/25 (Acct ID: [id number]) and 09/29/25 (Acct ID: [id number]). Pharmacy team notified. Confirmed shipping address: [address] [place] [address] Attn: [place] [address]. Allergies As of Date: 09/02/2025 (No Known Allergies) Date Reviewed: 08/19/2025 Reviewed by: Jayro Soliman APRN.SCRAP CHARGER - Fully Assessed Reason for Visit: Opdivo+Yervoy [...] Status:Closed by TOMMIE CHE on 09/02/25 [facility] CBC W Auto Differential pane l (Bld)on 08-19-2025 Basophils (Bld) [#/Vol] 10*3/uL Normal <0.11 [facility] Comment on above: Order Comment: Speci men Type: BLOOD SPECIMENOrdering Facility: [facility] Address: [address] [place] [address] Performed By: #### 5 7021-8 ####[facility] LABCLIA [id number] [place] [address] [place] Basophils/100 WBC (Bld) 0.1 % Normal [facility] Comment on above: Order Comment: Speci men Type: BLOOD SPECIMENOrdering Facility: [facility] Address: [address] [place] [address] Performed By: #### 5 7021-8 ####[facility] LABCLIA [id number] [place] [address] [place] Differential cell count method Nom (Bld) Auto Normal [facility] Comment on above: Order Comment: Speci men Type: BLOOD SPECIMENOrdering Facility: [facility] Address: [address] [place] [address] Performed By: #### 5 7021-8 ####[facility] LABCLIA [id number] [place] [address] [place] Eosinophils (Bld) [#/Vol] 10*3/uL Normal <0.46 [facility] Comment on above: Order Comment: Speci men Type: BLOOD SPECIMENOrdering Facility: [facility] Address: [address] [place] [address] Performed By: #### 5 7021-8 ####[facility] LABCLIA [id number] [address] [place] Eosinophils/100 WBC (Bld) 0.0 % Normal [facility] Comment on above: Order Comment: Speci men Type: BLOOD SPECIMENOrdering Facility: [facility] Address: [address] [place] [address] Performed By: #### 5 7021-8 ####[facility] LABCLIA [id number] [address] [place] Erythrocyte distribution width (RBC) [Ratio] 14.6 % Normal 11.5-15.0 [facility] Comment on above: Order Comment: Speci men Type: BLOOD SPECIMENOrdering Facility: [facility] Address: [address] [place] [address] Performed By: #### 5 7021-8 ####[facility] LABCLIA [id number] [address] [place] Hematocrit (Bld) [Volume fraction] 32.7 % Low 39.0-51.0 [facility] Comment on above: Order Comment: Speci men Type: BLOOD SPECIMENOrdering Facility: [facility] Address: [address] [place] [address] Performed By: #### 5 7021-8 ####[facility] LABCLIA [id number] [place] [address] [place] Hemoglobin (Bld) [Mass/Vol] 10.8 g/dL Low 13.0-17.0 [facility] Comment on above: Order Comment: Speci men Type: BLOOD SPECIMENOrdering Facility: [facility] Address: [address] [place] [address] Performed By: #### 5 7021-8 ####[facility] LABCLIA [id number] [place] [address] [place] Immature granulocytes (Bld) [#/Vol] 0.05 10*3/uL Normal <0.10 [facility] Comment on above: Order Comment: Speci men Type: BLOOD SPECIMENOrdering Facility: [facility] Address: [address] [place] [address] Performed By: #### 5 7021-8 ####[facility] LABCLIA [id number] [place] [address] [place] Immature granulocytes/100 WBC (Bld) 0.6 % Normal [facility] Comment on above: Order Comment: Speci men Type: BLOOD SPECIMENOrdering Facility: [facility] Address: [address] [place] [address] Performed By: #### 5 7021-8 ####[facility] LABCLIA [id number] [place] [address] [place] Lymphocytes (Bld) [#/Vol] 0.76 10*3/uL Low 1.00-4.00 [facility] Comment on above: Order Comment: Speci men Type: BLOOD SPECIMENOrdering Facility: [facility] Address: [address] [place] [address] Performed By: #### 5 7021-8 ####[facility] LABCLIA [id number] [place] [address] [place] Lymphocytes/100 WBC (Bld) 8.4 % Normal [facility] Comment on above: Order Comment: Speci men Type: BLOOD SPECIMENOrdering Facility: [facility] Address: [address] [place] [address] Performed By: #### 5 7021-8 ####[facility] LABCLIA [id number] [place] [address] [place] MCH (RBC) [Entitic mass] 27.2 pg Normal 26.0-34.0 [facility] Comment on above: Order Comment: Speci men Type: BLOOD SPECIMENOrdering Facility: [facility] Address: [address] [place] [address] Performed By: #### 5 7021-8 ####[facility] LABCLIA [id number] [address] [place] MCHC (RBC) [Mass/Vol] 33.0 g/dL Normal 30.5-36.0 [facility] Comment on above: Order Comment: Speci men Type: BLOOD SPECIMENOrdering Facility: [facility] Address: [address] [place] [address] Performed By: #### 5 7021-8 ####[facility] LABCLIA [id number] [address] [place] MCV (RBC) [Entitic vol] 82.4 fL Normal 80.0-100.0 C [facility] Comment on above: Order Comment: Speci men Type: BLOOD SPECIMENOrdering Facility: [facility] Address: [address] [place] [address] Performed By: #### 5 7021-8 ####[facility] LABCLIA [id number] [place] [address] [place] Monocytes (Bld) [#/Vol] 0.35 10*3/uL Normal <0.87 [facility] Comment on above: Order Comment: Speci men Type: BLOOD SPECIMENOrdering Facility: [facility] Address: [address] [place] [address] Performed By: #### 5 7021-8 ####[facility] LABCLIA [id number] [place] [address] [place] Monocytes/100 WBC (Bld) 3.9 % Normal C [facility] Comment on above: Order Comment: Speci men Type: BLOOD SPECIMENOrdering Facility: [facility] Address: [address] [place] [address] Performed By: #### 5 7021-8 ####[facility] LABCLIA [id number] [place] [address] [place] Neutrophils (Bld) [#/Vol] 7.92 10*3/uL High 1.45-7.50 [facility] Comment on above: Order Comment: Speci men Type: BLOOD SPECIMENOrdering Facility: [facility] Address: [address] [place] [address] Performed By: #### 5 7021-8 ####[facility] LABCLIA [id number] [place] [address] [place] Neutrophils/100 WBC (Bld) 87.0 % Normal [facility] Comment on above: Order Comment: Speci men Type: BLOOD SPECIMENOrdering Facility: [facility] Address: [address] [place] [address] Performed By: #### 5 7021-8 ####[facility] LABCLIA [id number] [place] [address] [place] Nucleated RBC (Bld) [#/Vol] 10*3/uL Normal <0.01 [facility] Comment on above: Order Comment: Speci men Type: BLOOD SPECIMENOrdering Facility: [facility] Address: [address] [place] [address] Performed By: #### 5 7021-8 ####[facility] LABCLIA [id number] [place] [address] [place] Nucleated RBC/100 WBC (Bld) [Ratio] 0.0 /100 WBC Normal [facility] Comment on above: Order Comment: Speci men Type: BLOOD SPECIMENOrdering Facility: [facility] Address: [address] [place] [address] Performed By: #### 5 7021-8 ####[facility] LABCLIA [id number] [place] [address] [place] Platelet mean volume (Bld) [Entitic vol] 9.9 fL Normal 9.0-12.7 [facility] Comment on above: Order Comment: Speci men Type: BLOOD SPECIMENOrdering Facility: [facility] Address: [address] [place] [address] Performed By: #### 5 7021-8 ####[facility] LABCLIA [id number] [place] [address] [place] Platelets (Bld) [#/Vol] 211 10*3/uL Normal 150-400 [facility] Comment on above: Order Comment: Speci men Type: BLOOD SPECIMENOrdering Facility: [facility] Address: [address] [place] [address] Performed By: #### 5 7021-8 ####[facility] LABCLIA [id number] [place] [address] [place] RBC (Bld) [#/Vol] 3.97 10*6/uL Low 4.20-6.00 [facility] Comment on above: Order Comment: Speci men Type: BLOOD SPECIMENOrdering Facility: [facility] Address: [address] [place] [address] Performed By: #### 5 7021-8 ####[facility] LABCLIA [id number] [place] [id number] [place] WBC (Bld) [#/Vol] 9.09 10*3/uL Normal 3.70-11.00 [facility] Comment on above: Order Comment: Speci men Type: BLOOD SPECIMENOrdering Facility: [facility] Address: [address] [place] [address] Performed By: #### 5 7021-8 ####[facility] LABCLIA [id number] [place] [address] [place] CNOVSPon 08-19-2025 CNOVSP Visit (SP) Office (HEMCA3) GARRY HERNANDEZ ([id number]) 1980 M Date Time Provider Department 08/19/25 [...] No Does patient want to see a Hardware Technician? No (yes to any of above refer [...] Soler Carolyn, APRN.CNP 08/19/2025 2:44 PM Signed [facility] [place] Department of Hematology and Medical Oncology PATIENT NAME: Garry Hernandez [facility] NO: [id number] DATE OF SERVICE: August 19, 2025 DIAGNOSIS: [...] Lymph 1.00 - 4.00 k/uL 0.76 (L) [place]% % 3.9 Abs [place] <0.87 k/uL 0.35 Eosin% % 0.0 Abs [...] hemorrhagic met (more content not included)... Normal [facility] metabolic 2000 panelon 08-19-2025 Albumin [Mass/Vol] 4.2 g/dL Normal 3.9-4.9 [facility] Comment on above: Order Comment: Speci men Type: BLOOD SPECIMENOrdering Facility: [facility] Address: [address] [place] [address] Performed By: #### 2 4323-8 ####[facility] LABCLIA [id number] [place] [address] [place] ALP [Catalytic activity/Vol] 154 U/L High 38-113 [facility] Comment on above: Order Comment: Speci men Type: BLOOD SPECIMENOrdering Facility: [facility] Address: [address] [place] [address] Performed By: #### 2 4323-8 ####[facility] LABCLIA [id number] [place] [address] [place] ALT [Catalytic activity/Vol] 19 U/L Normal 10-54 [facility] Comment on above: Order Comment: Speci men Type: BLOOD SPECIMENOrdering Facility: [facility] Address: [address] [place] [address] Performed By: #### 2 4323-8 ####[facility] LABCLIA [id number] [place] [address] [place] Anion gap [Moles/Vol] 11 mmol/L Normal 8-15 [facility] Comment on above: Order Comment: Speci men Type: BLOOD SPECIMENOrdering Facility: [facility] Address: [address] [place] [address] Performed By: #### 2 4323-8 ####[facility] LABCLIA [id number] [place] [address] [place] AST [Catalytic activity/Vol] 9 U/L Low 14-40 [facility] Comment on above: Order Comment: Speci men Type: BLOOD SPECIMENOrdering Facility: [facility] Address: [address] [place] [address] Performed By: #### 2 4323-8 ####[facility] LABCLIA [id number] [place] [id number] [place] Bilirubin [Mass/Vol] mg/dL Low 0.2-1.3 [facility] Comment on above: Order Comment: Speci men Type: BLOOD SPECIMENOrdering Facility: [facility] Address: [address] [place] [address] Performed By: #### 2 4323-8 ####[facility] LABCLIA [id number] [place] [address] [place] Calcium [Mass/Vol] 10.9 mg/dL High 8.5-10.2 [facility] Comment on above: Order Comment: Speci men Type: BLOOD SPECIMENOrdering Facility: [facility] Address: [address] [place] [address] Performed By: #### 2 4323-8 ####[facility] LABCLIA [id number] [place] [address] [place] Chloride [Moles/Vol] 102 mmol/L Normal 98-107 [facility] Comment on above: Order Comment: Speci men Type: BLOOD SPECIMENOrdering Facility: [facility] Address: [address] [place] [address] Performed By: #### 2 4323-8 ####[facility] LABCLIA [id number] [place] [id number] [place] CO2 [Moles/Vol] 25 mmol/L Normal 22-30 [facility] Comment on above: Order Comment: Speci men Type: BLOOD SPECIMENOrdering Facility: [facility] Address: [address] [place], [place] [address] Performed By: #### 2 4323-8 ####[facility] LABCLIA [id number] [place] [address] [place] Creatinine [Mass/Vol] 0.82 mg/dL Normal 0.73-1.22 [facility] Comment on above: Order Comment: Speci men Type: BLOOD SPECIMENOrdering Facility: [facility] Address: [address] [place] [address] Performed By: #### 2 4323-8 ####[facility] LABCLIA [id number] [place] [address] [place] eGFRcr SerPlBld CKD-EPI 2020 110 mL/min/1.73m??? Normal >=60 [facility] Comment on above: Order Comment: Jihan neri Type: BLOOD SPECIMENOrdering Facility: [facility] Address: [address] [place] [address] Result Comment: Rhonda mated Glomerular Filtration Rate [...] actual GFR. Performed By: #### 2 4323-8 ####[facility] LABIA [id number] [place] [address] [place] Glucose [Mass/Vol] 111 mg/dL High 74-99 [facility] Comment on above: Order Comment: Jihan neri Type: BLOOD SPECIMENOrdering Facility: [facility] Address: [address] [place] [address] Result Comment: The [place] Diabetes Association (ADA) provides guidance for cutoff [...] Standards of Medical Care in Diabetes 2016, [place] [employer] Association. Diabetes Care. 2016.39(Suppl 1). Performed By: #### 2 4323-8 ####[facility] LABCLIA [id number] [place] [address] [place] Potassium [Moles/Vol] 4.0 mmol/L Normal 3.7-5.1 [facility] Comment on above: Order Comment: Speci men Type: BLOOD SPECIMENOrdering Facility: [facility] Address: [address] [place] [address] Performed By: #### 2 4323-8 ####[facility] LABCLIA [id number] [place] [address] [place] Protein [Mass/Vol] 7.1 g/dL Normal 6.3-8.0 [facility] Comment on above: Order Comment: Speci men Type: BLOOD SPECIMENOrdering Facility: [facility] Address: [address] [place] [address] Performed By: #### 2 4323-8 ####[facility] LABCLIA [id number] [place] [address] [place] Sodium [Moles/Vol] 138 mmol/L Normal 136-144 [facility] Comment on above: Order Comment: Speci men Type: BLOOD SPECIMENOrdering Facility: [facility] Address: [address] [place] [address] Performed By: #### 2 4323-8 ####[facility] LABCLIA [id number] [place] [address] [place] Urea nitrogen [Mass/Vol] 18 mg/dL Normal 9-24 [facility] Comment on above: Order Comment: Speci men Type: BLOOD SPECIMENOrdering Facility: [facility] Address: [address] [place] [address] Performed By: #### 2 4323-8 ####[facility] LABCLIA [id number] [address] [place] CNOVon 08-17-2025 CNOV Office Visit ([facility] ) GARRY HERNANDEZ ([id number]) 1980 M Date Time Provider Department 08/17/25 7:30 AM PLACEMENT RADHA ZAVALETA During your visit today, we recorded the following information about you: Pulse Respiration Blood pressure 69/minute 19/minute 130/71 Alexa Hartman RN 08/19/2025 6:32 AM Addendum August 17, 2025 1126 Garry arrived ambulatory with: , Neoma and other elders from his community and a tour bus driver. 1318 Arrived from imaging to GK and had pt get back into his clothes. Transportation home verified: yes, with tour bus driverAide, ph [phone]. Garry here for today for imaging, mask [...] abuse: no Allergies reviewed with patient, yes. [id number] Mask completed. To imaging for CT Scan [...] by this nurse and patient verbalized understanding. [phone] Patient assisted to treatment room. Gamma Knife SRS begun. 1652 Gamma Knife Stereotactic Radiosurgery Completed. 1657 Pt then discharged. WATSON Balderas Heidi, RN 08/17/2025 2:13 PM Signed [facility] Discharge Instructions As with [...] a physician or hospital other than the [facility] with any problem related to the Gamma Knife procedure, please call your physician, Dr. Patricio Mix at [phone]. After your treatment, you may experience a [...] call your physician, Dr. Patricio Mix at [phone] Sunday through Sunday 8:00 am to 5:00 pm. In the evening or on weekends, call [phone] or toll-free [phone] and ask the spar machine operator helper to page your neurosurgeon's resident tanner rotary drum continuous process. Referring Provider: BRAYAN MIX [[id number]] Allergies As of Date: 08/17/2025 (No Known [...] by mouth (more content not included)... Normal [facility] CT BRAIN WO IVCONon 08-17-20 CT [...] within normal limits. IMPRESSION: Stereotactic localization examination. Local Company Hazmat Driver: DARIEL Transcribe Date/Time: Aug 17 2025 1:24P Dictated by : WILBERT POWELL MD This examination was interpreted and the report reviewed and electronically signed by: WILBERT POWELL MD on Aug 17 2025 1:37PM EST [id number] Normal [facility] MRI BRAIN LOCAL W IVCONon MRI [...] malignant neoplasm of brain (HCC) . CPT 70817 With T1 Spacing. No Mprage. Brain MRI [...] enhancement in the LEFT postcentral gyrus/perirolandic region. Local [employer] Hazmat Driver: DARIEL Transcribe Date/Time: Aug 17 2025 1:25P Dictated by : WILBERT POWELL MD This examination was interpreted and the report reviewed and electronically signed by: WILBERT POWELL MD on Aug 17 2025 1:35PM EST [id number] Normal [facility] OPERATIVE NOon 08-17-2025 OPERATIVE NO HNO ID: [id number] Author: BRAYAN MIX MD Service: Neurosurgery Author Type: Physician Type: Operative Report Filed: 08/18/2025 07:44 Note Text: [facility] BRAIN [facility]UM[facility]URO-[facility]COL[facility] [address] [place] [address] [place] OPERATIVE REPORT NAME: Garry Hernandez [facility] NO.: [id number] MASK SIMULATION DATE: 2025-08-17 RADIATION TREATMENT START [...] were loaded in the planning computer and Neocraftsell gamma plan was used to perform fractionated [...] of Fractions: 1 After the usual quality assurance associate procedures were performed, fractionated radiosurgery was delivered with use of the Gamma Knife. The Gamma Knife checklists and time outs were performed during this procedure in a standard manner. Brayan Mix M.D. [facility] GARRY HERNANDEZ ([id number]) 1980 M Date Time Provider Department 08/13/25 [...] any doses. Instructed Garry to report to [facility] at 0630. Patient instructed to disregard any other emails, phone calls, or Drivr messages regarding arrival time. Directions given regarding mortgage banker parking at [facility] entrance. Aide confirms they have a responsible adult to accompany them with transportation to and from their Gamma Knife appointment. All questions answered and Aide receptive to information and verbalized understanding. Lina Ortiz RN Allergies As of Date: 08/13/2025 (No Known Allergies) Date Reviewed: 08/05/2025 Reviewed by: Alma Rosa Sylvester LPN - Fully Assessed Reason for Visit: Information [3958] Prescriptions as of 08/13/2025 - ferrous sulfate [...] Status:Closed by LINA ORTIZ on 08/13/25 Normal [facility] CBC W Auto Differential pane l (Bld)on 08-05-2025 Basophils (Bld) [#/Vol] 10*3/uL Normal <0.11 [facility] Comment on above: Order Comment: Speci men Type: BLOOD SPECIMENOrdering Facility: [facility] Address: [address] [place] [address] Performed By: #### 5 7021-8 ####[facility] LABCLIA [id number] [place] [address] [place] Basophils/100 WBC (Bld) 0.1 % Normal [facility] Comment on above: Order Comment: Speci men Type: BLOOD SPECIMENOrdering Facility: [facility] Address: [address] [place] [address] Performed By: #### 5 7021-8 ####[facility] LABCLIA [id number] [place] [address] [place] [place] Differential cell count method Nom (Bld) Auto Normal [facility] Comment on above: Order Comment: Speci men Type: BLOOD SPECIMENOrdering Facility: [facility] Address: [address] [place] [address] Performed By: #### 5 7021-8 ####[facility] LABCLIA [id number] [place] [address] [place] Eosinophils (Bld) [#/Vol] 0.03 10*3/uL Normal <0.46 [facility] Comment on above: Order Comment: Speci men Type: BLOOD SPECIMENOrdering Facility: [facility] Address: [address] [place] [address] Performed By: #### 5 7021-8 ####[facility] LABCLIA [id number] [place] [address] [place] Eosinophils/100 WBC (Bld) 0.4 % Normal [facility] Comment on above: Order Comment: Speci men Type: BLOOD SPECIMENOrdering Facility: [facility] Address: [address] [place] [address] Performed By: #### 5 7021-8 ####[facility] LABIA [id number] [place] [address] [place] Erythrocyte distribution width (RBC) [Ratio] 15.3 % High 11.5-15.0 [facility] Comment on above: Order Comment: Speci men Type: BLOOD SPECIMENOrdering Facility: [facility] Address: [address] [place] [address] Performed By: #### 5 7021-8 ####[facility] LABCLIA [id number] [place] [address] [place] Hematocrit (Bld) [Volume fraction] 37.6 % Low 39.0-51.0 [facility] Comment on above: Order Comment: Speci men Type: BLOOD SPECIMENOrdering Facility: [facility] Address: [address] [place] [address] Performed By: #### 5 7021-8 ####[facility] LABCLIA [id number] [place] [address] [place] Hemoglobin (Bld) [Mass/Vol] 12.4 g/dL Low 13.0-17.0 [facility] Comment on above: Order Comment: Speci men Type: BLOOD SPECIMENOrdering Facility: [facility] Address: [address] [place] [address] Performed By: #### 5 7021-8 ####[facility] LABCLIA [id number] [address] Immature granulocytes (Bld) [#/Vol] 0.08 10*3/uL Normal <0.10 [facility] Comment on above: Order Comment: Speci men Type: BLOOD SPECIMENOrdering Facility: [facility] Address: [address] [place] [address] Performed By: #### 5 7021-8 ####[facility] LABCLIA [id number] [address] Immature granulocytes/100 WBC (Bld) 1.0 % Normal [facility] Comment on above: Order Comment: Speci men Type: BLOOD SPECIMENOrdering Facility: [facility] Address: [address] [place] [address] Performed By: #### 5 7021-8 ####[facility] LABCLIA [id number] [address] [place] Lymphocytes (Bld) [#/Vol] 0.60 10*3/uL Low 1.00-4.00 [facility] Comment on above: Order Comment: Speci men Type: BLOOD SPECIMENOrdering Facility: [facility] Address: [address] [place] [address] Performed By: #### 5 7021-8 ####[facility] LABCLIA [id number] [address] STATES [facility] Lymphocytes/100 WBC (Bld) 7.8 % Normal [facility] Comment on above: Order Comment: Speci men Type: BLOOD SPECIMENOrdering Facility: [facility] Address: [address] [place] [address] Performed By: #### 5 7021-8 ####[facility] LABCLIA [id number] [place] [address] [place] MCH (RBC) [Entitic mass] 27.0 pg Normal 26.0-34.0 [facility] Comment on above: Order Comment: Speci men Type: BLOOD SPECIMENOrdering Facility: [facility] Address: [address] [place] [address] Performed By: #### 5 7021-8 ####[facility] LABCLIA [id number] [place] [address] [place] MCHC (RBC) [Mass/Vol] 33.0 g/dL Normal 30.5-36.0 [facility] Comment on above: Order Comment: Speci men Type: BLOOD SPECIMENOrdering Facility: [facility] Address: [address] [place] [address] Performed By: #### 5 7021-8 ####[facility] LABCLIA [id number] [place] [address] [place] MCV (RBC) [Entitic vol] 81.9 fL Normal 80.0-100.0 [facility] Comment on above: Order Comment: Speci men Type: BLOOD SPECIMENOrdering Facility: [facility] Address: [address] [place] [address] Performed By: #### 5 7021-8 ####[facility] LABCLIA [id number] [place] [address] [place] Monocytes (Bld) [#/Vol] 0.54 10*3/uL Normal <0.87 [facility] Comment on above: Order Comment: Speci men Type: BLOOD SPECIMENOrdering Facility: [facility] Address: [address] [place] [address] Performed By: #### 5 7021-8 ####[facility] LABCLIA [id number] [address] STATES [place] Monocytes/100 WBC (Bld) 7.0 % Normal [facility] Comment on above: Order Comment: Speci men Type: BLOOD SPECIMENOrdering Facility: [facility] Address: [address] [place] [address] Performed By: #### 5 7021-8 ####[facility] LABCLIA [id number] [place] [address] [place] Neutrophils (Bld) [#/Vol] 6.43 10*3/uL Normal 1.45-7.50 [facility] Comment on above: Order Comment: Speci men Type: BLOOD SPECIMENOrdering Facility: [facility] Address: [address] [place] [address] Performed By: #### 5 7021-8 ####[facility] LABCLIA [id number] [place] [address] [place] Neutrophils/100 WBC (Bld) 83.7 % Normal [facility] Comment on above: Order Comment: Speci men Type: BLOOD SPECIMENOrdering Facility: [facility] Address: [address] [place] [address] Performed By: #### 5 7021-8 ####[facility] LABCLIA [id number] [place] [address] [place] Nucleated RBC (Bld) [#/Vol] 10*3/uL Normal <0.01 [facility] Comment on above: Order Comment: Speci men Type: BLOOD SPECIMENOrdering Facility: [facility] Address: [address] [place] [address] Performed By: #### 5 7021-8 ####[facility] LABCLIA [id number] [place] [address] [place] Nucleated RBC/100 WBC (Bld) [Ratio] 0.0 /100 WBC Normal [facility] Comment on above: Order Comment: Speci men Type: BLOOD SPECIMENOrdering Facility: [facility] Address: [address] [place] [address] Performed By: #### 5 7021-8 ####[facility] LABCLIA [id number] [place] [address] [place] Platelet mean volume (Bld) [Entitic vol] 10.4 fL Normal 9.0-12.7 [facility] Comment on above: Order Comment: Speci men Type: BLOOD SPECIMENOrdering Facility: [facility] Address: [address] [place] [address] Performed By: #### 5 7021-8 ####[facility] LABCLIA [id number] [place] [address] [place] Platelets (Bld) [#/Vol] 214 10*3/uL Normal 150-400 [facility] Comment on above: Order Comment: Speci men Type: BLOOD SPECIMENOrdering Facility: [facility] Address: [address] [place] [address] Performed By: #### 5 7021-8 ####[facility] LABCLIA [id number] [place] [address] [place] RBC (Bld) [#/Vol] 4.59 10*6/uL Normal 4.20-6.00 [facility] Comment on above: Order Comment: Speci men Type: BLOOD SPECIMENOrdering Facility: [facility] Address: [address] [place] [address] Performed By: #### 5 7021-8 ####[facility] LABCLIA [id number] [address] STATES OF [facility] WBC (Bld) [#/Vol] 7.69 10*3/uL Normal 3.70-11.00 [facility] Comment on above: Order Comment: Speci men Type: BLOOD SPECIMENOrdering Facility: [facility] Address: [address] [place] [address] Performed By: #### 5 7021-8 ####[facility] LABCLIA [id number] [address] CNOVSPon 08-05-2025 CNOVSP Visit (SP) Office (HEMCA3) GARRY HERNANDEZ ([id number]) 1980 M Date Time Provider Department 08/05/25 [...] No Does patient want to see a Hardware Technician? No (yes to any of above refer [...] Timothy D, MD 08/06/2025 2:55 PM Addendum [facility] Department of Hematology and Medical Oncology PATIENT NAME: Garry Hernandez CLINIC NO.: [id number] DATE OF SERVICE: 08/05/2025 DIAGNOSIS: metastatic clear [...] AND ANNA (more content not included)... Normal [facility] Comprehensive metabolic 2000 panelon 08-05-2025 Albumin [Mass/Vol] 3.9 g/dL Normal 3.9-4.9 [facility] Comment on above: Order Comment: Speci men Type: BLOOD SPECIMENOrdering Facility: [facility] Address: [address] [place] [address] Performed By: #### 2 4323-8, 37970-5 ####[facility] LABCLIA [id number] [place] [address] [place] ALP [Catalytic activity/Vol] 172 U/L High 38-113 [facility] Comment on above: Order Comment: Erlindai daron Type: BLOOD SPECIMENOrdering Facility: [facility] Address: [address] [place] [address] Performed By: #### 2 4323-8, 57383-3 ####[facility] LABCLIA [id number] [place] [address] [place] ALT [Catalytic activity/Vol] 50 U/L Normal 10-54 [facility] Comment on above: Order Comment: Speci men Type: BLOOD SPECIMENOrdering Facility: [facility] Address: [address] [place] [address] Performed By: #### 2 4323-8, 17635-3 ####[facility] LABCLIA [id number] [place] [address] [place] Anion gap [Moles/Vol] 10 mmol/L Normal 8-15 [facility] Comment on above: Order Comment: Speci men Type: BLOOD SPECIMENOrdering Facility: [facility] Address: [address] [place] [address] Performed By: #### 2 4323-8, 12853-3 ####[facility] LABCLIA [id number] [place] [address] [place] AST [Catalytic activity/Vol] 20 U/L Normal 14-40 [facility] Comment on above: Order Comment: Speci men Type: BLOOD SPECIMENOrdering Facility: [facility] Address: [address] [place] [address] Performed By: #### 2 4323-8, 32664-8 ####[facility] LABCLIA [id number] [place] [address] [place] Bilirubin [Mass/Vol] 0.2 mg/dL Normal 0.2-1.3 [facility] Comment on above: Order Comment: Speci men Type: BLOOD SPECIMENOrdering Facility: [facility] Address: [address] [place] [address] Performed By: #### 2 4323-8, 22065-7 ####[facility] LABCLIA [id number] [place] [address] [place] Calcium [Mass/Vol] 9.4 mg/dL Normal 8.5-10.2 [facility] Comment on above: Order Comment: Speci men Type: BLOOD SPECIMENOrdering Facility: [facility] Address: [address] [place] [address] Performed By: #### 2 4323-8, 49780-1 ####[facility] LABCLIA [id number] [place] [id number] [place] Chloride [Moles/Vol] 100 mmol/L Normal 98-107 [facility] Comment on above: Order Comment: Speci men Type: BLOOD SPECIMENOrdering Facility: [facility] Address: [address] [place] [address] Performed By: #### 2 4323-8, 85414-6 ####[facility] LABCLIA [id number] [place] [id number] [place] CO2 [Moles/Vol] 26 mmol/L Normal 22-30 [facility] Comment on above: Order Comment: Speci men Type: BLOOD SPECIMENOrdering Facility: [facility] Address: [address] [place] [address] Performed By: #### 2 4323-8, 22411-3 ####[facility] LABCLIA [id number] [place] [address] [place] Creatinine [Mass/Vol] 0.92 mg/dL Normal 0.73-1.22 [facility] Comment on above: Order Comment: Speci men Type: BLOOD SPECIMENOrdering Facility: [facility] Address: [address] [place] [address] Performed By: #### 2 4323-8, 59091-3 ####[facility] LABCLIA [id number] [place] [address] [place] eGFRcr SerPlBld CKD-EPI 2020 104 mL/min/1.73m??? Normal >=60 [facility] Comment on above: Order Comment: Speci men Type: BLOOD SPECIMENOrdering Facility: [facility] Address: [address] [place] [address] Result Comment: Rhonda mated Glomerular Filtration Rate [...] actual GFR. Performed By: #### 2 4323-8, 84418-1 ####[facility] LABCLIA [id number] [place] [address] [place] Glucose [Mass/Vol] 112 mg/dL High 74-99 [facility] Comment on above: Order Comment: Speci men Type: BLOOD SPECIMENOrdering Facility: [facility] Address: [address] [place] [id number] Result Comment: The [place] Diabetes Association (ADA) provides guidance for cutoff [...] Standards of Medical Care in Diabetes 2016, [place] [employer]. Diabetes Care. 2016.39(Suppl 1). Performed By: #### 2 4323-8, 40171-1 ####[facility] LABCLIA [id number] [place] [address] [place] Potassium [Moles/Vol] 4.8 mmol/L Normal 3.7-5.1 [facility] Comment on above: Order Comment: Speci men Type: BLOOD SPECIMENOrdering Facility: [facility] Address: [address] [place], [place] [address] Performed By: #### 2 4323-8, 04770-8 ####[facility] LABCLIA [id number] [place] [id number] [place] Protein [Mass/Vol] 6.6 g/dL Normal 6.3-8.0 [facility] Comment on above: Order Comment: Speci men Type: BLOOD SPECIMENOrdering Facility: [facility] Address: [address] [place] [address] Performed By: #### 2 4323-8, 57926-7 ####[facility] LABCLIA [id number] [place] [phone] [place] Sodium [Moles/Vol] 136 mmol/L Normal 136-144 [facility] Comment on above: Order Comment: Speci men Type: BLOOD SPECIMENOrdering Facility: [facility] Address: [address] [place] [address] Performed By: #### 2 4323-8, 06435-7 ####[facility] LABCLIA [id number] [place] [phone] [place] Urea nitrogen [Mass/Vol] 16 mg/dL Normal 9-24 [facility] Comment on above: Order Comment: Speci men Type: BLOOD SPECIMENOrdering Facility: [facility] Address: [address] [place] [address] Performed By: #### 2 4323-8, 31875-9 ####[facility] LABCLIA [id number] [place] [address] [place] Iron and Iron binding capaci ty panelon 08-05-2025 Iron [Mass/Vol] 30 ug/dL Low 41-186 [facility] Comment on above: Order Comment: Speci men Type: BLOOD SPECIMENOrdering Facility: [facility] Address: [address] [place] [address] Performed By: #### 2 4323-8, 22719-7 ####[facility] LABCLIA [id number] [address] [place] Iron binding capacity [Mass/Vol] 225 ug/dL Low 232-386 [facility] Comment on above: Order Comment: Speci men Type: BLOOD SPECIMENOrdering Facility: [facility] Address: [address] [place] [address] Performed By: #### 2 4323-8, 20854-0 ####[facility] LABCLIA [id number] [place] [address] [place] Iron/TIBC [Molar ratio] 13.3 % Low 15.0-57.0 [facility] Comment on above: Order Comment: Speci men Type: BLOOD SPECIMENOrdering Facility: [facility] Address: [address] [place] [address] Performed By: #### 2 4323-8, 70453-9 ####[facility] LABCLIA [id number] [place] [id number] [place] Elizabeth 07-23-2025 CNPN Telephone (NSCAMN) GARRY HERNANDEZ ([id number]) 1980 M Date Time Provider Department 07/23/25 RADHA DIAZ [facility] During your visit today, we recorded [...] Encounter Status:Closed by RADHA DIAZ on 07/27/25 [facility] CNOVon 07-21-2025 CNOV Office Visit (NOGA ) GARRY HERNANDEZ ([id number]) 1980 M Date Time Provider Department 07/21/25 9:00 AM PLACEMENT NEUMalaika [facility] During your visit today, we recorded [...] administration of versed for frame placement. [address] Frame Used for frame placement by Dr. [...] No. Pain 0 on scale of 0-10 [phone] Garry assisted to treatment room. Gamma Knife [...] nurse, hours of availability, Dr. Yoel Mix's [facility] telephone number, and [facility] local and toll free numbers given to Garry and family/visitors. [phone] Garry left via wheelchair home with . WATSON Balderas Heidi, RN 07/21/2025 1:45 PM Signed [facility] Gamma Knife [place] Discharge Instructions - As with any surgery [...] a physician or hospital other than the [facility] with any problem related to the Gamma Knife procedure, please call your physician, Dr. Patricio Mix at [phone]. 1.) Ke (more content not included)... Normal [facility] CONSULTon 07-21-2025 CONSULT HNO ID: [id number] Author: RAYMON MADSEN MD Service: Radiation Oncology Author Type: Physician Type: Consults Filed: 07/21/2025 15:18 Note Text: [facility] FOLLOW-UP SERVICE DATE: 07/21/2025 SERVICE TIME: 12p [...] and com (more content not included)... Normal [facility] CT BRAIN STEREOLOCAL WO IVCO Non [...] with localized mass effect without midline shift. [employer] Hazmat Driver: DARIEL Transcribe Date/Time: Jul 21 2025 1:40P Dictated by : GABRIEL GIBBONS MD This examination was interpreted and the report reviewed and electronically signed by: ARTEMIO JAY MD on Jul 21 2025 1:57PM EST [id number] Normal [facility] OPERATIVE NOon 07-21-2025 OPERATIVE NO HNO ID: [id number] Author: BRAYAN MIX MD Service: Neurosurgery Author Type: Physician Type: Operative Report Filed: 07/23/2025 10:33 Note Text: [facility] BRAIN [facility]UM[facility]URO-ONCOL[facility]Y [facility] [address] [place] [address] [place] OPERATIVE REPORT NAME: Garry Hernandez [facility] NO.: [id number] RADIATION TREATMENT START DATE AND TIME: 2025-07-21, [...] of Fractions: 1 After the usual quality assurance associate procedures were performed, stereotactic radiosurgery was delivered with use of the Gamma Knife. Following the completion of the last shot, the stereotactic frame was removed and the pin sites were dressed. The Gamma Knife checklists and time outs were performed during this procedure in a standard manner. Brayan Mix M.D. Normal [facility] NTon 07-21-2025 THERAPY NT HNO ID: [id number] Author: CATHIE STANTON PT DPИрина Service: Physical Therapy Author Type: Physical Therapist Type: Therapy (PT/OT/Speech/Resp) Filed: 07/21/2025 12:28 Note Text: PHYSICAL THERAPY MISSED VISIT SERVICE DATE: 07/21/2025 SERVICE TIME: 1227 ROOM: [place] [address] (CA-LL-1 Gamma Knife) Patient not seen due to no skilled needs per discussion with OT. PT will sign off. 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 SUBJECTIVE COGNITION Orientation Deficits: Not [...] daily living (ADL) TREATMENT INTERVENTIONS Evaluation, Self Halfway Management (80105), Cognitive Training per First 15 Minutes (51676) Timed Code Treatment (minutes): 30 Skilled Treatment [...] July 21, 2025 TIME: 11:55 AM Normal [facility] THERAPY NT HNO ID: [id number] Author: JHONNY DAVEY OTR/L Service: Occupational Therapy Author Type: Occupational Therapist Type: Therapy (PT/OT/Speech/Resp) Filed: 07/21/2025 09:36 Note Text: OCCUPATIONAL THERAPY MISSED VISIT SERVICE DATE: 07/21/2025 SERVICE TIME: 935 ROOM: [place] [address] Patient not seen due to Test / Procedure. SIGNATURE: PAULIE Martínez PATIENT NAME: Garry Hernandez DATE: July 21, 2025 TIME: 9:36 AM Normal [facility] ALLIED HEALTHon 07-20-2025 ALLIED HEALTH HNO ID: [id number] Author: REJI KAUR RT(Jo) Service: Radiology Author [...] PATIENT PRESENTS WITH AN IMPLANTABLE OR ATTACHED SOFTBALL CORE MOLDER: No RADIOLOGY DEPARTMENT: MR; Exam(s) Completed: Head: Routine Brain +GKS. Anesthesia: No. Aromatherapy Administered: No PERIPHERAL IV DATA: Inpatient: see LDA documentation SIGNED BY: Reji Kaur RT(R) July 20, 2025 12:28 AM Normal [facility] ANES POSTPROC EVALon 025 ANES POSTPROC EVAL HNO ID: [id number] Author: ANDREW LARKIN DO Service: ? Author Type: Anesthesiologist Type: Anesthesia Postprocedure Evaluation Filed: 07/20/2025 15:44 Note Text: POST ANESTHESIA EVALUATION NOTE : 1980 Procedure Summary Date: 07/20/25 Room / Location: [facility] B-01 / PUL LAB H23 Anesthesia [...] July 20, 2025 TIME: 3:44 PM CSN: [id number] Normal [facility] ANES PRE-OPon 07-20-2025 ANES PRE-OP HNO ID: [id number] Author: ANDREW LARKIN DO Service: ? Author [...] and consent discussed: yes. Patient / Responsible Green Party agrees to proceed: yes Patient / [...] Surgery/Procedure. SIGNATURE: Andrew Larkin DO PATIENT NAME: aGrry Hernandez DATE: July 20, 2025 TIME: 12:46 PM CSN: [id number] Normal [facility] Bacteria Spec Resp Culton Bacteria identified Respiratory culture Nom (Unsp spec) CULTURE, RESPIRATORY: No growth 2 days GRAM STAIN: No organisms seen Rare Polymorphonuclear leukocytes Normal [facility] Comment on above: Performed By: #### 3 2355-0 ####[facility] LABCLIA [id number] [address] [place]#### [address]-5 ####[facility] LABCLIA [id number] [address] [place] CONSULTon 07-20-2025 CONSULT HNO ID: [id number] Author: RADHA ALLAN APRN.CNP Service: Radiation Oncology Author Type: Nurse Practitioner Type: Consults Filed: 07/20/2025 21:42 Note Text: INDERJIT INITIAL CONSULT INSPECTOR WATCH PARTS SERVICE DATE: 07/20/2025 SERVICE TIME: 1200 CONSULTING [...] given dex 10 mg and transferred to [facility] main same day for further management. 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 He denies nausea, focal [...] Acuity: mild, (more content not included)... Normal [facility] CONSULT HNO ID: [id number] Author: JESSICA HERNÁNDEZ MD Service: Cardiovascular Medicine [...] and multiple pulmonary nodules. Subsequently transferred to [facility] main [place] for further evaluation. We were consulted for [...] TBILI 0.3 (more content not included)... Normal [facility] CT ABD/PEL WO IVCONon 2024 CT ABD/PEL WO IVCON * * *Final Report* * * DATE OF EXAM: Jul 20 2025 8:41AM [facility] 0531 - CT ABD/PEL WO IVCON [...] further characterized with dedicated renal mass protocol. Local [employer] Hazmat Driver: DARIEL Transcribe Date/Time: Jul 20 2025 8:48A Dictated by : ABDIAZIZ DEL TORO MD This examination was interpreted and the report reviewed and electronically signed by: ENRIQUE WILKS MD on Jul 20 2025 9:24AM EST [id number] Normal [facility] CT CHEST WO IVCONon 07-20-[address] CHEST WO IVCON * * *Final Report* * * DATE OF EXAM: Jul 20 2025 8:41AM [facility] 0541 - CT CHEST WO IVCON [...] abdominal/pelvic CT exam. 2. No thoracic lymphadenopathy. Local Company Hazmat Driver: [facility] Transcribe Date/Time: Jul 20 2025 8:51A Dictated by : LANDON TAMAYO MD This examination was interpreted and the report reviewed and electronically signed by: LANDON TAMAYO MD on Jul 20 2025 9:08AM EST [id number] Normal [facility] CYTOLOGY NON-GYNon ADEQUACY INTERPRETATION Normal [facility] Comment on above: Order Comment: Speci men Type: SPECIMEN OBTAINED BY LAVAGEOrdering Facility: [facility] Address: [address] [place] [address] Result Comment: A: N o adequacy given [...] discrete evaluation episode. Intra-procedural [place] [address] Performed By: #### C YTONON ####[facility] LABCLIA [id number] [facility] [id number] [address] [place] AP DISCLAIMER Normal [facility] Comment on above: Order Comment: Speci men Type: SPECIMEN OBTAINED BY LAVAGEOrdering Facility: [facility] Address: [address] [place] [address] Result Comment: Obey gómez Developed Test (LDT) Disclaimer: Performance characteristics of immunohistochemical, immunofluorescent, and chromogenic in-situ hybridization tests have been determined by the performing laboratory within the [facility] Department of Pathology and Laboratory Medicine ([facility], [facility], [facility], [facility], [facility], [facility], or [facility]) in a manner consistent with CLIA requirements. One or more of these tests may not have been cleared or approved by the FDA. The [facility] Department of Pathology and Laboratory Medicine is regulated under CLIA as qualified to perform high-complexity testing. These tests are used for clinical purposes. These should not be regarded as investigational or for research. Positive and negative controls stain appropriately. Performed By: #### C YTONON ####[facility] LABCLIA [id number] [place] [address] [place] CASE REPORT Normal [facility] Comment on above: Order Comment: Speci men Type: SPECIMEN OBTAINED BY LAVAGEOrdering Facility: [facility] Address: [address] [place] [address] Result Comment: [facility] Cytology Report Case: [id number] Authorizing Provider: Dee Dee Martinez MD Collected: 07/20/2025 02:47 PM Ordering Location: [place] [address] Received: 07/20/2025 03:53 PM Pathologist: Piper Reyes MD Specimens: A) - Lung, Left, Left lower lobe B) - Lung, Left Lower Lobe, Transbronchial, endobronchial mass Performed By: #### C YTONON ####[facility] LABCLIA [id number] [address] [place] CLINICAL HISTORY History of renal fidel l carcinoma Normal [facility] Comment on above: Order Comment: Speci men Type: SPECIMEN OBTAINED BY LAVAGEOrdering Facility: [facility] Address: [address] [place] [address] Performed By: #### C YTONON ####[facility] LABCLIA [id number] [address] DIAGNOSIS COMMENT An immunostain for PAX-8 was performed on the cell block material from specimen B and the malignant cells are positive, further supporting the above diagnosis. Selected slides from specimen B were reviewed in consultation with Dr. Denita Soto, who concurs. Normal [facility] Comment on above: Order Comment: Speci men Type: SPECIMEN OBTAINED BY LAVAGEOrdering Facility: [facility] Address: [address] [place] [address] Performed By: #### C YTONON ####[facility] LABCLIA [id number] [address] FINAL DIAGNOSIS Normal [facility] Comment on above: Order Comment: Speci men Type: SPECIMEN OBTAINED BY LAVAGEOrdering Facility: [facility] Address: [address] [place] [address] Result Comment: A - Lung, Left, Wash [...] 1558 EDT Performed By: #### C YTONON ####[facility] LABCLIA [id number] [address] FINAL PERFORMING LAB Normal [facility] Comment on above: Order Comment: Speci men Type: SPECIMEN OBTAINED BY LAVAGEOrdering Facility: [facility] Address: [address] [place] [address] Result Comment: Tech nical component, teacher drama screening performed at: [facility], [address] [place] [address] CLIA: [id number] Diagnostic interpretation performed at: [facility], [address] [place] [address] [place] [address] CLIA# [id number] Ruling Machine Set Up Operator: Luis Armando Cardoza MD Performed By: #### C YTONON ####[facility] LABCLIA [id number] [address] GROSS DESCRIPTION A. Lung, Left Normal [facility] Comment on above: Order Comment: Speci men Type: SPECIMEN OBTAINED BY LAVAGEOrdering Facility: [facility] Address: [address] [place] [address] Result Comment: 10 c c hazy colorless fluid . ThinPrep prepared. B. Lung, Left Lower Lobe, Transbronchial 2 containers:60 cc hazy red CytoLyt with particles. ThinPrep and Cell Block prepared and 4 smears (2 air dried and 2 fixed). Performed By: #### C YTONON ####[facility] LABCLIA [id number] [address] [place] HISTORY PHYSICALon HISTORY PHYSICAL HNO ID: [id number] Author: BRAYAN MIX MD Service: Neurosurgery Author [...] and multiple pulmonary nodules. Subsequently transferred to [facility] for further evaluation. At [facility], received dex 10 IV. Per family, had improvement in mental status and headache. MRI wwo obtained at [facility], which demonstrates heterogeneous contrast-enhancement with necrotic [...] and multiple pulmonary nodules. Subsequently transferred to [facility] main [place] for further evaluation. - NSGY RNF q4 [...] Rosario Deluca MD PGY-2, Neurological Surgery Pager: [phone] 07/19/2025 9438 CURRENT OVERNIGHT RESIDENT Please page [phone] between 6:30 AM and 6:00 PM, or if I am not reachable at the above number between 6:00 PM and 6:30 AM The following problems are present on admission at this time: Neurologic disorder Continue current outpatient treatment plan and current medications for these conditions, except where otherwise noted. [facility] STAFF: TEACHING PHYSICIAN NOTE OF [...] at bedside Brayan Mix MD Beeper Number: [id number] Date and Time of Service: July 20, 2025 3:31 PM [1] Normal [facility] MRI BRAIN WO/W IVCONon 07-20 MRI [...] evidence of developing hydrocephalus. No midline shift. Local [employer] Hazmat Driver: [employer] Transcribe Date/Time: Jul 20 2025 9:20A Dictated by : LINUS CASTRO MD This examination was interpreted and the report reviewed and electronically signed by: MAICO FRANK MD on Jul 20 2025 10:12AM EST [id number] Normal [facility] Microorganism Spec Culton Microorganism identified Cx Nom (Unsp spec) CULTURE, FUNGAL: No Fungus isolated after 28 days FUNGAL SMEAR: No fungus seen Normal [facility] Comment on above: Performed By: #### 3 2355-0 ####[facility] LABIA [id number] [address]#### [address]-2 ####[facility] LABIA [id number] [address] Microorganism identified Cx Nom (Unsp spec) CULTURE, AFB: No Acid Fast Bacilli isolated after 42 days AFB STAIN: No acid fast bacilli seen by fluorochrome stain Normal [facility] Comment on above: Performed By: #### 3 2355-0 ####[facility] LABCLIA [id number] [address]#### [address] ####[facility] LABIA [id number] [address] NURSING PROGon 07-20-2025 NURSING PROG HNO ID: [id number] Author: NAPOLEON SIMON RN Service: ? Author Type: Registered Nurse Type: Nursing Progress Note Filed: 07/20/2025 20:30 Note Text: Patient reports visual hallucinations that started today. States the ceiling is coming down on him and that he sees a barn window. RN notified treatment team Shakila Lam NP. Waiting for response. Normal [facility] NURSING PROG HNO ID: [id number] Author: CANDY BAUER RN Service: Nursing Author [...] July 20, 2025 TIME: 12:25 AM Normal [facility] Pathology biopsy report Parag (Tiss)on 07-20-2025 AP DISCLAIMER Normal [facility] Comment on above: Order Comment: Speci men Type: TISSUE SPECIMENOrdering Facility: [facility] Address: [address] [place] [address] Result Comment: Obey Millan Test (LDT) Disclaimer: Performance characteristics of immunohistochemical, immunofluorescent, and chromogenic in-situ hybridization tests have been determined by the performing laboratory within the [facility] Department of Pathology and Laboratory Medicine ([facility], [facility], [facility], [facility], [facility], [facility], or [facility]) in a manner consistent with CLIA requirements. One or more of these tests may not have been cleared or approved by the FDA. The [facility] Department of Pathology and Laboratory Medicine is regulated under CLIA as qualified to perform high-complexity testing. These tests are used for clinical purposes. These should not be regarded as investigational or for research. Positive and negative controls stain appropriately. Performed By: #### 6 6121-5 ####[facility] LABCLIA [id number] [place] [address] [place] CASE REPORT Normal [facility] Comment on above: Order Comment: Speci men Type: TISSUE SPECIMENOrdering Facility: [facility] Address: [address] [place] [address] Result Comment: Surg [facility] Pathology Report Case: [id number] Authorizing Provider: Dee Dee Martinez MD Collected: 07/20/2025 03:19 PM Ordering Location: [place] [address] Received: 07/20/2025 05:36 PM Pathologist: Lauro Salmeron MD Specimen: Lung, Left, Biopsy, LLL ENDOBRONCHIAL MASS EBBX Performed By: #### 6 6121-5 ####[facility] LABCLIA [id number] [place] [address] [place] FINAL DIAGNOSIS Normal [facility] Comment on above: Order Comment: Speci men Type: TISSUE SPECIMENOrdering Facility: [facility] Address: [address] [place] [address] Result Comment: A. 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 at 0742 EDT Performed By: #### 6 6121-5 ####[facility] LABCLIA [id number] [address] [place] FINAL PERFORMING LAB Normal [facility] Comment on above: Order Comment: Speci men Type: TISSUE SPECIMENOrdering Facility: [facility] Address: [address] [place] [address] Result Comment: Diag nostic interpretation performed at: [facility], [address] [place] [address] CLIA# [id number] Ruling Machine Set Up Operator: Luis Armando Cardoza MD Performed By: #### 6 6121-5 ####[facility] LABCLIA [id number] [address] [address] [place] GROSS DESCRIPTION Normal [facility] Comment on above: Order Comment: Speci men Type: TISSUE SPECIMENOrdering Facility: [facility] Address: [address] [place] [address] Result Comment: Patricio Jiménez shagufta, Left, Biopsy Received in formalin labeled as LLL endobronchial mass EBBX are multiple pieces of hemorrhagic tissue aggregating to 2.0 x 1.2 x 0.7 cm. The tissue is totally submitted in 1 cassette. MLG 07/21/25 10:00 AM Gross examination performed at [facility], [address] [place] [address] Performed By: #### 6 6121-5 ####[facility] LABCLIA [id number] [address] [place] 12 Lead EKGon 07-19-2025 12 Lead EKG [facility] Cardiovascular Services [address] [place] [address] 12 Lead EKG 07/19/25 1633 MR#: [id number] Acct: [id number] Name: GARRY HERNANDEZ Rep #: [id number] : 1980 45 From: Hao Candelario MD [...] Confirmed by KELLEY DE PAZ, HAO ([id number]), food expeditor EVENS HENSON ([id number]) on 07/21/2025 8:00:49 AM Referred By: Confirmed By: HAO CANDELARIO MD 07/21/25 0800 Date Hao Candelario MD CC: Dr. Sylvester Morales MD; Dr. Rocky Fountain MD Signed [facility] 12 Lead EKG [facility] Cardiovascular Services [address] [place] [address] 12 Lead EKG 07/19/25 1633 MR#: [id number] Acct: [id number] Name: GARRY HERNANDEZ Rep #: [id number] : 1980 45 From: Hao Candelario MD [...] Confirmed by KELLEY DE PAZ, HAO ([id number]), food expeditor EVENS HENSON ([id number]) on 07/21/2025 8:00:49 AM Referred By: Confirmed By: HAO CANDELARIO MD 07/21/25 0800 Date Hao Candelario MD CC: Dr. Sylvester Morales MD; Dr. Rocky Fountain MD Signed Normal [facility] Absolute lymphocyte countOrd ered By: Sylvester Morales on 07-19-2025 Lymphocytes Auto (Unsp spec) [#/Vol] 1.69 10*3/uL 0.83-4.51 [facility] Absolute neutrophil countOrd ered By: Sylvester Morales on 07-19-2025 Neutrophils (Bld) [#/Vol] 8.1 10*3/uL High 2.0-7.7 [facility] Activated partial thrombopla stin time (aPTT) in platelet poor plasma by coagulation aOrdered By: Sylvester Morales on 07-19-2025 aPTT Coag (PPP) [Time] 30.3 s 24.1-36.2 [facility] Anion gap in Serum or Plasma Ordered By: Sylvester Morales on 07-19-2025 Anion gap [Moles/Vol] 16 mmol/L High 5-15 [facility] Automated lymphocyte count a s percentage of total leukocytesOrdered By: Sylvester Morales on 07-19-2025 Lymphocytes/100 WBC Auto (Unsp spec) 15.4 % Low [facility] BUN/creatinine ratioOrdered By: Sylvester Morales on 07-19-2025 Urea nitrogen/Creatinine [Mass ratio] 17.1 mg/mg 08-10 [facility] Basic Metabolic Profile (BMP )on 07-19-2025 BUN/CRE 17.1 RATIO Normal 08-10 [facility] Comment on above: Performed By: #### L 300.4310, L501.4021, L300.3900, L500.2500, L100.0100 ####[facility] [address] [place], [place], [address] ECRCL 91.88 ml/min Normal 50 - 250 ml/min [facility] Work Phone: Comment on above: Performed By: #### L 300.4310, L501.4021, L300.3900, L500.2500, L100.0100 ####[facility] [id number] [facility]. [place], [place], [address] GAP 16 Abnormal 5 - 15 [facility]; [facility] Work Phone: Comment on above: Performed By: #### L 300.4310, L501.4021, L300.3900, L500.2500, L100.0100 ####[facility] [address] [facility], [address] Potassium [Moles/Vol] 3.6 mmol/L Normal 3.3 - 5.1 mmol/L [facility]; [facility] Work Phone: Comment on above: Result Comment: Hemo lysis present, Results??could be affected. ?? Performed By: #### L 300.4310, L501.4021, L300.3900, L500.2500, L100.0100 ####[facility] [address] [place], [address] Basophil percentageOrdered B y: Sylvester Morales on 07-19-2025 Basophils/100 WBC (Bld) 0.5 % 0-1 [facility] Bedside Glucoseon 07-19-2025 FINGERSTICK GLU 118 mg/dL High 74-106 [facility] Comment on above: Result Comment: [facility] OF PATIENT CARE PER NURSING PROTOCOL Performed By: #### L 501.080 #### [facility] [address] [place], [address] CBC W Auto Differential pane l (Bld)on 07-19-2025 Basophils (Bld) [#/Vol] 10*3/uL Normal <0.11 [facility] Comment on above: Order Comment: Speci men Type: BLOOD SPECIMENOrdering Facility: [facility] Address: [address] [place] [address] Performed By: #### 5 7021-8 ####[facility] LABCLIA [id number] [place] [address] [place] Basophils/100 WBC (Bld) 0.2 % Normal [facility] Comment on above: Order Comment: Speci men Type: BLOOD SPECIMENOrdering Facility: [facility] Address: [address] [place] [address] Performed By: #### 5 7021-8 ####[facility] LABCLIA [id number] [place] [address] [place] Differential cell count method Nom (Bld) Auto Normal [facility] Comment on above: Order Comment: Speci men Type: BLOOD SPECIMENOrdering Facility: [facility] Address: [address] [place] [address] Performed By: #### 5 7021-8 ####[facility] LABCLIA [id number] [place] [address] [place] Eosinophils (Bld) [#/Vol] 10*3/uL Normal <0.46 [facility] Comment on above: Order Comment: Speci men Type: BLOOD SPECIMENOrdering Facility: [facility] Address: [address] [place] [address] Performed By: #### 5 7021-8 ####[facility] LABCLIA [id number] [place] [id number] [place] Eosinophils/100 WBC (Bld) 0.0 % Normal [facility] Comment on above: Order Comment: Speci men Type: BLOOD SPECIMENOrdering Facility: [facility] Address: [address] [place] [address] Performed By: #### 5 7021-8 ####[facility] LABIA [id number] [place] [address] [place] Erythrocyte distribution width (RBC) [Ratio] 13.5 % Normal 11.5-15.0 [facility] Comment on above: Order Comment: Speci men Type: BLOOD SPECIMENOrdering Facility: [facility] Address: [address] [place] [address] Performed By: #### 5 7021-8 ####[facility] LABIA [id number] [place] [address] [place] Hematocrit (Bld) [Volume fraction] 40.6 % Normal 39.0-51.0 [facility] Comment on above: Order Comment: Speci men Type: BLOOD SPECIMENOrdering Facility: [facility] Address: [address] [place] [address] Performed By: #### 5 7021-8 ####[facility] LABIA [id number] [place] [id number] [place] Hemoglobin (Bld) [Mass/Vol] 13.8 g/dL Normal 13.0-17.0 [facility] Comment on above: Order Comment: Speci men Type: BLOOD SPECIMENOrdering Facility: [facility] Address: [address] [place] [address] Performed By: #### 5 7021-8 ####[facility] LABCLIA [id number] [place] [address] [place] Immature granulocytes (Bld) [#/Vol] 0.03 10*3/uL Normal <0.10 [facility] Comment on above: Order Comment: Speci men Type: BLOOD SPECIMENOrdering Facility: [facility] Address: [address] [place] [address] Performed By: #### 5 7021-8 ####[facility] LABCLIA [id number] [address] [place] Immature granulocytes/100 WBC (Bld) 0.3 % Normal [facility] Comment on above: Order Comment: Speci men Type: BLOOD SPECIMENOrdering Facility: [facility] Address: [address] [place] [address] Performed By: #### 5 7021-8 ####[facility] LABIA [id number] [place] [address] [place] Lymphocytes (Bld) [#/Vol] 0.68 10*3/uL Low 1.00-4.00 [facility] Comment on above: Order Comment: Speci men Type: BLOOD SPECIMENOrdering Facility: [facility] Address: [address] [place] [address] Performed By: #### 5 7021-8 ####[facility] LABCLIA [id number] [address] [place] Lymphocytes/100 WBC (Bld) 7.6 % Normal [facility] Comment on above: Order Comment: Speci men Type: BLOOD SPECIMENOrdering Facility: [facility] Address: [address] [place] [address] Performed By: #### 5 7021-8 ####[facility] LABIA [id number] [place] [address] [place] MCH (RBC) [Entitic mass] 27.1 pg Normal 26.0-34.0 [facility] Comment on above: Order Comment: Speci men Type: BLOOD SPECIMENOrdering Facility: [facility] Address: [address] [place] [address] Performed By: #### 5 7021-8 ####[facility] LABCLIA [id number] [place] [address] [place] MCHC (RBC) [Mass/Vol] 34.0 g/dL Normal 30.5-36.0 [facility] Comment on above: Order Comment: Speci men Type: BLOOD SPECIMENOrdering Facility: [facility] Address: [address] [place] [address] Performed By: #### 5 7021-8 ####[facility] LABCLIA [id number] [place] [address] [place] MCV (RBC) [Entitic vol] 79.8 fL Low 80.0-100.0 [facility] Comment on above: Order Comment: Speci men Type: BLOOD SPECIMENOrdering Facility: [facility] Address: [address] [place] [address] Performed By: #### 5 7021-8 ####[facility] LABIA [id number] [place] [address] [place] Monocytes (Bld) [#/Vol] 0.10 10*3/uL Normal <0.87 [facility] Comment on above: Order Comment: Speci men Type: BLOOD SPECIMENOrdering Facility: [facility] Address: [address] [place] [address] Performed By: #### 5 7021-8 ####[facility] LABCLIA [id number] [address] [place] Monocytes/100 WBC (Bld) 1.1 % Normal [facility] Comment on above: Order Comment: Speci men Type: BLOOD SPECIMENOrdering Facility: [facility] Address: [address] [place], [place] [address] Performed By: #### 5 7021-8 ####[facility] LABCLIA [id number] [address], [place] [address] [place] Neutrophils (Bld) [#/Vol] 8.08 10*3/uL High 1.45-7.50 [facility] Comment on above: Order Comment: Speci men Type: BLOOD SPECIMENOrdering Facility: [facility] Address: [address] [place] [address] Performed By: #### 5 7021-8 ####[facility] LABCLIA [id number] [address], [place] [address] [place] Neutrophils/100 WBC (Bld) 90.8 % Normal [facility] Comment on above: Order Comment: Speci men Type: BLOOD SPECIMENOrdering Facility: [facility] Address: [address] [place] [address] Performed By: #### 5 7021-8 ####[facility] LABCLIA [id number] [facility] [address], [facility] [place] Nucleated RBC (Bld) [#/Vol] 10*3/uL Normal <0.01 [facility] Comment on above: Order Comment: Speci men Type: BLOOD SPECIMENOrdering Facility: [facility] Address: [address] [place] [address] Performed By: #### 5 7021-8 ####[facility] LABCLIA [id number] [facility] [place] [id number] [place] Nucleated RBC/100 WBC (Bld) [Ratio] 0.0 /100 WBC Normal [facility] Comment on above: Order Comment: Speci men Type: BLOOD SPECIMENOrdering Facility: [facility] Address: [address] [place] [address] Performed By: #### 5 7021-8 ####[facility] LABCLIA [id number] [address], [facility] [place] Platelet mean volume (Bld) [Entitic vol] 10.6 fL Normal 9.0-12.7 [facility] Comment on above: Order Comment: Speci men Type: BLOOD SPECIMENOrdering Facility: [facility] Address: [address] [place] [address] Performed By: #### 5 7021-8 ####[facility] LABCLIA [id number] [place] [address] [place] Platelets (Bld) [#/Vol] 305 10*3/uL Normal 150-400 [facility] Comment on above: Order Comment: Speci men Type: BLOOD SPECIMENOrdering Facility: [facility] Address: [address] [place] [address] Performed By: #### 5 7021-8 ####[facility] LABCLIA [id number] [place] [address] [place] RBC (Bld) [#/Vol] 5.09 10*6/uL Normal 4.20-6.00 [facility] Comment on above: Order Comment: Speci men Type: BLOOD SPECIMENOrdering Facility: [facility] Address: [address] [place] [address] Performed By: #### 5 7021-8 ####[facility] LABIA [id number] [place] [address] [place] WBC (Bld) [#/Vol] 8.91 10*3/uL Normal 3.70-11.00 [facility] Comment on above: Order Comment: Speci men Type: BLOOD SPECIMENOrdering Facility: [facility] Address: [address] [place] [address] Performed By: #### 5 7021-8 ####[facility] LABCLIA [id number] [place] [id number] [place] CBC W/Diff, Automatedon 09-2 Absolute Lymph 1.69 X10 3/uL Normal 0.83-4.51 [facility] Comment on above: Performed By: #### L 300.4310, L501.4021, L300.3900, L500.2500, L100.0100 #### [facility] Laboratory [address] [place], [address] Absolute Neut 8.1 X10 3/uL High 2.0-7.7 [facility] Comment on above: Performed By: #### L 300.4310, L501.4021, L300.3900, L500.2500, L100.0100 #### [facility] [address] [place], [address] Basophils/100 WBC (Bld) 0.5 % Normal 0-1 [facility] Comment on above: Performed By: #### L 300.4310, L501.4021, L300.3900, L500.2500, L100.0100 #### [facility] [address] [place], [address] Eosinophils/100 WBC (Bld) 0.6 % Normal 0-5 [facility] Comment on above: Performed By: #### L 300.4310, L501.4021, L300.3900, L500.2500, L100.0100 #### [facility] [address] [place], [address] Erythrocyte distribution width (RBC) [Ratio] 13.4 % Normal 11.6-14.6 [facility] Comment on above: Performed By: #### L 300.4310, L501.4021, L300.3900, L500.2500, L100.0100 #### [facility] [address] [place], [address] Hematocrit (Bld) [Volume fraction] 40.1 % Normal 40-54 [facility] Comment on above: Performed By: #### L 300.4310, L501.4021, L300.3900, L500.2500, L100.0100 #### [facility] [address] [place], [address] Hemoglobin (Bld) [Mass/Vol] 13.5 g/dL Normal 13.0-16.5 [facility] Comment on above: Performed By: #### L 300.4310, L501.4021, L300.3900, L500.2500, L100.0100 #### [facility] [address] [place], [address] IG% 0.500 Normal 0.0-0.9 [facility] Comment on above: Result Comment: IG% - Immature Granulocytes (promyelocytes, myelocytes and metamyelocytes) > 1% indicates that a LEFT SHIFT is Present. Performed By: #### L 300.4310, L501.4021, L300.3900, L500.2500, L100.0100 #### [facility] [address] [place], [address] Lymphocytes/100 WBC (Bld) 15.4 % Low 19-41 [facility] Comment on above: Performed By: #### L 300.4310, L501.4021, L300.3900, L500.2500, L100.0100 #### [facility] [address] [place], [address] MCH (RBC) [Entitic mass] 26.8 pg Low 27.0-32.0 [facility] Comment on above: Performed By: #### L 300.4310, L501.4021, L300.3900, L500.2500, L100.0100 #### [facility] [address] [place], [address] MCHC (RBC) [Mass/Vol] 33.7 g/dL Normal 32-36 [facility] Comment on above: Performed By: #### L 300.4310, L501.4021, L300.3900, L500.2500, L100.0100 #### [facility] [address] [place], [address] MCV (RBC) [Entitic vol] 79.7 fL Low 80-94 [facility] Comment on above: Performed By: #### L 300.4310, L501.4021, L300.3900, L500.2500, L100.0100 #### [facility] [address] [place], [address] Monocytes/100 WBC (Bld) 9.0 % Normal 0-10 [facility] Comment on above: Performed By: #### L 300.4310, L501.4021, L300.3900, L500.2500, L100.0100 #### [facility] [address] [place], [address] Neutrophils/100 WBC (Bld) 74.0 % High 47-70 [facility] Comment on above: Performed By: #### L 300.4310, L501.4021, L300.3900, L500.2500, L100.0100 #### [facility] [address] [place], [address] Nucleated RBC (Bld) [#/Vol] 0 10*3/uL Normal 0-5 [facility] Comment on above: Performed By: #### L 300.4310, L501.4021, L300.3900, L500.2500, L100.0100 #### [facility] [address] [place], [address] Platelet mean volume (Bld) [Entitic vol] 10.4 fL Normal 6.2-12.0 [facility] Comment on above: Performed By: #### L 300.4310, L501.4021, L300.3900, L500.2500, L100.0100 #### [facility] [address] [place], [address] Platelets (Bld) [#/Vol] 318 10*3/uL Normal 150-450 [facility] Comment on above: Performed By: #### L 300.4310, L501.4021, L300.3900, L500.2500, L100.0100 #### [facility] [address] [place], [address] RBC (Bld) [#/Vol] 5.03 10*6/uL Normal 4.6-6.2 [facility] Comment on above: Performed By: #### L 300.4310, L501.4021, L300.3900, L500.2500, L100.0100 #### [facility] [address] [place], [address] RDW SD 37.8 fl Normal 35.1-43.9 [facility] Comment on above: Performed By: #### L 300.4310, L501.4021, L300.3900, L500.2500, L100.0100 #### [facility] [address] [place], [address] WBC (Bld) [#/Vol] 11.0 10*3/uL Normal 4.4-11.0 [facility] Comment on above: Performed By: #### L 300.4310, L501.4021, L300.3900, L500.2500, L100.0100 #### [facility] [address] [place], [address] CONFIRM BLOOD TYPEon 025 ABO O Normal [facility] Comment on above: Order Comment: Speci men Type: BLOOD SPECIMENOrdering Facility: [facility] Address: [address] [place] [address] Performed By: #### C ONABO ####CC MAIN BLOOD BANKCLIA [id number] [facility] [id number] [place] Rh Nom (Bld) Positive Normal [facility] Comment on above: Order Comment: Speci men Type: BLOOD SPECIMENOrdering Facility: [facility] Address: [address] [place] [id number] Performed By: #### C ONABO ####CC MAIN BLOOD BANKCLIA [id number] [facility] [id number] [address] [place] Carbon dioxide, total [Moles /volume] in Central venous bloodon 07-19-2025 CO2 [Moles/Vol] 22.7 mmol/L Normal 21.0 - 32.0 mmol/L [facility] Work Phone: Comment on above: Performed By: #### L 300.4310, L501.4021, L300.3900, L500.2500, L100.0100 ####[facility] [address] [facility] [place], [place], [id number] Chest 1 Viewon 07-19-2025 Chest 1 View [facility] Imaging Services [address] [place], [place] [address] Chest 1 View MR#: [id number] Acct: [id number] Name: GARRY HERNANDEZ Rep #: [id number] : 1980 M 45 From: Sunny Dave MD PCP: Dr. Rocky Fountain MD Status: REG ER Study: Chest 1 View Date of Exam: 07/19/25 Exam# [id number] Ordering Dr: Sylvester Morales MD PROCEDURE: CHEST 1 VIEW 07/19/2025 REASON FOR EXAM: NEURO DEFICIT, ACUTE, STROKE SUSPECTED TECHNIQUE: Frontal view of the chest. COMPARISON: None. FINDINGS: Lungs/Pleura: Clear. Heart/Mediastinum: Normal in size. Bones/Soft tissues: Unremarkable. RAD/Chest 1 View IMPRESSION: No acute cardiopulmonary disease. Reading Location: [facility] CC: Dr. Sylvester Morales MD; Dr. Rocky Fountain MD [employer] Driver: Signed Normal [facility] Chest 1 View [facility] Imaging Services [address] [place], [place] [address] Chest 1 View MR#: [id number] Acct: [id number] Name: GARRY HERNANDEZ Rep #: [id number] : 1980 M 45 From: Sunny Dave MD PCP: Dr. Rocky Fountain MD Status: DEP ER Study: Chest 1 View Date of Exam: 07/19/25 Exam# [id number] Ordering Dr: Sylvester Morales MD PROCEDURE: CHEST 1 VIEW 07/19/2025 REASON FOR EXAM: NEURO DEFICIT, ACUTE, STROKE SUSPECTED TECHNIQUE: Frontal view of the chest. COMPARISON: None. FINDINGS: Lungs/Pleura: Clear. Heart/Mediastinum: Normal in size. Bones/Soft tissues: Unremarkable. RAD/Chest 1 View IMPRESSION: No acute cardiopulmonary disease. Reading Location: [facility] CC: Dr. Sylvester Morales MD; Dr. Rocky Fountain MD [employer]: Signed Normal [facility] Chloride assayon 07-19-2025 Chloride [Moles/Vol] 95 mmol/L Abnormal 98 - 10 8 mmol/L [facility] Work Phone: Comment on above: Performed By: #### L 300.4310, L501.4021, L300.3900, L500.2500, L100.0100 ####[facility] [address] [place], [place], [id number] Comprehensive metabolic 2000 panelon 07-19-2025 Albumin [Mass/Vol] 4.6 g/dL Normal 3.9-4.9 [facility] Comment on above: Order Comment: Speci men Type: BLOOD SPECIMENOrdering Facility: [facility] Address: [address] [place] [address] Performed By: #### 2 4323-8, 81731-9, 2777-1 ####[facility] LABCLIA [id number] [place] [address] [place] ALP [Catalytic activity/Vol] 269 U/L High 38-113 [facility] Comment on above: Order Comment: Speci men Type: BLOOD SPECIMENOrdering Facility: [facility] Address: [address] [place], [place] [address] Performed By: #### 2 4323-8, , 2776-10 ####[facility] LABCLIA [id number] [place] [address] [place] ALT [Catalytic activity/Vol] 13 U/L Normal 10-54 [facility] Comment on above: Order Comment: Speci men Type: BLOOD SPECIMENOrdering Facility: [facility] Address: [address] [place] [address] Performed By: #### 2 4323-8, , 2776-10 ####[facility] LABCLIA [id number] [place] [address] [place] Anion gap [Moles/Vol] 12 mmol/L Normal 8-15 [facility] Comment on above: Order Comment: Speci men Type: BLOOD SPECIMENOrdering Facility: [facility] Address: [address] [place] [address] Performed By: #### 2 4323-8, , 2776-10 ####[facility] LABIA [id number] [place] [address] [place] AST [Catalytic activity/Vol] 9 U/L Low 14-40 [facility] Comment on above: Order Comment: Speci men Type: BLOOD SPECIMENOrdering Facility: [facility] Address: [address] [place], [place] [address] Performed By: #### 2 4323-8, , 2776-10 ####[facility] LABCLIA [id number] [address] [address] [place] Bilirubin [Mass/Vol] 0.3 mg/dL Normal 0.2-1.3 [facility] Comment on above: Order Comment: Speci men Type: BLOOD SPECIMENOrdering Facility: [facility] Address: [address] [place] [address] Performed By: #### 2 4323-8, , 2776-10 ####[facility] LABCLIA [id number] [address] [address] [place] Calcium [Mass/Vol] 12.2 mg/dL High 8.5-10.2 [facility] Comment on above: Order Comment: Speci men Type: BLOOD SPECIMENOrdering Facility: [facility] Address: [address] [place], [place] [address] Performed By: #### 2 4323-8, , 2776-10 ####[facility] LABCLIA [id number] [address] [address] [place] Chloride [Moles/Vol] 96 mmol/L Low 98-107 [facility] Comment on above: Order Comment: Speci men Type: BLOOD SPECIMENOrdering Facility: [facility] Address: [address] [place], [place] [address] Performed By: #### 2 4323-8, , 2776-10 ####[facility] LABCLIA [id number] [place] [address] [place] CO2 [Moles/Vol] 26 mmol/L Normal 22-30 [facility] Comment on above: Order Comment: Speci men Type: BLOOD SPECIMENOrdering Facility: [facility] Address: [address] [place] [address] Performed By: #### 2 4323-8, , 2776-10 ####[facility] LABCLIA [id number] [address] [address] [place] Creatinine [Mass/Vol] 0.89 mg/dL Normal 0.73-1.22 [facility] Comment on above: Order Comment: Speci men Type: BLOOD SPECIMENOrdering Facility: [facility] Address: [address] [place] [address] Performed By: #### 2 4323-8, 99523-9, 2776-10 ####[facility] [id number] [place] [address] [place] eGFRcr SerPlBld CKD-EPI 2020 107 mL/min/1.73m??? Normal >=60 [facility] Comment on above: Order Comment: Jihan neri Type: BLOOD SPECIMENOrdering Facility: [facility] Address: [address] [place] [address] Result Comment: Rhonda mated Glomerular Filtration Rate [...] actual GFR. Performed By: #### 2 4323-8, 76584-4, 2776-10 ####[facility] LABIA [id number] [address] [address] [place] Glucose [Mass/Vol] 138 mg/dL High 74-99 [facility] Comment on above: Order Comment: Jihan neri Type: BLOOD SPECIMENOrdering Facility: [facility] Address: [address] [place] [address] Result Comment: The [place] Diabetes Association (ADA) provides guidance for cutoff [...] Standards of Medical Care in Diabetes 2016, [place] [employer]. Diabetes Care. 2016.39(Suppl 1). Performed By: #### 2 4323-8, , 2776-10 ####[facility] LABIA [id number] [address] [address] [place] Potassium [Moles/Vol] 4.2 mmol/L Normal 3.7-5.1 [facility] Comment on above: Order Comment: Speci men Type: BLOOD SPECIMENOrdering Facility: [facility] Address: [address] [place] [address] Performed By: #### 2 4323-8, , 2776-10 ####[facility] LABIA [id number] [place] [address] [place] Protein [Mass/Vol] 8.0 g/dL Normal 6.3-8.0 [facility] Comment on above: Order Comment: Speci men Type: BLOOD SPECIMENOrdering Facility: [facility] Address: [address] [place] [address] Performed By: #### 2 4323-8, , 2776-10 ####[facility] [id number] [place] [address] [place] Urea nitrogen [Mass/Vol] 15 mg/dL Normal 9-24 [facility] Comment on above: Order Comment: Speci men Type: BLOOD SPECIMENOrdering Facility: [facility] Address: [address] [place], [place] [address] Performed By: #### 2 4323-8, , 2776-10 ####[facility] [id number] [address] [address] [place] ECG COMPLETEon 07-19-2025 ECG COMPLETE Ventricular Rate : 6 0 BPM Atrial Rate : 60 BPM P-R Interval : 168 ms QRS Duration : 84 ms Q-T Interval : 418 ms QTC Calculation(Bazett) : 418 ms Calculated P [place] : 59 degrees Calculated R [place] : 45 degrees Calculated T [place] : 54 degrees NORMAL SINUS RHYTHM NORMAL ECG Confirmed by JHONNY RAO MD ([id number]) on 08/22/2025 2:11:39 PM NAME : GARRY HERNANDEZ PID : [id number] : 1980 Gender : Male Race : ORD : [id number] Procedure Date : Jul 19 2025 22:00:34 Edit Date : Aug 22 2025 14:11:44 Diagnosis: NORMAL SINUS RHYTHM NORMAL ECG Confirmed by JHONNY RAO MD ([id number]) on 08/22/2025 2:11:39 PM Test Reason : Vasogenic edema Location : 63 : H60 H060-44 Overread By : JHONNY RAO MD Edited By : JHONNY RAO MD Referred By : JAMIN MORALES Acquired by : MARLA YUSUF [facility] Electrocardiogram reportOrde red By: Hao Candelario on 07-19-2025 EKG study [facility] Cardiovascular Services [address] [place] [address] 12 Lead EKG 07/19/25 1633 MR#: [id number] Acct: [id number] Name: GARRY HERNANDEZ Rep #:[id number] : 1980 45 From: Hao Candelario MD [...] Normal ECG Confirmed by HAO CANDELARIO MD ([id number]), food expeditor EVENS HENSON ([id number]) on 58:00:49 AM Referred By: Confirmed By: HAO CANDELARIO MD 07/21/25 0800 Date _ Hao Candelario MD CC: Dr. Sylvester Morales MD; Dr. Rocky Fountain MD ~ Signed [facility] Other Phone: Emergency Department Summary on 07-19-2025 Emergency Department Summary [facility] Medical Records Department [address] [place] [address] Emergency Department Summary 07/19/25 MR#: [id number] Acct: [id number] Name: GARRY HERNANDEZ Rep #: [id number] : 1980 45 From: Sylvester Morales MD [...] Trauma, Fall or Assault Narrative Narrative: 45-year-old Taoist male history of anxiety. He has been [...] EXAM Physical Exam Narrative Exam Narrative: 45-year-old Taoist male lying in bed. Vital signs are [...] all 4 extremities. 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 Dorsi plantarflexion intact. Fingertip to nose [...] well nourished (more content not included)... Normal [facility] Emergency Department Summary [facility] Medical Records Department [address] [place] [address] Emergency Department Summary 07/19/25 MR#: [id number] Acct: [id number] Name: GARRY HERNANDEZ Rep #: [id number] : 1980 45 From: Sylvester Morales MD [...] Trauma, Fall or Assault Narrative Narrative: 45-year-old Taoist male history of anxiety. He has been [...] EXAM Physical Exam Narrative Exam Narrative: 45-year-old Taoist male lying in bed. Vital signs are [...] all 4 extremities. 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 Dorsi plantarflexion intact. Fingertip to nose [...] well nourished (more content not included)... Normal [facility] Eosinophil percentageOrdered By: Sylvester Morales on 07-19-2025 Eosinophils/100 WBC (Bld) 0.6 % 0-5 [facility] Erythrocyte distribution wid th ratioOrdered By: Sylvester Morales on 07-19-2025 Erythrocyte distribution width (RBC) [Ratio] 13.4 % 11.6-14.6 [facility] Erythrocyte distribution wid th standard deviationOrdered By: Sylvester Morales on 07-19-2025 Erythrocyte distribution width (RBC) [Ratio] 37.8 fl 35.1-43.9 [facility] Glomerular filtration rate ( GFR) estimation/1.73 sq m using serum, plasma, or whole bon 07-19-2025 GFR/1.73 sq M.predicted among non-blacks MDRD (S/P/Bld) [Vol rate/Area] 105 mL/min/{1.73_m2} Normal [facility] Work Phone: Comment on above: mL/min/1.73m2 CKD-EP I Creatinine Equation (2020) Result Comment: mL/m in/1.73m2 CKD-EPI Creatinine Equation (2020) Performed By: #### L 300.4310, L501.4021, L300.3900, L500.2500, L100.0100 ####[facility] [address] [place], [place], [id number] Hematocrit Auto (Bld) [Volum e fraction]Ordered By: Sylvester Morales on 07-19-2025 Hematocrit (Bld) [Volume fraction] 40.1 % 40-54 [facility] Hemoglobin measurementOrdere d By: Sylvester Morales on 07-19-2025 Hemoglobin (Bld) [Mass/Vol] 13.5 g/dL 13.0-16.5 [facility] Immature granulocytes/100 WB C Auto (Bld)Ordered By: Sylvetser Morales on 07-19-2025 Immature granulocytes/100 WBC (Bld) 0.500 % 0.0-0.9 [facility] Comment on above: IG% - Immature Granu locytes (promyelocytes, myelocytes and metamyelocytes) > 1% indicates that a LEFT SHIFT is Present. International normalized rat io (INR) calculationOrdered By: Sylvester Morales on 07-19-2025 INR Coag (Bld) [Relative time] 1.1 {INR} [facility] L501.4021on 07-19-2025 Trop T High Sen 23 ng/L Abnormal [facility], [facility] Work Phone: Comment on above: Performed By: #### L 300.4310, L501.4021, L300.3900, L500.2500, L100.0100 ####[facility] [id number] [place], [place], [address] Laboratory - Chemistry and C hemistry - challengeon 07-19-2025 Magnesium [Mass/Vol] 118 mg/dL Abnormal 74 - 10 6 mg/dL [facility].; [facility], [facility]. Work Phone: MCV (mean corpuscular volume ) determinationOrdered By: Sylvester Morales on 07-19-2025 MCV (RBC) [Entitic vol] 79.7 fL Low 80-94 [facility] Magnesium SerPl-mCncon 07-19 Magnesium [Mass/Vol] 2.2 mg/dL Normal 1.7-2.3 [facility] Comment on above: Order Comment: Speci men Type: BLOOD SPECIMENOrdering Facility: [facility] Address: [address] [place] [address] Performed By: #### 2 4323-8, 88087-6, 2777-1 ####[facility] LABCLIA [id number] [address] [address] [place] Mean corpuscular hemoglobin (MCH) determinationOrdered By: Sylvester Morales on 07-19-2025 MCH (RBC) [Entitic mass] 26.8 pg Low 27.0-32.0 [facility] Mean corpuscular hemoglobin concentration (MCHC) determinationOrdered By: Sylvester Morales on 07-19-2025 MCHC (RBC) [Mass/Vol] 33.7 g/dL 32-36 [facility] Mean platelet volume determi nationOrdered By: Sylvester Morales on 07-19-2025 Platelet mean volume (Bld) [Entitic vol] 10.4 fL 6.2-12.0 [facility] Monocyte percentageOrdered B y: Sylvester Morales on 07-19-2025 Monocytes/100 WBC (Bld) 9.0 % 0-10 [facility] NURSING PROGon 07-19-2025 NURSING PROG HNO ID: [id number] Author: NAPOLEON SIMON RN Service: ? Author Type: Registered Nurse Type: Nursing Progress Note Filed: 07/19/2025 21:39 Note Text: Transfer Note: PATIENT NAME: Garry Hernandez Patient Location: [place] [address] Room: [place] [address] Patient transferred into room/unit 0-44 in stable condition. Actions taken: Patient belongings with patient Normal [facility] Neutrophil percentageOrdered By: Sylvester Morales on 07-19-2025 Neutrophils/100 WBC (Bld) 74.0 % High 47-70 [facility] No Panel Informationon 07-19 BUN/CRE 17.1 {RATIO} Normal 10 - 20 {RATIO} [facility].; [facility]. Work Phone: Nucleated red blood cell per centageOrdered By: Sylvester Morales on 07-19-2025 Nucleated RBC/100 WBC (Bld) [Ratio] 0 % 0-5 [facility] PT panel Coag (PPP)on 2024 INR Coag (PPP) [Relative time] 1.1 {INR} Normal 0.9-1.3 [facility] Comment on above: Order Comment: Speci men Type: BLOOD SPECIMENOrdering Facility: [facility] Address: [address] [place] [address] Result Comment: Kena min K Antagonist (VKA) Therapeutic Range: INR 2 to 3 (Target INR of 2.5) Note: For patients treated with VKA drugs, such as warfarin, the [employer] [employer] 2012 Guideline recommends [...] Chest 2012, 141:7S-47S Nasra RA, et al. [facility] 2017, 70: 252-289 Performed By: #### 3 4528-0, 00856-7 ####[facility] [id number] [address] [address] [place] PT Coag (PPP) [Time] 11.7 s Normal 9.7-13.0 [facility] Comment on above: Order Comment: Speci men Type: BLOOD SPECIMENOrdering Facility: [facility] Address: [address] [id number] Performed By: #### 3 4528-0, 97712-2 ####[facility] [id number] [address] [address] [place] Partial Thromboplast Timeon 07-19-2025 aPTT Coag (Bld) [Time] 30.3 s Normal 24.1-36.2 [facility] Comment on above: Performed By: #### L 300.4310, L501.4021, L300.3900, L500.2500, L100.0100 #### [facility] Laboratory [address] [place], [address] Phosphate SerPl-mCncon 07-19 Phosphate [Mass/Vol] 3.3 mg/dL Normal 2.7-4.8 [facility] Comment on above: Order Comment: Speci men Type: BLOOD SPECIMENOrdering Facility: [facility] Address: [address] [place] [address] Performed By: #### 2 4323-8, 59805-9, 2777-1 ####[facility] LABCLIA [id number] [place]oah HILLM[address]ESK [address] [address] [place] Platelet countOrdered By: Tani Morales on 07-19-2025 Platelets (Bld) [#/Vol] 318 10*3/uL 150-450 [facility] Potassium measurement (mass/ volume)Ordered By: Sylvester Morales on 07-19-2025 Potassium (Unsp spec) [Mass/Vol] 3.6 mmol/L 3.3-5.1 [facility] Comment on above: Hemolysis present, R esults could be affected. Prothrombin Time w/INRon INR Coag (PPP) [Relative time] 1.1 {INR} Normal [facility] Comment on above: Performed By: #### L 300.4310, L501.4021, L300.3900, L500.2500, L100.0100 #### [facility] Laboratory [address] [place], [address] PT Coag (PPP) [Time] 14.0 s Normal 11.7-14.9 [facility] Comment on above: Performed By: #### L 300.4310, L501.4021, L300.3900, L500.2500, L100.0100 #### [facility] Laboratory [address] [place], [address] Prothrombin timeOrdered By: Sylvester Morales on 07-19-2025 PT Coag (PPP) [Time] 14.0 s 11.7-14.9 [facility] RBC Auto (Bld) [#/Vol]Ordere d By: Sylvester Morales on 07-19-2025 RBC (Bld) [#/Vol] 5.03 10*6/uL 4.6-6.2 [facility] STAPHYLOCOCCUS AUREUS AND MR SA SCREEN, PCR, NASALon 07-19-2025 S. aureus and MRSA panel BIANCA+probe (Nose) Not detected Normal Not Detected [facility] Comment on above: Order Comment: Speci men Type: SWABOrdering Facility: [facility] Address: [address] [place] [address] Performed By: #### S APCR ####[facility] LABCLIA [id number] [facility] [address] OF [facility] STROKE Brain/Head without Co nton 07-19-2025 STROKE Brain/Head without Cont [facility] Imaging Services [address] [place], [place] [address] STROKE Brain/Head without Cont MR#: [id number] Acct: [id number] Name: Garry Hernandez Rep #: [id number] : 1980 M 45 From: Sherri Segura MD PCP: Status: PRE ER Study: STROKE Brain/Head without Cont Date of Exam: 0 07/19/25 Exam# [id number] Ordering Dr: Sylvester Morales MD PROCEDURE: STROKE [...] 4:20 pm with readback verification. Reading Location: [facility] CC: Dr. Sylvester Morales MD [employer] Driver: Signed Normal [facility] STROKE Brain/Head without Cont [facility] Imaging Services [address] [place] [id number] STROKE Brain/Head without Cont MR#: [id number] Acct: [id number] Name: GARRY HERNANDEZ Rep #: [id number] : 1980 M 45 From: Sherri Segura MD PCP: Dr. Rocky Fountain MD Status: [facility] Study: STROKE Brain/Head without Cont Date of Exam: 0 07/19/25 Exam# [id number] Ordering Dr: Sylvester Morales MD PROCEDURE: STROKE [...] 4:20 pm with readback verification. Reading Location: [facility] CC: Dr. Sylvester Morales MD; Dr. Rocky Fountain MD [employer] Driver: Signed Normal [facility] STROKE CTA Head AND Neck W/C onon 07-19-2025 STROKE CTA Head AND Neck W/Con [facility] Imaging Services [address] [place] [id number] STROKE CTA Head AND Neck W/Con MR#: [id number] Acct: [id number] Name: GARRY HERNANDEZ Rep #: [id number] : 1980 M 45 From: Sherri Segura MD PCP: Dr. Rocky Fountain MD Status: [facility] ER Study: STROKE CTA Head AND Neck W/Con Date of Exam: 0 07/19/25 Exam# [id number] Ordering Dr: Sylvester Morales MD PROCEDURE: STROKE [...] nodules at the lung apices. Reading Location: [id number] CC: Dr. Sylvester Morales MD; Dr. Rocky Fountain MD [employer] Driver: Signed Normal [facility] STROKE CTA Head AND Neck W/Con [facility] Imaging Services [address] [place] [address] STROKE CTA Head AND Neck W/Con MR#: [id number] Acct: [id number] Name: GARRY HERNANDEZ Rep #: [id number] : 1980 M 45 From: Sherri Segura MD PCP: Dr. Rocky Fountain MD Status: DEP Study: STROKE CTA Head AND Neck W/Con Date of Exam: 0 07/19/25 Exam# [id number] Ordering Dr: Sylvester Morales MD PROCEDURE: STROKE [...] nodules at the lung apices. Reading Location: [id number] CC: Dr. Sylvester Morales MD; Dr. Rocky Fountain MD [employer]: Signed Normal [facility] Serum creatinine measurement (mass/volume)on 07-19-2025 Creatinine [Mass/Vol] 0.91 mg/dL Normal 0.70 - 1.20 mg/dL [facility] Work Phone: Comment on above: Performed By: #### L 300.4310, L501.4021, L300.3900, L500.2500, L100.0100 ####[facility] [id number] [place], [address] Serum glucose measurement (m ass/volume)on 07-19-2025 Glucose [Mass/Vol] 118 mg/dL Abnormal 70 - 99 mg/dL [facility] Work Phone: Comment on above: MANAGEMENT OF PATIEN T CARE PER NURSING PROTOCOL Performed By: #### L 300.4310, L501.4021, L300.3900, L500.2500, L100.0100 ####[facility] [address] [facility] [place], [address] Serum or plasma calcium anni urement (mass/volume)on 07-19-2025 Calcium [Mass/Vol] 12.3 mg/dL Abnormal 7.6 - 11. 0 mg/dL [facility] Work Phone: Comment on above: Performed By: #### L 300.4310, L501.4021, L300.3900, L500.2500, L100.0100 ####[facility] [address] [place], [place], [address] Serum or plasma urea nitroge n measurement (mass/volume)on 07-19-2025 Urea nitrogen [Mass/Vol] 16 mg/dL Normal 4 - 19 mg/d L [facility] Work Phone: Comment on above: Performed By: #### L 300.4310, L501.4021, L300.3900, L500.2500, L100.0100 ####[facility] [address] [place], [place], [id number] Sodium levelon 07-19-2025 Sodium [Moles/Vol] 134 mmol/L Low 136-144 [facility] Work Phone: Comment on above: Performed By: #### L 300.4310, L501.4021, L300.3900, L500.2500, L100.0100 ####[facility] [address] [place], [place], [address] Order Comment: Speci men Type: BLOOD SPECIMENOrdering Facility: [facility] Address: [address] [place] [address] Performed By: #### 2 4323-8, 40679-9, 2777-1 ####[facility] LABCLIA [id number] [place] [address] [place] TYPE + SCREENon 07-19-2025 ABO O Normal [facility] Comment on above: Order Comment: Speci men Type: BLOOD SPECIMENOrdering Facility: [facility] Address: [address] [place] [address] Performed By: #### T SCR ####CC [facility] BLOOD BANKCLIA [id number] [place] [address] [place] Rh Nom (Bld) Positive Normal [facility] Comment on above: Order Comment: Speci men Type: BLOOD SPECIMENOrdering Facility: [facility] Address: [address] [place] [address] Performed By: #### T SCR ####CC MAIN BLOOD BANKCLIA [id number] [address] [address] [place] TYPE AND SCREEN EXPIRATION 07/22/2025 23:59 Normal [facility] Comment on above: Order Comment: Speci men Type: BLOOD SPECIMENOrdering Facility: [facility] Address: [address] [place], [place] [address] Performed By: #### T SCR ####CC MAIN BLOOD BANKCLIA [id number] [address] [place] Troponin T HS 2 HRon 025 Trop T High Sen Normal <=22 [facility] Comment on above: Result Comment: Angelica elled via OM: Ordered Performed By: #### L 499.0042 #### [facility] Laboratory [address] [place], [place], [address] Troponin T HS 4 HRon 025 Trop T High Sen Normal <=22 [facility] Comment on above: Result Comment: Angelica fernandez via OM: Ordered Performed By: #### L 499.0043 ####[facility] [address] [place], [place], [address] Troponin T.cardiac [Mass/vol ume] in Serum or Plasma by High sensitivity methodOrdered By: Sylvester Morales on 07-19-2025 Troponin T.cardiac High sensitivity method [Mass/Vol] 23 ng/L High <22 [facility] White blood cell (WBC) count Ordered By: Sylvester Morales on 07-19-2025 WBC (Bld) [#/Vol] 11.0 10*3/uL 4.4-11.0 [facility] XR CHEST 1V FRONTAL PORTon 0 07-19-2025 [...] cardiomediastinal silhouette. Other: . IMPRESSION: See result. [employer]: [employer] Transcribe Date/Time: Jul 20 2025 7:06A Dictated by : DIMA IBARRA MD This examination was interpreted and the report reviewed and electronically signed by: DIMA IBARRA MD on Jul 20 2025 7:08AM EST [id number] Normal [facility] aPTT PPPon 07-19-2025 aPTT Coag (PPP) [Time] 31.9 s Normal 23.0-32.4 Cl [facility] Comment on above: Order Comment: Speci men Type: BLOOD SPECIMENOrdering Facility: [facility] Address: [address] [place] [address] Performed By: #### 3 4528-0, 08872-1 ####[facility] LABCLIA [id number] [place] [address] [place] Laboratory - Chemistry and C hemistry - challengeon 07-16-2025 ALP [Catalytic activity/Vol] 278 U/L Abnormal 47 - 123 [iU]/L [employer]. Work Phone: ALP Bone [Catalytic fraction] 30 % Normal 12 - 68 % [employer].; [employer], [employer]. Work Phone: ALP Intest [Catalytic fraction] 0 % Normal 0 - 18 % [employer].; [employer], [employer]. Work Phone: ALP Liver [Catalytic fraction] 70 % Normal 13 - 88 % [facility].; [facility] Work Phone: Calcium.ionized ISE [Mass/Vol] 6.0 mg/dL Abnormal 4.5 - 5.6 mg/dL [facility].; [facility], [facility] Work Phone: Ferritin [Mass/Vol] 328 ng/mL Normal 30 - 400 ng/mL [facility]; [facility] Iron [Mass/Vol] 38 ug/dL Normal 38 - 169 ug/dL [facility]; [facility], [facility] Iron binding capacity [Mass/Vol] 264 ug/dL Normal 250 - 450 ug/dL [facility].; [facility], [facility] Iron binding capacity.unsaturated [Mass/Vol] 226 ug/dL Normal 111 - 343 ug/dL [facility]; [facility], [facility] Iron saturation [Mass fraction] 14 % Abnormal 15 - 55 % [facility]; [facility], [facility] Laboratory - Chemistry and C hemistry - challengeon 07-10-2025 Albumin [Mass/Vol] 4.6 g/dL Normal 4.1 - 5.1 g/dL [facility]; [facility], [facility] ALP [Catalytic activity/Vol] 250 U/L Abnormal 47 - 123 [iU]/L [facility]; [facility], [facility]. ALT [Catalytic activity/Vol] 24 U/L Normal 0 - 44 [iU]/L [facility].; [facility], [facility]. AST [Catalytic activity/Vol] 14 U/L Normal 0 - 40 [iU]/L [facility].; [facility], [facility] Bilirubin [Mass/Vol] mg/dL Normal 0.0 - 1 .2 mg/dL [facility]; [facility], [facility] Calcium [Mass/Vol] 11.4 mg/dL Abnormal 8.7 - 10. 2 mg/dL [facility].; [facility], [facility] Chloride [Moles/Vol] 100 mmol/L Normal 96 - 10 6 mmol/L [facility].; [facility], [facility] CO2 [Moles/Vol] 24 mmol/L Normal 20 - 29 mmol/L [facility].; [facility], [facility] Creatinine [Mass/Vol] 0.91 mg/dL Normal 0.76 - 1.27 mg/dL [facility].; [facility], [facility] GFR/1.73 sq M.predicted among non-blacks MDRD (S/P/Bld) [Vol rate/Area] 105 mL/min/{1.73_m2} Normal [facility]; [facility], [facility] Globulin (S) [Mass/Vol] 2.7 g/dL Normal 1.5 - 4.5 g/dL [facility].; [facility], [facility] Glucose [Mass/Vol] 100 mg/dL Abnormal 70 - 99 mg/dL [facility]; [facility], [facility]. Potassium [Moles/Vol] 4.4 mmol/L Normal 3.5 - 5.2 mmol/L [facility].; [facility], [facility] Protein [Mass/Vol] 7.3 g/dL Normal 6.0 - 8.5 g/dL [facility].; [facility], [facility] Sodium [Moles/Vol] 139 mmol/L Normal 134 - 144 mmol/L [facility].; [facility], [facility] Urea nitrogen [Mass/Vol] 12 mg/dL Normal 6 - 24 mg/d L [facility].; [facility], [facility] Urea nitrogen/Creatinine [Mass ratio] 13 mg/mg Normal 9 - 20 [facility]; [facility], [facility] Laboratory - Hematology and Cell countson 07-10-2025 Basophils (Bld) [#/Vol] 0.1 10*3/uL Normal 0.0 - 0.2 {x10E3/uL} [facility]; [facility] Basophils/100 WBC (Bld) 1 % Normal [facility]; [facility] Eosinophils (Bld) [#/Vol] 0.3 10*3/uL Normal 0.0 - 0.4 {x10E3/uL} [facility]; [facility] Eosinophils/100 WBC (Bld) 3 % Normal [facility]; [facility] Erythrocyte distribution width (RBC) [Ratio] 13.8 % Normal 11.6 - 15.4 % [facility]; [facility], [facility] Hematocrit (Bld) [Volume fraction] 36.9 % Abnormal 37.5 - 51.0 % [facility]; [facility] Hemoglobin (Bld) [Mass/Vol] 12.3 g/dL Abnormal 13.0 - 17.7 g/dL [facility]; [facility], [facility] Immature granulocytes (Bld) [#/Vol] 0.0 10*3/uL Normal 0.0 - 0.1 {x10E3/uL} [facility].; [facility] Immature granulocytes/100 WBC (Bld) 0 % Normal [facility]; [facility] Lymphocytes (Bld) [#/Vol] 1.7 10*3/uL Normal 0.7 - 3.1 {x10E3/uL} [facility].; [facility], [facility] Lymphocytes/100 WBC (Bld) 21 % Normal [facility]; [facility], [facility] MCH (RBC) [Entitic mass] 27.3 pg Normal 26. 6 - 33.0 pg [facility].; [facility]bar [employer] [facility] MCHC (RBC) [Mass/Vol] 33.3 g/dL Normal 31.5 - 35.7 g/dL [facility] [employer] [facility].; [place] - [facility] [employer] [facility] MCV (RBC) [Entitic vol] 82 fL Normal 79 - 97 fL [facility] [employer] [facility].; [facility], [employer] Monocytes (Bld) [#/Vol] 0.8 10*3/uL Normal 0.1 - 0.9 {x10E3/uL} [facility].; [place] - [facility] [employer] [facility] [employer] Monocytes/100 WBC (Bld) 10 % Normal [facility] [employer] [facility] FoundationUWI Technology Inc.; [facility], Inc[employer] Neutrophils (Bld) [#/Vol] 5.4 10*3/uL Normal 1.4 - 7.0 {x10E3/uL} [facility] [employer] [facility] [employer] [place] [facility] [employer] [facility] [employer] Neutrophils/100 WBC (Bld) 65 % Normal [facility] [employer] [facility] FoundationC[employer].; [facility] [employer] [facility] Platelets (Bld) [#/Vol] 328 10*3/uL Normal 150 - 450 {x10E3/uL} [employer] [place] [facility] [employer] [facility] [employer] RBC (Bld) [#/Vol] 4.50 10*6/uL Normal 4.14 - 5.8 0 {x10E6/uL} [employer].; [facility] [employer] [facility] [employer] WBC (Bld) [#/Vol] 8.1 10*3/uL Normal 3.4 - 10.8 {x10E3/uL} [employer], [employer].; [facility] [employer] [facility] 05-06-2025 [place] [id number] Patient: GARRY HERNANDEZ Phone#: : 1980 Age: 44 Gender: M Pt. Type: Out Account: [id number] Location: Ordering: [facility] [place] Exam Date: 05/06/2025/7:25 Family Phys: Charge Code: [id number] Physician: Brooks Order #: [id number] Dose#: PROCEDURE: SCROTAL ULTRASOUND COMPARISON: None. INDICATIONS: [...] Plata MD on 05/06/2025 at 9:54 Normal [facility] Laboratory - Chemistry and C hemistry - challengeon 10-12-2021 Albumin BCP dye [Mass/Vol] 4.2 g/dL Normal 3.2 - 4.8 g/dL [facility], [facility].; [facility], [facility]. Albumin/Globulin [Mass ratio] 1.5 {ratio} Normal 0.9 - 1.6 {ratio} [facility].; [facility], [facility]. ALP [Catalytic activity/Vol] 121 U/L Normal 38 - 126 U/L [facility].; [facility], [facility]. ALT No additional P-5'-P [Catalytic activity/Vol] 12 U/L Normal 12 - 55 U/L [facility], [facility].; [facility], [facility]. ALT With P-5'-P [Catalytic activity/Vol] 12 U/L Normal 12 - 55 U/L [facility]; [facility] AST [Catalytic activity/Vol] 15 U/L Normal 8 - 34 U/L [facility]; [facility]. AST With P-5'-P [Catalytic activity/Vol] 15 U/L Normal 8 - 34 U/L [facility].; [facility] Bilirubin [Mass/Vol] 0.30 mg/dL Normal 0.20 - 1.20 mg/dL [facility]; [facility] Calcium [Mass/Vol] 10.0 mg/dL Normal 8.7 - 10. 4 mg/dL [facility]; [facility] Chloride [Moles/Vol] 104 mmol/L Normal 98 - 11 0 meq/L [facility]; [facility] Cholesterol [Mass/Vol] 241 mg/dL Abnormal 50 - 199 mg/dL [facility]; [facility] Cholesterol in HDL [Mass/Vol] 50 mg/dL Normal 40 - 59 mg/dL [facility]; [facility]. Cholesterol in LDL [Mass/Vol] 146 mg/dL Abnormal 0 - 129 mg/dL [facility].; [facility] CO2 [Moles/Vol] 29 mmol/L Normal 22 - 32 meq/L [facility]; [facility] Creatinine [Mass/Vol] 1.08 mg/dL Normal 0.60 - 1.40 mg/dL [facility]; [facility], [facility] GFR/1.73 sq M.predicted among blacks MDRD (S/P/Bld) [Vol rate/Area] mL/min/{1.73_m2} Normal [facility]; [facility], [facility] Work Phone: GFR/1.73 sq M.predicted among non-blacks MDRD (S/P/Bld) [Vol rate/Area] mL/min/{1.73_m2} Normal [facility]; [facility] Center[facility] Work Phone: Globulin (S) [Mass/Vol] 2.8 g/dL Normal 1.5 - 3.8 g/dL [facility] Clinics[facility]; [facility] Glucose [Mass/Vol] 93 mg/dL Normal 70 - 110 mg/dL [facility]ics[facility]; [facility] Center[facility] Technology [facility] Iron [Mass/Vol] 43 ug/dL Abnormal 65 - 175 ug/dL [facility]; [facility] Potassium [Moles/Vol] 4.1 mmol/L Normal 3.5 - 5.0 meq/L [facility]; [facility] Protein [Mass/Vol] 7.0 g/dL Normal 5.7 - 8.2 g/dL [facility]; [facility] Sodium [Moles/Vol] 140 mmol/L Normal 136 - 145 meq/L [facility]; [facility] Triglyceride [Mass/Vol] 223 mg/dL Abnormal 3 - 149 mg/dL [facility].; [facility] TSH Qn 1.266 m[IU]/L Normal 0.550 - 4.780 m[iU]/mL [facility]; [facility] Urea nitrogen [Mass/Vol] 18.0 mg/dL Normal 8.0 - 22.0 mg/dL [facility]; [facility] Urea nitrogen/Creatinine [Mass ratio] 16.7 {ratio} Normal 10.0 - 22.0 {ratio} [facility]ics[facility]; [facility] [employer] [facility] - Hematology and Cell countson 10-12-2021 Basophils (Bld) [#/Vol] 0.00 {10^3/mcL} Normal 0 .00 - 0.27 {10^3/mcL} [facility].; [facility], [facility]. Work Phone: Basophils/100 WBC (Bld) 0.7 % Normal 0.0 - 2.5 % [facility].; [facility], [facility]. Work Phone: Eosinophils (Bld) [#/Vol] 0.30 {10^3/mcL} Normal 0.00 - 0.65 {10^3/mcL} [facility].; [facility], [facility]. Work Phone: Eosinophils/100 WBC (Bld) 4.2 % Normal 0.0 - 6.0 % [facility].; [facility], [facility] Work Phone: Erythrocyte distribution width (RBC) [Ratio] 13.8 % Normal 11.5 - 15.5 % [facility].; [facility], [facility] Hematocrit (Bld) [Volume fraction] 41.0 % Normal 40.0 - 52.0 % [facility].; [facility], [facility] Hemoglobin (Bld) [Mass/Vol] 14.1 g/dL Normal 13.0 - 17.5 g/dL [facility].; [facility], [facility] Lymphocytes (Bld) [#/Vol] 1.60 {10^3/mcL} Normal 0.90 - 4.32 {10^3/mcL} [facility].; [facility], [facility]. Work Phone: Lymphocytes/100 WBC (Bld) 24.8 % Normal 20.0 - 40.0 % [facility].; [facility], [facility] Work Phone: MCH (RBC) [Entitic mass] 28.6 pg Normal 27. 0 - 33.0 pg [facility]icsC[facility].; [facility], [facility] MCHC (RBC) [Mass/Vol] 34.3 g/dL Normal 32.0 - 36.0 g/dL [facility].; [facility], [facility] MCV (RBC) [Entitic vol] 83.4 fL Normal 81.0 - 100.0 fL [facility].; [facility], [facility] Monocytes (Bld) [#/Vol] 0.50 {10^3/mcL} Normal 0 .09 - 1.40 {10^3/mcL} [facility].; [facility], [facility]. Work Phone: Monocytes/100 WBC (Bld) 7.7 % Normal 2.0 - 13.0 % [facility].; [facility], [facility] Work Phone: Neutrophils (Bld) [#/Vol] 4.10 {10^3/mcL} Normal 2.25 - 8.10 {10^3/mcL} [facility].; [facility], [facility]. Work Phone: Neutrophils/100 WBC (Bld) 62.6 % Normal 50.0 - 75.0 % [facility].; [facility], [facility] Work Phone: Platelet mean volume (Bld) [Entitic vol] 10.2 fL Normal 6.4 - 10.5 fL [facility].; [facility], [facility]. Platelets (Bld) [#/Vol] 248 {10^3/mcL} Normal 15 0 - 450 {10^3/mcL} [facility], [facility].; [facility], [facility]. RBC (Bld) [#/Vol] 4.92 {10^6/mcL} Normal 4.50 - 6.00 {10^6/mcL} [facility], [facility].; [facility], [facility]. WBC (Bld) [#/Vol] 6.60 {10^3/mcL} Normal 4.50 - 10.80 {10^3/mcL} [facility] [employer] [facility].; [facility]. No Panel Informationon 10-12 Basophil, Absolute 0.00 {10^3/mcL} Normal 0.00 - 0.27 {10^3/mcL} [facility] [employer] [facility] FoundationC[facility].; [place] [employer] [facility] [employer] [facility], [employer]. Work Phone: Electrolyte Balance 7.0 meq/L Normal 4.0 - 15 .0 meq/L [facility] [employer] [facility] FoundationC[facility]rog.; [place] [employer] [facility] [employer] [facility], [employer]. Eosinophil, Absolute 0.30 {10^3/mcL} Normal 0.00 - 0.65 {10^3/mcL} [facility] [employer] [facility] FoundationC[facility].; [place] [employer] [facility] [employer] [facility], Inc. Work Phone: Lymphocyte, Absolute 1.60 {10^3/mcL} Normal 0.90 - 4.32 {10^3/mcL} [facility] [employer] [facility] FoundationC[facility].; [place] [employer] [facility] [employer] [facility], Inc. Work Phone: Monocyte, Absolute 0.50 {10^3/mcL} Normal 0.09 - 1.40 {10^3/mcL} [facility] [employer] [facility], [employer].; [place] [employer] [facility] [employer] [facility], Inc. Work Phone: Neutrophil, Absolute 4.10 {10^3/mcL} Normal 2.25 - 8.10 {10^3/mcL} [facility] [employer] [facility] FoundationC[facility].; [place] [employer] [facility] [employer] [facility], Inc. Work Phone: Vital Signs Date Time Vital Sign Value Performing Clinician Faci lity 08-26-2025 15:28-0500 Body height 165.1 cm Ricki Jones MD, Ph D Work Phone: [facility] 08-26-2025 15:28-0500 Body mass index (BMI) [Ratio] 27.64 kg/m2 Ricki Jones MD, PhD Work Phone: [facility] 08-26-2025 15:28-0500 Body temperature 98.6 [degF] Ricki Jones MD, Ph D Work Phone: [facility] 08-26-2025 15:28-0500 Body weight 75.34 kg Ricki Jones MD, Ph D Work Phone: [facility] 08-26-2025 15:28-0500 Diastolic blood pressure 70 mm[Hg] Ricki Jones MD, PhD Work Phone: [facility] 08-26-2025 15:28-0500 Heart rate 74 /min Ricki Jones MD, Ph D Work Phone: [phone] [place] [address] 08-26-2025 15:28-0500 Respiratory rate 16 /min Ricki Jones MD, Ph D Work Phone: [phone] [place] [address] 08-26-2025 15:28-0500 SaO2% (BldA) [Mass fraction] 97 % Ricki Jones MD, PhD Work Phone: [facility] 08-26-2025 15:28-0500 Systolic blood pressure 124 mm[Hg] Ricki Jones MD, PhD Work Phone: [facility] 07-19-2025 19:07-0400 Body temperature 98.3 [degF] Dr. Sylvester Morales MD Work Phone: [facility] 07-19-2025 19:07-0400 Diastolic blood pressure 95 mm[Hg] Dr. Sylvester Morales MD Work Phone: [facility] 07-19-2025 19:07-0400 Heart rate 64 /min Dr. Sylvester Morales MD Work Phone: [facility] 07-19-2025 19:07-0400 Respiratory rate 17 /min Dr. Sylvester Morales MD Work Phone: [facility] 07-19-2025 19:07-0400 SaO2% (BldA) [Mass fraction] 100 % Dr. Sylvester Morales MD Work Phone: [facility] 07-19-2025 19:07-0400 Systolic blood pressure 151 mm[Hg] Dr. Sylvester Morales MD Work Phone: [facility] 07-19-2025 15:51-0400 Body height 162.[address] Sylvester Morales MD Work Phone: [facility] 07-19-2025 15:51-0400 Body mass index (BMI) [Ratio] 26.9 kg/m2 Dr. Sylvester Morales MD Work Phone: [facility] 07-19-2025 15:51-0400 Body weight 71.[address] Sylvester Morales MD Work Phone: [facility] 07-16-2025 09:10-0400 Body weight 75.75 kg Patti Mendoza RN [facility], [employer].; [facility], [employer]. 07-16-2025 09:10-0400 Diastolic blood pressure 76 mm[Hg] Patti Mendoza RN [facility], [facility].; [facility] [employer] [facility], [employer]. Comment on above: Patient Position: Sitting; Cuff Location : Left Arm; Cuff Size: Large 07-16-2025 09:10-0400 Heart rate 60 /min Patti Mendoza RN [facility], [employer].; [employer] [facility] [employer] [facility], Inc. Comment on above: Pattern: Regular 07-16-2025 09:10-0400 Systolic blood pressure 117 mm[Hg] Patti Mendoza RN [facility] [employer] [facility], [employer].; [employer] [facility] [employer] [facility], [employer]. Comment on above: Patient Position: Sitting; Cuff Location : Left Arm; Cuff Size: Large 07-10-2025 14:48-0400 Diastolic blood pressure 81 mm[Hg] Shea Flood RN [facility] [employer] [facility], [employer].; [place] [employer] [facility] [employer] [facility], [employer]. Comment on above: Patient Position: Sitting; Cuff Location : Left Arm; Cuff Size: Large 07-10-2025 14:48-0400 Heart rate 73 /min Shea Flood RN [facility], [employer].; [facility], [employer]. Comment on above: Pattern: Regular 07-10-2025 14:48-0400 Inhaled oxygen concentration 21 % Shea Flood RN [facility], Inc.; [facility], Inc. Comment on above: Room air 07-10-2025 14:48-0400 SaO2% (BldA) [Mass fraction] 98 % Shea Flood RN [facility], Inc.; [facility], Inc. 07-10-2025 14:48-0400 Systolic blood pressure 140 mm[Hg] Shea Flood RN [facility], Inc.; [facility], Inc. Comment on above: Patient Position: Sitting; Cuff Location : Left Arm; Cuff Size: Large 07-10-2025 14:48-0400 Body height 163.83 cm Shea Flood RN [facility], Inc.; [facility], Inc. 07-10-2025 14:48-0400 Body mass index (BMI) [Ratio] 28.22 kg/m2 Shea Flood RN [facility], Inc.; [facility], Inc. 07-10-2025 14:48-0400 Body surface area Derived from formula 1.82 m2 Shea Flood RN [facility], [facility].; [facility], Inc. 07-10-2025 14:48-0400 Body weight 75.75 kg Shea Flood RN [facility], Inc.; [facility], Inc. 07-10-2025 14:48-0400 Diastolic blood pressure 82 mm[Hg] Shea Flood RN [facility], Inc.; [facility], [employer]. Comment on above: Patient Position: Sitting; Cuff Location : Left Arm; Cuff Size: Large 07-10-2025 14:48-0400 Heart rate 70 /min Shea Flood RN [facility], Inc.; [employer] [facility] [employer] [facility], [employer]. Comment on above: Pattern: Regular 07-10-2025 14:48-0400 Systolic blood pressure 136 mm[Hg] Shea Flood RN [facility], Inc.; [facility], Inc. Comment on above: Patient Position: Sitting; Cuff Location : Left Arm; Cuff Size: Large 06-26-2025 13:31-0400 Body height 163.83 cm Shea Flood RN [facility], Inc.; [facility], Inc. 06-26-2025 13:31-0400 Body mass index (BMI) [Ratio] 28.39 kg/m2 Shea Flood RN [facility], Inc.; [facility], Inc. 06-26-2025 13:31-0400 Body surface area Derived from formula 1.83 m2 Shea Flood RN [facility], Inc.; [facility], Inc. 06-26-2025 13:31-0400 Body weight 76.2 kg Shea Flood RN [facility], Inc.; [facility], Inc. 06-26-2025 13:31-0400 Diastolic blood pressure 82 mm[Hg] Shea Flood RN [facility], Inc.; [facility], Inc. Comment on above: Patient Position: Sitting; Cuff Location : Left Arm; Cuff Size: Large 06-26-2025 13:31-0400 Heart rate 65 /min Shea Flood RN [facility], Inc.; [employer] [facility] [employer] [facility], Inc. Comment on above: Pattern: Regular 06-26-2025 13:31-0400 Systolic blood pressure 150 mm[Hg] Shea Flood RN [facility], Inc.; [facility] [employer] [facility], Inc. Comment on above: Patient Position: Sitting; Cuff Location : Left Arm; Cuff Size: Large 04-30-2025 13:56-0400 Body height 163.83 cm Patti Mendoza RN [facility], Inc.; [employer] [facility], Inc. 04-30-2025 13:56-0400 Body mass index (BMI) [Ratio] 27.88 kg/m2 Patti Mendoza RN [facility], Inc.; [facility], Inc. 04-30-2025 13:56-0400 Body surface area Derived from formula 1.81 m2 Patti Mendoza RN [facility], Inc.; [facility], Inc. 04-30-2025 13:56-0400 Body weight 74.84 kg Patti Mendoza RN [facility], Inc.; [facility], Inc. 04-30-2025 13:56-0400 Diastolic blood pressure 83 mm[Hg] Patti Mendoza RN [facility], Inc.; [facility] [employer] [facility], Inc. Comment on above: Patient Position: Sitting; Cuff Location : Left Arm; Cuff Size: Large 04-30-2025 13:56-0400 Heart rate 76 /min Patti Mendoza RN [facility], Inc.; [employer] [facility] [employer] [facility], Inc. Comment on above: Pattern: Regular 04-30-2025 13:56-0400 Systolic blood pressure 157 mm[Hg] Patti Mendoza RN [facility], Inc.; [facility] [employer] [facility], Inc. Comment on above: Patient Position: Sitting; Cuff Location : Left Arm; Cuff Size: Large 05-02-2024 13:08-040 Body height 163.83 cm Zoraida Carpenter RN [facility], Inc.; [facility], Inc. 05-02-2024 13:08-0400 Body mass index (BMI) [Ratio] 29.32 kg/m2 Zoraida Carpenter RN [facility], Inc.; [facility], Inc. 05-02-2024 13:08-0400 Body surface area Derived from formula 1.85 m2 Zoraida Carpenter RN [facility], Inc.; [facility] [employer] [facility], Inc. 05-02-2024 13:08-0400 Body temperature 98.4 [degF] Zoraida Carpenter RN [facility], [facility].; [facility] [employer] [facility], Inc. Comment on above: Method: Oral 05-02-2024 13:08-0400 Body weight 78.7 kg Zoraida Carpenter RN [facility], Inc.; [facility] [employer] [facility], Inc. 05-02-2024 13:08-0400 Diastolic blood pressure 74 mm[Hg] Zoraida Carpenter RN [facility], Inc.; [facility] [employer] [facility], [employer]. Comment on above: Patient Position: Sitting; Cuff Location : Left Arm; Cuff Size: Standard 05-02-2024 13:08-0400 Heart rate 59 /min Zoraida Carpenter RN [facility], Inc.; [facility] [employer] [facility], Inc. Comment on above: Pattern: Regular 05-02-2024 13:08-0400 Inhaled oxygen concentration 21 % Zoraida Carpenter RN [facility], Inc.; [employer] [facility] [employer] [facility], Inc. Comment on above: Room air 05-02-2024 13:08-0400 SaO2% (BldA) [Mass fraction] 96 % Zoraida Carpenter RN [facility], Inc.; [employer] [facility] [employer] [facility], Inc. 05-02-2024 13:08-0400 Systolic blood pressure 130 mm[Hg] Zoraida Carpenter RN [facility], Inc.; [facility] [employer] [facility], Inc. Comment on above: Patient Position: Sitting; Cuff Location : Left Arm; Cuff Size: Standard 11-02-2023 13:08-0500 Body height 163.83 cm Shea Flood RN [facility], Inc.; [facility], Inc. 11-02-2023 13:08-0500 Body mass index (BMI) [Ratio] 29.93 kg/m2 Shea Flood RN [facility], Inc.; [facility] [employer] [facility], Inc. 11-02-2023 13:08-0500 Body surface area Derived from formula 1.87 m2 Shea Flood RN [facility], Inc.; [facility] [employer] [facility], Inc. 11-02-2023 13:08-0500 Body weight 80.34 kg Shea Flood RN [facility], Inc.; [employer] [facility] [employer] [facility], Inc. 11-02-2023 13:08-0500 Diastolic blood pressure 81 mm[Hg] Shea Flood RN [facility] [employer] [facility], Inc.; [facility], Inc. Comment on above: Patient Position: Sitting; Cuff Location : Left Arm; Cuff Size: Large 11-02-2023 13:08-0500 Heart rate 63 /min Shea Flood RN [facility], Inc.; [place] [employer] [facility] [employer] [facility], Inc. Comment on above: Pattern: Regular 11-02-2023 13:08-0500 Systolic blood pressure 124 mm[Hg] Shea Flood RN [facility], Inc.; [place] [employer] [facility] [employer] [facility], Inc. Comment on above: Patient Position: Sitting; Cuff Location : Left Arm; Cuff Size: Large 05-04-2023 12:55-0400 Body height 163.83 cm Zoraida Carpenter RN [facility], Inc.; [facility] [employer] [facility], Inc. 05-04-2023 12:55-0400 Body mass index (BMI) [Ratio] 29.74 kg/m2 Zoraida Carpenter RN [facility], Inc.; [facility], Inc. 05-04-2023 12:55-0400 Body surface area Derived from formula 1.86 m2 Zoraida Carpenter RN [facility], [facility].; [facility] [employer] [facility], Inc. 05-04-2023 12:55-0400 Body temperature 98.6 [degF] Zoraida Carpenter RN [facility], Inc.; [place] [employer] [facility] [employer] [facility], Inc. Comment on above: Method: Oral 05-04-2023 12:55-0400 Body weight 79.83 kg Zoraida Carpenter RN [facility], Inc.; [employer] [facility] [employer] [facility], Inc. 05-04-2023 12:55-0400 Diastolic blood pressure 71 mm[Hg] Zoraida Carpenter RN [facility] [employer] [facility], Inc.; [place] [employer] [facility] [employer] [facility], Inc. Comment on above: Patient Position: Sitting; Cuff Location : Left Arm; Cuff Size: Standard 05-04-2023 12:55-0400 Heart rate 58 /min Zoraida Carpenter RN [facility] [employer] [facility], Inc.; [place] [employer] [facility] [employer] [facility], Inc. Comment on above: Pattern: Regular 05-04-2023 12:55-0400 Systolic blood pressure 112 mm[Hg] Zoraida Carpenter RN [facility], Inc.; [employer] [facility] [employer] [facility], Inc. Comment on above: Patient Position: Sitting; Cuff Location : Left Arm; Cuff Size: Standard 10-11-2022 12:58-0500 Body height 163.83 cm Patti Mendoza RN [facility], Inc.; [employer] [facility], Inc. 10-11-2022 12:58-0500 Body mass index (BMI) [Ratio] 29.74 kg/m2 Patti Mendoza RN [facility], Inc.; [employer] [facility], Inc. 10-11-2022 12:58-0500 Body surface area Derived from formula 1.86 m2 Patti Mendoza RN [facility], Inc.; [employer] [facility], Inc. 10-11-2022 12:58-0500 Body weight 79.83 kg Patti Mendoza RN [facility], Inc.; [facility], Inc. 10-11-2022 12:58-0500 Diastolic blood pressure 80 mm[Hg] Patti Mendoza RN [facility] [employer] [facility], Inc.; [employer] [facility] [employer] [facility], Inc. Comment on above: Patient Position: Sitting; Cuff Location : Left Arm; Cuff Size: Large 10-11-2022 12:58-0500 Heart rate 67 /min Patti Mendoza RN [facility] [employer] [facility], Inc.; [employer] [facility] [employer] [facility], Inc. Comment on above: Pattern: Regular 10-11-2022 12:58-0500 Systolic blood pressure 133 mm[Hg] Patti Mendoza RN [facility] [employer] [facility], Inc.; [employer] [facility] [employer] [facility], Inc. Comment on above: Patient Position: Sitting; Cuff Location : Left Arm; Cuff Size: Large 04-12-2022 12:53-0400 Body height 163.83 cm Zoraida Carpenter RN [facility] [employer] [facility], Inc.; [employer] [facility] [employer] [facility], Inc. 04-12-2022 12:53-0400 Body mass index (BMI) [Ratio] 29.07 kg/m2 Zoraida Carpenter RN [facility] [employer] [facility], Inc.; [employer] [facility] [employer] [facility], Inc. 04-12-2022 12:53-0400 Body surface area Derived from formula 1.85 m2 Zoraida Carpenter RN [facility], Inc.; [facility], Inc. 04-12-2022 12:53-0400 Body temperature 98 [degF] Zoraida Carpenter RN [facility], Inc.; [employer] [facility] [employer] [facility], Inc. Comment on above: Method: Oral 04-12-2022 12:53-0400 Body weight 78.02 kg Zoraida Carpenter RN [facility], Inc.; [facility] [employer] [facility], Inc. 04-12-2022 12:53-0400 Diastolic blood pressure 73 mm[Hg] Zoraida Carpenter RN [facility] [employer] [facility], Inc.; [facility] [employer] [facility], Inc. Comment on above: Patient Position: Sitting; Cuff Location : Left Arm; Cuff Size: Standard 04-12-2022 12:53-0400 Heart rate 52 /min Zoraida Carpenter RN [facility] [facility] [employer] [facility].; [facility] [employer] [facility] Comment on above: Pattern: Regular 04-12-2022 12:53-0400 Inhaled oxygen concentration 21 % Zoraida Carpenter RN [facility] [employer] [facility].; [facility] [employer] Comment on above: Room air 04-12-2022 12:53-0400 SaO2% (BldA) [Mass fraction] 96 % Zoraida Carpenter RN [facility] [employer] [facility].; [facility] [employer] 04-12-2022 12:53-0400 Systolic blood pressure 113 mm[Hg] Zoraida Carpenter RN [facility] [employer] [facility].; [employer] [facility] [employer] [facility] [employer] Comment on above: Patient Position: Sitting; Cuff Location : Left Arm; Cuff Size: Standard 10-12-2021 13:03-0500 Body height 163.83 cm Patti Mnedoza RN [facility] [employer] [facility], Verice[facility].; [employer] [facility] [employer] [facility] [employer] 10-12-2021 13:03-0500 Body mass index (BMI) [Ratio] 29.24 kg/m2 Patti Mnedoza RN [facility] [employer] [facility].; [facility] [employer] [facility] 10-12-2021 13:03-0500 Body surface area Derived from formula 1.85 m2 Patti Mendoza RN [facility], [facility].; [facility] [employer] [facility] [employer] 10-12-2021 13:03-0500 Body weight 78.47 kg Patti Mendoza RN [facility].; [employer] [facility] [employer] [facility] [employer] 10-12-2021 13:03-0500 Diastolic blood pressure 88 mm[Hg] Patti Mendoza RN [facility].; [employer] [facility] [employer] [facility] [employer] Comment on above: Patient Position: Sitting; Cuff Location : Left Arm; Cuff Size: Large 10-12-2021 13:03-0500 Heart rate 70 /min Patti Mendoza RN [facility].; [employer] [facility] [employer] [facility] [employer] Comment on above: Pattern: Regular 10-12-2021 13:03-0500 Systolic blood pressure 142 mm[Hg] Patti Mendoza RN [facility].; [employer] [facility] [employer] [facility] [employer] Comment on above: Patient Position: Sitting; Cuff Location : Left Arm; Cuff Size: Large 04-15-2021 12:58-0400 Body height 163.83 cm Shea Flood RN [facility], [facility].; [facility] 04-15-2021 12:58-0400 Body mass index (BMI) [Ratio] 29.24 kg/m2 Shea Flood RN [facility].; [facility] 04-15-2021 12:58-0400 Body surface area Derived from formula 1.85 m2 Shea Flood RN [facility].; [employer] [facility] [employer] [facility] [employer] 04-15-2021 12:58-0400 Body weight 78.47 kg Shea Flood RN [facility].; [employer] [facility] [employer] [facility] [employer] 04-15-2021 12:58-0400 Diastolic blood pressure 80 mm[Hg] Shea Flood RN [facility] [employer] [facility] [employer].; [employer] [facility] [employer] [facility] [employer] Comment on above: Patient Position: Sitting; Cuff Location : Left Arm; Cuff Size: Large 04-15-2021 12:58-0400 Heart rate 68 /min Shea Flood RN [employer] [facility].; [employer] [facility] [employer] [facility]. Comment on above: Pattern: Regular 04-15-2021 12:58-0400 Inhaled oxygen concentration 21 % Shea Flood RN [facility].; [place] [employer] [facility] [employer] [facility]. Comment on above: Room air 04-15-2021 12:58-0400 SaO2% (BldA) [Mass fraction] 97 % Shea Flood RN [employer] [facility].; [employer] [facility] [employer] [facility]. 04-15-2021 12:58-0400 Systolic blood pressure 137 mm[Hg] Shea Flood RN [facility] [employer] [facility].; [place] [facility] [employer] [facility]. Comment on above: Patient Position: Sitting; Cuff Location : Left Arm; Cuff Size: Large 11-21-2016 15:14-0500 Body height 163.83 cm [employer] Work Phone: [facility].; [place] [employer] [facility] [employer] [facility]. 11-21-2016 15:14-0500 Body mass index (BMI) [Ratio] 28.39 kg/m2 [employer] Work Phone: [employer].; [place] [employer] [facility] [employer] [facility]. 11-21-2016 15:14-0500 Body surface area Derived from formula 1.83 m2 [employer] Work Phone: [employer].; [place] [employer] [facility]. 11-21-2016 15:14-0500 Body temperature 98.9 [degF] TeikonER MANAGER GARDEN-C Work Phone: [employer].; [place] [employer] [facility]. Comment on above: Method: Oral 11-21-2016 15:14-0500 Body weight 76.2 kg GREG RODRIGUEZZiptaskTETTER MANAGER GARDEN-C Work Phone: [employer].; [employer]. 11-21-2016 15:14-0500 Diastolic blood pressure 83 mm[Hg] GREG RODRIGUEZFSTETTER MANAGER GARDEN-C Work Phone: [facility].; [employer]. Comment on above: Patient Position: Sitting; Cuff Location : Left Arm; Cuff Size: Standard 11-21-2016 15:14-0500 Heart rate 68 /min GREG Platform Orthopedic SolutionsTETTER MANAGER GARD[place]-C Work Phone: [employer]. Comment on above: Pattern: Regular 11-21-2016 15:14-0500 Systolic blood pressure 132 mm[Hg] GREG Platform Orthopedic SolutionsTETTER MANAGER GARDEN-C Work Phone: [employer]. Comment on above: Patient Position: Sitting; Cuff Location : Left Arm; Cuff Size: Standard 11-16-2015 15:08-0500 Body height 162.56 cm Patti Mendoza RN [facility] [employer] [facility].; [employer] [facility]. 11-16-2015 15:08-0500 Body mass index (BMI) [Ratio] 27.12 kg/m2 Patti Mendoza RN [facility] [employer] [facility].; [employer] [facility] [employer] [facility]C[employer]. 11-16-2015 15:08-0500 Body surface area Derived from formula 1.77 m2 Patit Mendoza RN [facility] [employer] [facility]C[employer].; [place] [facility]. 11-16-2015 15:08-0500 Body weight 71.67 kg Patti Mendoza RN [facility] [employer] [facility].; [employer]. 11-16-2015 15:08-0500 Diastolic blood pressure 84 mm[Hg] Patti Mendoza RN [facility] [employer] [facility]C[employer].; [employer]. Comment on above: Patient Position: Sitting; Cuff Location : Right Arm; Cuff Size: Large 11-16-2015 15:08-0500 Heart rate 77 /min Patti Mendoza RN [facility].; [facility]. Comment on above: Pattern: Regular 11-16-2015 15:08-0500 Systolic blood pressure 125 mm[Hg] Patti Mendoza RN [facility].; [facility]. Comment on above: Patient Position: Sitting; Cuff Location : Right Arm; Cuff Size: Large Encounters Encounter Date Encounter Type Care Provider Facility Start: 08-26-2025 End: 08-27-2025 Office outpatient new 60 minutes Ricki Jones MD, PhD Work Phone: [facility] Comment on above: Malignant neoplasm o f left kidney excluding renal pelvis (Primary Dx) Start: 08-26-2025 ambulatory SELF SELF Facility:[facility] Start: 08-19-2025 End: 08-20-2025 ambulatory GLORIA OWODY Facility:[facility] Start: 08-17-2025 End: 08-17-2025 ambulatory BRAYAN MIX Facility:[facility] Start: 08-17-2025 End: 08-17-2025 ambulatory BRAYAN MIX Facility:[facility] Start: 08-12-2025 End: 08-12-2025 ambulatory GLORIA WOODY Facility:[facility] Start: 08-12-2025 End: 08-12-2025 Transition of Care KIARA CARPENTER MD [facility] Start: 08-10-2025 ambulatory ONCOLOGY CONSULT Facili ty:[facility] Start: 08-05-2025 End: 08-05-2025 ambulatory GLORIA WOODY Facility:[facility] Start: 08-05-2025 End: 08-06-2025 ambulatory GLORIA WOODY Facility:[facility] Start: 07-29-2025 ambulatory BRAYANNANCY MIX Facil ity:[facility] Start: 07-20-2025 ambulatory [place] Facility:[facility] Start: 07-19-2025 End: 07-21-2025 Evaluation and management of inpatient ARIAN BAUTISTA Facility:[facility] Start: 07-19-2025 End: 07-19-2025 Emergency department patient visit Dr. Sylvester Morales MD -Emergency Department Work Phone: Start: 07-18-2025 End: 07-18-2025 Lab Only KIARA CARPENTER MD Work Phone: [employer] Start: 07-17-2025 End: 07-17-2025 Results Review KIARA CARPENTER MD Work Phone: [employer] Start: 07-16-2025 End: 07-16-2025 Office outpatient visit 10 minutes KIARA CARPENTER MD Work Phone: [employer] Start: 07-13-2025 End: 07-13-2025 Results Review KIARA CARPENTER MD Work Phone: [employer]. Start: 07-10-2025 Review KIARA Esposito MD Work Phone: [employer] Start: 07-10-2025 End: 07-10-2025 Medication Refill/Order KIARA CARPENTER MD Work Phone: [employer] Start: 07-10-2025 End: 07-10-2025 Office outpatient visit 15 minutes KIARA CARPENTER MD Work Phone: [employer] Start: 06-26-2025 End: 06-26-2025 Patient encounter procedure KIARA CARPENTER MD Work Phone: [employer]. Start: 06-04-2025 End: 06-04-2025 Historical Summary GREG VERA MANAGER GARD[place]-C [employer] Start: 06-03-2025 End: 06-03-2025 ambulatory DEE DEE Vasquez [facility] Start: 05-19-2025 End: 05-19-2025 ambulatory DEE DEE T KATHE [facility] Start: 2025 End: 2025 Historical Summary GREG GOELTETTER MANAGER GARDEN-C [facility] Start: 05-07-2025 End: 05-07-2025 Patient encounter procedure GREG HOVERNONTETTER MANAGER [place]ARD[place]-C [facility] Start: 05-06-2025 End: 05-06-[address] [facility] Start: 04-30-2025 End: 04-30-2025 Office outpatient visit 10 minutes GREG GOELTETTER MANAGER GARDEN-C [facility] Start: 06-26-2024 End: 06-26-2024 Medication Refill/Order GREG HOVERNONTETTER MANAGER GARDEN-C Work Phone: [facility] Start: 05-02-2024 Review GREG RODRIGUEZFSTE TTER MANAGER [place]ARD[place]-C Work Phone: [facility] Start: 05-02-2024 End: 05-02-2024 Office outpatient visit 10 minutes GREG GOELTETTER MANAGER [place]ARD[place]-C Work Phone: [facility] Start: 01-21-2024 End: 01-21-2024 Medication Refill/Order GREG HOFSTETTER MANAGER [place]ARD[place]-C Work Phone: [facility] Start: 12-21-2023 End: 12-21-2023 Medication Refill/Order GREG HOFSTETTER MANAGER [place]ARD[place]-C Work Phone: [facility] [employer] [facility] Start: 11-02-2023 End: 11-02-2023 Office outpatient visit 10 minutes GREG HOFSTETTER MANAGER [place]ARD[place]-C Work Phone: [facility] [employer] [facility], [employer]. Start: 05-04-2023 End: 05-04-2023 Office outpatient visit 10 minutes GREG HOFSTETTER MANAGER [place]ARD[place]-C Work Phone: [employer] [facility]. Start: 10-11-2022 End: 10-11-2022 Office outpatient visit 10 minutes GREG GOELTETTER MANAGER [place]ARD[place]-C Work Phone: [place] [facility]. Start: 04-12-2022 End: 04-12-2022 Office outpatient visit 10 minutes GREG GOELTETTER MANAGER [place]ARD[place]-C Work Phone: [place] [employer] [facility] Start: 10-13-2021 End: 10-13-2021 Results Review GREG HOFSTETTER MANAGER [place]ARD[place]-C Work Phone: [facility] [employer] Start: 10-12-2021 End: 10-12-2021 Office outpatient visit 10 minutes GREG GOELTETTER MANAGER [place]ARD[place]-C Work Phone: [place] [facility] Start: 04-15-2021 End: 04-15-2021 Office outpatient new 20 minutes GREG HOFSTETTER MANAGER GARD[place]-C Work Phone: [employer] Start: 11-21-2016 End: 11-21-2016 Office outpatient visit 15 minutes GREG GOELTETTER MANAGER [place]ARD[place]-C Work Phone: [place] [employer] [facility] Start: 11-16-2015 End: 11-16-2015 Office outpatient visit 15 minutes GREG GOELTETTER MANAGER [place]ARD[place]-C Work Phone: [employer] Procedures Date Procedure Procedure Detail Performing Clinician Start: 07-19-2025 Antibody screen GLORIA WOODY Comment on above: Order Comment: Speci men Type: BLOOD SPECIMENOrdering Facility: [facility] Address: [address] [place] [address] Performed By: #### T SCR ####CC MAIN BLOOD BANKCLIA [id number] [place] [address] [place] Start: 07-19-2025 Plain [...] meds reconciled w/current med list GREG VERA MANAGER GARD[place]-C Work Phone: Start: 11-02-2023 End: 11-02-2023 Dischrg meds reconciled w/current med list GREG VERA MANAGER [place]ARD[place]-C Work Phone: Start: 05-04-2023 End: 05-04-2023 Dischrg meds reconciled w/current med list GREG M HOFSTETTER MANAGER GARD[place]-C Work Phone: Start: 10-11-2022 End: 10-11-2022 Dischrg meds reconciled w/current med list GREG Garcia HOGURVINDERER MANAGER GARD[place]-C Work Phone: Start: 04-12-2022 End: 04-12-2022 Dischrg meds reconciled w/current med list GREG Garcia HOESTRELLITA MANAGER GARD[place]-C Work Phone: Start: 10-12-2021 End: 10-12-2021 Dischrg meds reconciled w/current med list GREG Garcia HOBRETTTTER MANAGER GARDEN-C Work Phone: TD[facility] - Adacel/Boostrix FABIO Garcia HOBRETTTTER MANAGER GARDEN-C Work Phone: Comment on above: Discussed. 05/04/2023 TDAP - Adacel/Boostrix Marivel Carpenter RN Comment on above: Discussed. 05/02/2024 Plan of Treatment Date Care Activity Detail Author Start: 12-25-2025 Patient encounter procedure Medical; DEPRESSION - [facility] [employer] [facility]. Start: 25-Dec-2025 14:00-05:00 MD KIARA CARPENTER Appointment Request [facility] [employer] [facility] Start: 10-15-2025 Assay of iron IRON (91419) Start: 15-Oct-2025 17:31-05:00 Request [employer] [facility]; CARTHAGE - [facility] [employer] [facility]. Start: 10-09-2025 Follow-up encounter Medical; RE CHECK OR FOLLOW-UP MEDICAL ILLNESS - [facility] [employer] [facility]. Start: 09-Oct-2025 14:00-05:00 MD KIARA CARPENTER Appointment Request [facility] [employer] [facility]. Start: 07-20-2025 25 hydroxy includes fractions if performed VITAMIN D, 25 HYDROXY (04049) Start: 20-Jul-2025 Request [facility]; [place] [employer] [facility] [employer] [facility]. Start: 07-20-2025 Assay of parathormone PTH (18661) Start: 20-Jul-2025 Request [facility] [employer] [facility].; [facility], [facility]. Start: 07-20-2025 Calcium ionized CALCIUM, IONIZED (41567) Start: 20-Jul-2025 Request [facility] [employer] [facility].; [facility] [employer] [facility], [employer]. Start: 07-19-2025 [facility] Start: 07-19-2025 End: 07-19-2025 [facility] Start: 07-18-2025 25 hydroxy includes fractions if performed VITAMIN D, 25 HYDROXY (54064) Start: 18-Jul-2025 09:37-04:00 [facility].; [facility]. Start: 07-18-2025 Assay of parathormone PTH (48059) Start: 18-Jul-2025 09:37-04:00 Request [facility].; [facility]. Start: 07-16-2025 Mri brain brain stem w/o contrast material MRI BRAIN W/O CONTRAST for trama or cva only (10033) Start: 16-Jul-2025 Intent [facility] [employer] [facility].; [facility]. Start: 07-16-2025 Assay of phosphatase alkaline isoenzymes ALKALINE PHOSPHATASE-ISOENZYM (21211) Start: 16-Jul-2025 09:04-04:00 Request [facility] [employer] [facility].; [facility], [facility]. Start: 07-16-2025 Calcium ionized CALCIUM, IONIZED (64379) Start: 16-Jul-2025 09:04-04:00 Request [facility] [employer] [facility].; [facility]. Start: 07-16-2025 Assay of ferritin FERRITIN (32781) Start: 16-Jul-2025 09:04-04:00 Request [facility] [employer] [facility] FoundationC[facility].; [facility] [employer], [employer]. Start: 07-16-2025 Assay of iron IRON (61778) Start: 16-Jul-2025 09:04-04:00 Request [facility].; [facility] [employer] [facility]. Start: 07-16-2025 Iron binding capacity IRON BINDING CAPACITY (TIBC) (71392) Start: 16-Jul-2025 09:04-04:00 Request [employer] [facility].; [facility] [employer] [facility]. Start: 07-14-2025 Assay of ferritin FERRITIN (46016) Start: 14-Jul-2025 Request [facility].; [facility] [employer] [facility]. Start: 07-14-2025 Assay of iron IRON (73404) Start: 14-Jul-2025 Request [facility].; [facility] [employer] [facility] FoundationC[facility]. Start: 07-14-2025 Assay of phosphatase alkaline isoenzymes ALKALINE PHOSPHATASE-ISOENZYM (72481) Start: 14-Jul-2025 Request [facility].; [employer] [facility] [employer]. Start: 07-14-2025 Calcium ionized CALCIUM, IONIZED (63983) Start: 14-Jul-2025 Request [employer] [facility] FoundationC[facility].; [facility] [employer] [facility] FoundationC[facility]. Start: 07-14-2025 Iron binding capacity IRON BINDING CAPACITY (TIBC) (16077) Start: 14-Jul-2025 Request [employer] [facility] FoundationC[facility].; [employer] [facility] [employer] [facility] FoundationC[facility]. Start: 07-10-2025 Comprehensive metabolic panel CMP - COMPREHENSIVE METABOLIC PANEL (81744) Start: 10-Jul-2025 15:10-04:00 Request [employer].; [employer] [facility] [employer] [facility]. Start: 07-10-2025 Blood count complete auto&auto difrntl wbc CBC, PLATELETS & AUT DIFF (70169) Start: 10-Jul-2025 15:10-04:00 Request [employer].; [place] [facility] [employer] [facility], [employer]. Start: 06-26-2025 Medical; ANXIETY - former pt- Med refills Medical; ANXIETY - former pt- Med refills [employer] [facility] [employer] [facility] FoundationC[facility]. Start: 26-Jun-2025 13:30-04:00 MD KIARA CARPENTER Appointment Request [employer]. Start: 06-22-2025 COVID-19 VACCINE ( season) COVID-19 VACCINE ( season) [facility] Start: 06-22-2025 Influenza vaccination INFLUENZA VACCINE (#1) [facility] Start: 04-30-2025 Us scrotum & contents US SCROTUM (33060) Start: 30-Apr-2025 [facility] [employer]. Start: 2024 Screening for malignant neoplasm of colon COLORECTAL CANCER SCREENING DISCUSSION [facility] Start: 05-02-2024 Patient encounter procedure [facility] [employer] [facility]. Start: 2019 Lipid panel LIPID SCREENING [facility] Start: 11-21-2016 Pure tone audiometry air only PURE TONE AUDIOMETRY, AIR (09975) Start: 21-Nov-2016 [facility] Hstry; [employer] [facility]. Start: 11-21-2016 Tympanometry TYMPANOMETRY (30366) Start: 21-Nov-2016 [facility]; [employer]. Work Phone: Start: 11-16-2015 Patient Education TOBACCO INSTRUCTIONS Indication: Tobacco use disorder Start: 16-Nov-2015 Instruction Type: Patient Education [facility].; [employer]. Start: 11-16-2015 Tobacco use cessation ivntj counseling TOBACCO USE TXMNT COUNSELING (4000F) Start: 16-Nov-2015 [facility] [employer]. Start: 1998 Hepatitis B vaccination HEP B VACCINE (1 of 3 - 19+ 3-dose series) [facility] Start: 1998 Third diphtheria, tetanus and acellular pertussis (DTaP) vaccination TDAP (ADULT) [facility] Start: 1994 HIV screening HIV SCREENING DISCUSSION [facility] Start: 1979 Hepatitis C screening HEPATITIS C VIRUS SCREENING [facility] Start: 1979 Tetanus vaccination TETANUS [facility] Payers Date Payer Category Payer Managed Care (unspecified) [facility] [id number] 2025 Self-pay 2024 Unknown [id number] 1979 Unknown [id number] 1979 Unknown [id number] 1979 Unknown [id number] 1979 Unknown [id number] Unknown Unknown [id number] Unknown [id number] Unknown [id number] Social History Date Type Detail Facility Alcohol Use: Alcohol Use: ; N o Alcohol Use. [facility]; [facility] Start: 08-26-2025 Current Work/Study Status Current Work/Study Status [employer] [facility]; [facility] Tobacco use: Tobacco use: ; S mokes < 1 pack of cigarettes per day. Current every day smoker. [facility]; [facility]. Start: 1980 Male [facility] Smokes tobacco daily [facility]; [facility] Work Phone: Smokes < 1 pack of cigarettes per day [facility]; [facility] Work Phone: Tobacco use: Tobacco use: ; F ormer smoker. [facility]; [facility]. Start: 08-26-2025 Ex-smoker [facility]; [facility] Work Phone: Start: 07-19-2025 Tobacco smoking stat [facility] Never smoked tobacco (finding) [facility] Start: 08-26-2025 Sex [facility] History of tobacco use Current smoker [facility] Start: 08-26-2025 Tobacco use and exposure Smokeless tobacco non-user [facility] Start: 08-26-2025 Alcoholic beverage intake Lifetime non-drinker (finding) [facility] Adolescent depressio n screening assessment [address] [facility] Start: 1980 Sex assigned at Not on file [facility] Start: 07-19-2025 Sex Male (finding) [facility] Mental Status Date Assessment Result Facility 07-19-2025 Cognitive function [facility] Work Phone: Clinical Notes 07-19-2025 to 08-26-2025 Justine Banerjee, [employer] FARMER-SCRAP CHARGER - 08/26/2025 3:40 PM Jason Jones MD, [...] Hernandez has seen Dr. Joel Woody at [facility] and Dr. Mix (Neuro Rad Onc at [facility]). He completed Gamma knife to known [...] file for drug use. Works in [employer]. Supportive and family/community. Family History: He family [...] brain metastasis. Received C1 Ipi/Nivo 08/19/2025 at [facility] by Dr. Woody. He presents to the clinic for second opinion. - Tolerating ipi/nivo well with mild fatigue. - Agree with treatment with IO/IO given brain involvement. - Recommend germline genetic testing d/t young age and small children. Referral to genetics sent. - Continue with ipi/nivo at [facility]. - Return PRN. Brain Metastasis: Symptoms of GÓMEZ on presentation. - S/p Gamma Knife per Dr. Mix ([facility]). - OFF steroids. - No GÓMEZ, [...] brain metastasis. Received C1 Ipi/Nivo 08/19/2025 at [facility] by Dr. Woody. He presents to the clinic for second opinion. - Tolerating ipi/nivo well with mild fatigue. - Agree with treatment with IO/IO given brain involvement. - Recommend germline genetic testing d/t young age and small children. Referral to genetics sent. - Continue with ipi/nivo at [facility]. - Return PRN. 60 minutes spent [...] PhD documented in this encounter [facility] 08-19-2025 Note HNO ID: [id number] Author: ALMA ROSA PRO RN Service: ? [...] of chemotherapy NA - Immuno therapy information Saviokeet card Time Spent: 15 REFERRAL (RECOMMENDATION): N/A Alma Rosa Pro RN [facility] 08-19-2025 Note HNO ID: [id number] Author: JAYRO SOLIMAN APRN.SCRAP CHARGER Service: ? Author Type: Nurse Practitioner Type: Progress Notes Filed: 08/19/2025 14:44 Note Text: [facility] Department of Hematology and Medical Oncology PATIENT NAME: Garry Hernandez [facility] NO: [id number] DATE OF SERVICE: August 19, 2025 DIAGNOSIS: [...] Lymph 1.00 - 4.00 k/uL 0.76 (L) [place]% % 3.9 Abs [place] <0.87 k/uL 0.35 Eosin% % 0.0 Abs [...] proceed with th (more content not included)... [facility] 08-19-2025 Note HNO ID: [id number] Author: ALMA ROSA SYLVESTER LPN Service: ? Author Type: Licensed Nurse Type: Progress Notes Filed: 08/19/2025 14:44 Note Text: Additional intake questions: Has the patient had fever, nausea, vomiting, diarrhea, constipation, fatigue for > 1 week? Yes, fatigue Does the patient have a decreased appetite? No Does patient want to see a Hardware Technician? No (yes to any of above refer patient to schedulers for dietitian appointment) ) Does patient have any new or increased numbness or tingling of extremities? No Is patient interested in fertility information? No Does patient need any prescription refills? No Does patient have an advanced directive in place? No, Patient referred to Resource Center Electronically Signed By: Alma Rosa Sylvester LPN [facility] 08-19-2025 Note HNO ID: [id number] Author: ?, ?, ? Service: ? Author Type: ? Type: Progress Notes Filed: 08/19/2025 10:42 Note Text: Summary: [facility] [place] Received message from community health nursing director inquiring about PAP for Opdivo and Yervoy. Obtained patient signature on BMSPAF application and proof of income. Pending provider's signature. Will submit application to [facility] once received. [facility] 08-19-2025 Note Education (HEMCA3) GARRY HERNANDEZ ([id number]) 1980 M Date Time Provider Department 08/19/25 ALMA ROSA PRO HEMCA3 Reason for Visit: Renal Cancer [3907] During your visit today, we recorded the following information about you: Allergies As of Date: 08/19/2025 (No Known Allergies) Date Reviewed: 08/19/2025 Reviewed by: Jayro Soliman APRN.SCRAP CHARGER - Fully Assessed Prescriptions as of 08/20/2025 [...] Status:Closed by ALMA ROSA PRO on 08/20/25 [facility] 08-19-2025 Note Patient Outreach (HE SAE) GARRY HERNANDEZ ([id number]) 1980 M Date Time Provider Department 08/19/25 SUPPORT SERVICES CANCER [facility] During your visit today, we recorded the following information about you: Tommie Che 08/19/2025 10:42 AM Signed Received message from community health nursing director inquiring about PAP for Opdivo and Yervoy. Obtained patient signature on QvolvePAF application and proof of income. Pending provider's signature. Will submit application to [employer] once received. Allergies As of Date: 08/19/2025 [...] Encounter Status:Closed by TOMMIE CHE on 08/19/25 [facility] 08-17-2025 Note HNO ID: [id number] Author: DONA HUSTON RN Service: Radiology Author [...] DATE: August 17, 2025 TIME: 12:40 PM [facility] 08-17-2025 Note HNO ID: [id number] Author: ALEXA HARTMAN RN Service: ? Author Type: Registered Nurse Type: Progress Notes Filed: 08/19/2025 06:32 Note Text: August 17, 2025 1126 Garry arrived ambulatory with: , Neoma and other elders from his community and a tour bus driver. 1318 Arrived from imaging to [facility] and had pt get back into his clothes. Transportation home verified: yes, with tour bus driverAide, ph [phone]. Garry here for today for imaging, mask [...] abuse: no Allergies reviewed with patient, yes. [id number] Mask completed. To imaging for CT Scan [...] by this nurse and patient verbalized understanding. [id number] Patient assisted to treatment room. Gamma Knife SRS begun. 1652 Gamma Knife Stereotactic Radiosurgery Completed. 1657 Pt then discharged. Alexa Hartman RN [facility] 08-17-2025 Note HNO ID: [id number] Author: ANDREW HERNANDEZ RT(R) Service: Radiology Author [...] PATIENT PRESENTS WITH AN IMPLANTABLE OR ATTACHED SOFTBALL CORE MOLDER: No RADIOLOGY DEPARTMENT: CT; Exam(s) Completed: Brain . Anesthesia: No PERIPHERAL IV DATA: Not applicable SIGNED BY: RT Yudith(R) August 17, 2025 1:14 PM [facility] 08-17-2025 Note HNO ID: [id number] Author: JUAN PRADHAN MD Service: Radiation Oncology Author Type: Physician Type: Progress Notes Filed: 08/17/2025 16:24 Note Text: GARRY HERNANDEZ [id number] 08/17/2025 [facility] Rachna Woo Brain Tumor [facility] Neuro-Oncology [facility] GAMMA KNIFE STEREOTACTIC RADIOSURGERY (SRS) DAILY PROCEDURE [...] to patient setup, I conferred with the biomedical engineering aide to approve the final setup. I was [...] Electronically Signed JUAN PRADHAN M.D. :24 PM [facility] 08-17-2025 Note HNO ID: [id number] Author: JUAN PRADHAN MD Service: Radiation Oncology Author Type: Physician Type: Progress Notes Filed: 08/18/2025 17:09 Note Text: GARRY HERNANDEZ [id number] 08/17/2025 [facility] Department of Radiation Oncology [facility] RADIATION ONCOLOGY: COMPLETION NOTE DATE OF SIMULATION: [...] [facility] Carlos A Woody MD [facility] 08-17-2025 Note HNO ID: [id number] Author: JUAN PRADHAN MD Service: Radiation Oncology Author Type: Physician Type: Progress Notes Filed: 08/17/2025 16:24 Note Text: GARRY HERNANDEZ [id number] 08/17/2025 [facility] Department of Radiation Oncology [facility] RADIATION ONCOLOGY GAMMA KNIFE SIMULATION NOTE DATE [...] Electronically Signed Juan Pradhan M.D. :24 PM [facility] 08-05-2025 Note HNO ID: [id number] Author: GLORIA WOODY MD Service: ? Author Type: Physician Type: Progress Notes Filed: 08/06/2025 14:55 Note Text: [facility] Department of Hematology and Medical Oncology PATIENT NAME: Garry Hernandez CLINIC NO.: [id number] DATE OF SERVICE: 08/05/2025 DIAGNOSIS: metastatic clear [...] (zoledronate) if hypercalc (more content not included)... [facility] 08-05-2025 Note HNO ID: [id number] Author: ALMA ROSA SYLVESTER LPN Service: ? Author Type: Licensed Nurse Type: Progress Notes Filed: 08/05/2025 14:04 Note Text: Additional intake questions: Has the patient had fever, nausea, vomiting, diarrhea, constipation, fatigue for > 1 week? No Does the patient have a decreased appetite? No Does patient want to see a Hardware Technician? No (yes to any of above refer patient to schedulers for dietitian appointment) ) Does patient have any new or increased numbness or tingling of extremities? No Is patient interested in fertility information? No Does patient need any prescription refills? No Does patient have an advanced directive in place? 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 [facility] 07-21-2025 Note HNO ID: [id number] Author: CHANTELLE WAGGONER, Byron Service: Pharmacy Author Type: Cardroom Worker Type: Plan of Care Filed: 07/23/2025 08:15 Note Text: Insurance investigation completed Patient has active prescription insurance: Yes - Patient's insurance is in-network with [facility] Insurance loaded into [employer]: Yes Test claim was completed to verify insurance is active: Successful Is patient eligible for [facility]? No Any questions, please reach out to your medication aircraft accessories mechanic. [facility] 07-21-2025 Note HNO ID: [id number] Author: DERRELL CLARK RT(R) Service: Radiology Author [...] PATIENT PRESENTS WITH AN IMPLANTABLE OR ATTACHED SOFTBALL CORE MOLDER: No RADIOLOGY DEPARTMENT: CT; Exam(s) Completed: Brain . Anesthesia: No PERIPHERAL IV DATA: Not applicable SIGNED BY: RT Tamika(R) July 21, 2025 1:28 PM [facility] 07-21-2025 Note HNO ID: [id number] Author: JESSICA HOLDEN PA-C Service: Neurosurgery Author Type: Physician Events Director Type: Progress Notes Filed: 07/21/2025 12:13 Note Text: SERVICE DATE: 07/21/2025 SERVICE TIME: 7:22 AM NEUROSURGERY TUMOR TEAM INPATIENT PROGRESS NOTE Please [place]GY [place] [phone] for questions/concerns about this patient from 3PM [...] N/A Muscle strength: UE BICEPS TRICEPS DELTS Guest History Clerk R 5/5 5/5 5/5 5/5 L 5/5 [...] Yes. 5. Restraints No. 6. Last BM RN SOCIAL WORK Assessment AND Plan Active Hospital Problems as of 07/21/2025 Noted - Resolved POA Hospital * (Principal) Vasogenic edema (HCC) 07/19/2025 - Present Yes Current Assessment AND Plan Clinically significant cerebral edema treating with decadron 4bid (SSI, PPI) with terminal gauger supervisor taper plan Neoplasm causing mass effect and [...] treating with decadron 4bid (SSI, PPI) with shelter taper plan Left kidney mass- (present on [...] bronchoscopy 07/20 (p (more content not included)... [facility] 07-21-2025 Note HNO ID: [id number] Author: ECTOR CUNNINGHAM LSW Service: Care Management Author Type: Photovoltaic Installer Type: Care Mgt Progress Note Filed: 07/21/2025 [...] medical team, pt is ready to DC., global marketing specialist for outpatient OT. No skilled needs SIGNATURE: CLIFTON Posada PATIENT NAME: Garry Hernandez DATE: July 21, 2025 TIME: 12:00 PM [facility] 07-21-2025 Note HNO ID: [id number] Author: RADHA ALLAN APRN.SCRAP CHARGER Service: ? Author Type: Nurse Practitioner Type: Progress Notes Filed: 07/21/2025 10:28 Note Text: See inpatient note. Radha Allan APRN.SCRAP CHARGER [facility] 07-21-2025 Note HNO ID: [id number] Author: ALEXA HARTMAN RN Service: ? Author [...] administration of versed for frame placement. [address] Used for frame placement by Dr. [...] No. Pain 0 on scale of 0-10 [phone] Garry assisted to treatment room. Gamma Knife [...] Dr. Yoel Mix's clinic telephone number, and [facility] local and toll free numbers given to Garry and family/visitors. 1633 Grary left via wheelchair home with . Alexa Hartman, WATSON [facility] 07-21-2025 Note HNO ID: [id number] Author: RAYMON MADSEN MD Service: Radiation Oncology Author Type: Physician Type: Progress Notes Filed: 07/21/2025 16:29 Note Text: GARRY HERNANDEZ [id number] 07/21/2025 [facility] Rachna Woo Brain Tumor AND Neuro-Oncology Center Department of Radiation Oncology [facility] RADIATION ONCOLOGY: COMPLETION NOTE DATE OF TREATMENT: [...] 54:29 PM Electronically Signed cc: Dr. Yoel Mxi, [facility] 07-20-2025 Note HNO ID: [id number] Author: ECTOR CUNNINGHAM LSW Service: Care Management Author Type: Photovoltaic Installer Type: Care Mgt Initial Assessment Filed: 07/20/2025 18:33 Note Text: CARE MANAGEMENT: ASSESSMENT AND DISCHARGE PLAN SERVICE DATE: July 20, 2025 SERVICE TIME: 6:27 PM PCP: No primary care provider on file. Primary Contact: Extended Emergency Contact Information Primary Emergency Contact: Riya Hernandez Relation: Spouse Admission Status: Inpatient Insurance Provider: [facility] Discharge Planning requested by: Per Department Practice Potential Transition Plans To Be Determined Advance Directives Current Advance Directive: None Rehab Department Manager Attempted to Assist with AD Completion: Yes [...] Patient Goal(s): Be able to go home [place] Explained: [place] Given: No Reason Not Given: [...] Determined Post-Acute Discharge Plan: Per medical team, ID TBD RA 6 click score 22 CM met with pt, pt's spouse, and family. Pt reported he lives with spouse and children. Pt denied SNF, HHC, DME, Home O2 prior to admission. CM completed SDOH no concerns indicated. No PCP listed on file. Pt and spouse reported pt [facility] his primary [facility] at [facility] and they have different doctors. Pt reported family will transport him home at ID. Transitional needs TBD. Care Management will follow for Post Hospital Transition Needs. Twenty four (24) hours notice is required if any new needs are anticipated in order to ensure a safe discharge. For questions, please contact the valuation manager (Transitional Green Material Value Added Assessor) or Photovoltaic Installer assigned to the patient under Treatment team. SIGNATURE: CLIFTON Posada PATIENT NAME: Garry Hernandez DATE: July 20, 2025 TIME: 6:27 PM [facility] 07-20-2025 Note HNO ID: [id number] Author: THERESA MAXWELL APRN.CRNA Service: ? Author Type: Nurse Window And Siding Craftsman Type: Anesthesia Procedure Notes Filed: 07/20/2025 14:47 Note Text: ANESTHESIOLOGY PROCEDURE NOTE Airway General Information Procedure Start Time/Medication Administration: 07/20/2025 2:39 PM Procedure End Time: 07/20/2025 2:39 PM Patient location during procedure: OR Timeout Performed Pre-procedure: timeout performed Consent Obtained: Yes Patient identity confirmed: arm band and patient Staffing Anesthesiologist: Andrew Larkin DO SOFTWARE DATABASE ARCHITECT: Theresa Maxwell APRN.SOFTWARE DATABASE ARCHITECT Performed by: ANISHA Indications and Patient Condition Indications for airway management: anesthesia Preoxygenated: yes anesthesia circuit Patient position: sniffing Method: asleep Cricoid Pressure: No Manual In-Line Stabilization: No Difficult Mask: No Final Airway Details Final airway type: endotracheal airwayFinal Endotracheal Airway: ETT Cuffed: yes Successful intubation technique: video laryngoscopy Devices used: Milk Mantra Endotracheal tube insertion site: oral Blade size: #4 ETT size (mm): 8.5 Placement verified by: chest auscultation, bronchoscopy and capnometry Cormack-Lehane Classification: grade I - full view of glottis Number of attempts at approach: 1 Failed airway: no Unrecognized esophageal intubation: no Airway not difficult SIGNATURE: Theresa Maxwell APRN.CRNA PATIENT NAME: Garry Hernandez DATE: July 20, 2025 TIME: 2:46 PM CSN: [id number] [facility] 07-20-2025 Note Patient Name: Garry garaz Procedure Date: 07/20/2025 2:02 PM Date of : 1980 Admit Type: Inpatient Age: 45 Gender: Male Note Status: Equal Opportunity Assistant Override Procedure: Bronchoscopy Indications: Left upper lobe [...] of the left lower lobe using a FilmTrack superDimension 21 gauge needle and sent for [...] the left lower lobe using an Olympus Voovio aka 3DitizeiShot 22 gauge needle and sent for routine [...] Start: 2:43:23 PM Procedure End: 3:21:02 PM [facility] 07-20-2025 Note HNO ID: [id number] Author: ARTEMIO ARIZMENDI MD Service: Radiation Oncology [...] please page the on-call radiation oncology pager ([phone]). Artemio Arizmendi MD [facility] 07-20-2025 Note HNO ID: [id number] Author: NATHALIE MURPHY RT(R) Service: Radiology Author [...] PATIENT PRESENTS WITH AN IMPLANTABLE OR ATTACHED SOFTBALL CORE MOLDER: No RADIOLOGY DEPARTMENT: CT; Exam(s) Completed: Chest Abdomen Pelvis. Anesthesia: No PERIPHERAL IV DATA: Not applicable SIGNED BY: RT Tish(R) July 20, 2025 8:41 AM [facility] 07-19-2025 Discharge summary Note Date/Time July 19, 2025 5:47pm [facility] Medical Records Department [address] [place] [id number] Emergency Department Summary 07/19/25 MR#: [id number] Acct: [id number] Name: GARRY HERNANDEZ Rep #:[id number] : 1980 45 From: Sylvester Morales MD [...] Trauma, Fall or Assault Narrative Narrative: 45-year-old Taoist male history of anxiety. He has been [...] EXAM Physical Exam Narrative Exam Narrative: 45-year-old Taoist male lying in bed. Vital signs are [...] all 4 extremities. 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 Dorsi plantarflexion intact. Fingertip to nose [...] place andoriented to time Coordination / Balance: fhdtcp-aj-yrfg test normal Speech: Negative for speech normal [...] MDM Narrative Medical decision making narrative: 45-year-old Taoist male with concern for dysarthria and confusion [...] results. Specifically the CAT scan results. [facility] for the transfer. They have the CAT [...] 74.0 H Lymph % (Auto) 15.4 L [place] % (Auto) 9.0 Eos % (Auto) 0.6 [...] 4:20 pm with readback verification. Reading Location: [id number] Head/Neck CTA 07/19/25 15:56 IMPRESSION: 1. No high-grade arterial stenosis, aneurysm, or arteriovenous malformation. 2. Heterogeneous enhancing intracranial masses. 3. Multiple pulmonary nodules at the lung apices. Reading Location: [facility] Chest X-Ray 07/19/25 16:45 IMPRESSION: No acute cardiopulmonary disease. Reading Location: [facility] Chest x-ray, portable, single view interpreted by [...] rate of 62 no acute signs of RI or ischemia. Critical Care Time Critical Care Time: Yes Critical care time (excluding procedures): 30-74 minutes, Including time spent:,Discussing w/Patient &/or Family/Corrosion Engineer, Discussing w/Consultants, ArrangingAdmission or Transfer, Performing Direct Patient Care at Bedside and - (40 minutes) Discharge Plan Dx/Rx/DC Orders Clinical Impression: Headache, Dysarthria, Cerebral edema, Brain mass Disposition Disposition: Acute Care Hospital [facility] What to do if you have Problems For any increased pain, shortness of breath, bleeding, nausea or vomiting, chestpain, or any unexpected problems, contact your Primary Care Provider. Call [facility] ([phone]) or report to the closest Emergency Room. Call 911 if necessary. 07/19/251746 <Electronically signed by Sylvester Morales MD> Cosigner Signature (if applicable): CC: Dr. Rocky Fountain MD ~ Signed [facility] Work Phone: 1(852) 248-792709-28-2025 Discharge summary [facility] Medical Records Department [address] [place] [address] Emergency Department Summary 07/19/25 MR#: [id number] Acct: [id number] Name: GARRY HERNANDEZ Rep #:[id number] : 1980 45 From: Sylvester Morales MD [...] Trauma, Fall or Assault Narrative Narrative: 45-year-old Taoist male history of anxiety. He has been [...] EXAM Physical Exam Narrative Exam Narrative: 45-year-old Taoist male lying in bed. Vital signs are [...] all 4 extremities. 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 Dorsi plantarflexion intact. Fingertip to nose [...] place andoriented to time Coordination / Balance: ovrwgd-jb-ufhu test normal Speech: Negative for speech normal [...] MDM Narrative Medical decision making narrative: 45-year-old Taoist male with concern for dysarthria and confusion [...] results. Specifically the CAT scan results. [facility] for the transfer.They have the CAT scan [...] 74.0 H Lymph % (Auto) 15.4 L [place] % (Auto) 9.0 Eos % (Auto) 0.6 [...] 4:20 pm with readback verification. Reading Location: [facility] Head/Neck CTA 07/19/25 15:56 IMPRESSION: 1. No high-grade arterial stenosis, aneurysm, or arteriovenous malformation. 2. Heterogeneous enhancing intracranial masses. 3. Multiple pulmonary nodules at the lung apices. Reading Location: [facility] Chest X-Ray 07/19/25 16:45 IMPRESSION: No acute cardiopulmonary disease. Reading Location: [facility] Chest x-ray, portable, single view interpreted by [...] rate of 62 no acute signs of RI or ischemia. Critical Care Time Critical Care Time: Yes Critical care time (excluding procedures): 30-74 minutes, Including time spent:,Discussing w/Patient &/or Family/Corrosion Engineer, Discussing w/Consultants, ArrangingAdmission or Transfer, Performing Direct Patient Care at Bedside and - (40 minutes) Discharge Plan Dx/Rx/DC Orders Clinical Impression: Headache, Dysarthria, Cerebral edema, Brain mass Disposition Disposition: Acute Care [facility] What to do if you have Problems For any increased pain, shortness of breath, bleeding, nausea or vomiting, chestpain, or any unexpected problems, contact your Primary Care Provider. Call [employer] [facility] [employer] [facility] ([phone]) or report tothe closest Emergency Room. Call 911 if necessary. 07/19/25 1747 Cosigner Signature (if applicable): CC: Dr. Rocky Fountain MD ~ Signed [facility]09-28-2025 Radiology Diagnostic study note [facility] Imaging Services [address] [place], [place] [id number] Chest 1 View MR#: [id number] Acct: [id number] Name: GARRY HERNANDEZ Rep #: [id number] : 1980 M 45 From: Heriberto Dave MD PCP: Dr. Rocky Fountain MD Status: REG E R Study:Chest 1 View Date of Exam: 5 Exam# [id number] Ordering Dr: Jarred Morales MD PROCEDURE: CHEST 1 VIEW 07/19/2025 REASON FOR EXAM: NEURO DEFICIT, ACUTE, STROKE SUSPECTED TECHNIQUE: Frontal view of the chest. COMPARISON: None. FINDINGS: Lungs/Pleura: Clear. Heart/Mediastinum: Normal in size. Bones/Soft tissues: Unremarkable. RAD/Chest 1 View IMPRESSION: No acute cardiopulmonary disease. Reading Location: [facility] CC: Dr. Sylvester Morales MD; Dr. Rocky Fountain MD ~ Local Company Hazmat Driver: Signed [facility]09-28-2025 Radiology Diagnostic study note [facility] Imaging Services [address] [place], [place] [id number] STROKE CTA Head AND Neck W/Con MR#: [id number] Acct: [id number] Name: GARRY HERNANDEZ Rep #: [id number] : 1980 M 45 From: Risa Segura MD PCP: Dr. Rocky Fountain MD Status: REG E R Study:STROKE CTA Head AND Neck W/Con Date of Exam: 07/19/25 Exam# [id number] Ordering Dr: Jarred Morales MD PROCEDURE: STROKE [...] Morales MD; Dr. Rocky Fountain MD ~ Local Company Hazmat Driver: Signed [facility]09-28-2025 Radiology Diagnostic study note [facility] Imaging Services [address] [place] [id number] STROKE Brain/Head without Cont MR#: [id number] Acct: [id number] Name: Garry Hernandez Rep #: [id number] : 1980 M 45 From: Risa Segura MD PCP: Status: PRE ER Study:STROKE Brain/Head without Cont Date of Exam: 07/19/25 Exam# [id number] Ordering Dr: Jarred Morales MD PROCEDURE: STROKE [...] 4:20 pm with readback verification. Reading Location: [id number] CC: Dr. Sylvester Morales MD ~ [employer] Hazmat Driver: Signed [facility] note[facility] assessment information available [facility] Work Phone: Evaluation note* Diagnosis Malignant neoplasm of left kidney excluding renal pelvis- Primary [facility]No reason for referral information [facility] Work Phone: Summary Purpose Family History No Family History Records FoundNo Family History Records FoundNo Family History Records FoundNo Family History Records FoundNo Family History Records FoundNo Family History Records Found Advance Directives No Advanced Directives Records Found Advance Directive Response Recorded Date/ Time Do you have a Healthcare Power of Wardrobe Image Consultant? No July 19, 2025 4:19pm Chief Complaint and Reason for Visit Chief Complaint Admit Date headache/ nausea July 19, 2025 3:42pm Additional Source Comments (unrecognized sect ion and content) No Status Records FoundNo Status Records FoundNo Status Records FoundNo Status Records FoundNo Status Records FoundNo Status Records Found INFORMATION SOURCE (unrecogn ized section and content) DATE CREATED AUTHOR 06/05/2025 [facility] DATE CREATED AUTHOR AUTHOR'S ORGANIZ ATION 07/25/2025 [facility] DATE CREATED AUTHOR AUTHOR'S ORGANIZ ATION 07/29/2025 [facility] DATE CREATED AUTHOR AUTHOR'S ORGANIZ ATION 08/28/2025 [facility] DATE CREATED AUTHOR AUTHOR'S ORGANIZ ATION 09/02/2025 [facility] DATE CREATED AUTHOR AUTHOR'S ORGANIZ ATION 09/03/2025 [facility] nter Care Teams (unrecognized sec tion and [...] ONCOLOGY Self, Self Ricki Jones MD, PhD [address] [place] [address] Phone: tel: fax: Referral ID Status Reason Start Date Expiration Date Visits Re quested Visits Authorized [id number] Closed 08/26/2025 09/20/2026 1 1 FOR RECORDS [...] BE BASED ON THE PRIMARY CLINICAL RECORDS. [facility]. provides no warranty or guarantee of the accuracy or completeness of information in this document."
--- NOTE | 2025-10-17 00:30 | HP.PCM.HOS_ITS ---
HPI - General General Date of Admission: 10/16/25 Chief Complaint: Fever HPI Narrative GARRY HECK, is a 45 M who presents for fever and sore throat. Patient has history of stage IV renal cell carcinoma on the checkpoint inhibitor nivolumab at [facility] that started in July 2025. He has brain metastasis on Keppra. Patient had a fever but denies any other symptoms suggesting any source of infection apart from sore throat. No abdominal pain, no vomiting, no diarrhea, no cough or sputum, no dysuria, no new rashes, no change in consciousness or mentation, no seizures, no dysuria or bloody urine. Patient states that he has been taking Tylenol and sometimes ibuprofen for fever at home. In the ED, evaluation showed that his creatinine is 2.2 and he does not have CKD, of note recent labs early in September it was 1.2 and it was gradually going up from 1.2 in August and 0.8 in July. Also hemoglobin 8.7 which is slightly dropped from his recent labs done outside which was 9.7 earlier in September. Lactic acid 1.2 AST 100, ALT 140 and alkaline phosphatase 261 which are new for him as well. Check for inhibitors can cause myriad of systemic side effects including hepatotoxicity. His INR is normal Patient received 1500 mL normal saline in the ED, he will be admitted to hospital to monitor his kidney function and obtain images to evaluate for any obstructive nephropathy because of his cancer. Also [facility], [facility] Medical History (Updated 10/17/25 @ 00:[address] Conor Cardoza MD) Hx of cancer of lung History of brain tumor Cancer of kidney Home Medications ?Medication ?Instructions ?Recorded ?Last Taken ?Type fluoxetine 20 mg capsule 20 mg PO DAILY 07/19/25 Unkn own History levetiracetam 500 mg tablet 500 mg PO BID 10/16/25 Unk nown History Allergy/AdvReac Type Severity Reaction Status Date / Time No Known Allergies Allergy Verified 10/16/25 18:26 Social History (System 07/27/25 @ 05:46 by Wendy Devine) Smoking Status: Former smoker ROS Constitutional Constitutional: Denies fever(s) or poor appetite ENT HEENT: Reports none Cardiovascular Cardiovascular: Denies chest pain or dyspnea Respiratory/Chest Respiratory/Chest: Denies cough or wheezing Gastrointestinal Gastrointestinal: Denies abdominal pain or change in bowel habits Genitourinary Genitourinary: Denies change in urinary stream or dysuria Musculoskeletal Musculoskeletal: Denies arthralgias or myalgias Integumentary Integumentary: Reports none Neurologic Neurologic: Denies abnormal speech, dizziness, focal weakness, loss of vision or numbness Hematologic/Lymphatic Hematologic/Lymphatic: Reports none Patient's Goals Of Care . What would you like to achieve or improve as a result of your hospital stay?: G et better Vital Signs Vital Signs Vital Signs: 10/16/25 18:25 10/16/25 20:00 10/16/25 20:00 Temperature 100.9 F H 100.7 F H Temperature Source Oral Oral Pulse Rate 86 86 Respiratory Rate 20 H 18 Respiratory Effort Normal Non-Labored Respiratory Pattern Normal Blood Pressure 125/75 H 112/82 H Blood Pressure Mean 91 92 Pulse Ox 100 100 Oxygen Delivery Method Room Air Room Air 10/16/25 21:00 10/16/25 22:00 10/16/25 23:00 Temperature 100.1 F H 99 F 98.9 F Temperature Source Oral Oral Oral Pulse Rate 83 85 78 Respiratory Rate 18 16 18 Respiratory Effort Respiratory Pattern Blood Pressure 115/69 110/73 124/74 H Blood Pressure Mean 84 85 90 Pulse Ox 98 94 96 Oxygen Delivery Method Room Air Room Air Room Air 10/16/25 23:21 10/17/25 00:00 Temperature 98.9 F 98.9 F Temperature Source Oral Pulse Rate 78 76 Respiratory Rate 18 16 Respiratory Effort Respiratory Pattern Blood Pressure 124/74 H 103/88 H Blood Pressure Mean 90 93 Pulse Ox 96 98 Oxygen Delivery Method Room Air Weight Weight: 76.2 kg Body Mass Index (BMI) 28.8 Physical Exam Const alert and oriented x3 HEENT normocephalic and head/scalp atraumatic Eyes EOMs intact bilaterally; Negative for no scleral icterus Neck supple Resp normal respiratory effort and clear to auscultation bilaterally Cardio regular rate and regular rhythm; Negative for no murmurs GI normal to inspection, nondistended, normoactive bowel sounds; Negative for non- tender no CVA tenderness Extremity no joint enlargement and no pedal edema Skin no rashes or lesions noted Neuro oriented x3 and moves all extremities Results Lab / Micro Data 10/16/25 20:05 10/16/25 20:08 Labs: Laboratory Results - last 24 hr 10/16/25 20:05: WBC 4.3 L, RBC 3.53 L, Hgb 8.7 L, Hct 27.7 L, MCV 78.5 L, MCH 24.6 L, MCHC 31.4 L, RDW Std Deviation 43.0, RDW Coeff of Benigno 14.9 H, Plt Count TNP, MPV TNP, Immature Gran % (Auto) 0.500, Neut % (Auto) 58.1, Lymph % (Auto) 29.4, [place] % (Auto) 8.3, Eos % (Auto) 3.2, Baso % (Auto) 0.5, Absolute Neuts (auto) 2.5, Absolute Lymphs (auto) 1.27, Nucleated RBC % 0, Platelet Estimate ADEQUATE 10/16/25 20:08: PT 14.5, INR 1.1, APTT 31.7, Sodium 135, Potassium 4.4, Chloride 102, Carbon Dioxide 21.8, Anion Gap 12, BUN 35 H, Creatinine 2.20 H, Estim Creat Clear Calc 39.17 L, Est GFR (MDRD) Non-Af 36 L, BUN/Creatinine Ratio 15.9, Glucose 91, Lactic Acid 1.2, Calcium 9.2, Total Bilirubin 0.31, AST 100 H, ALT 140 H, Alkaline Phosphatase 261 H, Total Creatine Kinase 22 L, Total Protein 7.2, Albumin 3.7, Globulin 3.4, Albumin/Globulin Ratio 1.1, Lipase 38 10/16/25 21:05: Urine Color Yellow, Urine Clarity Sl. Cloudy, Urine pH 5.0, Ur Specific [place] 1.020, Urine Protein 100 H, Urine Glucose (UA) Normal, Urine Ketones 5 H, Urine Occult Blood 10 H, Urine Nitrite Negative, Urine Bilirubin 1 H, Urine Urobilinogen Normal, Ur Leukocyte Esterase 25 H, Urine RBC 0-5 SEEN, Urine WBC 0-5 SEEN, Ur Squamous Epith Cells 0-5 SEEN, Amorphous Sediment 2+, Urine Bacteria 2+, Urine Mucus 0 SEEN Micro: Microbiology 10/16/25 20:05 Mucosa - Nose SARS-CoV-2, Influenza & RSV (PCR) - Final Imaging Radiology Impression Chest X-Ray 10/16/25 20:20 IMPRESSION: No Acute Findings. Reading Location: [facility] Assessment & Plan Assessment/Plan (1) CR (acute kidney injury): (2) Elevated transaminase level: (3) Anemia: QUALIFIERS: Anemia type: unspecified type Qualified Code(s): D 64.9 - Anemia, unspecified (4) Adverse effect of immune checkpoint inhibitor: QUALIFIERS: Encounter type: initial encounter Qualified Code(s): T45.AX5A - Adverse effect of immune checkpoint inhibitors and immunostimulant drugs, initial encounter (5) Stage IV adenocarcinoma of kidney: QUALIFIERS: Laterality: unspecified laterality Qualified Code(s): C64.9 - Malignant neoplasm of unspecified kidney, except renal pelvis PLAN: Plan Admission to [facility], creatinine 2.2 which is abnormal, last value was 1.2 on September 29. He uses NSAIDs. No sources of fluid losses. No rhabdo, no new medications except his immunotherapy but urine is clear. Continue some fluids with Ringer lactate for 1 more liter Repeat kidney function to see improvement. Basic workup include CK (normal). UA without pyuria making infection or immune- nephritis from checkpoint inhibitors unlikely Advised to avoid NSAIDs CT abdomen/pelvis to assess for any urinary obstruction by the cancer. Also to assess the liver and biliary tree given the elevated ALT AST and alk phos. ALT, AST slightly elevated. Normal liver function (normal INR). If CT is negative then it is probably nivolumab side effect and can be monitored Sepsis Attestation Sepsis Attestation: Sepsis Ruled Out Charges/Coding Visit Charges Inpatient E&M: 03135 Init Hosp L3
[2025-10-17] MEDS: Lactated Ringers 1,000 ML 125 ML IV ×2 (01:27→15:22)
[2025-10-17] MEDS: 0.9% Normal Saline (250mL Bag) 250 ML 15 ML IV (05:38)
[2025-10-17] MEDS: Ceftriaxone 2 GM in 0.9% Normal Saline (50mL MB+) 50 ML IV (05:38)
[2025-10-17] MEDS: Azithromycin 500 MG in 0.9% Normal Saline (250mL Bag) 250 ML 250 MG IV (06:25)
[2025-10-17 06:42] LABS: Hematocrit 23.1 % (40-54); Hemoglobin 7.5 g/dL (13.0-16.5); Immature Granulocytes Count 0.020 X10^3/uL (0.0-0.0); Mean Corp Hgb Conc 32.5 g/dL (32-36); Mean Corpuscular Volume 76.7 fL (80-94); Mean Platelet Vol. 11.7 fl (6.2-12.0); NRBC Flagged by Analyzer 0 % (0-5); POSITIVE MORPHOLOGY YES; Platelet Count 132 K/mm3 (150-450); RBC Distribution Width CV 14.9 % (11.6-14.6); RBC Distribution Width SD 41.5 fl (35.1-43.9); Red Blood Count 3.01 M/mm3 (4.6-6.2); White Blood Count 4.0 K/mm3 (4.4-11.0)
[2025-10-17 06:43] LABS: Differential Indicated SCAN CRITERIA MET
[2025-10-17 06:51] LABS: Prothrombin Time (Protime)PT. 14.7 SECONDS (11.7-14.9)
[2025-10-17 07:14] LABS: AST(SGOT) 83 U/L (<=37); Alanine Aminotransfer ALT/SGPT 122 U/L (<=46); Albumin, Serum 3.3 g/dL (3.5-5.0); Alkaline Phosphatase 219 U/L (40-129); Anion Gap 11 (7-18); BUN 39 mg/dL (4-19); BUN/Creat Ratio 17.9 RATIO (10-20); Bilirubin, Direct 0.17 mg/dL (0.00-0.30); Calcium,Total 8.2 mg/dL (7.6-11.0); Carbon Dioxide 20.2 mmol/L (20.0-29.0); Chloride 105 mmol/L (96-106); Estimated Creatinine Clearance 40.64 ml/min (50-250); Globulin 3.0 g/dL (2.2-4.2); Glucose 100 mg/dL (70-99); Magnesium 2.0 mg/dL (1.5-2.2); Potassium 4.4 mmol/L (3.5-5.1)
--- NOTE | 2025-10-17 07:32 | US_ITS ---
EXAM: US Retroperitoneal Limited, Renal CLINICAL INDICATION: ? HYDRO TECHNIQUE: Real-time limited ultrasound of the retroperitoneum with image documentation. COMPARISON: No relevant prior studies available. FINDINGS: RIGHT KIDNEY: Unremarkable. No stones. No hydronephrosis. The right kidney measures 12.7 x 4.8 x 5.0 cm. LEFT KIDNEY: Left kidney has a lobulated appearance with irregular structure with vascularity within the renal pelvis. Associated severe left hydroureteronephrosis. Findings likely correspond to neoplasm. This is better demonstrated on CT abdomen and pelvis 10/17/2025. No stones. The left kidney measures 13.4 x 5.6 x 5.6 cm. BLADDER: Urinary bladder is not well distended. Prevoid volume 52 cc. Urinary bladder thickness 7 mm. US/Kidney and Bladder IMPRESSION: Left kidney has a lobulated appearance with irregular structure with vascularit y within the renal pelvis. Associated severe left hydroureteronephrosis. Findings likely correspond to neoplasm. This is better demonstrated on CT abdomen and pelvis 10/17/2025. Reading Location: [id number]
--- NOTE | 2025-10-17 07:33 | PCM.PN.HOSP ---
Reason for Visit Chief Complaint: Fever Objective Data Objective Data Vital Signs: Vital Signs Temp Pulse Resp BP Pulse Ox O2 Del Method O2 Flow Rate 98.9 F 104 H 28 H 129/71 H 92 Room Air 3 10/17/25 07:00 10/17/25 07:00 10/17/25 07:00 10/17/25 07:00 10/17/25 07:00 10/17/25 07:00 10/17/25 06:17 Oxygen Flow Rate (L/min) 3 Oxygen Delivery Method Room Air Weight: 75.841 kg Body Mass Index (BMI) 27.8 Intake & Output: Intake and Output for Last 24 Hours 10/15/25 10/16/25 10/17/25 23:59 23:59 23:59 Intake Total 500 / 500 9.67 / 1928. Balance 500 / 500 1928. / 1928. Lab / Micro Data 10/17/25 05:56 10/17/25 05:56 Labs: Laboratory Results - last 24 hr 10/16/25 20:05: WBC 4.3 L, RBC 3.53 L, Hgb 8.7 L, Hct 27.7 L, MCV 78.5 L, MCH 24.6 L, MCHC 31.4 L, RDW Std Deviation 43.0, RDW Coeff of Benigno 14.9 H, Plt Count TNP, MPV TNP, Immature Gran % (Auto) 0.500, Neut % (Auto) 58.1, Lymph % (Auto) 29.4, [place] % (Auto) 8.3, Eos % (Auto) 3.2, Baso % (Auto) 0.5, Absolute Neuts (auto) 2.5, Absolute Lymphs (auto) 1.27, Nucleated RBC % 0, Platelet Estimate ADEQUATE 10/16/25 20:08: PT 14.5, INR 1.1, APTT 31.7, Sodium 135, Potassium 4.4, Chloride 102, Carbon Dioxide 21.8, Anion Gap 12, BUN 35 H, Creatinine 2.20 H, Estim Creat Clear Calc 39.17 L, Est GFR (MDRD) Non-Af 36 L, BUN/Creatinine Ratio 15.9, Glucose 91, Lactic Acid 1.2, Calcium 9.2, Total Bilirubin 0.31, AST 100 H, ALT 140 H, Alkaline Phosphatase 261 H, Total Creatine Kinase 22 L, Total Protein 7.2, Albumin 3.7, Globulin 3.4, Albumin/Globulin Ratio 1.1, Lipase 38 10/16/25 21:05: Urine Color Yellow, Urine Clarity Sl. Cloudy, Urine pH 5.0, Ur Specific [place] 1.020, Urine Protein 100 H, Urine Glucose (UA) Normal, Urine Ketones 5 H, Urine Occult Blood 10 H, Urine Nitrite Negative, Urine Bilirubin 1 H, Urine Urobilinogen Normal, Ur Leukocyte Esterase 25 H, Urine RBC 0-5 SEEN, Urine WBC 0-5 SEEN, Ur Squamous Epith Cells 0-5 SEEN, Amorphous Sediment 2+, Urine Bacteria 2+, Urine Mucus 0 SEEN 10/17/25 05:56: WBC 4.0 L, RBC 3.01 L, Hgb 7.5 L, Hct 23.1 L, MCV 76.7 L, MCH 24.9 L, MCHC 32.5, RDW Std Deviation 41.5, RDW Coeff of Benigno 14.9 H, Plt Count 132 L, MPV 11.7, Immature Gran % (Auto) 0.500, Neut % (Auto) 64.8, Lymph % (Auto) 22.3, [place] % (Auto) 9.2, Eos % (Auto) 3.0, Baso % (Auto) 0.2, Absolute Neuts (auto) 2.6, Absolute Lymphs (auto) 0.90, Nucleated RBC % 0, PT 14.7, INR 1.1, Sodium 136, Potassium 4.4, Chloride 105, Carbon Dioxide 20.2, Anion Gap 11, BUN 39 H, Creatinine 2.16 H, Estim Creat Clear Calc 40.64 L, Est GFR (MDRD) Non-Af 37 L, BUN/Creatinine Ratio 17.9, Glucose 100 H, Calcium 8.2, Magnesium 2.0, Total Bilirubin 0.29, Direct Bilirubin 0.17, AST 83 H, ALT 122 H, Alkaline Phosphatase 219 H, Total Protein 6.2, Albumin 3.3 L, Globulin 3.0 Micro: Microbiology 10/16/25 20:05 Mucosa - Nose SARS-CoV-2, Influenza & RSV (PCR) - Final Radiography Diagnostic Testing: Radiology Impression Chest X-Ray 10/16/25 20:20 IMPRESSION: No Acute Findings. Reading Location[facility] Abdomen/Pelvis CT 10/17/25 00:00 IMPRESSION: Left renal exophytic neoplastic mass infiltrating the renal pelvis and inducing moderate to marked hydronephrotic changes with local infiltration and vascular involvement as detailed. Advise clinical and prior studies correlation. Rest of the study findings as detailed. Reading Location[facility]
[2025-10-17 09:07] LABS: Procalcitonin 0.64 ng/mL (<=0.10)
[2025-10-17] MEDS: Heparin Injection (Vial) 5,000 UNIT/ML VIAL 5000 UNIT SC (10:02)
[2025-10-17 10:54] LABS: Creatinine, Urine (random) 282.00 mg/dL (39.00-259.00)
--- NOTE | 2025-10-17 12:08 | NURSING ---
facesheet faxed to [facility] transfer center.
[2025-10-17] MEDS: 0.9% Saline Lock 10 ML Syringe IV (15:19)
[2025-10-17] MEDS: Vancomycin HCl 1,750 MG in 0.9% Normal Saline (500mL Bag) 500 ML 250 MG IV (15:21)
[2025-10-17] MEDS: Ensure Plus High Protein 120 ML LIQUID PO ×2 (15:22→18:16)
--- NOTE | 2025-10-17 15:33 | PCM.RX.CS ---
Consult Antibiotic Management Pharmacy has been consulted to manage selected antibiotic: Vancomycin Type of Intervention Type of Consult: New start Suspected Infection Suspected Infection: Other Labs Labs: Sodium 136 mmol/L (135-145) 10/17/25 05:56 Potassium 4.4 mmol/L (3.5-5.1) 10/17/25 05:56 Chloride 105 mmol/L (96-106) 10/17/25 05:56 Carbon Dioxide 20.2 mmol/L (20.0-29.0) 10/17/25 05:56 Anion Gap 11 (7-18) 10/17/25 05:56 BUN 39 mg/dL (4-19) H 10/17/25 05:56 Creatinine 2.16 mg/dL (0.70-1.20) H 10/17/25 05:56 Est GFR (MDRD) Non-Af 37 (>60) L 10/17/25 05:56 BUN/Creatinine Ratio 17.9 RATIO (10-20) 10/17/25 05:56 Glucose 100 mg/dL (70-99) H 10/17/25 05:56 Microbiology Microbiology: Microbiology 10/16/25 20:05 Mucosa - Nose SARS-CoV-2, Influenza & RSV (PCR) - Final Dosing Weight Weight used for dosin.8 kg Estimated Creatinine Clearance Estimated Creatinine Clearance: 40.6 Goal Trough Goal Trough: 15-20 mcg/mL Pharmacy Plan for Drug Dosing Pharmacy Plan for Drug Dosing: Pharmacy Service will continue to monitor and adjust dosing as required. NEW START IV VANCOMYCIN Consulting Physician: Dr. Ray Indication: Fever on immunosuppressant medication Goal Trough: 15-20 SCr: 2.16 CrCl: 40.6 mL/min Vancomycin Dose: 1000 mg Q12H with first dose 10/18 @ 0300 Pending Level: 10/19/25 @ 0230 Date/Time Labs Ordered Labs to be done on [date and time ordered]: 10/19/25 @ 0230
[2025-10-17] MEDS: Piperacil/Tazobactam 3.375 GM in 0.9% Normal Saline (50mL MB+) 50 ML IV (16:13)
--- NOTE | 2025-10-17 16:54 | NURSING ---
received call from [facility] transfer center bed assignment [facility] main taos bed [id number] nurse to nurse #[phone]
--- NOTE | 2025-10-17 17:05 | PCM.DC.SUM ---
Providers Date of Admission: 10/16/25 Date of Discharge: 10/17/25 Primary Care Physician: Dr. Larry Dickinson MD Reason For Visit: CR Diagnosis Discharge Diagnosis (1) CR (acute kidney injury): Status: Acute Code(s): N17.9 - Acute kidney failure, unspecified (2) Elevated transaminase level: Status: Acute Code(s): R74.01 - Elevation of levels of liver transaminase levels (3) Anemia: Status: Acute Code(s): D64.9 - Anemia, unspecified Qualifiers: Anemia type: unspecified type Qualified Code(s): D64.9 - Anemia, unspecified (4) Adverse effect of immune checkpoint inhibitor: Status: Acute Code(s): T45.AX5A - Adverse effect of immune checkpoint inhibitors and immunostimulant drugs, initial encounter Qualifiers: Encounter type: initial encounter Qualified Code(s): T45.AX5A - Adverse effect of immune checkpoint inhibitors and immunostimulant drugs, initial encounter (5) Stage IV adenocarcinoma of kidney: Status: Acute Code(s): C64.9 - Malignant neoplasm of unspecified kidney, except renal pelvis Qualifiers: Laterality: unspecified laterality Qualified Code(s): C64.9 - Malignant neoplasm of unspecified kidney, except renal pelvis Medications at Discharge Home Medications fluoxetine 20 mg capsule 20 mg PO DAILY 07/19/25 levetiracetam 500 mg tablet 500 mg PO BID 10/16/25 Hospital Course Operations None Procedures - (Chest x-ray/CT abdomen pelvis/renal ultrasound) Summary of Care Provided Minutes Spent on Discharge: 38 Hospital Course: Mr. Hernandez is a 45-year-old white male who presented to the emergency department at [facility] on 10/16/2025 with a chief complaint of fever and sore throat. The patient was diagnosed in June 2025 with stage IV renal cell carcinoma and placed on nivolumab. He follows at [facility] for oncology. He also has known brain metastasis as well as Keppra. The patient reported only pharyngitis in addition to his fever on presentation and had no abdominal pain, no vomiting or diarrhea, no nausea, he did not have any cough or shortness of breath. He denied any sick contacts. He said no new seizures and had no urinary symptoms. Patient had been taking Tylenol and intermittently taking ibuprofen at home. Vital signs on presentation showed temperature of 100.9. His Tmax while hospitalized was 103. Heart rate was 86, respiratory was 20, blood pressure was 125/95 and pulse ox was 100% on room air. CBC showed pancytopenia with a white count of 4.3, hemoglobin of 8.7, platelet count of 132,000. I am unclear what his current counts are as were his previous counts were obtained at the time of presentation just prior to diagnosis. Coags were normal. Chemistry panel showed new CR with a serum creatinine of 2.2. Baseline appears to be around 0.9-1.0. Again, those were obtained prior to his diagnosis and started on any immunomodulating therapy. Lactic acid on presentation was 1.2. He did have mild transaminitis with an AST of 100 and ALT of 140. Alk phos was 261. Bilirubin was normal. Procalcitonin was mildly elevated 0.64 however in the setting of CR unclear of the significance of this. His urine had leuk esterase and some occult blood but had no white cells. 2+ bacteria were present. He did not have any urinary symptoms. Chest x-ray had no acute findings. CT of the abdomen pelvis showed a left renal exophytic neoplastic mass infiltrating the renal pelvis and inducing a moderate to marked up amount of hydronephrotic changes with local infiltration and vascular involvement and no other significant abnormalities. Patient was admitted to the medical floor initially placed on ceftriaxone and azithromycin and IV fluids. IV fluids were discontinued as the patient became hypoxic through the night and was started on IV fluids. Repeat assessment of the CT showed some questionable fluid in the bases and there was concern by the health education specialist that he was having some volume overload. He was also started on azithromycin and ceftriaxone the time. Cultures were obtained prior to admission. I transitioned him over to vancomycin and Zosyn given ongoing fevers and immunosuppression. He was also reinitiated on IV fluids as he was able to be weaned to room air. We did obtain a renal ultrasound which showed left kidney with a lobulated appearance and irregular structure with vascularity within the renal pelvis and associated severe left hydroureteronephrosis. Given his complicated history and severe hydronephrosis and no urological coverage here transfer to tertiary sent to or was pursued. COVID/flu/RSV was unremarkable. He was accepted for transfer by Dr. Mccord and oncology at [facility] and a bed became available on 10/17/2025. Blood cultures and urine are pending at the time of discharge. 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 Seizures History of tobacco abuse Physical Exam Const alert, oriented x3, no apparent distress, no limitations and well nourished Constitutional Narrative: Very pleasant, Confucianism male, lying in bed, at bedside, appears ill but nontoxic General Appearance: cooperative, comfortable, well kempt and well developed Exam Limitations: no limitations Nutritional Appearance: overweight HEENT normocephalic, head/scalp atraumatic and hearing grossly normal bilaterally HEENT Narrative: Dentition is fair, Mallampati is 2, no thrush Resp normal respiratory effort, no retractions, no use of accessory muscles and clear to auscultation bilaterally Auscultation: Negative for crackles, rhonchi or wheezes Cardio regular rate, regular rhythm, S1 normal heart sound, S2 normal heart sound, no murmurs, no rub, no gallops and no clicks GI normal to inspection, nondistended, normoactive bowel sounds, soft to palpation and non-tender Extremity no clubbing, cyanosis or edema Extremity Narrative: 2+ pedal pulses Skin no jaundice, no petechiae and no mottling Neuro moves all extremities and no focal motor deficits Speech: speech normal Psych affect normal Psych Narrative: Eye contact is good, patient is very pleasant, interacts appropriately Weight / BMI Weight Weight: 75.841 kg Body Mass Index (BMI) 27.8 ABG / Lab / Microbiology Data 10/17/25 05:56 10/17/25 05:56 Laboratory: Laboratory Results - last 24 hr 10/16/25 20:05: WBC 4.3 L, RBC 3.53 L, Hgb 8.7 L, Hct 27.7 L, MCV 78.5 L, MCH 24.6 L, MCHC 31.4 L, RDW Std Deviation 43.0, RDW Coeff of Benigno 14.9 H, Plt Count TNP, MPV TNP, Immature Gran % (Auto) 0.500, Neut % (Auto) 58.1, Lymph % (Auto) 29.4, [place] % (Auto) 8.3, Eos % (Auto) 3.2, Baso % (Auto) 0.5, Absolute Neuts (auto) 2.5, Absolute Lymphs (auto) 1.27, Nucleated RBC % 0, Platelet Estimate ADEQUATE 10/16/25 20:08: PT 14.5, INR 1.1, APTT 31.7, Sodium 135, Potassium 4.4, Chloride 102, Carbon Dioxide 21.8, Anion Gap 12, BUN 35 H, Creatinine 2.20 H, Estim Creat Clear Calc 39.17 L, Est GFR (MDRD) Non-Af 36 L, BUN/Creatinine Ratio 15.9, Glucose 91, Lactic Acid 1.2, Calcium 9.2, Total Bilirubin 0.31, AST 100 H, ALT 140 H, Alkaline Phosphatase 261 H, Total Creatine Kinase 22 L, Total Protein 7.2, Albumin 3.7, Globulin 3.4, Albumin/Globulin Ratio 1.1, Lipase 38 10/16/25 21:05: Urine Color Yellow, Urine Clarity Sl. Cloudy, Urine pH 5.0, Ur Specific [place] 1.020, Urine Protein 100 H, Urine Glucose (UA) Normal, Urine Ketones 5 H, Urine Occult Blood 10 H, Urine Nitrite Negative, Urine Bilirubin 1 H, Urine Urobilinogen Normal, Ur Leukocyte Esterase 25 H, Urine RBC 0-5 SEEN, Urine WBC 0-5 SEEN, Ur Squamous Epith Cells 0-5 SEEN, Amorphous Sediment 2+, Urine Bacteria 2+, Urine Mucus 0 SEEN 10/17/25 05:56: WBC 4.0 L, RBC 3.01 L, Hgb 7.5 L, Hct 23.1 L, MCV 76.7 L, MCH 24.9 L, MCHC 32.5, RDW Std Deviation 41.5, RDW Coeff of Benigno 14.9 H, Plt Count 132 L, MPV 11.7, Immature Gran % (Auto) 0.500, Neut % (Auto) 64.8, Lymph % (Auto) 22.3, [place] % (Auto) 9.2, Eos % (Auto) 3.0, Baso % (Auto) 0.2, Absolute Neuts (auto) 2.6, Absolute Lymphs (auto) 0.90, Nucleated RBC % 0, PT 14.7, INR 1.1, Sodium 136, Potassium 4.4, Chloride 105, Carbon Dioxide 20.2, Anion Gap 11, BUN 39 H, Creatinine 2.16 H, Estim Creat Clear Calc 40.64 L, Est GFR (MDRD) Non-Af 37 L, BUN/Creatinine Ratio 17.9, Glucose 100 H, Calcium 8.2, Magnesium 2.0, Total Bilirubin 0.29, Direct Bilirubin 0.17, AST 83 H, ALT 122 H, Alkaline Phosphatase 219 H, Total Protein 6.2, Albumin 3.3 L, Globulin 3.0, Procalcitonin 0.64 H 10/17/25 10:05: Ur Random Sodium < 20, Urine Creatinine 282.00 H Microbiology: Microbiology 10/16/25 20:05 Mucosa - Nose SARS-CoV-2, Influenza & RSV (PCR) - Final Radiography Diagnostic Testing: Radiology Impression Chest X-Ray 10/16/25 20:20 IMPRESSION: No Acute Findings. Reading [facility]/Pelvis CT 10/17/25 00:00 IMPRESSION: Left renal exophytic neoplastic mass infiltrating the renal pelvis and inducing moderate to marked hydronephrotic changes with local infiltration and vascular involvement as detailed. Advise clinical and prior studies correlation. Rest of the study findings as detailed. Reading [facility] 10/17/25 07:32 IMPRESSION: Left kidney has a lobulated appearance with irregular structure with vascularity within the renal pelvis. Associated severe left hydroureteronephrosis. Findings likely correspond to neoplasm. This is better demonstrated on CT abdomen and pelvis 10/17/2025. Reading Location: [id number] D/C Instructions DC O2, CPAP, BIPAP Needs Home O2 Discharge instructions: No DC home with Oxygen: No Patient's Goals Of Care - F/U Goals Reviewed Goals of care reviewed with patient: Yes - No change Meaningful Use Info Meaningful Use Meaningful Use Diagnoses (Choose all that apply): None applicable Discharge Plan Admission Admit Date/Time: 10/16/25 23:48 Primary Reason for Your Visit: Fever Attending Provider: Jessica Ray Primary Care Provider: Larry Dickinson Consulting Providers: Conor Cardoza Discharge Orders/Prescriptions Prescriptions: No Action fluoxetine 20 mg capsule 20 mg PO DAILY levetiracetam 500 mg tablet 500 mg PO BID Referrals / Follow Up: Larry Dickinson MD [Primary Care Provider, Medical] Disposition Disposition (needs filled in before D/C Order can be placed): Acute Care Hospital Charges/Coding Visit Charges Inpatient E&M: 88219 Disch Hosp >30min
--- NOTE | 2025-10-17 18:02 | NURSING ---
Nurse to nurse report given to Roseanne @ [facility]. Notified of transport time 1900.
== END 2025-10-17 20:00 | disposition short-term general hospital (02) | DRG 694 ==
LOC: ED 20:14 → MS3 10-17 00:25
PROVIDERS: Admitting Provider Internal Medicine; Emergency Provider Emergency Medicine; PCP Family Medicine; Visit Provider Internal Medicine
DX: N13.39 Other hydronephrosis (principal); C79.31 Secondary malignant neoplasm of brain; D61.818 Other pancytopenia; C64.2 Malignant neoplasm of left kidney, except renal pelvis; N17.9 Acute kidney failure, unspecified; R50.9 Fever, unspecified; R74.01 Elevation of levels of liver transaminase levels; R09.02 Hypoxemia; Z79.899 Other long term (current) drug therapy; Z85.118 Personal history of other malignant neoplasm of bronchus and lung; Z87.891 Personal history of nicotine dependence
CPT/HCPCS: 36415; 71045; 74176; 76770; 80048; 80053; 80076; 81001; 82550; 82570; 83605; 83690; 83735; 84145; 84300; 85025; 85610; 85730; 87040; 87086; 87631; 93005; 94668; 97802; 99285; A4216; J0696